=== PATIENT | female | born 1965 | race Caucasian/White ===

== ENCOUNTER → 2017-03-29 14:50 | Outpatient (CLI) | payer MEDICARE, OTHER, SELFPAY ==
--- NOTE | 2017-03-29 15:06 | XR_ITS ---
XR foot RT min 3V HISTORY: ITS.REASON: LT PERNOEAL TENDONITIS, FOOT PAIN, HX FX ORDERING PHYSICIAN: Denise Huertas DPM PATIENT AGE: 52 years COMPARISON: 04/03/2014 FINDINGS: Weightbearing views are performed. There is normal alignment No fracture or dislocation. No lytic or blastic change. There is normal mineralization.. The joint spaces are well-preserved. No significant degenerative/arthritic changes. No erosive changes evident. Mild hypertrophic changes are present dorsally at the navicular cuneiform joint. Mildly prominent calcaneal spur 9 mm. Previously noted fracture at the base of the proximal phalanx of the fifth toe is no longer apparent. IMPRESSION: 1. Calcaneal spur without obvious erosion. Mild bony hypertrophy at the navicular cuneiform junction dorsally 2. Otherwise negative
--- NOTE | 2017-03-29 15:06 | XR_ITS ---
XR foot LT min 3V HISTORY: Left foot pain ORDERING PHYSICIAN: Denise Huertas DPM PATIENT AGE: 52 years COMPARISON: 07/19/2007 FINDINGS: Weightbearing views are performed. There is normal alignment. Calcaneal spurs present at 9 mm without evidence of erosion at the spur. Enthesophyte is present at the Achilles insertion. There are bony hypertrophic changes at the neck of the talus and at the navicular cuneiform junction. No fracture or dislocation. No significant osteoarthritic change. IMPRESSION: 1. Bony hypertrophic changes including a calcaneal spur. 2. Otherwise negative
== END ==
PROVIDERS: PCP Emergency Medicine; Visit Provider Podiatrist
DX: M76.72 Peroneal tendinitis, left leg (principal)
CPT/HCPCS: 73630

== ENCOUNTER → 2017-04-17 16:43 | Outpatient (CLI) | payer MEDICARE, OTHER, SELFPAY ==
[2017-04-17 19:45] LABS: Amphetamine/Metha Screen,Urine Negative ng/mL (<1000); Barbiturates Screen,Urine Negative ng/mL (<200); Benzodiazepines Screen,Urine Negative ng/mL (200); Cannabinoid Screen,Urine Negative ng/mL (<50); Cocaine Screen,Urine Negative ng/g (<300); Methadone Screen,Urine Negative ng/mL (<300); Opiate Screen,Urine Positive ng/mL (<300); Phencyclidine Screen,Urine Negative ng/mL (<25)
[2017-04-29 23:07] LABS: Oxycodone (GC/MS) 6500 ng/mL (Cutoff=100)
[2017-04-30 02:15] LABS: Opiates Negative (Cutoff=100); Oxymorphone (GC/MS) 392 ng/mL (Cutoff=100)
== END ==
PROVIDERS: PCP Emergency Medicine; Visit Provider Anesthesiology
DX: Z79.899 Other long term (current) drug therapy (principal)
CPT/HCPCS: 80305; 80361; 80365; G0480

== ENCOUNTER → 2017-05-15 14:11 | Outpatient (POV) | payer MEDICARE, OTHER, SELFPAY ==
[2017-05-15 14:28] VITALS: BP 156/83; PULSE 78; RESP 78; TEMP 36.4; BMI 51.3
--- NOTE | 2017-05-15 15:05 | HMH.PAINSOAP ---
[facility] Pain Management SOAP Note Subjective:: This patient is a pleasant 52-year-old white female who presents today for medication refills. We are treating her for chronic pain secondary to degenerative disc disease of the lumbar spine and lumbar radiculopathy. She also has lumbar postlaminectomy syndrome and right-sided trigeminal neuralgia. Patient states that her back pain is doing better. She rates her pain a 6 out of 10 today. She states that movement increases her pain while rest decreases it. However she is having some increase in her facial pain. Patient is unable to take Lyrica due to weight gain. Patient unable to take gabapentin due to side effects. Patient is currently being medically managed with Percocet 5 mg 1 p.o. twice daily. Patient reports that this helps her pain 50-75%. Denies any side of this medicine patient also wants to discuss trigeminal neuralgia treated. Patient has been seen by Dr. Mayo in the past but has not had a recent appointment. Patient's Lissette #[id number] reviewed and appropriate. ROS General: Recent weight, no fever, no sleep disturbances Respiratory: no cough, no shortness of air, no recurring pulmonary infections Cardiovascular/Peripheral Vascular: No chest pain, No palpitations, no edema, no shortness of breath. Gastrointestinal: no incontinence, normal bowel movements reported Genitourinary: no incontinence Musculoskeletal: Back pain, bilateral leg pain Psychiatric: normal mood/ affect Neurological: [denies weakness in extremities], [denies balance issues] Objective:: Physical Exam General: Alert and oriented x3, no acute distress, pleasant and cooperative, [on room air] Lungs: Resps E/U, Symmetrical chest expansion, Eyes: PERRL Musculoskeletal: Flexion and extension of lumbar spine somewhat guarded secondary to pain, deep tendon reflexes normal, strength in upper and lower extremities [5/5], normal gait noted Neurological: speech clear, tool design draftsperson equal, no gross sensory deficits Assessment:: Degenerative disc disease of the lumbar spine, lumbar radiculopathy, lumbar postlaminectomy syndrome, right trigeminal neuralgia Plan:: We will plan on refilling the patient's Percocet 5 mg 1 p.o. twice daily. We will give her 2 prescriptions. I spoke with Dr. briceño regarding this and he has reviewed her chart and agrees. She will return to see us in 3 months. Patient's LISSETTE #[id number] reviewed and appropriate. Patient's UDS was appropriate last time. We will continue to monitor. I will also call her in SPRIX nasal spray one bottle. We will see if this helps her trigeminal neuralgia. I also stated she needed to see Dr. Mayo. Patient has been prescribed a controlled substance after being counseled on the medication, medication safety, and possible side effects. LISSETTE report has been obtained and reviewed prior to prescription and found to be appropriate. Opioid contract was reviewed and signed by the patient, and that they have agreed to all of the terms set forth by our compliance program. This note was dictated using voice recognition software and may contain errors or omissions
--- NOTE | 2017-05-15 15:10 | P.CONS_ITS ---
[facility] Pain Management SOAP Note Subjective:: This patient is a pleasant 52-year-old white female who presents today for medication refills. We are treating her for chronic pain secondary to degenerative disc disease of the lumbar spine and lumbar radiculopathy. She also has lumbar postlaminectomy syndrome and right-sided trigeminal neuralgia. Patient states that her back pain is doing better. She rates her pain a 6 out of 10 today. She states that movement increases her pain while rest decreases it. However she is having some increase in her facial pain. Patient is unable to take Lyrica due to weight gain. Patient unable to take gabapentin due to side effects. Patient is currently being medically managed with Percocet 5 mg 1 p.o. twice daily. Patient reports that this helps her pain 50-75%. Denies any side of this medicine patient also wants to discuss trigeminal neuralgia treated. Patient has been seen by Dr. Mayo in the past but has not had a recent appointment. Patient's Lissette #[id number] reviewed and appropriate. ROS General: Recent weight, no fever, no sleep disturbances Respiratory: no cough, no shortness of air, no recurring pulmonary infections Cardiovascular/Peripheral Vascular: No chest pain, No palpitations, no edema, no shortness of breath. Gastrointestinal: no incontinence, normal bowel movements reported Genitourinary: no incontinence Musculoskeletal: Back pain, bilateral leg pain Psychiatric: normal mood/ affect Neurological: [denies weakness in extremities], [denies balance issues] Objective:: Physical Exam General: Alert and oriented x3, no acute distress, pleasant and cooperative, [ on room air] Lungs: Resps E/U, Symmetrical chest expansion, Eyes: PERRL Musculoskeletal: Flexion and extension of lumbar spine somewhat guarded secondary to pain, deep tendon reflexes normal, strength in upper and lower extremities [5/5], normal gait noted Neurological: speech clear, engrosser equal, no gross sensory deficits Assessment:: Degenerative disc disease of the lumbar spine, lumbar radiculopathy, lumbar postlaminectomy syndrome, right trigeminal neuralgia Plan:: We will plan on refilling the patient's Percocet 5 mg 1 p.o. twice daily. We will give her 2 prescriptions. I spoke with Dr. briceño regarding this and he has reviewed her chart and agrees. She will return to see us in 3 months. Patient's LISSETTE #[id number] reviewed and appropriate. Patient's UDS was appropriate last time. We will continue to monitor. I will also call her in SPRIX nasal spray one bottle. We will see if this helps her trigeminal neuralgia. I also stated she needed to see Dr. Mayo. Patient has been prescribed a controlled substance after being counseled on the medication, medication safety, and possible side effects. LISSETTE report has been obtained and reviewed prior to prescription and found to be appropriate. Opioid contract was reviewed and signed by the patient, and that they have agreed to all of the terms set forth by our compliance program. This note was dictated using voice recognition software and may contain errors or omissions
--- NOTE | 2017-05-16 08:59 | PC.PHONENOTE ---
05/15/17-called in Rx for Spirx 15.75mg. 1 spray in each nare q6hprn migraine. no refills.
--- NOTE | 2017-07-20 14:21 | PC.PHONENOTE ---
07/20/17 @ 1415. Pt contacted our office to notify staff of a medication that was prescribed to her from Dr. Marychuy Meza, [facility] in [place], [place]. Pt was prescribed Percoset 10 with quantity of 18 for as needed pain relief for getting a tooth pulled. Pt verbally understood to stop taking the medication Dr. Purdy has prescribed while taking the new medication.
== END ==
PROVIDERS: Family Provider Emergency Medicine; PCP Emergency Medicine; Visit Provider Clinical Nurse Specialist Family Health
DX: M54.16 Radiculopathy, lumbar region (principal)
CPT/HCPCS: 99212

== ENCOUNTER → 2017-06-05 16:11 | Outpatient (REF) | payer MEDICARE, OTHER, SELFPAY ==
[2017-06-05 18:12] LABS: Basophils % 0.4 % (0.1-2.0); Eosinophils # 0.1 K/mm3 (0.0-0.4); Eosinophils % 1.3 % (0.1-12.0); Hematocrit 41.7 % (37.0-47.0); Hemoglobin 12.8 g/dL (12.2-16.2); Lymphocytes # 2.5 K/mm3 (0.7-4.5); Lymphocytes % 29.3 K/mm3 (10-50); Mean Corpuscular HGB Conc 30.6 g/dL (31.8-35.4); Mean Corpuscular Hemoglobin 26.5 pg (27.0-31.2); Mean Corpuscular Volume 86.5 fl (81-99); Mean Platelet Volume 8.1 fl (7.4-10.4); Monocytes # 0.7 K/mm3 (0.1-1.0); Monocytes % 7.8 % (1.7-9.3); Neutrophils # 5.2 K/mm3 (1.8-7.8); Neutrophils % 61.2 % (37.0-80.0); Platelet Count 323 K/mm3 (142-424); Red Blood Count 4.82 M/mm3 (4.20-5.40); Red Cell Distribution Width 14.6 % (11.5-17.5); White Blood Count 8.6 K/mm3 (4.8-10.8)
[2017-06-05 19:25] LABS: Alanine Aminotransferase 19 U/L (12-78); Albumin Level 3.8 gm/dL (3.4-5.0); Albumin/Globulin Ratio 1.2 (1.1-1.8); Alkaline Phosphatase 121 U/L (46-116); Anion Gap 5.1 mEq/L (5-15); Aspartate Amino Transferase 12 U/L (15-37); Bilirubin,Total 0.2 mg/dL (0.2-1.0); Blood Urea Nitrogen 8 mg/dL (7-18); Carbon Dioxide 28 mmol/L (21.0-32.0); Chloride 105 mmol/L (98-107); Creatinine,Serum 0.67 mg/dL (0.55-1.02); Estimated Glomerular Filt Rate 92 ml/min (>60); Free T4 (Free Thyroxine) 0.86 ng/dl (0.76-1.46); GFR (African American) 111 ML/MIN (>60); Globulin 3.2 gm/dl (1.3-3.2); Glucose 127 mg/dL (74-106); Potassium 4.1 mmoL/L (3.5-5.1); Sodium 134 mmol/L (136-145); Thyroid Stimulating Hormone 2.33 uIU/ml (0.358-3.740)
== END ==
LOC: LAB 16:11
PROVIDERS: Visit Provider Emergency Medicine
DX: R53.83 Other fatigue (principal); R06.02 Shortness of breath
CPT/HCPCS: 80053; 84439; 84443; 85025

== ENCOUNTER 2017-06-07 10:00 | Outpatient (RCR) | payer MEDICARE, OTHER, SELFPAY | END 2017-06-07 12:00 | disposition home or self-care (01) | LOC: PT 10:00 | PROVIDERS: Family Provider Emergency Medicine; PCP Emergency Medicine; Visit Provider Podiatrist | DX: M76.70 Peroneal tendinitis, unspecified leg (principal); M79.673 Pain in unspecified foot | CPT/HCPCS: 97033; 97035; 97110 ==

== ENCOUNTER → 2017-06-20 12:05 | Outpatient (CLI) | payer MEDICARE, OTHER, SELFPAY | PROVIDERS: PCP Emergency Medicine; Visit Provider Emergency Medicine | DX: G47.33 Obstructive sleep apnea (adult) (pediatric) (principal) | CPT/HCPCS: G0399 ==

== ENCOUNTER → 2017-07-24 09:24 | Outpatient (POV) | payer MEDICARE, OTHER, SELFPAY ==
[2017-07-24 09:53] VITALS: BP 186/74; PULSE 69; RESP 18; TEMP 36.9; O2SAT 99; BMI 51.3
--- NOTE | 2017-07-24 10:17 | HMH.PAINSOAP ---
[facility] Pain Management SOAP Note Subjective:: Patient is a pleasant 52-year-old white female who presents today for follow-up. We are treating her for chronic pain secondary to degenerative disc disease of the lumbar spine and lumbar radiculopathy. Patient is currently in a lymphedema clinic. She states that this is going well for her. Patient rates her pain today a 3 out of 10. She states that movement increases her pain while rest decreases it. Patient's been currently medically managed with Percocet 5 mg 1 p.o. twice daily. Patient states she has no side effects to the medication. She states the pain medication helps 60-75%. Patient's LISSETTE #[id number] reviewed and appropriate. ROS General: no recent weight change, no fever, no sleep disturbances Respiratory: no cough, no shortness of air, no recurring pulmonary infections Cardiovascular/Peripheral Vascular: No chest pain, No palpitations, no edema, no shortness of breath. Gastrointestinal: no incontinence, normal bowel movements reported Genitourinary: no incontinence Musculoskeletal: Back pain, bilateral leg Psychiatric: normal mood/ affect, [denies depression], [denies anxiety] Neurological: [denies weakness in extremities], [denies balance issues] Objective:: Physical Exam General: Alert and oriented x3, no acute distress, pleasant and cooperative, [on room air] Lungs: Resps E/U, Symmetrical chest expansion, Eyes: PERRL Musculoskeletal: Flexion and extension of lumbar spine somewhat guarded secondary to pain, deep tendon reflexes normal, strength in upper and lower extremities [5/5], slightly antalgic gait Neurological: speech clear, newscast director equal, no gross sensory deficits Assessment:: Degenerative disc disease of the lumbar spine with lumbar radiculopathy, lumbar postlaminectomy syndrome Plan:: We will refill the patient's Percocet 5 mg's 1 p.o. twice daily we will give her 2 months worth of prescriptions. Patient's Lissette and urine drug screen both reviewed and appropriate. Dr. Purdy has reviewed this chart and agrees with this plan of care. She will return to see us in 3 months. 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 Patient has been prescribed a controlled substance after being counseled on the medication, medication safety, and possible side effects. LISSETTE report has been obtained and reviewed prior to prescription and found to be appropriate. Opioid contract was reviewed and signed by the patient, and that they have agreed to all of the terms set forth by our compliance program. This note was dictated using voice recognition software and may contain errors or omissions
--- NOTE | 2017-07-24 10:26 | P.CONS_ITS ---
[facility] Pain Management SOAP Note Subjective:: Patient is a pleasant 52-year-old white female who presents today for follow- up. We are treating her for chronic pain secondary to degenerative disc disease of the lumbar spine and lumbar radiculopathy. Patient is currently in a lymphedema clinic. She states that this is going well for her. Patient rates her pain today a 3 out of 10. She states that movement increases her pain while rest decreases it. Patient's been currently medically managed with Percocet 5 mg 1 p.o. twice daily. Patient states she has no side effects to the medication. She states the pain medication helps 60-75%. Patient's LISSETTE #[id number] reviewed and appropriate. ROS General: no recent weight change, no fever, no sleep disturbances Respiratory: no cough, no shortness of air, no recurring pulmonary infections Cardiovascular/Peripheral Vascular: No chest pain, No palpitations, no edema, no shortness of breath. Gastrointestinal: no incontinence, normal bowel movements reported Genitourinary: no incontinence Musculoskeletal: Back pain, bilateral leg Psychiatric: normal mood/ affect, [denies depression], [denies anxiety] Neurological: [denies weakness in extremities], [denies balance issues] Objective:: Physical Exam General: Alert and oriented x3, no acute distress, pleasant and cooperative, [ on room air] Lungs: Resps E/U, Symmetrical chest expansion, Eyes: PERRL Musculoskeletal: Flexion and extension of lumbar spine somewhat guarded secondary to pain, deep tendon reflexes normal, strength in upper and lower extremities [5/5], slightly antalgic gait Neurological: speech clear, geographic information scientist equal, no gross sensory deficits Assessment:: Degenerative disc disease of the lumbar spine with lumbar radiculopathy, lumbar postlaminectomy syndrome Plan:: We will refill the patient's Percocet 5 mg's 1 p.o. twice daily we will give her 2 months worth of prescriptions. Patient's Lissette and urine drug screen both reviewed and appropriate. Dr. Purdy has reviewed this chart and agrees with this plan of care. She will return to see us in 3 months. 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 Patient has been prescribed a controlled substance after being counseled on the medication, medication safety, and possible side effects. LISSETTE report has been obtained and reviewed prior to prescription and found to be appropriate. Opioid contract was reviewed and signed by the patient, and that they have agreed to all of the terms set forth by our compliance program. This note was dictated using voice recognition software and may contain errors or omissions
== END ==
PROVIDERS: Family Provider Emergency Medicine; PCP Emergency Medicine; Visit Provider Clinical Nurse Specialist Family Health
DX: M54.16 Radiculopathy, lumbar region (principal)
CPT/HCPCS: 99212

== ENCOUNTER → 2017-08-28 11:31 | Outpatient (CLI) | payer MEDICARE, OTHER, SELFPAY ==
--- NOTE | 2017-08-28 11:37 | XR_ITS ---
XR foot wt bearing LT 3V HISTORY: Pain and swelling and bruising ITS.REASON: pain ORDERING PHYSICIAN: Richard Squires MD PATIENT AGE: 52 years COMPARISON: None FINDINGS: No fracture or dislocation. No lytic or blastic change. There is normal mineralization.. The joint spaces are well-preserved. No significant degenerative/arthritic changes. No erosive changes evident. There is a prominent calcaneal spur at 14 mm along with mild hypertrophic changes along the mid aspect of the talus posteriorly and at the navicular cuneiform junction IMPRESSION: 1. No acute finding. 2. Mild degenerative changes
[2017-08-28 12:26] LABS: Basophils % 0.3 % (0.1-2.0); Eosinophils # 0.1 K/mm3 (0.0-0.4); Eosinophils % 1.7 % (0.1-12.0); Hematocrit 38.8 % (37.0-47.0); Hemoglobin 11.8 g/dL (12.2-16.2); Lymphocytes # 1.8 K/mm3 (0.7-4.5); Lymphocytes % 25.8 K/mm3 (10-50); Mean Corpuscular HGB Conc 30.4 g/dL (31.8-35.4); Mean Corpuscular Hemoglobin 25.8 pg (27.0-31.2); Mean Corpuscular Volume 84.9 fl (81-99); Mean Platelet Volume 7.2 fl (7.4-10.4); Monocytes # 0.5 K/mm3 (0.1-1.0); Monocytes % 7.3 % (1.7-9.3); Neutrophils # 4.6 K/mm3 (1.8-7.8); Platelet Count 275 K/mm3 (142-424); Red Blood Count 4.56 M/mm3 (4.20-5.40); Red Cell Distribution Width 14.9 % (11.5-17.5)
[2017-08-28 15:22] LABS: Anion Gap 13.4 mEq/L (5-15); Blood Urea Nitrogen 7 mg/dL (7-18); Calcium 8.9 mg/dL (8.5-10.1); Carbon Dioxide 29 mmol/L (21.0-32.0); Chloride 106 mmol/L (98-107); Creatinine,Serum 0.66 mg/dL (0.55-1.02); Estimated Glomerular Filt Rate 94 ml/min (>60); GFR (African American) 113 ML/MIN (>60); Glucose 101 mg/dL (74-106); Potassium 4.4 mmoL/L (3.5-5.1); Sodium 144 mmol/L (136-145)
== END ==
PROVIDERS: PCP Emergency Medicine; Referring Provider Surgery; Visit Provider Surgery
DX: Z01.818 Encounter for other preprocedural examination (principal); Z86.010 Personal history of colon polyps; Z80.0 Family history of malignant neoplasm of digestive organs
CPT/HCPCS: 36415; 73630; 80048; 85025

== ENCOUNTER 2017-09-10 11:00 | Outpatient (RCR) | payer MEDICARE, OTHER, SELFPAY ==
--- NOTE | 2017-07-05 10:51 | HMH.PTOPWND ---
Rehab Outpt Wound Evaluation Rehab OP Wound Evaluation Start: 07/05/17 10:45 Freq: Status: Active Protocol: Document 07/05/17 10:46 TRA (Rec: 07/05/17 10:51 PHOTONYA [id number]) Electronically Signed By Rush Zurita, PT 07/05/17 10:46 Subjective/History History History Pt presents with c/o left LE edema x ~ 2 mos, now beginning in thr right LE, with insidious greadual onset of symptoms. She reports pain with increased edema, but no numbness. 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 She reports hx of HTN, Sleep Apnea, Asthma, Trigeminal neuralgia, and gastric bypass. Lymphedema Eval Classification of Lymphedema Secondary Lymphedema Yes Stemmer's sign Stemmer's Sign no Stage of Lymphedema Lymphedema stages Stage I (Pitting edema, reduces w/ elevation, no fibrosis) Skin Changes Dry Skin Yes Pain Scale Pain Scale (0-10) 8 Affected Extremities Areas Affected by Lymphedema/Edema Right Lower Extremity Left Lower Extremity Manual Lymphatic Drainage Treatment Area MLD Treatment Area Right Lower Extremity Left Lower Extremity Wound Problems/Impairments Impairments Problems/Impairmments Palpation Tenderness Impaired Walking Increased Edema Lymphedema Present Subjective C/O Pain Impaired Self Care/Self Management Prognosis Rehab Potential Good Clinical Impression Consistent with Diagnosis Yes Short Term Goals Number of Weeks 4 Decreased Palpation Tenderness Yes: to min Decrease Subjective C/O Pain Yes: 6/10 Patient to Understand Lymphedema Yes Treatment and Exercises Decrease Girth Measurments by (cm) Yes: by 5 cm Senior Living Goals Number of Weeks 8 Decreased Palpation Tenderness Yes: to none Decrease Subjective C/O Pain Yes: 3/10 Patient to be Ind w/ HEP Yes Patient to Adhere Lymphedema Precautions Yes Decrease Girth Measurments by (cm) Yes: by 15 cm Outpatient Therapy Plan of Care Treatment Plan May Include Therapeutic Exercise Including Home Yes Exerci
--- NOTE | 2017-09-20 10:24 | PC.NURSE ---
FLEXERIL 10MG TID CALLED INTO SOPERS WITH 3 REFILLS
== END 2017-09-10 11:01 | disposition home or self-care (01) ==
LOC: PT 11:00
PROVIDERS: Family Provider Emergency Medicine; PCP Emergency Medicine; Visit Provider Podiatrist
DX: R60.0 Localized edema (principal)
CPT/HCPCS: 97110; 97140; 97162; 97760

== ENCOUNTER → 2017-09-28 13:14 | Outpatient (CLI) | payer MEDICARE, OTHER, SELFPAY ==
[2017-09-28 15:51] LABS: Amphetamine/Metha Screen,Urine Negative ng/mL (<1000); Barbiturates Screen,Urine Negative ng/mL (<200); Benzodiazepines Screen,Urine Negative ng/mL (<200); Cannabinoid Screen,Urine Negative ng/mL (<50); Cocaine Screen,Urine Negative ng/mL (<300); Methadone Screen,Urine Negative ng/mL (<300); Opiate Screen,Urine Negative ng/mL (<300); Phencyclidine Screen,Urine Negative ng/mL (<25)
== END ==
PROVIDERS: Visit Provider Anesthesiology
DX: Z79.899 Other long term (current) drug therapy (principal)
CPT/HCPCS: 80305; 80361; 80365; G0480

== ENCOUNTER → 2017-10-03 10:56 | Outpatient (CLI) | payer MEDICARE, OTHER, SELFPAY ==
--- NOTE | 2017-10-03 11:03 | XR_ITS ---
XR chest 2V HISTORY: ITS.REASON: LUNG MASS ORDERING PHYSICIAN: Angel Hancock PATIENT AGE: 52 years COMPARISON: CT scan of chest 05/01/2016 FINDINGS: The cardiomediastinal silhouette and pulmonary vascularity are within normal limits. The lungs are clear without infiltrates, suspicious nodules, or pleural effusions. No acute bony abnormalities. There is a tiny nodular density within the lingula probably representing a nodule seen on the CT scan 05/01/2016 the lung daigle are otherwise clear. There is multilevel degenerative changes of the thoracic spine. 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
== END ==
PROVIDERS: PCP Emergency Medicine; Visit Provider Allergy & Immunology
DX: R09.89 Other specified symptoms and signs involving the circulatory and respiratory systems (principal)
CPT/HCPCS: 71046

== ENCOUNTER → 2017-10-22 09:45 | Outpatient (POV) | payer MEDICARE, OTHER, SELFPAY ==
[2017-10-22 10:24] VITALS: BP 150/65; PULSE 82; RESP 18; O2SAT 98; BMI 51.2
--- NOTE | 2017-10-22 12:34 | HMH.PAINSOAP ---
[facility] Pain Management SOAP Note Subjective:: Patient is a pleasant 52-year-old white female who presents today for follow-up. We are treating her for chronic pain secondary to degenerative disc disease of lumbar spine and lumbar radiculopathy. Patient has finished with her lymphedema clinic as an is doing much better rates her pain a 4 out of 10 today. Mostly in her low back. Patient's currently being medically managed with Percocet 5 mg 1 p.o. twice daily. She denies side effects or medication she states that it helps up to 75%. Patient's LISSETTE #[id number] reviewed and appropriate. Patient's UDS has been appropriate in the past. ROS General: no recent weight change, no fever, no sleep disturbances Respiratory: no cough, no shortness of air, no recurring pulmonary infections Cardiovascular/Peripheral Vascular: No chest pain, No palpitations, no edema, no shortness of breath. Gastrointestinal: no incontinence, normal bowel movements reported Genitourinary: no incontinence Musculoskeletal: Back pain, leg pain Psychiatric: normal mood/ affect Neurological: [denies weakness in extremities], [denies balance issues] Objective:: Physical Exam General: Alert and oriented x3, no acute distress, pleasant and cooperative, on room air Lungs: Resps E/U, Symmetrical chest expansion, Eyes: PERRL Musculoskeletal: Flexion and extension of lumbar spine somewhat guarded secondary to pain, deep tendon reflexes normal, strength in upper and lower extremities [5/5], antalgic gait noted Neurological: speech clear, director special education equal, no gross sensory deficits Assessment:: Degenerative disc disease of lumbar spine with lumbar radiculopathy. Plan:: We will refill the patient's medication Percocet 5 mg 1 p.o. twice daily and give HER-2 months worth of prescriptions. Patient's Lissette and urine drug screen both reviewed and appropriate Dr. Purdy is reviewed this chart and agrees with this plan of care. She will return to see us in 3 months. She can brain picker her third month in the interim. Patient has been prescribed a controlled substance after being counseled on the medication, medication safety, and possible side effects. LISSETTE report has been obtained and reviewed prior to prescription and found to be appropriate. Opioid contract was reviewed and signed by the patient, and that they have agreed to all of the terms set forth by our compliance program. This note was dictated using voice recognition software and may contain errors or omissions
--- NOTE | 2017-10-22 12:38 | P.CONS_ITS ---
[facility] Pain Management SOAP Note Subjective:: Patient is a pleasant 52-year-old white female who presents today for follow- up. We are treating her for chronic pain secondary to degenerative disc disease of lumbar spine and lumbar radiculopathy. Patient has finished with her lymphedema clinic as an is doing much better rates her pain a 4 out of 10 today. Mostly in her low back. Patient's currently being medically managed with Percocet 5 mg 1 p.o. twice daily. She denies side effects or medication she states that it helps up to 75%. Patient's LISSETTE #[id number] reviewed and appropriate. Patient's UDS has been appropriate in the past. ROS General: no recent weight change, no fever, no sleep disturbances Respiratory: no cough, no shortness of air, no recurring pulmonary infections Cardiovascular/Peripheral Vascular: No chest pain, No palpitations, no edema, no shortness of breath. Gastrointestinal: no incontinence, normal bowel movements reported Genitourinary: no incontinence Musculoskeletal: Back pain, leg pain Psychiatric: normal mood/ affect Neurological: [denies weakness in extremities], [denies balance issues] Objective:: Physical Exam General: Alert and oriented x3, no acute distress, pleasant and cooperative, on room air Lungs: Resps E/U, Symmetrical chest expansion, Eyes: PERRL Musculoskeletal: Flexion and extension of lumbar spine somewhat guarded secondary to pain, deep tendon reflexes normal, strength in upper and lower extremities [5/5], antalgic gait noted Neurological: speech clear, contact manager equal, no gross sensory deficits Assessment:: Degenerative disc disease of lumbar spine with lumbar radiculopathy. Plan:: We will refill the patient's medication Percocet 5 mg 1 p.o. twice daily and give HER-2 months worth of prescriptions. Patient's Lissette and urine drug screen both reviewed and appropriate Dr. Purdy is reviewed this chart and agrees with this plan of care. She will return to see us in 3 months. 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 Patient has been prescribed a controlled substance after being counseled on the medication, medication safety, and possible side effects. LISSETTE report has been obtained and reviewed prior to prescription and found to be appropriate. Opioid contract was reviewed and signed by the patient, and that they have agreed to all of the terms set forth by our compliance program. This note was dictated using voice recognition software and may contain errors or omissions
== END ==
PROVIDERS: Family Provider Emergency Medicine; PCP Emergency Medicine; Visit Provider Clinical Nurse Specialist Family Health
DX: M54.16 Radiculopathy, lumbar region (principal)
CPT/HCPCS: 99212

== ENCOUNTER → 2017-12-11 08:04 | Outpatient (CLI) | payer MEDICARE, OTHER, SELFPAY ==
--- NOTE | 2017-12-11 08:07 | XR_ITS ---
XR shoulder RT min 2V HISTORY: ITS.REASON: pain ORDERING PHYSICIAN: Iliana Rod PATIENT AGE: 52 years Comparison: None FINDINGS: There are hypertrophic changes of the acromioclavicular joint with with postsurgical changes at the AC joint with suspected prior acromioclavicular osteotomy. Subacromial stenosis is present at 4 mm which may result in impingement symptomatology. There are mild osteoarthritic changes of the glenohumeral joint. No fracture or dislocation. No lytic or blastic change. IMPRESSION: Osteoarthritis of the glenohumeral joint with subacromial stenosis and hypertrophic change of the AC joint with prior surgery of the AC joint
== END ==
PROVIDERS: PCP Emergency Medicine; Visit Provider Nurse Practitioner Family
DX: M25.511 Pain in right shoulder (principal)
CPT/HCPCS: 73030

== ENCOUNTER → 2018-01-02 14:20 | Outpatient (CLI) | payer MEDICARE, OTHER, SELFPAY ==
--- NOTE | 2018-01-02 14:22 | MR_ITS ---
MR shoulder RT wo con Ordering Physician: Rm Altamirano MD Patient Age: 53 years: Female HISTORY: ITS.REASON: evaluate rotator cuff tear Prior surgery right shoulder 6 years ago for torn rotator cuff. Now again shoulder pain with chest pain. Shoulder blade pain. Pain with raising arm above head TECHNIQUE: Multiplanar multisequence imaging 1.5 the MRI. COMPARISON :Plain films right shoulder 12/11/2017 FINDINGS Postsurgical changes are evident with a screw seen entering just at the superior margin of the greater tuberosity from previous RCT repair. Other than a recurrent tear at the supraspinatus in this region probable generous tendon retraction. There appears to be some superior migration humeral head with narrowing of subacromial space of 4.5 mm there is some and cavity at the inferior acromion suggesting developing developing articulation a pseudarthrosis with humeral head at the inferior acromion. It Full-thickness rotator cuff tear at supraspinatus tendon and with associated tendon retraction..I believe there is also relative atrophy at the supraspinatus muscle suggesting long-standing supraspinatus tear. There is fluid at the subdeltoid subacromial bursa. Reflecting this full-thickness tear The biceps tendon poorly seen as it passes over the humeral head where at I cannot confirm it remains intact. The biceps tendon is seen surrounded by some minimal fluid at the bicipital groove.. With questionable split tear at this level below the bicipital groove infraspinatus tendon tendinopathy and insertional tear Suspect undersurface & likely focal full-thickness tear at infraspinatus tendon insertion, noting increased fluid here at infraspinatus insertion on coronal 4-, 6.... As well as corresponding axial image 12. Infraspinatus insertion erosion & humeral head... Also note abnormal fluid signal tracking along the infraspinatus tendon on studies the sagittal images-sagittal slice 12. Suggestion minor atrophy at the infraspinatus muscle Inferior to the infraspinatus there is prominent muscle. Atrophy at the Teres Minor. Requires correlation. Possibly reflecting old tear here at insertion? No increased signal of the innervation. There is increased bone signal at the teres minor insertion either reflecting which I believe reflect insertional erosions extending inferior from infraspinatus insertion region. AC joint arthropathy. There is some hypertrophy most evident about the superior margin of the distal clavicle. Perhaps slight inferior offset of acromion relative to the distal clavicle, with slight widening at this joint on recent plain film . There is increased Fluid is seen interposed at the AC joint- in part related tracking upward from the subdeltoid subacromial fluid IMPRESSION...... 1. Previous rotator cuff repair 2... Generous recurrent full-thickness Supraspinatus Tendon Tear, with retraction at supraspinatus tendon. Atrophy supraspinatus muscle reflects long-standing tear 3. Narrowing subacromial space.. Superior migration of humeral due to supraspinatus/rotator cuff tear. Change in contour inferior acromion suggests the humeral head is beginning to articulate here.-These features reflect long-standing RCT., As does atrophy of supraspinatus muscle 3.. Smaller full-thickness Infraspinatus Tendon Tear near infraspinatus insertion.. Mild atrophy infraspinatus muscle 4.. Prominent Teres Minor muscle atrophy I believe present-. Curious additional feature . 5. Joint effusion. Increased fluid throughout subdeltoid subacromial bursa-this reflects rotator cuff tear 6. Biceps tendon poorly seen and difficult to follow above humeral head.. Biceps tendon tear or prominent tendinopathy 7. AC joint arthropathy, again noted
== END ==
PROVIDERS: Family Provider Emergency Medicine; PCP Emergency Medicine; Visit Provider Orthopaedic Surgery
DX: M25.511 Pain in right shoulder (principal)
CPT/HCPCS: 73221

== ENCOUNTER → 2018-01-21 09:27 | Outpatient (POV) | payer MEDICARE, OTHER, SELFPAY ==
[2018-01-21 10:15] VITALS: BP 167/69; PULSE 62; RESP 18; O2SAT 97; BMI 49.6
--- NOTE | 2018-01-21 10:25 | P.CONS_ITS ---
[facility] Pain Management SOAP Note Subjective:: Patient is a pleasant 53-year-old white female who presents today for follow-up. We are treating for chronic pain secondary to degenerative disc disease lumbar spine with lumbar radiculopathy. Patient also has a complete tear of her right rotator cuff along with other multiple issues in her right shoulder. Patient is being sent to a shoulder specialist. I am reviewing the imaging. Patient states this is where the majority of her pain is. She rates her pain a 8 out of 10. Patient is on Percocet 5 mg 1 p.o. twice daily however she states it is not helping her at this time. LISSETTE #[id number] reviewed and appropriate. ROS General: no recent weight change, no fever, no sleep disturbances Respiratory: no cough, no shortness of air, no recurring pulmonary infections Cardiovascular/Peripheral Vascular: No chest pain, No palpitations, no edema, no shortness of breath. Gastrointestinal: no incontinence, normal bowel movements reported Genitourinary: no incontinence Musculoskeletal: Right shoulder pain, back pain Psychiatric: normal mood/ affect Neurological: [denies weakness in extremities], [denies balance issues] Objective:: Physical Exam General: Alert and oriented x3, no acute distress, pleasant and cooperative, [on room air] Lungs: Resps E/U, Symmetrical chest expansion Eyes: PERRL Musculoskeletal: Flexion and extension of lumbar spine somewhat guarded secondary to pain, deep tendon reflexes normal, strength in upper and lower extremities [5/5], [abnormal gait noted], limited range of motion right shoulder Neurological: speech clear, sugar cane planting equipment operator equal, no gross sensory deficits Assessment:: Degenerative disc disease lumbar spine with lumbar radiculopathy, right shoulder pain, right rotator cuff tear Plan:: We will increase her Percocet to 10 mg twice daily. We will see her back in a month to see if this is been helpful. Patient will call our office if she has any issues prior to her next appointment. UDS has been appropriate in the past. Patient's LISSETTE reviewed. Dr. Purdy has reviewed this chart and agrees with this plan of care. Patient has been prescribed a controlled substance after being counseled on the medication, medication safety, and possible side effects. LISSETTE report has been obtained and reviewed prior to prescription and found to be appropriate. Opioid contract was reviewed and signed by the patient, and that they have agreed to all of the terms set forth by our compliance program. This note was dictated using voice recognition software and may contain errors or omissions
[2018-01-21 10:32] LABS: Amphetamine/Metha Screen,Urine Negative ng/mL (<1000); Barbiturates Screen,Urine Negative ng/mL (<200); Benzodiazepines Screen,Urine Negative ng/mL (<200); Cannabinoid Screen,Urine Negative ng/mL (<50); Cocaine Screen,Urine Negative ng/mL (<300); Methadone Screen,Urine Negative ng/mL (<300); Opiate Screen,Urine Negative ng/mL (<300); Phencyclidine Screen,Urine Negative ng/mL (<25)
[2018-01-26 12:13] LABS: Opiates Negative (Cutoff=100)
== END ==
PROVIDERS: PCP Emergency Medicine; Visit Provider Clinical Nurse Specialist Family Health
DX: M51.16 Intervertebral disc disorders with radiculopathy, lumbar region (principal); M75.101 Unspecified rotator cuff tear or rupture of right shoulder, not specified as traumatic; Z79.899 Other long term (current) drug therapy
CPT/HCPCS: 80305; 80361; 80365; 99213; G0480

== ENCOUNTER → 2018-02-18 08:52 | Outpatient (POV) | payer MEDICARE, OTHER, SELFPAY ==
[2018-02-18 09:38] VITALS: BP 196/72; PULSE 90; RESP 18; O2SAT 98; BMI 51.2
--- NOTE | 2018-02-18 10:43 | P.CONS_ITS ---
[facility] Pain Management SOAP Note Subjective:: Patient is a pleasant 53-year-old white female who presents today for medication refills. We are treating her for pain secondary to degenerative disc disease lumbar spine with lumbar radiculopathy. Patient has had a total tear in her right rotator cuff and had surgery in the several years ago however she has been having issues with this. She is recently seen her shoulder specialist. Patient may be going back in for surgery. Patient rates her pain today a 7 out of 10 mostly in that shoulder. Patient is currently on Percocet 10 mg 1 p.o. twice daily. She states that this is beneficial. Patient's LISSETTE #[id number] reviewed and appropriate. ROS General: no recent weight change, no fever, no sleep disturbances Respiratory: no cough, no shortness of air, no recurring pulmonary infections Cardiovascular/Peripheral Vascular: No chest pain, No palpitations, no edema, no shortness of breath. Gastrointestinal: no incontinence, normal bowel movements reported Genitourinary: no incontinence Musculoskeletal: Right shoulder pain, back pain Psychiatric: normal mood/ affect, Neurological: [denies weakness in extremities], [denies balance issues] Objective:: Physical Exam General: Alert and oriented x3, no acute distress, pleasant and cooperative, [on room air] Lungs: Resps E/U, Symmetrical chest expansion, Eyes: PERRL Musculoskeletal: Flexion and extension of lumbar spine somewhat guarded secondary to pain, deep tendon reflexes normal, strength in upper and lower extremities [5/5], slightly antalgic gait noted Neurological: speech clear, commercial pest control representative equal, no gross sensory deficits Assessment:: Degenerative disc disease lumbar spine with lumbar radiculopathy, right rotator cuff tear Plan:: We will refill her Percocet 10 mg 1 p.o. twice daily and give her 2 months worth. I will follow-up with the patient in 3 months and reassess her at that time. Patient can continue with her shoulder surgeon. Patient states that she understands that she needs to call us if she is prescribed any controlled substances. Patient has been reviewed and appropriate. Dr. Purdy has reviewed this chart and agrees with this plan of care. Patient has been prescribed a controlled substance after being counseled on the medication, medication safety, and possible side effects. LISSETET report has been obtained and reviewed prior to prescription and found to be appropriate. Opioid contract was reviewed and signed by the patient, and that they have agreed to all of the terms set forth by our compliance program. This note was dictated using voice recognition software and may contain errors or omissions
== END ==
PROVIDERS: PCP Emergency Medicine; Visit Provider Clinical Nurse Specialist Family Health
DX: M51.16 Intervertebral disc disorders with radiculopathy, lumbar region (principal); M75.101 Unspecified rotator cuff tear or rupture of right shoulder, not specified as traumatic
CPT/HCPCS: 99213

== ENCOUNTER → 2018-03-14 14:19 | Outpatient (CLI) | payer MEDICARE, OTHER, SELFPAY ==
[2018-03-14 14:53] LABS: Amphetamine/Metha Screen,Urine Negative ng/mL (<1000); Barbiturates Screen,Urine Negative ng/mL (<200); Benzodiazepines Screen,Urine Negative ng/mL (<200); Cannabinoid Screen,Urine Negative ng/mL (<50); Cocaine Screen,Urine Negative ng/mL (<300); Methadone Screen,Urine Negative ng/mL (<300); Opiate Screen,Urine Negative ng/mL (<300); Phencyclidine Screen,Urine Negative ng/mL (<25)
[2018-03-20 13:13] LABS: Oxycodone (GC/MS) 475 ng/mL (Cutoff=100)
[2018-03-20 16:19] LABS: Opiates Negative (Cutoff=100); Oxymorphone (GC/MS) 231 ng/mL (Cutoff=100)
== END ==
PROVIDERS: Visit Provider Anesthesiology
DX: Z79.899 Other long term (current) drug therapy (principal)
CPT/HCPCS: 80305; 80361; 80365; G0480

== ENCOUNTER → 2018-04-22 09:53 | Outpatient (POV) | payer MEDICARE, OTHER, SELFPAY ==
[2018-04-22 10:32] VITALS: BP 176/84; PULSE 90; RESP 18; O2SAT 99; BMI 51.2
--- NOTE | 2018-04-22 12:21 | HMH.PAINSOAP ---
[facility] Pain Management SOAP Note Subjective:: Patient is a pleasant 53-year-old white female who presents today for medication refills. We are treating her for pain secondary to degenerative disc disease lumbar spine with lumbar radiculopathy. She has had a total tear in her right rotator cuff and she is having surgery on the of this month. Patient's SI joints are bothering her at this time however she would like to complete her surgery prior to assessing this. Patient is currently on Percocet 10 mg 1 p.o. twice daily. She rates her pain a 7 out of 10 mostly in her shoulder. Patient denies side effects or medication LISSETTE reviewed and appropriate. Patient understands that if she gets medication post surgery that she needs to call in and let the office know. ROS General: no recent weight change, no fever, no sleep disturbances Respiratory: no cough, no shortness of air, no recurring pulmonary infections Cardiovascular/Peripheral Vascular: No chest pain, No palpitations, no edema, no shortness of breath. Gastrointestinal: no incontinence, normal bowel movements reported Genitourinary: no incontinence Musculoskeletal: Back pain, shoulder pain Psychiatric: normal mood/ affect Neurological: [denies weakness in extremities], [denies balance issues] Objective:: Physical Exam General: Alert and oriented x3, no acute distress, pleasant and cooperative, [on room air] Lungs: Resps E/U, Symmetrical chest expansion, Eyes: PERRL Musculoskeletal: Flexion and extension of lumbar spine somewhat guarded secondary to pain, deep tendon reflexes normal, strength in upper and lower extremities [5/5], [abnormal gait noted] Neurological: speech clear, tunnel kiln operator equal, no gross sensory deficits Assessment:: Degenerative disc disease lumbar spine with lumbar radiculopathy Plan:: We will refill the patient's Percocet 10 mg 1 p.o. twice daily and give her 1 month worth. We will see her back in 1 month and assess her SI joint at that time. Patient has been instructed to call the office if she has any issues prior to her next appointment. Patient has been prescribed a controlled substance after being counseled on the medication, medication safety, and possible side effects. LISSETTE report has been obtained and reviewed prior to prescription and found to be appropriate. Opioid contract was reviewed and signed by the patient, and that they have agreed to all of the terms set forth by our compliance program. Dr. Purdy has reviewed this note and agrees with this plan of care. This note was dictated using voice recognition software and may contain errors or omissions
== END ==
PROVIDERS: PCP Emergency Medicine; Visit Provider Clinical Nurse Specialist Family Health
DX: M51.16 Intervertebral disc disorders with radiculopathy, lumbar region (principal)
CPT/HCPCS: 99213

== ENCOUNTER → 2018-04-26 08:00 | Outpatient (CLI) | payer MEDICARE, OTHER, SELFPAY ==
[2018-04-26 14:01] LABS: Alanine Aminotransferase 19 U/L (12-78); Albumin Level 3.7 gm/dL (3.4-5.0); Albumin/Globulin Ratio 1.2 (1.1-1.8); Alkaline Phosphatase 141 U/L (46-116); Aspartate Amino Transferase 10 U/L (15-37); Bilirubin,Total 0.3 mg/dL (0.2-1.0); Blood Urea Nitrogen 10 mg/dL (7-18); Carbamazepine (Tegretol) 3.7 ug/ml (4.0-12.0); Carbon Dioxide 30 mmol/L (21.0-32.0); Chloride 103 mmol/L (98-107); Creatinine,Serum 0.67 mg/dL (0.55-1.02); Estimated Glomerular Filt Rate 92 ml/min (>60); GFR (African American) 111 ML/MIN (>60); Globulin 3.1 gm/dl (1.3-3.2); Glucose 107 mg/dL (74-106); Sodium 142 mmol/L (136-145); Total Protein,Serum 6.8 gm/dL (6.4-8.2)
[2018-04-26 14:27] LABS: Basophils % 0.3 % (0.1-2.0); Eosinophils # 0.1 K/mm3 (0.0-0.4); Eosinophils % 1.8 % (0.1-12.0); Hematocrit 39.1 % (37.0-47.0); Hemoglobin 12.2 g/dL (12.2-16.2); Lymphocytes # 1.8 K/mm3 (0.7-4.5); Lymphocytes % 29.9 % (10-50); Mean Corpuscular HGB Conc 31.3 g/dL (31.8-35.4); Mean Corpuscular Hemoglobin 26.6 pg (27.0-31.2); Mean Corpuscular Volume 84.9 fl (81-99); Mean Platelet Volume 7.5 fl (7.4-10.4); Monocytes # 0.5 K/mm3 (0.1-1.0); Monocytes % 7.9 % (1.7-9.3); Neutrophils # 3.5 K/mm3 (1.8-7.8); Neutrophils % 60.1 % (37.0-80.0); Platelet Count 286 K/mm3 (142-424); Red Cell Distribution Width 14.6 % (11.5-17.5); White Blood Count 5.9 K/mm3 (4.8-10.8)
== END ==
PROVIDERS: PCP Emergency Medicine; Visit Provider Specialist
DX: G50.0 Trigeminal neuralgia (principal)
CPT/HCPCS: 36415; 80053; 80156; 85025

== ENCOUNTER → 2018-05-20 11:17 | Outpatient (POV) | payer MEDICARE, OTHER, SELFPAY ==
--- NOTE | 2018-05-20 11:39 | HMH.PAINSOAP ---
[facility] Pain Management SOAP Note Subjective:: Patient is a pleasant 53-year-old white female who presents today for follow-up. Patient is currently recovering from her right shoulder surgery. She is doing quite well and is already started physical therapy. She rates her pain today a 6 out of 10. Patient is currently on Percocet 10 mg 1 p.o. twice daily. She is being treated for pain secondary to degenerative disc disease lumbar spine with lumbar radiculopathy. She denies side effects to the medication. Patient's LISSETTE reviewed and appropriate. ROS General: no recent weight change, no fever, no sleep disturbances Respiratory: no cough, no shortness of air, no recurring pulmonary infections Cardiovascular/Peripheral Vascular: No chest pain, No palpitations, no edema, no shortness of breath. Gastrointestinal: no incontinence, normal bowel movements reported Genitourinary: no incontinence Musculoskeletal: Back pain, shoulder pain Psychiatric: normal mood/ affect Neurological: [denies weakness in extremities], [denies balance issues] Objective:: Physical Exam General: Alert and oriented x3, no acute distress, pleasant and cooperative, [on room air] Lungs: Resps E/U, Symmetrical chest expansion, Eyes: PERRL Musculoskeletal: Flexion and extension of lumbar spine somewhat guarded secondary to pain, deep tendon reflexes normal, strength in upper and lower extremities [5/5], slightly antalgic gait noted Neurological: speech clear, carpenter assembler equal, no gross sensory deficits Assessment:: Degenerative disc disease lumbar spine with lumbar radiculopathy and right shoulder pain Plan:: We will refill the patient's Percocet 10 mg 1 p.o. twice daily and give her 2 months worth. We will see her back in 3 months reassess her symptoms at that time. Patient can fill her third month in the interim. Patient's been instructed to call the office if she has any issues prior to her next appointment. Dr. Purdy has reviewed this note and agrees with this plan of care. This note was dictated using voice recognition software and may contain errors or omissions
--- NOTE | 2018-05-20 11:42 | P.CONS_ITS ---
[facility] Pain Management SOAP Note Subjective:: Patient is a pleasant 53-year-old white female who presents today for follow-up. Patient is currently recovering from her right shoulder surgery. She is doing quite well and is already started physical therapy. She rates her pain today a 6 out of 10. Patient is currently on Percocet 10 mg 1 p.o. twice daily. She is being treated for pain secondary to degenerative disc disease lumbar spine with lumbar radiculopathy. She denies side effects to the medication. Patient's LISSETTE reviewed and appropriate. ROS General: no recent weight change, no fever, no sleep disturbances Respiratory: no cough, no shortness of air, no recurring pulmonary infections Cardiovascular/Peripheral Vascular: No chest pain, No palpitations, no edema, no shortness of breath. Gastrointestinal: no incontinence, normal bowel movements reported Genitourinary: no incontinence Musculoskeletal: Back pain, shoulder pain Psychiatric: normal mood/ affect Neurological: [denies weakness in extremities], [denies balance issues] Objective:: Physical Exam General: Alert and oriented x3, no acute distress, pleasant and cooperative, [on room air] Lungs: Resps E/U, Symmetrical chest expansion, Eyes: PERRL Musculoskeletal: Flexion and extension of lumbar spine somewhat guarded sec ondary to pain, deep tendon reflexes normal, strength in upper and lower extremities [5/5], slightly antalgic gait noted Neurological: speech clear, chemical packager equal, no gross sensory deficits Assessment:: Degenerative disc disease lumbar spine with lumbar radiculopathy and right shoulder pain Plan:: We will refill the patient's Percocet 10 mg 1 p.o. twice daily and give her 2 months worth. We will see her back in 3 months reassess her symptoms at that time. Patient can fill her third month in the interim. Patient's been instructed to call the office if she has any issues prior to her next appointment. Dr. Purdy has reviewed this note and agrees with this plan of care. This note was dictated using voice recognition software and may contain errors or omissions
[2018-05-20 11:57] VITALS: BP 152/87; PULSE 89; RESP 18; O2SAT 99; BMI 51.0
== END ==
PROVIDERS: PCP Emergency Medicine; Visit Provider Clinical Nurse Specialist Family Health
DX: M51.16 Intervertebral disc disorders with radiculopathy, lumbar region (principal); M25.511 Pain in right shoulder
CPT/HCPCS: 99213

== ENCOUNTER → 2018-05-27 14:16 | Outpatient (POV) | payer MEDICARE, OTHER, SELFPAY | PROVIDERS: Visit Provider Nurse Practitioner Acute Care | DX: Z00.00 Encounter for general adult medical examination without abnormal findings (principal) ==

== ENCOUNTER 2018-06-25 08:30 | Outpatient (RCR) | payer MEDICARE, OTHER, SELFPAY | END 2018-07-24 16:31 | disposition home or self-care (01) | LOC: PT 08:30 | PROVIDERS: Visit Provider Orthopaedic Surgery | DX: M75.01 Adhesive capsulitis of right shoulder (principal) | CPT/HCPCS: 97014; 97110; 97140; 97163; 97164; G0283 ==

== ENCOUNTER → 2018-08-13 09:49 | Outpatient (POV) | payer MEDICARE, OTHER, SELFPAY ==
--- NOTE | 2018-08-13 10:06 | HMH.PAINSOAP ---
[facility] Pain Management SOAP Note Subjective:: Patient is a pleasant 53-year-old female who presents today for follow. She reports that she has pretty much recovered from her right shoulder surgery. She did have physical therapy after the procedure. She rates her pain a 5 out of 10 today. Patient is being treated for pain secondary to degenerative disc disease lumbar spine with lumbar radiculopathy. She denies any effects to medications. Patient's LISSETTE reviewed and appropriate. ROS General: no recent weight change, no fever, no sleep disturbances Respiratory: no cough, no shortness of air, no recurring pulmonary infections Cardiovascular/Peripheral Vascular: No chest pain, No palpitations, no edema, no shortness of breath. Gastrointestinal: no incontinence, normal bowel movements reported Genitourinary: no incontinence Musculoskeletal: Back pain, shoulder pain Psychiatric: normal mood/ affect, [denies depression], [denies anxiety] Neurological: [denies weakness in extremities], [denies balance issues] Objective:: Physical Exam General: Alert and oriented x3, no acute distress, pleasant and cooperative, [on room air] Lungs: Resps E/U, Symmetrical chest expansion, Eyes: PERRL Musculoskeletal: Flexion and extension of lumbar spine somewhat guarded secondary to pain, deep tendon reflexes normal, strength in upper and lower extremities [5/5], slightly antalgic gait noted Neurological: speech clear, traffic technician equal, no gross sensory deficits Assessment:: Degenerative disc disease lumbar spine with lumbar radiculopathy right shoulder pain Plan:: We will refill the patient's Percocet 10 mg 1 p.o. twice daily and give her 2 months worth. See her back in 3 months and reassess her symptoms at that time. She can cigar packer and picker her third month in the interim. We will also refill her Flexeril 10 mg 1 p.o. 3 times a day. She is been instructed to call the office if she has any issues prior to the next visit. Patient has been prescribed a controlled substance after being counseled on the medication, medication safety, and possible side effects. LISSETTE report has been obtained and reviewed prior to prescription and found to be appropriate. Opioid contract was reviewed and signed by the patient, and that they have agreed to all of the terms set forth by our compliance program. Dr. Purdy has reviewed this note and agrees with this plan of care. This note was dictated using voice recognition software and may contain errors or omissions
[2018-08-13 10:07] VITALS: BP 158/71; PULSE 84; RESP 18; O2SAT 98; BMI 51.5
--- NOTE | 2018-08-13 10:09 | P.CONS_ITS ---
[facility] Pain Management SOAP Note Subjective:: Patient is a pleasant 53-year-old female who presents today for follow. She reports that she has pretty much recovered from her right shoulder surgery. She did have physical therapy after the procedure. She rates her pain a 5 out of 10 today. Patient is being treated for pain secondary to degenerative disc disease lumbar spine with lumbar radiculopathy. She denies any effects to medications. Patient's LISSETTE reviewed and appropriate. ROS General: no recent weight change, no fever, no sleep disturbances Respiratory: no cough, no shortness of air, no recurring pulmonary infections Cardiovascular/Peripheral Vascular: No chest pain, No palpitations, no edema, no shortness of breath. Gastrointestinal: no incontinence, normal bowel movements reported Genitourinary: no incontinence Musculoskeletal: Back pain, shoulder pain Psychiatric: normal mood/ affect, [denies depression], [denies anxiety] Neurological: [denies weakness in extremities], [denies balance issues] Objective:: Physical Exam General: Alert and oriented x3, no acute distress, pleasant and cooperative, [on room air] Lungs: Resps E/U, Symmetrical chest expansion, Eyes: PERRL Musculoskeletal: Flexion and extension of lumbar spine somewhat guarded secondary to pain, deep tendon reflexes normal, strength in upper and lower extremities [5/5], slightly antalgic gait noted Neurological: speech clear, electric cell tender equal, no gross sensory deficits Assessment:: Degenerative disc disease lumbar spine with lumbar radiculopathy right shoulder pain Plan:: We will refill the patient's Percocet 10 mg 1 p.o. twice daily and give her 2 mo nths worth. See her back in 3 months and reassess her symptoms at that time. She can leaf size picker her third month in the interim. We will also refill her Flexeril 10 mg 1 p.o. 3 times a day. She is been instructed to call the office if she has any issues prior to the next visit. Patient has been prescribed a controlled substance after being counseled on the medication, medication safety, and possible side effects. LISSETTE report has been obtained and reviewed prior to prescription and found to be appropriate. Opioid contract was reviewed and signed by the patient, and that they have agreed to all of the terms set forth by our compliance program. Dr. Purdy has reviewed this note and agrees with this plan of care. This note was dictated using voice recognition software and may contain errors or omissions
[2018-08-13 10:51] LABS: Amphetamine/Metha Screen,Urine Negative ng/mL (<1000); Barbiturates Screen,Urine Negative ng/mL (<200); Benzodiazepines Screen,Urine Negative ng/mL (<200); Cannabinoid Screen,Urine Negative ng/mL (<50); Cocaine Screen,Urine Negative ng/mL (<300); Methadone Screen,Urine Negative ng/mL (<300); Opiate Screen,Urine Negative ng/mL (<300); Phencyclidine Screen,Urine Negative ng/mL (<25)
[2018-08-18 17:08] LABS: Opiates Negative (Cutoff=100)
== END ==
PROVIDERS: PCP Emergency Medicine; Visit Provider Clinical Nurse Specialist Family Health
DX: M51.16 Intervertebral disc disorders with radiculopathy, lumbar region (principal); M25.511 Pain in right shoulder; Z79.899 Other long term (current) drug therapy
CPT/HCPCS: 80305; 80361; 80365; 99212; G0480

== ENCOUNTER → 2018-09-17 10:06 | Outpatient (CLI) | payer MEDICARE, OTHER, SELFPAY ==
--- NOTE | 2018-09-17 10:07 | MM_ITS ---
MM Dig screening mamm BI w/CAD CAD Screening COMPARISON: Digital mammograms with CAD 01/12/2015 INDICATION: There is no personal or family history of breast cancer TECHNIQUE: Standard CC and MLO images were obtained. R2 CAD reviewed. FINDINGS: The breasts are composed primarily of fat with scattered fibro glandular densities throughout each breast. There is no new or suspicious lesion in either breast and there are no suspicious microcalcifications. IMPRESSION: Fibrofatty parenchyma no suspicious lesion seen BI-RADS Category: 1 Negative RECOMMENDED FOLLOW-UP: 1YR - 1 YEAR FOLLOW-UP (A letter has been sent to the patient regarding results of the study.)
== END ==
PROVIDERS: PCP Emergency Medicine; Visit Provider Emergency Medicine
DX: Z12.31 Encounter for screening mammogram for malignant neoplasm of breast (principal)
CPT/HCPCS: 77067

== ENCOUNTER → 2018-10-14 14:52 | Outpatient (CLI) | payer MEDICARE, OTHER, SELFPAY ==
[2018-10-14 16:50] LABS: Amphetamine/Metha Screen,Urine Negative ng/mL (<1000); Barbiturates Screen,Urine Negative ng/mL (<200); Benzodiazepines Screen,Urine Negative ng/mL (<200); Cannabinoid Screen,Urine Negative ng/mL (<50); Cocaine Screen,Urine Negative ng/mL (<300); Methadone Screen,Urine Negative ng/mL (<300); Opiate Screen,Urine Negative ng/mL (<300); Phencyclidine Screen,Urine Negative ng/mL (<25)
[2018-10-19 18:44] LABS: Opiates Negative (Cutoff=100)
== END ==
PROVIDERS: Visit Provider Clinical Nurse Specialist Family Health
DX: Z79.899 Other long term (current) drug therapy (principal)
CPT/HCPCS: 80305; 80361; 80365; G0480

== ENCOUNTER → 2018-11-11 09:20 | Outpatient (POV) | payer MEDICARE, OTHER, SELFPAY ==
[2018-11-11 09:35] VITALS: BP 157/74; PULSE 96; RESP 18; O2SAT 98; BMI 49.6
--- NOTE | 2018-11-11 09:39 | HMH.PAINSOAP ---
[facility] Pain Management SOAP Note Subjective:: She is a pleasant 53-year-old white female who presents today for follow-up. Patient is currently rating her pain a 7 out of 10 however it is mostly abdominal pain which began after scope. I encouraged her to find out from her vice president financial the possibility of treatment for this. She is being treated for pain secondary to degenerative disc disease lumbar spine with lumbar radiculopathy. Patient is currently on Percocet 10 mg 1 p.o. twice daily. She denies side effects from her medication. Lissette #[id number] reviewed and appropriate. ROS General: no recent weight change, no fever, no sleep disturbances Respiratory: no cough, no shortness of air, no recurring pulmonary infections Cardiovascular/Peripheral Vascular: No chest pain, No palpitations, no edema, no shortness of breath. Gastrointestinal: no incontinence, normal bowel movements reported Genitourinary: no incontinence Musculoskeletal: Back pain, leg pain Psychiatric: normal mood/ affect Neurological: [denies weakness in extremities], [denies balance issues] Objective:: Physical Exam General: Alert and oriented x3, no acute distress, pleasant and cooperative, [on room air] Lungs: Resps E/U, Symmetrical chest expansion, Eyes: PERRL Musculoskeletal: Flexion and extension of lumbar spine somewhat guarded secondary to pain, deep tendon reflexes normal, strength in upper and lower extremities [5/5], [abnormal gait noted] Neurological: speech clear, sustainable agriculture faculty equal, no gross sensory deficits Assessment:: Degenerative disc disease lumbar spine with lumbar radiculopathy and abdominal pain Plan:: We will refill the patient's Percocet 10 mg 1 p.o. twice daily and give her 2 months worth of medication. We will see her back in 3 months reassess her symptoms at that time she can machine operator hop picker her third month in the interim. She is instructed to call the office if she has any issues prior to her next appointment. Patient has been prescribed a controlled substance after being counseled on the medication, medication safety, and possible side effects. LISSETTE report has been obtained and reviewed prior to prescription and found to be appropriate. Opioid contract was reviewed and signed by the patient, and that they have agreed to all of the terms set forth by our compliance program. Dr. Purdy has reviewed this note and agrees with this plan of care. This note was dictated using voice recognition software and may contain errors or omissions Pain Management [facility]x [employer]onents *Have you ever received a pneumonia vaccine?: No *Have you received a flu vaccine this season?: Yes - *Social History *Occupational Status:: disabled *Travel in the last 8 weeks: None
--- NOTE | 2018-11-11 09:42 | P.CONS_ITS ---
[facility] Pain Management SOAP Note Subjective:: She is a pleasant 53-year-old white female who presents today for follow-up. Patient is currently rating her pain a 7 out of 10 however it is mostly abdominal pain which began after scope. I encouraged her to find out from her equipment records supervisor the possibility of treatment for this. She is being treated for pain secondary to degenerative disc disease lumbar spine with lumbar radiculopathy. Patient is currently on Percocet 10 mg 1 p.o. twice daily. She denies side effects from her medication. Lissette #[id number] reviewed and appropriate. ROS General: no recent weight change, no fever, no sleep disturbances Respiratory: no cough, no shortness of air, no recurring pulmonary infections Cardiovascular/Peripheral Vascular: No chest pain, No palpitations, no edema, no shortness of breath. Gastrointestinal: no incontinence, normal bowel movements reported Genitourinary: no incontinence Musculoskeletal: Back pain, leg pain Psychiatric: normal mood/ affect Neurological: [denies weakness in extremities], [denies balance issues] Objective:: Physical Exam General: Alert and oriented x3, no acute distress, pleasant and cooperative, [on room air] Lungs: Resps E/U, Symmetrical chest expansion, Eyes: PERRL Musculoskeletal: Flexion and extension of lumbar spine somewhat guarded secondary to pain, deep tendon reflexes normal, strength in upper and lower extremities [5/5], [abnormal gait noted] Neurological: speech clear, cap coverer equal, no gross sensory deficits Assessment:: Degenerative disc disease lumbar spine with lumbar radiculopathy and abdominal pain Plan:: We will refill the patient's Percocet 10 mg 1 p.o. twice daily and give her 2 months worth of medication. We will see her back in 3 months reassess her symptoms at that time she can picking machine operator her third month in the interim. She is instructed to call the office if she has any issues prior to her next appointment. Patient has been prescribed a controlled substance after being counseled on the medication, medication safety, and possible side effects. LISSETTE report has been obtained and reviewed prior to prescription and found to be appropriate. Opioid contract was reviewed and signed by the patient, and that they have agreed to all of the terms set forth by our compliance program. Dr. Purdy has reviewed this note and agrees with this plan of care. This note was dictated using voice recognition software and may contain errors or omissions Pain Management Hx Components *Have you ever received a pneumonia vaccine?: No *Have you received a flu vaccine this season?: Yes - *Social History *Occupational Status:: disabled *Travel in the last 8 weeks: None
== END ==
PROVIDERS: PCP Emergency Medicine; Visit Provider Clinical Nurse Specialist Family Health
DX: M51.16 Intervertebral disc disorders with radiculopathy, lumbar region (principal); R10.9 Unspecified abdominal pain
CPT/HCPCS: 99212

== ENCOUNTER → 2019-01-14 09:42 | Outpatient (CLI) | payer MEDICARE, OTHER, SELFPAY | PROVIDERS: Visit Provider Nurse Practitioner Family | DX: G47.33 Obstructive sleep apnea (adult) (pediatric) (principal); G50.0 Trigeminal neuralgia; R53.83 Other fatigue | CPT/HCPCS: 94762 ==

== ENCOUNTER → 2019-01-15 08:07 | Outpatient (CLI) | payer MEDICARE, OTHER, SELFPAY ==
[2019-01-15 10:14] LABS: Carbamazepine (Tegretol) 2.7 ug/ml (4.0-12.0)
== END ==
PROVIDERS: Visit Provider Nurse Practitioner Family
DX: G50.0 Trigeminal neuralgia (principal)
CPT/HCPCS: 36415; 80156

== ENCOUNTER → 2019-02-03 09:04 | Outpatient (POV) | payer MEDICARE, OTHER, SELFPAY ==
[2019-02-03 09:25] VITALS: BP 117/49; PULSE 70; RESP 18; O2SAT 99; BMI 49.6
--- NOTE | 2019-02-03 10:06 | HMH.PAINSOAP ---
[facility] Pain Management SOAP Note Subjective:: Patient is a pleasant 54-year-old white female who presents today for follow-up. Patient is currently rating her pain a 6 out of 10. Overall doing well. Patient is currently on Percocet 10 mg 1 p.o. twice daily. She states it helps up to 80%. Lissette #[id number] reviewed and appropriate. Urine drug screens have been appropriate. She is being treated for degenerative disc disease lumbar spine with lumbar radiculopathy ROS General: no recent weight change, no fever, no sleep disturbances Respiratory: no cough, no shortness of air, no recurring pulmonary infections Cardiovascular/Peripheral Vascular: No chest pain, No palpitations, no edema, no shortness of breath. Gastrointestinal: no new onset incontinence, normal bowel movements reported Genitourinary: no new onset incontinence Musculoskeletal: Back pain, leg pain Psychiatric: normal mood/ affect Neurological: [denies new onset weakness in extremities], [denies new onset balance issues] Objective:: Physical Exam General: Alert and oriented x3, no acute distress, pleasant and cooperative, [on room air] Lungs: Resps E/U, Symmetrical chest expansion, Eyes: PERRL Musculoskeletal: Flexion and extension of lumbar spine somewhat guarded secondary to pain, deep tendon reflexes normal, strength in upper and lower extremities [5/5], [abnormal gait noted] Neurological: speech clear, wind energy mechanic equal, no gross sensory deficits Assessment:: Degenerative disc disease lumbar spine with lumbar radiculopathy Plan:: We will refill the patient's Percocet 10mg 1 tab p.o. twice daily. We will give her 2 months with medication follow-up with her in 3 months reassess her symptoms at that time she is been instructed to call the office if she has any issues prior to her next appointment she can pick pack worker one prescription in the interim. Patient has been prescribed a controlled substance after being counseled on the medication, medication safety, and possible side effects. LISSETTE report has been obtained and reviewed prior to prescription and found to be appropriate. Opioid contract was reviewed and signed by the patient, and that they have agreed to all of the terms set forth by our compliance program. Dr. Purdy has reviewed this note and agrees with this plan of care. This note was dictated using voice recognition software and may contain errors or omissions [facility] History I have reviewed the patient's past medical history: Yes Medical History: Reports:: Asthma, Gastroesophageal Reflux Disease(GERD), Hyperlipidemia, Hypertension, Lung Disease Denies:: Cancer, Diabetes Mellitus Type 1, Diabetes Mellitus Type 2, Internal Pacemaker, MRSA, Seizures *Have you ever received a pneumonia vaccine?: Yes *Have you received a flu vaccine this season?: Yes Other Medical History: Reports: Arthritis, Other Laterality Cases: Other Surgeries: Yes: Bariatric Surgery, Cholecystectomy, Colonoscopy, , EGD, Hysterectomy-Total, Other. No: Pacemaker Amputation: No Fractures: No - *Social History Smoking Status: Never smoker Tobacco Type: cigarettes # Packs/Day (cigarettes): 0 #Yrs smoked (if former smoker): 6 Alcohol Intake: never Alcohol Intake Frequency:: other Substance Use Type: denies use *Occupational Status:: other Housing: house Household Members: family *Travel in the last 8 weeks: None Family Hx:: Hypertension, Hyperlipidemia, Diabetes, Cancer, Heart Attack
--- NOTE | 2019-02-03 10:09 | P.CONS_ITS ---
[facility] Pain Management SOAP Note Subjective:: Patient is a pleasant 54-year-old white female who presents today for follow-up. Patient is currently rating her pain a 6 out of 10. Overall doing well. Patient is currently on Percocet 10 mg 1 p.o. twice daily. She states it helps up to 80%. Lissette #[id number] reviewed and appropriate. Urine drug screens have been appropriate. She is being treated for degenerative disc disease lumbar spine with lumbar radiculopathy ROS General: no recent weight change, no fever, no sleep disturbances Respiratory: no cough, no shortness of air, no recurring pulmonary infections Cardiovascular/Peripheral Vascular: No chest pain, No palpitations, no edema, no shortness of breath. Gastrointestinal: no new onset incontinence, normal bowel movements reported Genitourinary: no new onset incontinence Musculoskeletal: Back pain, leg pain Psychiatric: normal mood/ affect Neurological: [denies new onset weakness in extremities], [denies new onset balance issues] Objective:: Physical Exam General: Alert and oriented x3, no acute distress, pleasant and cooperative, [on room air] Lungs: Resps E/U, Symmetrical chest expansion, Eyes: PERRL Musculoskeletal: Flexion and extension of lumbar spine somewhat guarded secondary to pain, deep tendon reflexes normal, strength in upper and lower extremities [5/5], [abnormal gait noted] Neurological: speech clear, cake puller equal, no gross sensory deficits Assessment:: Degenerative disc disease lumbar spine with lumbar radiculopathy Plan:: We will refill the patient's Percocet 10mg 1 tab p.o. twice daily. We will give her 2 months with medication follow-up with her in 3 months reassess her symptoms at that time she is been instructed to call the office if she has any issues prior to her next appointment she can picking belt operator one prescription in the interim. Patient has been prescribed a controlled substance after being counseled on the medication, medication safety, and possible side effects. LISSETTE report has been obtained and reviewed prior to prescription and found to be appropriate. Opioid contract was reviewed and signed by the patient, and that they have agreed to all of the terms set forth by our compliance program. Dr. Purdy has reviewed this note and agrees with this plan of care. This note was dictated using voice recognition software and may contain errors or omissions [facility] History I have reviewed the patient's past medical history: Yes Medical History: Reports:: Asthma, Gastroesophageal Reflux Disease(GERD), Hyperlipidemia, Hypertension, Lung Disease Denies:: Cancer, Diabetes Mellitus Type 1, Diabetes Mellitus Type 2, Internal Pacemaker, MRSA, Seizures *Have you ever received a pneumonia vaccine?: Yes *Have you received a flu vaccine this season?: Yes Other Medical History: Reports: Arthritis, Other Laterality Cases: Other Surgeries: Yes: Bariatric Surgery, Cholecystectomy, Colonoscopy, C- section, EGD, Hysterectomy-Total, Other. No: Pacemaker Amputation: No Fractures: No - *Social History Smoking Status: Never smoker Tobacco Type: cigarettes # Packs/Day (cigarettes): 0 #Yrs smoked (if former smoker): 6 Alcohol Intake: never Alcohol Intake Frequency:: other Substance Use Type: denies use *Occupational Status:: other Housing: house Household Members: family *Travel in the last 8 weeks: None Family Hx:: Hypertension, Hyperlipidemia, Diabetes, Cancer, Heart Attack
[2019-02-03 10:30] LABS: Amphetamine/Metha Screen,Urine Negative ng/mL (<1000); Barbiturates Screen,Urine Negative ng/mL (<200); Benzodiazepines Screen,Urine Negative ng/mL (<200); Cannabinoid Screen,Urine Negative ng/mL (<50); Cocaine Screen,Urine Negative ng/mL (<300); Methadone Screen,Urine Negative ng/mL (<300); Opiate Screen,Urine Negative ng/mL (<300); Phencyclidine Screen,Urine Negative ng/mL (<25)
[2019-02-07 09:16] LABS: Opiates Negative (Cutoff=100)
== END ==
PROVIDERS: PCP Emergency Medicine; Visit Provider Clinical Nurse Specialist Family Health
DX: M51.16 Intervertebral disc disorders with radiculopathy, lumbar region (principal); Z79.899 Other long term (current) drug therapy
CPT/HCPCS: 80305; 80361; 80365; 99212; G0480

== ENCOUNTER → 2019-03-10 10:08 | Outpatient (POV) | payer MEDICARE, OTHER, SELFPAY | PROVIDERS: Visit Provider Nurse Practitioner Family | DX: Z00.00 Encounter for general adult medical examination without abnormal findings (principal) ==

== ENCOUNTER → 2019-03-25 11:03 | Outpatient (CLI) | payer MEDICARE, MEDICAID, SELFPAY ==
[2019-03-25 11:20] LABS: Basophils % 0.3 % (0.1-2.0); Eosinophils # 0.1 K/mm3 (0.0-0.4); Hemoglobin 11.2 g/dL (12.2-16.2); Lymphocytes # 2.2 K/mm3 (0.7-4.5); Lymphocytes % 31.3 % (10-50); Mean Corpuscular HGB Conc 31.2 g/dL (31.8-35.4); Mean Corpuscular Hemoglobin 24.9 pg (27.0-31.2); Mean Platelet Volume 7.5 fl (7.4-10.4); Monocytes # 0.5 K/mm3 (0.1-1.0); Monocytes % 6.4 % (1.7-9.3); Neutrophils # 4.3 K/mm3 (1.8-7.8); Platelet Count 282 K/mm3 (142-424); Red Cell Distribution Width 14.9 % (11.5-17.5); White Blood Count 7.1 K/mm3 (4.8-10.8)
[2019-03-25 11:49] LABS: Alanine Aminotransferase 15 U/L (12-78); Albumin Level 3.5 gm/dL (3.4-5.0); Albumin/Globulin Ratio 1.3 (1.1-1.8); Alkaline Phosphatase 122 U/L (46-116); Amylase 40 U/L (25-115); Aspartate Amino Transferase 8 U/L (15-37); Bilirubin,Total 0.2 mg/dL (0.2-1.0); Blood Urea Nitrogen 7 mg/dL (7-18); Calcium 8.5 mg/dL (8.5-10.1); Carbon Dioxide 27 mmol/L (21.0-32.0); Chloride 106 mmol/L (98-107); Creatinine,Serum 0.52 mg/dL (0.55-1.02); Estimated Glomerular Filt Rate 122 ml/min (>60); GFR (African American) 148 ML/MIN (>60); Globulin 2.7 gm/dl (1.3-3.2); Glucose 98 mg/dL (74-106); Lipase 62 u/L (73-393); Sodium 142 mmol/L (136-145); Total Protein,Serum 6.2 gm/dL (6.4-8.2)
== END ==
PROVIDERS: Visit Provider Nurse Practitioner Family
DX: R10.11 Right upper quadrant pain (principal); R14.0 Abdominal distension (gaseous); K30 Functional dyspepsia; K59.00 Constipation, unspecified
CPT/HCPCS: 36415; 80053; 82150; 83690; 85025

== ENCOUNTER → 2019-04-08 15:38 | Outpatient (CLI) | payer MEDICARE, MEDICAID, SELFPAY ==
[2019-04-08 18:43] LABS: Amphetamine/Metha Screen,Urine Negative ng/mL (<1000); Barbiturates Screen,Urine Negative ng/mL (<200); Benzodiazepines Screen,Urine Negative ng/mL (<200); Cannabinoid Screen,Urine Negative ng/mL (<50); Cocaine Screen,Urine Negative ng/mL (<300); Methadone Screen,Urine Negative ng/mL (<300); Opiate Screen,Urine Negative ng/mL (<300); Phencyclidine Screen,Urine Negative ng/mL (<25)
[2019-04-13 17:08] LABS: Opiates Negative (Cutoff=100)
== END ==
PROVIDERS: Visit Provider Clinical Nurse Specialist Family Health
DX: Z79.899 Other long term (current) drug therapy (principal)
CPT/HCPCS: 80305; 80361; 80365; G0480

== ENCOUNTER → 2019-05-05 09:00 | Outpatient (POV) | payer MEDICARE, MEDICAID, SELFPAY ==
[2019-05-05 09:23] VITALS: BP 158/59; PULSE 84; RESP 18; O2SAT 99; BMI 49.4
--- NOTE | 2019-05-05 09:39 | HMH.PAINSOAP ---
[facility] Pain Management SOAP Note Subjective:: Patient is a pleasant 54-year-old white female who presents today for follow-up and medication refills. She is being treated for pain secondary to degenerative disc disease lumbar spine and lumbar radiculopathy. Currently rates her pain a 6 out of 10 today. Patient says she is having some increased pain in her low back. She says she has been spending a lot of time caring for a in her home. She says it is from grand daughter. Patient says that she thinks this is contributed to a great deal of her low back pain. She says that she gets about 75 to 80% relief with her medication regimen. The patient's Azar #[id number] has been reviewed and is appropriate. Her urine drug screens are appropriate. Her morphine equivalent is 30. Review of Systems General: No recent weight changes, no fever, no sleep disturbances Respiratory: No cough, no shortness of air, no recurring pulmonary infections Cardiovascular/peripheral vascular: No chest pain, no palpitations, no edema, no shortness of breath Gastrointestinal: No new onset incontinence, normal bowel movements reported Genitourinary: No new onset incontinence Musculoskeletal: Low back pain Psychiatric: Normal mood/affect Neurological: [Denies weakness in extremities], [denies balance issues] Objective:: Physical exam General: Alert and oriented x3, no acute distress, pleasant and cooperative, [on room air] Lungs: Respirations even and unlabored, symmetrical chest expansion Eyes: PERRL Musculoskeletal: Flexion and extension of lumbar spine somewhat guarded secondary to pain, deep tendon reflexes normal, strength in upper and lower extremities [5/5], [abnormal gait noted] Neurological: Speech clear, banquet chef equal, no gross sensory deficit Assessment:: Degenerative disc disease lumbar spine with lumbar radiculopathy symptoms Plan:: We will refill the patient's Percocet 10 mg 1 tablet p.o. twice daily. We will give HER-2 months worth of medication and she can lemon picker her third month in the interim. We will see her back in clinic in 3 months to reassess her symptoms. The patient has been instructed to contact clinic if she has any concerns before her next appointment. Dr. Purdy has reviewed this note and agrees with this plan of care. This note was dictated using voice recognition software and make contain errors or omissions. [facility] History Medical History: Reports:: Asthma, Gastroesophageal Reflux Disease(GERD), Hyperlipidemia, Hypertension, Lung Disease Denies:: Cancer, Diabetes Mellitus Type 1, Diabetes Mellitus Type 2, Internal Pacemaker, MRSA, Seizures *Have you ever received a pneumonia vaccine?: Yes *Have you received a flu vaccine this season?: Yes Other Medical History: Reports: Arthritis, Other Laterality Cases: Right: Arthroscopy Shoulder, Bilateral: Tonsillectomy Other Surgeries: Yes: Bariatric Surgery, Cholecystectomy, Colonoscopy, , EGD, Hysterectomy-Total, Other. No: Pacemaker Amputation: No Fractures: No - *Social History Smoking Status: Never smoker Tobacco Type: cigarettes # Packs/Day (cigarettes): 0 #Yrs smoked (if former smoker): 6 Alcohol Intake: never Alcohol Intake Frequency:: other Substance Use Type: denies use *Occupational Status:: other Housing: house Household Members: family *Travel in the last 8 weeks: None Family Hx:: Hypertension, Hyperlipidemia, Diabetes, Cancer, Heart Attack
[2019-05-05 13:59] LABS: Amphetamine/Metha Screen,Urine Negative ng/mL (<1000); Barbiturates Screen,Urine Negative ng/mL (<200); Benzodiazepines Screen,Urine Negative ng/mL (<200); Cannabinoid Screen,Urine Negative ng/mL (<50); Cocaine Screen,Urine Negative ng/mL (<300); Methadone Screen,Urine Negative ng/mL (<300); Opiate Screen,Urine Negative ng/mL (<300); Phencyclidine Screen,Urine Negative ng/mL (<25)
[2019-05-11 09:11] LABS: Opiates Negative (Cutoff=100)
== END ==
PROVIDERS: Clinical Nurse Specialist Family Health; PCP Emergency Medicine; Visit Provider Clinical Nurse Specialist Family Health
DX: M51.16 Intervertebral disc disorders with radiculopathy, lumbar region (principal); Z79.899 Other long term (current) drug therapy
CPT/HCPCS: 80305; 80361; 80365; 99212; G0480

== ENCOUNTER → 2019-07-18 09:57 | Outpatient (CLI) | payer MEDICARE, MEDICAID, SELFPAY ==
[2019-07-18 10:20] LABS: Basophils % 0.5 % (0.1-2.0); Eosinophils # 0.1 K/mm3 (0.0-0.4); Eosinophils % 1.5 % (0.1-12.0); Hematocrit 36.9 % (37.0-47.0); Hemoglobin 11.1 g/dL (12.2-16.2); Lymphocytes # 2.1 K/mm3 (0.7-4.5); Lymphocytes % 26.1 % (10-50); Mean Corpuscular Hemoglobin 23.9 pg (27.0-31.2); Mean Corpuscular Volume 79.8 fl (81-99); Mean Platelet Volume 8.3 fl (7.4-10.4); Monocytes # 0.5 K/mm3 (0.1-1.0); Monocytes % 6.6 % (1.7-9.3); Neutrophils # 5.2 K/mm3 (1.8-7.8); Neutrophils % 65.2 % (37.0-80.0); Platelet Count 310 K/mm3 (142-424); Red Blood Count 4.63 M/mm3 (4.20-5.40); Red Cell Distribution Width 15.4 % (11.5-17.5)
[2019-07-18 11:56] LABS: Alanine Aminotransferase 13 U/L (12-78); Albumin Level 4.1 g/dl (3.5-5.0); Albumin/Globulin Ratio 1.6 (1.1-1.8); Alkaline Phosphatase 121 U/L (38-126); Anion Gap 10.3 mEq/L (5-15); Aspartate Amino Transferase 19 U/L (14-36); Bilirubin,Total 0.3 mg/dl (0.2-1.3); Blood Urea Nitrogen 9 mg/dl (7-17); Calcium 9.4 mg/dl (8.4-10.2); Carbamazepine (Tegretol) 3.2 ug/ml (4.0-12.0); Carbon Dioxide 29 mmol/L (22.0-30.0); Chloride 102 mmol/L (98-107); Estimated Glomerular Filt Rate 128 ml/min (>60); GFR (African American) 155 ML/MIN (>60); Globulin 2.6 g/dL (1.3-3.2); Glucose 116 mg/dl (74-100); Potassium 4.3 mmoL/L (3.5-5.1); Sodium 137 mmol/L (136-145); Total Protein,Serum 6.7 g/dl (6.3-8.2)
[2019-07-18 12:24] LABS: Thyroid Stimulating Hormone 1.03 uIU/mL (0.465-4.68)
[2019-07-18 12:28] LABS: Ferritin 5.28 ng/ml (11.1-264)
[2019-07-19 08:28] LABS: Iron 49 ug/dL (27-159); UIBC 337 ug/dL (131-425)
[2019-07-19 19:27] LABS: Iron Saturation 13 % (15-55); Vitamin B12 291 pg/mL (232-1245)
== END ==
PROVIDERS: Visit Provider Specialist
DX: D53.9 Nutritional anemia, unspecified (principal); E66.01 Morbid (severe) obesity due to excess calories; E83.10 Disorder of iron metabolism, unspecified; G47.33 Obstructive sleep apnea (adult) (pediatric); G50.0 Trigeminal neuralgia; I10 Essential (primary) hypertension
CPT/HCPCS: 36415; 80053; 80156; 82607; 82728; 83540; 83550; 84443; 85025

== ENCOUNTER → 2019-07-28 10:12 | Outpatient (POV) | payer MEDICARE, OTHER, SELFPAY ==
--- NOTE | 2019-07-28 10:29 | HMH.VVPMSO ---
[facility] PM Virtual Visit SOAP Consent for virtual visit:: With the recent concerns about the COVID-19, we are trying to minimize exposure to you by shifting to telehealth appointments whenever possible. It restricts me from seeing you in person, but the trade off is protecting you during this pandemic. Can you see and hear me okay, and do you consent to this option? If not, I would be happy to see if we can reschedule your appointment in the future, when feasible. Has patient consented to this virtual visit?: Yes Subjective:: Patient is a pleasant 54-year-old white female who presents today for a telehealth medication refill appointment. She is being treated for pain secondary to degenerative disc disease lumbar spine with lumbar radiculopathy she currently rates her pain a 6 out of 10 which is her baseline. She states the medication helps her up to 80%. She is at this time taking care of her grandchildren. Her current morphine equivalent is 30 she does not denies any side effects or medication. ROS General: no recent weight change, no fever, no sleep disturbances Respiratory: no cough, no shortness of air, no recurring pulmonary infections Cardiovascular/Peripheral Vascular: No chest pain, No palpitations, no edema, no shortness of breath. Gastrointestinal: no new onset incontinence, normal bowel movements reported Genitourinary: no new onset incontinence Musculoskeletal: Back pain Psychiatric: normal mood/ affect Neurological: [denies new onset weakness in extremities], [denies new onset balance issues] Objective:: Physical exam: Constitutional: Healthy appearing, well-developed, alert, in no acute distress Psychiatric: Judgment and insight intact, Alert and oriented x4 Mood and affect: Mood normal, affect appropriate Head and face: Inspection: Normocephalic atraumatic, extraocular movement intact Respiratory: Breathing nonlabored, nondyspneic Cardiovascular: No cyanosis, clubbing, or edema observed Skin: Head and neck: Skin with no lesions or rash observed Gait: Able to walk without assistive device: Able to heel and toe walk Neurologic: Sensation grossly intact per patient Musculoskeletal: Decreased range of motion lumbar spine Assessment:: Degenerative disc disease lumbar spine with lumbar radiculopathy Plan:: Refill the patient's Percocet 10 mg 1 p.o. twice daily and give her 2 months worth of medication. We will follow-up with her in 3 months reassess her symptoms at that time she has been instructed to call the office if she has any issues prior to her next appointment she can citrus picker one prescription in the interim. Patient's Azar #[id number] reviewed and appropriate. Urine drug screens have been appropriate. This encounter was performed as a telemedicine visit via secure 2 way video and audio to minimize risk and transmission of Covid-19. The patient and we understand the limitations of a telemedicine visit including inability to check reflexes, possibly missing subtle findings on physical exam. Alternative options were presented to the patient and the patient elected to proceed with the visit. We specifically discussed risk factors for Covid-19 including age, heart or lung disease, diabetes, immunosuppression and travel. We also discussed that NSAIDs may worsen Covid-19 infection symptoms and that they should not be used to treat Covid-19 symptoms. Patient was also informed that corticosteroids in any form oral or injectable will decrease immune response and may increase risk of Covid-[address] Purdy has reviewed this patient's chart and this note and agrees with plan of care. Patient has been instructed to call the office if they have any issues prior to the next appointment. Time In:: 10:10 Time Out:: 10:20 [facility] History I have reviewed the patient's past medical history: Yes Medical History: Reports:: Asthma, Gastroesophageal Reflux Disease(GERD), Hyperlipidemia, Hypertension, Lung Disease
== END ==
PROVIDERS: Visit Provider Clinical Nurse Specialist Family Health
DX: M51.16 Intervertebral disc disorders with radiculopathy, lumbar region (principal)
CPT/HCPCS: 99212

== ENCOUNTER → 2019-08-06 13:29 | Outpatient (CLI) | payer MEDICARE, MEDICAID, SELFPAY ==
[2019-08-07 11:39] LABS: Vitamin D 25 Hydroxy 11.4 ng/mL (30.0-100.0)
== END ==
PROVIDERS: Visit Provider Physician Assistant
DX: R53.83 Other fatigue (principal); E55.9 Vitamin D deficiency, unspecified
CPT/HCPCS: 82652

== ENCOUNTER → 2019-10-27 10:11 | Outpatient (POV) | payer MEDICARE, MEDICAID, SELFPAY ==
[2019-10-27 10:39] VITALS: BP 171/78; PULSE 78; RESP 18; O2SAT 98; BMI 49.6
--- NOTE | 2019-10-27 10:47 | HMH.PAINSOAP ---
[facility] Pain Management SOAP Note Subjective:: Patient is a pleasant 54-year-old white female who presents today for medication refills. Patient is being treated for pain secondary to degenerative disc disease lumbar spine lumbar radiculopathy. She currently rates her pain a 6 out of 10. She believes that her pain is increased due to her mattress. Patient's Lissette #[id number] reviewed and appropriate. Urine drug screens are appropriate. Patient and I discussed adding gabapentin at nighttime to help with sleeping. She would like to proceed with this. Her morphine equivalent is 30. She is currently on Percocet 10 mg 1 p.o. twice daily. ROS General: no recent weight change, no fever, no sleep disturbances Respiratory: no cough, no shortness of air, no recurring pulmonary infections Cardiovascular/Peripheral Vascular: No chest pain, No palpitations, no edema, no shortness of breath. Gastrointestinal: no new onset incontinence, normal bowel movements reported Genitourinary: no new onset incontinence Musculoskeletal: Back pain, leg pain Psychiatric: normal mood/ affect Neurological: [denies new onset weakness in extremities], [denies new onset balance issues] Objective:: Physical Exam General: Alert and oriented x3, no acute distress, pleasant and cooperative, [on room air] Lungs: Resps E/U, Symmetrical chest expansion, Eyes: PERRL Musculoskeletal: Flexion and extension of lumbar spine somewhat guarded secondary to pain, deep tendon reflexes normal, strength in upper and lower extremities [5/5], [abnormal gait noted] Neurological: speech clear, fire prevention engineer equal, no gross sensory deficits Assessment:: Degenerative disc disease lumbar spine lumbar radiculopathy Plan:: Refill her Percocet 10 mg 1 tab p.o. twice daily and give her 2 months worth of medication we will follow-up with her in 3 months reassess her symptoms at that time. We will start gabapentin 100 mg at bedtime. If this is beneficial she is can let us know and we will call this in for her. Patient's been instructed to call the office if she has any issues prior to her next appointment. Patient has been prescribed a controlled substance after being counseled on the medication, medication safety, and possible side effects. LISSETTE report has been obtained and reviewed prior to prescription and found to be appropriate. Opioid contract was reviewed and signed by the patient, and that they have agreed to all of the terms set forth by our compliance program. Dr. Purdy has reviewed this note and agrees with this plan of care. This note was dictated using voice recognition software and may contain errors or omissions [facility] History I have reviewed the patient's past medical history: Yes Medical History: Reports:: Asthma, Gastroesophageal Reflux Disease(GERD), Hyperlipidemia, Hypertension, Lung Disease Denies:: Cancer, Diabetes Mellitus Type 1, Diabetes Mellitus Type 2, Internal Pacemaker, MRSA, Seizures *Have you ever received a pneumonia vaccine?: Yes *Have you received a flu vaccine this season?: Yes Other Medical History: Reports: Arthritis, Sickle Cell Disease, Other Laterality Cases: Right: Arthroscopy Shoulder, Bilateral: Tonsillectomy Other Surgeries: Yes: Bariatric Surgery, Cholecystectomy, Colonoscopy, , EGD, Hysterectomy-Total, Other. No: Pacemaker Amputation: No Fractures: No - *Social History Smoking Status: Never smoker Tobacco Type: cigarettes # Packs/Day (cigarettes): 0 #Yrs smoked (if former smoker): 6 Alcohol Intake: never Alcohol Intake Frequency:: other Substance Use Type: denies use *Occupational Status:: other Housing: house Household Members: family *Travel in the last 8 weeks: None Family Hx:: Hypertension, Hyperlipidemia, Diabetes, Cancer, Heart Attack
== END ==
PROVIDERS: PCP Emergency Medicine; Visit Provider Clinical Nurse Specialist Family Health
DX: M51.16 Intervertebral disc disorders with radiculopathy, lumbar region (principal)
CPT/HCPCS: 99212

== ENCOUNTER → 2019-11-26 11:24 | Outpatient (CLI) | payer MEDICARE, MEDICAID, SELFPAY | PROVIDERS: PCP Emergency Medicine; Visit Provider Specialist | DX: G47.33 Obstructive sleep apnea (adult) (pediatric) (principal); Z99.89 Dependence on other enabling machines and devices | CPT/HCPCS: G0399 ==

== ENCOUNTER → 2020-01-26 09:13 | Outpatient (POV) | payer MEDICARE, MEDICAID, SELFPAY ==
[2020-01-26 10:06] VITALS: BP 165/76; PULSE 72; RESP 18; TEMP 36.4; O2SAT 96; BMI 49.9
--- NOTE | 2020-01-26 10:23 | XR_ITS ---
PROCEDURE: XR HIP RT 2-3V W/PELVIS CLINICAL INDICATION: BERTRAND HIP PAIN COMPARISON: CR HIPCMLT XR hip LT 2-3V w/pelvis from 10/07/2017 CR XR HIP LT 2-3V W/PELVIS from 01/26/2020 FINDINGS: Postsurgical changes with posterior fusion at L5-S1. There are mild osteoarthritic changes of both hips. No acute fracture or dislocation. No lytic or blastic change. Surgical clips are present in the lower pelvic region IMPRESSION: Mild osteoarthritis of both hips Dictated by: Rd San MD 01/26/2020 11:40 Rd San MD in [place] 01/26/2020 11:40
--- NOTE | 2020-01-26 12:46 | HMH.PAINSOAP ---
[facility] Pain Management SOAP Note Subjective:: She is a pleasant 55-year-old white female who presents today for medication refills. Patient is being treated for pain secondary to degenerative disc disease lumbar spine lumbar radiculopathy. She currently rates her pain today a 4 out of 10 overall doing well patient's Azar #[id number] reviewed and appropriate. Urine drug screens have been appropriate. Patient was unable to tolerate the gabapentin we will discontinue this. Her morphine equivalent is 30 she is on Percocet 10 mg 1 p.o. twice daily. ROS General: no recent weight change, no fever, no sleep disturbances Respiratory: no cough, no shortness of air, no recurring pulmonary infections Cardiovascular/Peripheral Vascular: No chest pain, No palpitations, no edema, no shortness of breath. Gastrointestinal: no new onset incontinence, normal bowel movements reported Genitourinary: no new onset incontinence Musculoskeletal: Back pain, leg pain, joint pain Psychiatric: normal mood/ affect Neurological: [denies new onset weakness in extremities], [denies new onset balance issues] Objective:: Physical Exam General: Alert and oriented x3, no acute distress, pleasant and cooperative, [on room air] Lungs: Resps E/U, Symmetrical chest expansion, Eyes: PERRL Musculoskeletal: Flexion and extension of lumbar spine somewhat guarded secondary to pain, deep tendon reflexes normal, strength in upper and lower extremities [5/5], [abnormal gait noted] Neurological: speech clear, uke operator equal, no gross sensory deficits Assessment:: Degenerative disc disease lumbar spine lumbar radiculopathy bilateral hip pain Plan:: We will continue her Percocet 10 mg 1 tab p.o. twice daily. We will discontinue her gabapentin. We will send her for bilateral hip x-rays and for physical therapy due to her new and worsening pain in her bilateral hips. Dr. Purdy has reviewed this note and agrees with this plan of care. This note was dictated using voice recognition software and may contain errors or omissions Patient has been prescribed a controlled substance after being counseled on the medication, medication safety, and possible side effects. [facility] report has been obtained and reviewed prior to prescription and found to be appropriate. Opioid contract was reviewed and signed by the patient, and that they have agreed to all of the terms set forth by our compliance program. [facility] History I have reviewed the patient's past medical history: Yes Medical History: Reports:: Asthma, Depression, Gastroesophageal Reflux Disease(GERD), Hyperlipidemia, Hypertension, Lung Disease Denies:: Cancer, Diabetes Mellitus Type 1, Diabetes Mellitus Type 2, Internal Pacemaker, MRSA, Seizures *Have you ever received a pneumonia vaccine?: No *Have you received a flu vaccine this season?: No Other Medical History: Reports: Arthritis, Sickle Cell Disease, Other Laterality Cases: Right: Arthroscopy Shoulder, Bilateral: Tonsillectomy Other Surgeries: Yes: Bariatric Surgery, Cholecystectomy, Colonoscopy, , EGD, Hysterectomy-Total, Other (back surgery,rt shoulder surgery). No: Pacemaker Amputation: No Fractures: No - *Social History Smoking Status: Never smoker Tobacco Type: cigarettes # Packs/Day (cigarettes): 0 #Yrs smoked (if former smoker): 6 Alcohol Intake: never Alcohol Intake Frequency:: other Substance Use Type: denies use *Occupational Status:: unemployed Housing: house Household Members: spouse *Travel in the last 8 weeks: None - Psychiatric History Pschychiatric History:: Reports:: Depression Family Hx:: Hypertension, Hyperlipidemia, Diabetes, Cancer, Heart Attack
== END ==
PROVIDERS: PCP Emergency Medicine; Visit Provider Clinical Nurse Specialist Family Health
DX: M51.16 Intervertebral disc disorders with radiculopathy, lumbar region (principal); M25.552 Pain in left hip; M25.551 Pain in right hip
CPT/HCPCS: 73502; 99212

== ENCOUNTER 2020-02-07 10:57 | Emergency (ER) | payer MEDICARE, MEDICAID, SELFPAY ==
--- NOTE | 2020-02-07 11:29 | XR_ITS ---
PROCEDURE: XR WRIST RT MIN 3V CLINICAL INDICATION: fall COMPARISON: No exams were available for comparison FINDINGS: The distal radius and ulna appear intact. The carpal bones appear normal. The soft tissues are normal well-defined pronator quadratus fat pad which is a normal finding tending to exclude fluid within the wrist joint. IMPRESSION: No acute findings. Dictated by: Dr. Steven Everett MD 02/07/2020 14:28 Dr. Steven Everett MD in [place] 02/07/2020 14:28
--- NOTE | 2020-02-07 11:29 | XR_ITS ---
PROCEDURE: XR SHOULDER LT MIN 2V CLINICAL INDICATION: fall COMPARISON: No exams were available for comparison FINDINGS: The clavicle is intact. There is prominent spurring of the AC joint both superiorly and inferiorly. The acromion process of the scapula is horizontal however the inferior spurring of the AC joint could predispose the some degree of impingement syndrome. The humeral head and glenoid appear intact. No soft tissue calcifications. IMPRESSION: Prominent degenerate change of the AC joint with spurring inferiorly which could cause some degree of impingement syndrome, no acute fracture seen Dictated by: Dr. Steven Everett MD 02/07/2020 14:27 Dr. Steven Everett MD in [place] 02/07/2020 14:27
[2020-02-07 11:30] VITALS: BP 167/98; PULSE 74; RESP 18; TEMP 36.8; O2SAT 99; BMI 51.2
--- NOTE | 2020-02-07 11:59 | HMH.EDUTC ---
[facility] [place] Disposition Clinical Impression: Shoulder pain, left Qualifiers: Chronicity: acute Qualified Code(s): M25.512 - Pain in left shoulder Right wrist sprain Qualifiers: Encounter type: initial encounter Qualified Code(s): S63.501A - Unspecified sprain of right wrist, initial encounter Disposition: Home, Self-Care Condition on Discharge: Good Instructions: DI for Chronic Pain -- Adult, DI for Wrist Strain, DI for Shoulder Pain Additional Instructions: follow up with ortho if symptoms worsen return elevate ice aleja wrap to wrist tylenol or motrin for pain Referrals: Jose Ray MD [Primary Care Provider] - Time of Disposition: 12:06 Medical Decision Making - Azar Inquiry Pt receiving controlled substance: No Vital Signs: 02/07/20 11:30 Temperature 98.2 F Temperature Source Oral Pulse Rate [Right Brachial] 74 Respiratory Rate 18 Blood Pressure [Right Arm] 167/98 H Blood Pressure Mean [Right Arm] 121 Blood Pressure Source [Right Arm] Automatic Cuff Blood Pressure Position [Right Arm] Sitting 02 Sat by Pulse Oximetry 99 Oxygen Delivery Method Room Air Orders (Tests/Meds): ORDERS Category Date Time Status XR shoulder LT min 2V Stat Exams 02/07/20 11:29 Ordered XR wrist RT min 3V Stat Exams 02/07/20 11:29 Ordered - Radiology Data #1 Image(s): Shoulder Image Reviewed: Yes I reviewed the patient's radiology image w/the ED provider Preliminary Findings: Normal/NAD #2 Image(s): Wrist Image Reviewed: Yes I reviewed the patient's radiology image w/the ED provider Preliminary Findings: Normal/NAD [facility] [place] HPI - General Chief complaint: Urgent Treatment Center Stated complaint: AO 02/07/20 fall, rt arm pain Time Seen by Provider: 02/07/20 11:59 Mode of Arrival: Ambulatory Source of Information: Patient Limitations: No Limitations Description of Symptoms (Recalled from Triage Doc. by RN): PATIENT STATES SHE FELL INTO HER SON'S TRUCK APPROX 1 HOUR [employer] AND INJURED HER LEFT SHOULDER AND RIGHT WRIST HEENT Symptoms (Recalled from RN notes): No Resp Symptoms (Recalled from RN notes): No Skin Symptoms (Recalled from RN notes): No MS Symptoms (Recalled from RN notes): Yes Functional Status (Recalled from RN notes): WNL - History of Present Illness Provider Complaint: 55 yr old female presents for left shoulder and rt wrist pain. Pt states she was falling and hit shoulder on sons truck and caught self with wrist as she was falling. - Related Data Home Medications Medication Instructions Recorded Confirmed azelastine 0.15 % (205.5 mcg) 2 spray INTRANASAL BID 90 Days #90 03/29/17 10/29/19 nasal spray levocetirizine 5 mg tablet 5 mg PO DAILY 30 Days #30 06/26/17 10/29/19 Cyclobenzaprine HCl 10 mg PO TID 10/07/17 10/29/19 [Cyclobenzaprine 10mg Tab] Loratadine [Claritin 10mg 10 mg PO DAILY 10/07/17 10/29/19 Tablet] Montelukast Sodium [Montelukast 10 mg PO HS 10/07/17 10/29/19 10mg Tab] albuterol sulfate 1 neb CONTINUOUS NEBULIZATION 10/11/17 10/29/19 DAILY 15 Days #150 vitamin B complex 1 tab PO DAILY 10/29/19 10/29/19 Previous Rx's Medication Instructions Recorded ondansetron HCl 4 mg tablet 4 mg PO BID PRN #60 tab 03/07/19 buspirone 5 mg tablet See Rx Instructions .ROUTE 06/03/19 .COMPLEX #180 tab amlodipine 10 mg tablet See Rx Instructions .ROUTE 07/18/19 .COMPLEX #90 tab ferrous sulfate 142 mg (45 mg 142 mg PO DAILY #90 tab 08/06/19 iron) tablet,extended release cholecalciferol (vitamin D3) 25 1,000 unit PO DAILY #90 cap 08/08/19 mcg (1,000 unit) capsule ergocalciferol (vitamin D2) 1,250 50,000 unit PO QWEEK 90 Days #12 08/08/19 mcg (50,000 unit) capsule cap bupropion HCl 150 mg tablet,12 hr See Rx Instructions .ROUTE 09/18/19 sustained-release .COMPLEX #180 tab carbamazepine 100 mg chewable 100 mg PO BID #90 tab 09/22/19 tablet Gabapentin [Neurontin 100mg 100 mg PO HS #30 cap 10/27/19 cap] Oxycodone HCl/Acetaminophen 1 ta
[2020-02-07 12:08] VITALS: BP 167/98; PULSE 74; RESP 18; TEMP 36.8; O2SAT 99
== END 2020-02-07 12:11 | disposition home or self-care (01) ==
PROVIDERS: Emergency Provider Nurse Practitioner Family; PCP Emergency Medicine
DX: S63.501A Unspecified sprain of right wrist, initial encounter (principal); W18.00XA Striking against unspecified object with subsequent fall, initial encounter; Y92.9 Unspecified place or not applicable; I10 Essential (primary) hypertension; E78.5 Hyperlipidemia, unspecified; F33.1 Major depressive disorder, recurrent, moderate; J45.909 Unspecified asthma, uncomplicated; K21.9 Gastro-esophageal reflux disease without esophagitis; Z79.899 Other long term (current) drug therapy; Z90.49 Acquired absence of other specified parts of digestive tract; Z90.710 Acquired absence of both cervix and uterus; G50.0 Trigeminal neuralgia
CPT/HCPCS: G0463; 73030; 73110; 99201

== ENCOUNTER → 2020-03-23 13:45 | Outpatient (CLI) | payer MEDICARE, MEDICAID, SELFPAY ==
--- NOTE | 2020-03-23 13:46 | CA_ITS ---
APPROVED REPORT Bible Teacher: JEN Laterality: Bilateral Study Quality: Technically Difficult Indications: Bruit Risk Factors Hypertension: Doppler Spectral Velocity Analysis ECA (R) 109.20/21.70 cm/s ECA (L) 70.30/0.00 cm/s dICA (R) 69.40/25.70 cm/s dICA (L) 62.60/24.60 cm/s Walker (R) 53.90/19.30 cm/s Walker (L) 63.30/22.20 cm/s pICA (R) 61.30/41.20 cm/s pICA (L) 60.70/24.80 cm/s dCCA (R) 47.00/12.80 cm/s dCCA (L) 62.90/14.20 cm/s mCCA (R) 56.90/10.30 cm/s mCCA (L) 73.30/15.70 cm/s Vert (R) 31.70/5.10 cm/s Vert (L) 53.90/18.00 cm/s ICA/CCA 1.48 ICA/CCA 1.00 Findings The right carotid arterial system appeared to be normal without stenosis of the bulb or internal carotid artery. The left carotid arterial system appeared to be normal without stenosis of the bulb or internal carotid artery. Duplex evaluation demonstrates antegrade flow of the bilateral Vertebral Arteries. Conclusion The right carotid arterial system appeared to be normal without stenosis of the bulb or internal carotid artery. The left carotid arterial system appeared to be normal without stenosis of the bulb or internal carotid artery. Duplex evaluation demonstrates antegrade flow of the bilateral Vertebral Arteries. Electronically signed by : Rd San MD 03/23/2020 18:46:05
== END ==
PROVIDERS: PCP Emergency Medicine; Visit Provider Emergency Medicine
DX: R09.89 Other specified symptoms and signs involving the circulatory and respiratory systems (principal)
CPT/HCPCS: 93880

== ENCOUNTER → 2020-04-01 06:17 | Outpatient (CLI) | payer MEDICARE, MEDICAID, SELFPAY ==
--- NOTE | 2020-04-01 06:18 | NM_ITS ---
APPROVED REPORT Exam: Nuclear Stress Test Indication: chest pain..short of breath..fatigue Patient Location: Outpatient Stress Tech: Pushpa Diaz CO Tech:NOHEMI Soto RT(R)(N) Ht: 5 ft 3 in Wt: 283 lbs Bra Size: 52b HR: 63 bpm BP: 125/68 mmHg BSA: 2.24 m2 BMI: 50.1 History: chest pain..short of breath..fatigue Procedure: Patient received a 0.4 mg of intravenous Lexiscan, resting heart rate 63 bpm, resting blood pressure 125/68 mmHg, with Lexiscan maximum heart rate achived was 92 bpm which is Less than 85 % of the maximum predicted heart rate and blood pressure was 135/63 mmHg. Electrocardiogram Resting electrocardiogram showed sinus rhythm, with Lexiscan there is less than 1.[address] segment depression noted from the baseline EKG. The EKG portion of the Lexiscan is nondiagnostic. Cardiac Stress and Resting SPECT Images: Cardiac Stress and Resting SPECT images were obtained using technetium 99m Myoview 32.2 mCi stress and 10.98 mCi at rest. Gated SPECT for analysis of segmental wall motion and calculation of ejection fraction also done. Prone images were also obtained. Cardiac stress and resting SPECT images show uniform myocardial activity without segmental perfusion abnormality, computer derived ejection fraction is 59% with no regional wall motion abnormality, right ventricle is normal size and contractility. Conclusion: 1. The EKG portion of the Lexiscan is nondiagnostic. 2. No scintigraphic evidence of reversible ischemia seen, computer derived ejection fraction is 59% with no regional wall motion abnormality, right ventricle is normal size and contractility. 3. Normal Lexiscan Myoview study. Electronically signed by : Tae Rodriguez, 04/01/2020 15:10:47
--- NOTE | 2020-04-01 06:18 | CA_ITS ---
APPROVED REPORT EXAM: Comprehensive 2D, Doppler, and color-flow Echocardiogram Pastry Cook Helper: Silvia RCS, RVS Ht: 5 ft 3 in Wt: 282lbs BSA: 2.24 BP: 166/82 mmHg Indications: CP, HTN, HLD, Dizziness, Asthma, GERD 2D Dimensions LVDs 4.24 cm LVOT 2.02 cm (M/F) 1.5-2.5 Ascending Aorta 3.18 cm M-Mode Dimensions LA Diam 3.90 cm (1.9-4.0) Ao Diam 3.33 cm (2.0-3.7) EPSs 0.24 cm LV Diastology E Decel Time 207.00 (160-240 msec) E/A Ratio 1.13 MED E' 5.70 (< 7 cm/sec) MED A' 10.00 cm/s E'/MED E' Ratio 14.51 (>14) LAT E' 7.40 (<10 cm/sec) LAT A' 9.70 cm/s E/LAT E' Ratio 11.18 (>14) Pulm Vein s 32.00 cm/sec Ar-A Duration 110.00 msec Aortic Valve AO Peak GR. 9.80 mmHg Mitral Valve MV A Velocity 73.00 (40-130 cm/s) E/A Ratio 1.13 MV Decel. Time 207.00 (160-240 ms) Tricuspid Valve TR P. Velocity 256.00 cm/s RAP Estimate 10.00 mmHg RVSP 36.30 mmHg Left Ventricle Left atrium is mildly enlarged, left ventricle is normal size, mild concentric left ventricular hypertrophy, visually estimated ejection fraction 55% with no regional wall motion abnormality, grade 1 diastolic dysfunction seen with tissue Doppler evidence of raise left atrial pressure. Right Ventricle Right atrium and right ventricle are mildly enlarged with normal contractility. Aortic Valve Aortic valve is minimally thickened and fibrosed, there is no aortic stenosis or aortic insufficiency. Mitral Valve Mitral valve is grossly normal, there is trace mitral regurgitation. Tricuspid Valve Tricuspid valve is grossly normal, there is mild tricuspid regurgitation, tricuspid regurgitation jet velocity is inadequate for calculation of the right ventricular systolic pressure. Pulmonic Valve Pulmonic valve is poorly visualized. Great Vessels Aortic root is normal size. Pericardium No significant pericardial effusion noted. Conclusion 1. Mild biatrial enlargement, normal left ventricular size, mild concentric left ventricular hypertrophy, visually estimated ejection fraction 55% with no regional wall motion abnormality, grade 1 diastolic dysfunction seen with tissue Doppler evidence of raise left atrial pressure. 2. Mildly enlarged right ventricle with normal contractility. 3. Trace mitral and mild tricuspid regurgitation. 4. No significant pericardial effusion noted. Electronically signed by : Tae Rodriguez, 04/01/2020 15:57:20
--- NOTE | 2020-04-01 06:18 | CA_ITS ---
APPROVED REPORT Exam: Pharmacologic Technologist: Pushpa Diaz, Ht: 5 ft 3 in Wt: 283 lbs BSA: 2.24 m2 HR: 63 bpm BP: 125/68 mmHg Rhythm: NSR Indications: Chest Pain, Shortness of Breath Stress Test Details Test: LEXISCAN HR Resting HR: 69 bpm Max Heart Rate (APMHR): 164 bpm Max HR Achieved: 94 bpm Target HR (85% APMHR): 139 bpm % of APMHR: 57 Recovery HR: 81 bpm BP Resting BP: 125/68 mmHg Max BP: 143/66 mmHg Recovery BP: 134.0/59.0 mmHg ECG Clinical Reason for Termination: Completed protocol Stress Symptoms: Headache, General Fatigue Exercise duration: 05:09 min Highest Stage Achieved: Exercise capacity: 1.0 METs Stress ECG Conclusion Mild chest pressure; MAYER; and malaise. No arrhythmias. No changes with ST-T changes. Unremarkable Lexiscan stress. Myoview images reported separately. Electronically signed by : Tae Rodriguez, 04/01/2020 14:59:08
== END ==
PROVIDERS: PCP Emergency Medicine; Visit Provider Urology
DX: I10 Essential (primary) hypertension (principal); R07.9 Chest pain, unspecified; R09.89 Other specified symptoms and signs involving the circulatory and respiratory systems; R42 Dizziness and giddiness
CPT/HCPCS: 78452; 93017; 93306; A9502; J2785

== ENCOUNTER 2020-04-06 09:48 | Outpatient (RCR) | payer MEDICARE, MEDICAID, SELFPAY | END 2020-04-06 10:47 | disposition home or self-care (01) | LOC: OT 09:48 | PROVIDERS: Visit Provider Orthopaedic Surgery | DX: G56.03 Carpal tunnel syndrome, bilateral upper limbs (principal) | CPT/HCPCS: 97763 ==

== ENCOUNTER → 2020-04-14 08:17 | Outpatient (CLI) | payer MEDICARE, MEDICAID, SELFPAY ==
--- NOTE | 2020-04-14 08:17 | MR_ITS ---
PROCEDURE: MR SHOULDER RT WO CON Referring Doctor: Rm Altamirano Patient Age:55Y CLINICAL INDICATION: right shoulder pain/ evaluate for rotator cuff tea COMPARISON: MR SHOULDRTWO MR shoulder RT wo con from 01/02/2018 CR XR CHEST PORTABLE from 11/14/2018 TECHNIQUE: Right shoulder plain with limited range of motion. Two pre R ear surgeries. New symptoms past 4 months. FINDINGS: Postsurgical changes at the shoulder again noted from previous rotator cuff repair. Residual of screw defects are seen superior aspect of the greater trochanter greater trochanter prominent joint effusion has progressed since prior study 2018 fluid bulges from and distends the joint inferiorly. Fluid tracks along the biceps tendon is well passes through the large rotator cuff defect and filling the subacromial space. Fluid tracks along the abnormal tendons Large rotator cuff tear: Supraspinatus tendon: Large complete prominent full-thickness tear with marked tendon retraction at supraspinatus tendon. Prominent increased joint fluid now fills this gap here passing through the large defect R CT beneath subacromial space. In previous study there was some Infraspinatus tendon-tear and tendinopathy. Prominent fluid is seen tracking along the infraspinatus. Fluid tracks into the proximal tendon on sagittal image 18.. Atrophy of infraspinatus muscle with likely at least significant partial tear most pronounced along along its superior aspect infraspinatus tendon. Inferior to this the teres minor muscle and tendon remains intact . Subscapularis tendon: Increased signal reflecting tendinopathy and likely longstanding partial tear given the diffuse atrophy of the subscapularis muscle-which seems to have progressed even since 2018.. Fluid surrounds this subscapularis tendon and continues along its course medially Biceps tendon but fluid tracks along the biceps tendon inferiorly. Previously the biceps tendon head a well defined appearance on 2018 exam. Now has a rather heterogeneous signal appearance of as it is viewed on sagittal image 7, and coronal image 13 where it passes the anterior proximal humeral shaft and surgical neck humerus. Correlation required appearance suggest tendinopathy and possible split tear of biceps tendon. Although the biceps tendon is more well-defined at the bicipital groove I I have difficulty following minute towards the biceps anchor. There is limited external rotation which crowds structures anteriorly in this regard. The. Glenohumeral relationships appear fairly satisfactory with only like slight if superior migration of humeral head and slight narrowing the subacromial space but AC joint hypertrophy arthropathy again noted. Again note fluid at this generous AC joint space a similar to previous study. The glenoid labrum appears similar to previous studies no prominent labral tear. There may be some slight degenerative changes anterior and posterior glenoid labrum but these are minor compared other features IMPRESSION: 1... Large joint effusion-bulging of joint with extension of joint fluid through the large rotator cuff defect, and tracking along abnormal tendons 2.. Large full thickness rotator cuff tear-RCT findings are more pronounced than 2018 . Complete supraspinatus tear with tendon retraction un roofs the humeral head . Infraspinatus tendinopathy and partial tear and atrophy. Generous fluid surrounding the tendon and extending medially at infraspinatus tendon . Supraspinatus tendinopathy, partial tear and atrophy 3.. Abnormal signal at biceps tendon most evident inferior to bicipital groove. Of reflecting tendinopathy and question possible split split tear. Generous fluid along biceps te
== END ==
PROVIDERS: PCP Emergency Medicine; Visit Provider Orthopaedic Surgery
DX: G89.29 Other chronic pain (principal); M25.511 Pain in right shoulder
CPT/HCPCS: 73221

== ENCOUNTER → 2020-04-26 10:11 | Outpatient (POV) | payer MEDICARE, MEDICAID, SELFPAY ==
[2020-04-26 10:24] VITALS: BP 142/74; PULSE 74; RESP 18; TEMP 36.8; O2SAT 99; BMI 46.5
--- NOTE | 2020-04-26 10:48 | HMH.PAINSOAP ---
[facility] Pain Management SOAP Note Subjective:: Patient is a pleasant 55-year-old white female presents today for medication refills she is being treated for pain secondary to degenerative disc disease lumbar spine lumbar radiculopathy. Patient is currently on Percocet 10 mg 1 p.o. twice daily. Lissette #[id number] reviewed and appropriate. Drug screens have been appropriate. Patient has recently torn her rotator cuff. Patient has an appointment with orthopedic surgeon. She rates her pain a 10 out of 10 today mostly because of this. We discussed adding methocarbamol to her regimen. She is interested in pursuing this. Her current morphine equivalent is 30. ROS General: no recent weight change, no fever, no sleep disturbances Respiratory: no cough, no shortness of air, no recurring pulmonary infections Cardiovascular/Peripheral Vascular: No chest pain, No palpitations, no edema, no shortness of breath. Gastrointestinal: no new onset incontinence, normal bowel movements reported Genitourinary: no new onset incontinence Musculoskeletal: Back pain, leg pain, joint pain, shoulder pain Psychiatric: normal mood/ affect Neurological: [denies new onset weakness in extremities], [denies new onset balance issues] Objective:: Physical Exam General: Alert and oriented x3, no acute distress, pleasant and cooperative, [on room air] Lungs: Resps E/U, Symmetrical chest expansion, Eyes: PERRL Musculoskeletal: Flexion and extension of cervical and lumbar spine somewhat guarded secondary to pain, deep tendon reflexes normal, strength in upper and lower extremities [5/5], [abnormal gait noted] Neurological: speech clear, child care team lead equal, no gross sensory deficits Assessment:: Degenerative disc disease lumbar spine lumbar radiculopathy, shoulder pain Plan:: We will continue her Percocet 10 mg 1 p.o. twice daily and start her on methocarbamol 500 mg 1 p.o. 4 times daily as needed. I will see the patient back in 1 month reassess her symptoms at that time she has been instructed to call the office if she has any issues prior to her next appointment. Dr. Purdy has reviewed this note and agrees with this plan of care. This note was dictated using voice recognition software and may contain errors or omissions Patient has been prescribed a controlled substance after being counseled on the medication, medication safety, and possible side effects. [facility] report has been obtained and reviewed prior to prescription and found to be appropriate. Opioid contract was reviewed and signed by the patient, and that they have agreed to all of the terms set forth by our compliance program. [facility] History I have reviewed the patient's past medical history: Yes Medical History: Reports:: Asthma, Depression, Gastroesophageal Reflux Disease(GERD), Hyperlipidemia, Hypertension, Lung Disease Denies:: Cancer, Diabetes Mellitus Type 1, Diabetes Mellitus Type 2, Internal Pacemaker, MRSA, Seizures *Have you ever received a pneumonia vaccine?: Yes *Have you received a flu vaccine this season?: Yes Other Medical History: Reports: Arthritis, Sickle Cell Disease, Other Laterality Cases: Right: Arthroscopy Shoulder, Bilateral: Tonsillectomy Other Surgeries: Yes: Bariatric Surgery, Cholecystectomy, Colonoscopy, , EGD, Hysterectomy-Total, Other (back surgery,rt shoulder surgery). No: Pacemaker Amputation: No Fractures: No - *Social History Smoking Status: Never smoker Tobacco Type: cigarettes # Packs/Day (cigarettes): 0 #Yrs smoked (if former smoker): 6 Alcohol Intake: never Alcohol Intake Frequency:: other Substance Use Type: denies use *Occupational Status:: employed, disabled Housing: house Household Members: spouse *Travel in the last 8 weeks: None - Psychiatric History Pschychiatric History:: Reports:: Depression Family Hx:: Hypertension, Hyperlipidemia, Diabetes, Cancer, Heart Attack
== END ==
PROVIDERS: PCP Emergency Medicine; Visit Provider Clinical Nurse Specialist Family Health
DX: M51.16 Intervertebral disc disorders with radiculopathy, lumbar region (principal); M25.519 Pain in unspecified shoulder
CPT/HCPCS: 99212; G0463

== ENCOUNTER → 2020-05-12 10:38 | Outpatient (CLI) | payer MEDICARE, MEDICAID, SELFPAY ==
[2020-05-12 12:25] LABS: Chloride 101 mmol/L (98-107); Sodium 138 mmol/L (136-145)
[2020-05-12 12:26] LABS: Potassium 4.7 mmoL/L (3.5-5.1)
[2020-05-12 12:29] LABS: Anion Gap 10.7 mEq/L (5-15); Blood Urea Nitrogen 12 mg/dl (7-17); Carbon Dioxide 31 mmol/L (22.0-30.0); Estimated Glomerular Filt Rate 103 ml/min (>60); GFR (African American) 125 ML/MIN (>60); Glucose 104 mg/dl (74-100)
== END ==
PROVIDERS: Visit Provider Physician Assistant
DX: I10 Essential (primary) hypertension (principal); I51.89 Other ill-defined heart diseases; K21.9 Gastro-esophageal reflux disease without esophagitis; R42 Dizziness and giddiness
CPT/HCPCS: 36415; 80048; 83735

== ENCOUNTER → 2020-05-17 09:52 | Outpatient (POV) | payer MEDICARE, MEDICAID, SELFPAY ==
[2020-05-17 10:36] VITALS: BP 140/74; PULSE 74; RESP 18; O2SAT 98; BMI 47.8
--- NOTE | 2020-05-17 10:39 | HMH.PAINSOAP ---
[facility] Pain Management SOAP Note Subjective:: Patient is a pleasant 85-year-old white female who presents today for medication refills. She is being treated for pain secondary to degenerative disc disease lumbar spine lumbar radiculopathy. Patient is currently on Percocet 10 mg 1 p.o. twice daily. Lissette reviewed and appropriate. And has recently had a torn rotator cuff she is being seen by her orthopedic surgeon tomorrow. She rates her pain a 6 out of 10. She did utilize her methocarbamol however it was not very helpful. Her current morphine equivalent is 30. ROS General: no recent weight change, no fever, no sleep disturbances Respiratory: no cough, no shortness of air, no recurring pulmonary infections Cardiovascular/Peripheral Vascular: No chest pain, No palpitations, no edema, no shortness of breath. Gastrointestinal: no new onset incontinence, normal bowel movements reported Genitourinary: no new onset incontinence Musculoskeletal: Back pain, right arm pain Psychiatric: normal mood/ affect Neurological: [denies new onset weakness in extremities], [denies new onset balance issues] Objective:: Physical Exam General: Alert and oriented x3, no acute distress, pleasant and cooperative, [on room air] Lungs: Resps E/U, Symmetrical chest expansion, Eyes: PERRL Musculoskeletal: Flexion and extension of lumbar spine somewhat guarded secondary to pain, deep tendon reflexes normal, strength in upper and lower extremities [5/5], [abnormal gait noted] Neurological: speech clear, sharepoint specialist equal, no gross sensory deficits Assessment:: Degenerative disc disease lumbar spine lumbar radiculopathy, right shoulder pain, back pain Plan:: I discussed with the patient weight loss. She has been losing weight and had recently been down 13 pounds. We will continue her on her Percocet 10 mg 1 p.o. twice daily. I did discuss with her if she has surgery she needs to contact our office. Patient is understanding. We will review Lissette and drug screen through the CX system. Instructed to call the office if she has any issues prior to next appointment. Dr. Purdy has reviewed this note and agrees with this plan of care. This note was dictated using voice recognition software and may contain errors or omissions Patient has been prescribed a controlled substance after being counseled on the medication, medication safety, and possible side effects. LISSETTE report has been obtained and reviewed prior to prescription and found to be appropriate. Opioid contract was reviewed and signed by the patient, and that they have agreed to all of the terms set forth by our compliance program. [facility] History I have reviewed the patient's past medical history: Yes Medical History: Reports:: Asthma, Depression, Gastroesophageal Reflux Disease(GERD), Hyperlipidemia, Hypertension, Lung Disease Denies:: Cancer, Diabetes Mellitus Type 1, Diabetes Mellitus Type 2, Internal Pacemaker, MRSA, Seizures *Have you ever received a pneumonia vaccine?: No *Have you received a flu vaccine this season?: Yes Other Medical History: Reports: Arthritis, Sickle Cell Disease, Other Laterality Cases: Right: Arthroscopy Shoulder, Bilateral: Tonsillectomy Other Surgeries: Yes: Bariatric Surgery, Cholecystectomy, Colonoscopy, , EGD, Hysterectomy-Total, Other (back surgery,rt shoulder surgery). No: Pacemaker Amputation: No Fractures: No - *Social History Smoking Status: Never smoker Tobacco Type: cigarettes # Packs/Day (cigarettes): 0 #Yrs smoked (if former smoker): 6 Alcohol Intake: never Alcohol Intake Frequency:: other Substance Use Type: denies use *Occupational Status:: employed, disabled Housing: house Household Members: spouse *Travel in the last 8 weeks: None - Psychiatric History Pschychiatric History:: Reports:: Depression Family Hx:: Hypertension, Hyperlipidemia, Diabetes, Cancer, Heart Attack
== END ==
PROVIDERS: PCP Emergency Medicine; Visit Provider Clinical Nurse Specialist Family Health
DX: M51.16 Intervertebral disc disorders with radiculopathy, lumbar region (principal); M25.511 Pain in right shoulder
CPT/HCPCS: 99212; G0463

== ENCOUNTER → 2020-06-10 07:36 | Outpatient (CLI) | payer MEDICARE, MEDICAID, SELFPAY ==
--- NOTE | 2020-06-10 07:37 | MM_ITS ---
PROCEDURE: MM DIG SCREENING MAMM BI W/CAD Digital Breast Tomosynthesis Included CLINICAL INDICATION: screening There is no personal or family history of breast cancer. COMPARISON: MG [facility]B DIG MAMM-SCREEN BERTRAND from 01/12/2015 MG DIG MAMM-SCREEN BERTRAND from 09/17/2018 TECHNIQUE: Standard CC and MLO images and 3D Tomosynthesis was obtained. R2 CAD reviewed. FINDINGS: Mild a few scattered fibroglandular densities are seen throughout both breast on a background of primarily fatty breast parenchyma. There are no CAD markings. There is faint arterial calcification in each breast. There is no suspicious lesion in either breast and no suspicious microcalcifications. IMPRESSION: Fibrofatty parenchyma with no suspicious lesions seen BI-RAD Category: 1 Negative FOLLOW-UP: 1YR 1 Year Follow-up (A letter has been sent to the patient regarding results of the study.) Dictated by: Dr. Steven Everett MD 06/11/2020 13:28 Dr. Steven Everett MD in [place] 06/11/2020 13:28
== END ==
PROVIDERS: PCP Emergency Medicine; Visit Provider Emergency Medicine
DX: Z12.31 Encounter for screening mammogram for malignant neoplasm of breast (principal)
CPT/HCPCS: 77063; 77067

== ENCOUNTER 2020-08-18 11:18 | Outpatient (RCR) | payer MEDICARE, MEDICAID, SELFPAY | END 2020-08-18 12:10 | disposition home or self-care (01) | LOC: OT 11:18 | PROVIDERS: Visit Provider Orthopaedic Surgery | DX: M65.4 Radial styloid tenosynovitis [de Quervain] (principal) | CPT/HCPCS: 97763 ==

== ENCOUNTER → 2020-08-19 10:33 | Outpatient (POV) | payer MEDICARE, MEDICAID, SELFPAY ==
[2020-08-19 10:39] VITALS: BP 170/83; PULSE 72; RESP 18; O2SAT 98; BMI 47.5
--- NOTE | 2020-08-19 11:08 | HMH.PAINSOAP ---
[facility] Pain Management SOAP Note Subjective:: Patient is an 55-year-old white female who presents today for follow-up and medication refills. She has been treated for degenerative disc disease lumbar spine with lumbar radicular symptoms as well as right shoulder pain and right wrist pain. She is seeing Dr. Altamirano for right shoulder pain and tendinitis in her right wrist. She did recently undergo an injection to her right wrist for chronic pain to the area. She is scheduled to undergo surgical intervention to her right shoulder, however, has requested treatment to her right wrist before the surgery due to intense physical therapy following surgery. She did not want to proceed with surgery until she is able to perform physical therapy postoperative. She has managed in our clinic for chronic back pain with Percocet 10 mg 1 tablet p.o. twice daily. She denies any side effects to the medication. Her Lissette #[id number] has been reviewed and is appropriate. Drug screen is appropriate. The patient is also managed with gabapentin 100 mg 1 tablet p.o. daily. She does rate her pain a 7 out of 10 today. Review of Systems General: No recent weight changes, no fever, no sleep disturbances Respiratory: No cough, no shortness of air, no recurring pulmonary infections Cardiovascular/peripheral vascular: No chest pain, no palpitations, no edema, no shortness of breath Gastrointestinal: No new onset incontinence, normal bowel movements reported Genitourinary: No new onset incontinence Musculoskeletal: Low back pain, right shoulder pain, right wrist pain Psychiatric: Normal mood/affect Neurological: [Denies weakness in extremities], [denies balance issues] Objective:: Physical exam General: Alert and oriented x3, no acute distress, pleasant and cooperative, [on room air] Lungs: Respirations even and unlabored, symmetrical chest expansion Eyes: PERRL Musculoskeletal: Flexion and extension of lumbar spine somewhat guarded secondary to pain, deep tendon reflexes normal, strength in upper and lower extremities [5/5], [abnormal gait noted] Neurological: Speech clear, protein specialist equal, no gross sensory deficit Assessment:: Degenerative disc disease lumbar spine with lumbar radicular symptoms, right wrist pain, right shoulder pain Plan:: We will refill the patient's Percocet 10 mg 1 tablet p.o. twice daily. 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 Patient has been prescribed a controlled substance after being counseled on the medication, medication safety, and possible side effects. LISSETTE report has been obtained and reviewed prior to prescription and found to be appropriate. Opioid contract was reviewed and signed by the patient, and that they have agreed to all of the terms set forth by our compliance program. Patient has been instructed to contact the clinic with any concerns before the next appointment. Dr. Purdy has reviewed this note and agrees with this plan of care. This note was dictated using voice recognition software and make contain errors or omissions. [facility] History I have reviewed the patient's past medical history: Yes Medical History: Reports:: Asthma, Depression, Gastroesophageal Reflux Disease(GERD), Hyperlipidemia, Hypertension, Lung Disease Denies:: Cancer, Diabetes Mellitus Type 1, Diabetes Mellitus Type 2, Internal Pacemaker, MRSA, Seizures *Have you ever received a pneumonia vaccine?: No *Have you received a flu vaccine this season?: No Other Medical History: Reports: Arthritis, Sickle Cell Disease, Other Laterality Cases: Right: Arthroscopy Shoulder, Bilateral: Tonsillectomy Other Surgeries: Yes: Bariatric Surgery, Cholecystectomy, Colonoscopy, , EGD, Hysterectomy-Total, Other (back surgery,rt shoulder surgery). No: Pacemaker Amputation: No Fractures: No - *Social History Smoking Status: Never smoker Tobacco Type: cigarettes # Packs/Day (cigarettes): 0 #Yrs smoked (if f
== END ==
PROVIDERS: PCP Emergency Medicine; Visit Provider Clinical Nurse Specialist Family Health
DX: M51.16 Intervertebral disc disorders with radiculopathy, lumbar region (principal); M25.531 Pain in right wrist; M25.511 Pain in right shoulder
CPT/HCPCS: 99212; G0463

== ENCOUNTER → 2020-09-30 11:21 | Outpatient (POV) | payer MEDICARE, MEDICAID, SELFPAY ==
[2020-09-30 11:29] VITALS: BP 173/70; PULSE 68; RESP 18; O2SAT 96; BMI 47.6
--- NOTE | 2020-09-30 12:11 | HMH.PAINSOAP ---
[facility] Pain Management SOAP Note Subjective:: Patient is a 55-year-old white female who presents today for degenerative disc disease lumbar spine with lumbar radiculopathy symptoms and right shoulder and right wrist pain. She recently had injective therapy to her right wrist. She is getting relief to that area. She is now deciding if she wants to undergo right shoulder surgery. She says that Dr. Altamirano has advised her she will need a shoulder repair. She is unsure if she wants to proceed with this. She is managed in the clinic with Percocet 10 mg 1 tablet p.o. twice daily. She was previously on gabapentin, however, was advised by her neurologist to stop taking the medication as it could cause an interaction with her Tegretol. She has tried amitriptyline in the past with no relief. She is currently on BuSpar and Wellbutrin. We discussed Cymbalta but due to the medication she is currently on and concern for serotonin syndrome, we will not start her on Cymbalta at this time. She does say she would like an increase in her medication, however, I have advised the patient would not be able to increase this dose. She is currently undergoing physical therapy. We did discuss the compounding cream she would like to try this. Review of Systems General: No recent weight changes, no fever, no sleep disturbances Respiratory: No cough, no shortness of air, no recurring pulmonary infections Cardiovascular/peripheral vascular: No chest pain, no palpitations, no edema, no shortness of breath Gastrointestinal: No new onset incontinence, normal bowel movements reported Genitourinary: No new onset incontinence Musculoskeletal: [] Low back pain and right shoulder pain Psychiatric: Normal mood/affect Neurological: [Denies weakness in extremities], [denies balance issues] Objective:: Physical exam General: Alert and oriented x3, no acute distress, pleasant and cooperative, [on room air] Lungs: Respirations even and unlabored, symmetrical chest expansion Eyes: PERRL Musculoskeletal: Flexion and extension of [] lumbar spine somewhat guarded secondary to pain, limited range of motion to right upper extremity due to pain, deep tendon reflexes normal, strength in upper and lower extremities [4/5], normal gait noted Neurological: Speech clear, chief security and safety officer equal, no gross sensory deficit Assessment:: Degenerative disc disease lumbar spine with lumbar radiculopathy symptoms, right shoulder pain Plan:: Patient I discussed we will not be able to increase her Percocet. We will continue her at this time on Percocet 10 mg 1 tablet p.o. twice daily. She has been advised that she may need to wean on the medication in the future. Her Lissette #[id number] has been reviewed and is appropriate. Morphine equivalent is 30. Drug screen is appropriate. We will see the patient back in 1 month for reevaluation of symptoms. Patient has been prescribed a controlled substance after being counseled on the medication, medication safety, and possible side effects. LISSETTE report has been obtained and reviewed prior to prescription and found to be appropriate. Opioid contract was reviewed and signed by the patient, and that they have agreed to all of the terms set forth by our compliance program. Patient has been instructed to contact the clinic with any concerns before the next appointment. Dr. Prudy has reviewed this note and agrees with this plan of care. This note was dictated using voice recognition software and make contain errors or omissions. [facility] History I have reviewed the patient's past medical history: Yes Medical History: Reports:: Asthma, Depression, Gastroesophageal Reflux Disease(GERD), Hyperlipidemia, Hypertension, Lung Disease Denies:: Cancer, Diabetes Mellitus Type 1, Diabetes Mellitus Type 2, Internal Pacemaker, MRSA, Seizures *Have you ever received a pneumonia vaccine?: Yes *Have you received a flu vaccine this season?: Yes Other Medical History: Reports: Arth
== END ==
PROVIDERS: Visit Provider Clinical Nurse Specialist Family Health
DX: M51.16 Intervertebral disc disorders with radiculopathy, lumbar region (principal); M25.511 Pain in right shoulder
CPT/HCPCS: 99212; G0463

== ENCOUNTER 2020-10-13 10:00 | Outpatient (RCR) | payer MEDICARE, MEDICAID, SELFPAY ==
--- NOTE | 2020-09-15 10:51 | HMH.PTOPEV ---
PT Outpatient Evaluation Rehab PT Outpatient Evaluation Start: 09/15/20 09:51 Freq: Status: Active Protocol: Document 09/15/20 09:51 CELESTINO (Rec: 09/15/20 10:51 PDESERSOLEX [id number]) Electronically Signed By Skip Jones, QASIM 09/15/20 09:51 Outpatient Therapy Subjective History Subjective History Pt. is a 55 year old female who presents to outpatient PT clinic w/ c/o chronic and constant R-sided chest/thoracic P! of insidious onset 6 months ago. Pt. reports symptoms worsen w/ sleeping and lifting objects. Pt. reports having symptom relief w/ resting and prescribed medication. Pt. reports her heart was ruled out after testing came back negative. Pt. denies having any recent diagnostic imaging nor injections for current pathology. Pt. reports she was scheduled to have a reverse total shoulder replacement on the R, but had to cancel the appointment d/t family matters . Pt. RTMD ~10/05/20. Pt. denies pacemaker, latex allergy, nor history of cancer (self). Pt. reports medication allergy to Lisinopril. Current medications include Wellbutrin, Tylenol, Percocet, Cozaar, Buspar, and Norvasc. PMH includes Hypertension, Carpal Tunnel Syndrome B, Cholecystectomy, Neuropathy, Gastric Bypass, Tonsillectomy, and RUE shldr. sx. x 3. Chief Complaint Pain,Stiff Symptom Type Ache,Dull Symptoms Relieved By Rest/Positioning,Prescription Meds Symptoms Aggravated By Sitting,Bending/Stooping, Physical Activity,Twisting, Lifting Prior Functional Limitations None Current Functional Limitations Reaching,Lifting,Housework, Dressing,Sleeping,Bending/ Stooping Symptom Description Intermittent,Activity Depe
== END 2020-11-15 13:26 | disposition home or self-care (01) ==
LOC: PT.CARL 10:00
PROVIDERS: PCP Emergency Medicine; Visit Provider Emergency Medicine
DX: M54.9 Dorsalgia, unspecified (principal)
CPT/HCPCS: 97110; 97163

== ENCOUNTER → 2020-10-28 13:28 | Outpatient (POV) | payer MEDICARE, MEDICAID, SELFPAY ==
[2020-10-28 13:35] VITALS: BP 172/82; PULSE 75; RESP 18; TEMP 36.4; O2SAT 96; BMI 47.6
--- NOTE | 2020-10-28 14:00 | HMH.PAINSOAP ---
[facility] Pain Management SOAP Note Subjective:: Patient is a 55-year-old white female who presents today for follow-up and for medication refills. She is being treated for degenerative disc disease lumbar spine with lumbar radiculopathy symptoms as well as right shoulder and wrist pain. She has been undergoing injective therapy to her right wrist and will be undergoing surgery to her shoulder. She is currently taking Percocet 10 mg 1 tablet p.o. twice daily by our clinic. She was previously on gabapentin, however, it did stop taking gabapentin due to the recommendation of her neurologist. She takes Tegretol which is drug drug interaction. She is currently on BuSpar and Wellbutrin. She has asked for an increase in her medication in the past however she has been advised we cannot increase this medicine. She is currently undergoing physical therapy. We did order her compounding cream which she has been using NSAIDs is beneficial for her pain. Her pain is a 6 out of 10 today. [facility] #[id number] has been reviewed and is appropriate. She is due for refill 11/11/2020. She denies any side effects to the medication. Review of Systems General: No recent weight changes, no fever, no sleep disturbances Respiratory: No cough, no shortness of air, no recurring pulmonary infections Cardiovascular/peripheral vascular: No chest pain, no palpitations, no edema, no shortness of breath Gastrointestinal: No new onset incontinence, normal bowel movements reported Genitourinary: No new onset incontinence Musculoskeletal: Low back pain with radiation into lower extremities, right shoulder pain, right wrist pain Psychiatric: [Normal mood/affect] Neurological: [Denies weakness in extremities], [denies balance issues] Objective:: Physical exam General: Alert and oriented x3, no acute distress, pleasant and cooperative, [on room air] Lungs: Respirations even and unlabored, symmetrical chest expansion Eyes: PERRL Musculoskeletal: Flexion and extension of [] lumbar [spine] somewhat guarded secondary to pain, strength in upper and lower extremities [5/5], [antalgic gait noted] Neurological: Speech clear, [speck dyer equal], no gross sensory deficit Assessment:: Degenerative disc disease lumbar spine with lumbar radiculopathy symptoms, right wrist pain, right shoulder pain Plan:: We will refill the patient's Percocet 10 mg 1 tablet p.o. twice daily. We will see her back in clinic in 1 month for reevaluation of symptoms. Patient has been prescribed a controlled substance after being counseled on the medication, medication safety, and possible side effects. LISSETTE report has been obtained and reviewed prior to prescription and found to be appropriate. Opioid contract was reviewed and signed by the patient, and that they have agreed to all of the terms set forth by our compliance program. Risks and benefits of the medication have been explained in detail to the patient. The patient has been advised to consult with his/her primary care provider and pharmacist regarding drug-drug interaction of medications currently prescribed. Patient has been instructed to contact the clinic with any concerns before the next appointment. Dr. Purdy has reviewed this note and agrees with this plan of care. This note was dictated using voice recognition software and make contain errors or omissions. [facility] History I have reviewed the patient's past medical history: Yes Medical History: Reports:: Asthma, Depression, Gastroesophageal Reflux Disease(GERD), Hyperlipidemia, Hypertension, Lung Disease Denies:: Cancer, Diabetes Mellitus Type 1, Diabetes Mellitus Type 2, Internal Pacemaker, MRSA, Seizures *Have you ever received a pneumonia vaccine?: No *Have you received a flu vaccine this season?: No Other Medical History: Reports: Arthritis, Sickle Cell Disease, Other Laterality Cases: Right: Arthroscopy Shoulder, Bilateral: Tonsillectomy Other Surgeries: Yes: Bariatric Surgery, Cholecyst
== END ==
PROVIDERS: Visit Provider Clinical Nurse Specialist Family Health
DX: M51.16 Intervertebral disc disorders with radiculopathy, lumbar region (principal); M25.531 Pain in right wrist; M25.511 Pain in right shoulder
CPT/HCPCS: 99212; G0463

== ENCOUNTER → 2020-12-02 11:02 | Outpatient (POV) | payer MEDICARE, MEDICAID, SELFPAY ==
[2020-12-02 11:25] VITALS: BP 171/65; PULSE 67; RESP 18; O2SAT 98; BMI 46.5
--- NOTE | 2020-12-02 12:08 | HMH.PAINSOAP ---
[facility] Pain Management SOAP Note Subjective:: Patient is a 55-year-old white female who presents today for medication refills. She has been treated for degenerative disc disease lumbar spine with lumbar radiculopathy symptoms and right shoulder and wrist pain. Patient is undergoing injective therapy to her right wrist and will be undergoing surgery to her right shoulder. She does plan to contact orthopedics regarding her shoulder. She is not currently scheduled for the procedure. She is having severe pain to her coccygeal area today. She is using compounding cream and also takes Percocet 10 mg 1 tablet p.o. twice daily. Patient was previously on gabapentin, but did stop the medication per her neurologist due to patient taking Tegretol. She does rate her pain a 6 out of 10. She is having difficulty sitting due to the pain in her coccyx. Patient's Lissette #[id number] has been reviewed and is appropriate. Drug screens are appropriate. Morphine equivalent is 30. Review of Systems General: No recent weight changes, no fever, no sleep disturbances Respiratory: No cough, no shortness of air, no recurring pulmonary infections Cardiovascular/peripheral vascular: No chest pain, no palpitations, no edema, no shortness of breath Gastrointestinal: No new onset incontinence, normal bowel movements reported Genitourinary: No new onset incontinence Musculoskeletal: Coccygeal pain and low back pain Psychiatric: [Normal mood/affect] Neurological: [Denies weakness in extremities], [denies balance issues] Objective:: Physical exam General: Alert and oriented x3, no acute distress, pleasant and cooperative, [on room air] Lungs: Respirations even and unlabored, symmetrical chest expansion Eyes: PERRL Musculoskeletal: Flexion and extension of [] lumbar [spine] somewhat guarded secondary to pain, strength in upper and lower extremities [5/5], [antalgic gait noted] Neurological: Speech clear, [cook pressure equal], no gross sensory deficit Assessment:: Degenerative disc disease lumbar spine with lumbar radiculopathy symptoms, coccygeal pain Plan:: We will continue the patient's Percocet 10 mg 1 tablet p.o. twice daily. We will give her a 5-day dose of prednisone 20 mg 1 tablet p.o. twice daily. We will see if this helps with her coccygeal pain. She has deferred on injective therapy at this time. We will follow up with her at her next visit to reassess her symptoms. She will get a month of medication. Risks and benefits of the medication have been explained in detail to the patient. The patient has been advised to consult with his/her primary care provider and pharmacist regarding drug-drug interaction of medications currently prescribed. Patient has been prescribed a controlled substance after being counseled on the medication, medication safety, and possible side effects. LISSETTE report has been obtained and reviewed prior to prescription and found to be appropriate. Opioid contract was reviewed and signed by the patient, and that they have agreed to all of the terms set forth by our compliance program. Patient has been instructed to contact the clinic with any concerns before the next appointment. Dr. Purdy has reviewed this note and agrees with this plan of care. This note was dictated using voice recognition software and make contain errors or omissions. [facility] History I have reviewed the patient's past medical history: Yes Medical History: Reports:: Asthma, Depression, Gastroesophageal Reflux Disease(GERD), Hyperlipidemia, Hypertension, Lung Disease Denies:: Cancer, Diabetes Mellitus Type 1, Diabetes Mellitus Type 2, Internal Pacemaker, MRSA, Seizures *Have you ever received a pneumonia vaccine?: No *Have you received a flu vaccine this season?: No Other Medical History: Reports: Arthritis, Sickle Cell Disease, Other Laterality Cases: Right: Arthroscopy Shoulder, Bilateral: Tonsillectomy Other Surgeries: Yes: Bariatric Surgery, Cholecystectomy, Colon
[2020-12-02 12:57] LABS: Barbiturates Screen,Urine Negative ng/ml (<200)
[2020-12-02 12:58] LABS: Benzodiazepines Screen,Urine Negative ng/ml (<200)
[2020-12-02 12:59] LABS: Amphetamine/Metha Screen,Urine Negative ng/ml (<1000); Cannabinoid Screen,Urine Negative ng/ml (<50)
[2020-12-02 13:00] LABS: Cocaine Screen,Urine Negative ng/ml (<300); Methadone Screen,Urine Negative ng/ml (<300)
[2020-12-02 13:01] LABS: Opiate Screen,Urine Positive ng/ml (<300)
[2020-12-02 13:02] LABS: Phencyclidine Screen,Urine Negative ng/ml (<25)
== END ==
PROVIDERS: Visit Provider Clinical Nurse Specialist Family Health
DX: M51.16 Intervertebral disc disorders with radiculopathy, lumbar region (principal); M53.3 Sacrococcygeal disorders, not elsewhere classified; Z79.899 Other long term (current) drug therapy
CPT/HCPCS: 80305; 99212; G0463

== ENCOUNTER → 2020-12-08 10:56 | Outpatient (CLI) | payer MEDICARE, MEDICAID, SELFPAY ==
--- NOTE | 2020-12-08 11:00 | XR_ITS ---
PROCEDURE: XR CHEST 2V CLINICAL HISTORY: cp/dyspnea Chest pain and dyspnea COMPARISON: CR CXR CHEST(2 VIEWS-NOT PORTABLE) from 10/23/[address] [facility] [address] CHEST W/O CONTRAST from 05/01/2016 CR CXR2V XR chest 2V from 10/03/2017 CR XR CHEST PORTABLE from 11/14/2018 FINDINGS: The cardiomediastinal silhouette and pulmonary vascularity are within normal limits. The lungs are clear without infiltrates, suspicious nodules, or pleural effusions. Degenerative changes of the acromioclavicular joints with mild thoracic curvature convex right. DISH of the thoracic spine IMPRESSION: No acute findings. Dictated by: Rd San MD 12/08/2020 11:42 Rd San MD in [place] 12/08/2020 11:42
== END ==
PROVIDERS: PCP Emergency Medicine; Visit Provider Internal Medicine
DX: I10 Essential (primary) hypertension (principal); K21.9 Gastro-esophageal reflux disease without esophagitis; R06.00 Dyspnea, unspecified; R07.9 Chest pain, unspecified; R42 Dizziness and giddiness
CPT/HCPCS: 71046

== ENCOUNTER → 2020-12-23 08:40 | Outpatient (POV) | payer MEDICARE, MEDICAID, SELFPAY ==
[2020-12-23 09:30] VITALS: BP 133/61; PULSE 76; RESP 18; O2SAT 96; BMI 46.0
--- NOTE | 2020-12-23 09:31 | HMH.PAINSOAP ---
[facility] Pain Management SOAP Note Subjective:: Patient is a 55-year-old white female who presents today for medication refills. The patient does have low back pain with radiation into bilateral lower extremities and shoulder and wrist pain. She does state orthopedics?Dr. Altamirano for injective therapy to her right wrist and shoulder. She is doing well overall with her medications and with injective therapy within the orthopedic clinic. She does rate her pain a 5 out of 10 which is baseline for her. She is managed with Percocet 10 mg 1 tablet p.o. twice daily. Patient has been on this medication for some time. She was previously taking gabapentin, however, due to starting Tegretol, she was advised by her neurologist to stop gabapentin. Patient's Lissette #[id number] has been reviewed and is appropriate. The patient's morphine equivalent is 30. Drug screens have been appropriate. Review of Systems General: No recent weight changes, no fever, no sleep disturbances Respiratory: No cough, no shortness of air, no recurring pulmonary infections Cardiovascular/peripheral vascular: No chest pain, no palpitations, no edema, no shortness of breath Gastrointestinal: No new onset incontinence, normal bowel movements reported Genitourinary: No new onset incontinence Musculoskeletal: Low back pain, right shoulder pain, bilateral lower extremity pain Psychiatric: [Normal mood/affect] Neurological: [Denies weakness in extremities], [denies balance issues] Objective:: Physical exam General: Alert and oriented x3, no acute distress, pleasant and cooperative, [on room air] Lungs: Respirations even and unlabored, symmetrical chest expansion Eyes: PERRL Musculoskeletal: Flexion and extension of [lumbar] [spine] somewhat guarded secondary to pain, strength in upper and lower extremities [5/5], [antalgic gait noted] Neurological: Speech clear, [universal banker equal], no gross sensory deficit Assessment:: Degenerative disc disease lumbar spine with lumbar radiculopathy symptoms, right shoulder pain Plan:: We will refill the patient's Percocet 10 mg 1 tablet p.o. twice daily. She will get a month medication will be seen back in the clinic in 1 month for reevaluation symptoms. Risks and benefits of the medication have been explained in detail to the patient. If side effects do present with the medication, she has been advised to stop the medication immediately and call the clinic. The patient has been advised to consult with his/her primary care provider and pharmacist regarding drug-drug interaction of medications currently prescribed. Patient has been instructed to contact the clinic with any concerns before the next appointment. Dr. Purdy has reviewed this note and agrees with this plan of care. This note was dictated using voice recognition software and make contain errors or omissions. Patient has been prescribed a controlled substance after being counseled on the medication, medication safety, and possible side effects. LISSETTE report has been obtained and reviewed prior to prescription and found to be appropriate. Opioid contract was reviewed and signed by the patient, and that they have agreed to all of the terms set forth by our compliance program. [facility] History I have reviewed the patient's past medical history: Yes Medical History: Reports:: Asthma, Depression, Gastroesophageal Reflux Disease(GERD), Hyperlipidemia, Hypertension, Lung Disease Denies:: Cancer, Diabetes Mellitus Type 1, Diabetes Mellitus Type 2, Internal Pacemaker, MRSA, Seizures *Have you ever received a pneumonia vaccine?: No *Have you received a flu vaccine this season?: No Other Medical History: Reports: Arthritis, Sickle Cell Disease, Other Laterality Cases: Right: Arthroscopy Shoulder, Bilateral: Tonsillectomy Other Surgeries: Yes: Bariatric Surgery, Cholecystectomy, Colonoscopy, , EGD, Hysterectomy-Total, Other (back surgery,rt shoulder surgery). No: Pacemaker Amputation: No
== END ==
PROVIDERS: Visit Provider Clinical Nurse Specialist Family Health
DX: M51.16 Intervertebral disc disorders with radiculopathy, lumbar region (principal); M25.511 Pain in right shoulder; E11.9 Type 2 diabetes mellitus without complications; R07.9 Chest pain, unspecified; E55.9 Vitamin D deficiency, unspecified; Z00.00 Encounter for general adult medical examination without abnormal findings
CPT/HCPCS: 36415; 80053; 80061; 82306; 83036; 84443; 85025; 99212; G0463

== ENCOUNTER → 2020-12-23 08:53 | Outpatient (CLI) | payer MEDICARE, MEDICAID, SELFPAY ==
[2020-12-23 09:39] LABS: Basophils # 0.1 K/mm3 (0-0.2); Basophils % 0.8 % (0.1-2.0); Eosinophils # 0.1 K/mm3 (0.0-0.4); Eosinophils % 1.1 % (0.1-12.0); Hematocrit 44.1 % (37.0-47.0); Hemoglobin 14.6 g/dL (12.2-16.2); Lymphocytes # 3.3 K/mm3 (0.7-4.5); Lymphocytes % 38.3 % (10-50); Mean Corpuscular Hemoglobin 31.3 pg (27.0-31.2); Mean Platelet Volume 9.1 fl (7.4-10.4); Monocytes # 0.5 K/mm3 (0.1-1.0); Neutrophils # 4.6 K/mm3 (1.8-7.8); Neutrophils % 53.8 % (37.0-80.0); Platelet Count 293 K/mm3 (142-424); Red Blood Count 4.64 M/mm3 (4.20-5.40); Red Cell Distribution Width 15.3 % (11.5-17.5); White Blood Count 8.6 K/mm3 (4.8-10.8)
[2020-12-23 10:02] LABS: Hemoglobin A1C 5.9 % (4.0-6.0)
[2020-12-23 11:00] LABS: Chloride 102 mmol/L (98-107); Potassium 4.1 mmoL/L (3.5-5.1); Sodium 138 mmol/L (136-145)
[2020-12-23 11:03] LABS: Alanine Aminotransferase 27 U/L (12-78); Albumin Level 4.3 g/dl (3.5-5.0); Albumin/Globulin Ratio 1.8 (1.1-1.8); Alkaline Phosphatase 91 U/L (38-126); Anion Gap 13.1 mEq/L (5-15); Aspartate Amino Transferase 26 U/L (14-36); Bilirubin,Total 0.2 mg/dl (0.2-1.3); Blood Urea Nitrogen 10 mg/dl (7-17); Calcium 9.5 mg/dl (8.4-10.2); Carbon Dioxide 27 mmol/L (22.0-30.0); Cholesterol 238 mg/dl (140-200); Estimated Glomerular Filt Rate 103 ml/min (>60); GFR (African American) 125 ML/MIN (>60); Globulin 2.4 g/dL (1.3-3.2); Glucose 119 mg/dl (74-100); Total Protein,Serum 6.7 g/dl (6.3-8.2); Triglycerides 248 mg/dl (30-150); VLDL Cholesterol 50 mg/dL (0-40)
[2020-12-23 11:04] LABS: HDL Cholesterol 80 mg/dl (40-60)
[2020-12-23 11:08] LABS: 25-OH Vitamin D, Total 36.7 ng/mL (30-100)
[2020-12-23 11:14] LABS: Direct LDL Cholesterol 117.65 mg/dL (100-129)
[2020-12-23 11:34] LABS: Thyroid Stimulating Hormone 0.22 uIU/mL (0.465-4.68)
== END ==
PROVIDERS: Visit Provider Emergency Medicine
DX: R07.9 Chest pain, unspecified (principal); E11.9 Type 2 diabetes mellitus without complications; Z00.00 Encounter for general adult medical examination without abnormal findings; E55.9 Vitamin D deficiency, unspecified; G47.33 Obstructive sleep apnea (adult) (pediatric)
CPT/HCPCS: 36415; 80053; 80061; 82306; 83036; 84443; 85025

== ENCOUNTER → 2021-01-11 09:03 | Outpatient (CLI) | payer MEDICARE, MEDICAID, SELFPAY ==
[2021-01-11 10:15] LABS: Chol/HDL Ratio 3.1 (1-3.5); Cholesterol 249 mg/dl (140-200); HDL Cholesterol 81 mg/dl (40-60); Triglycerides 230 mg/dl (30-150); VLDL Cholesterol 46 mg/dL (0-40)
[2021-01-11 10:26] LABS: Direct LDL Cholesterol 129.33 mg/dL (100-129)
[2021-01-11 10:36] LABS: T4 (Thyroxine) 6.4 ug/dl (5.53-11.0)
== END ==
PROVIDERS: Visit Provider Emergency Medicine
DX: G56.03 Carpal tunnel syndrome, bilateral upper limbs (principal); R07.9 Chest pain, unspecified
CPT/HCPCS: 36415; 80061; 84436; 84443

== ENCOUNTER → 2021-01-19 10:47 | Outpatient (CLI) | payer MEDICARE, MEDICAID, SELFPAY ==
[2021-01-19 13:55] LABS: Thyroid Stimulating Hormone 0.26 uIU/mL (0.465-4.68)
[2021-01-20 08:22] LABS: Triiodothyronine (T3) Free 2.9 pg/mL (2.0-4.4)
== END ==
PROVIDERS: PCP Emergency Medicine; Visit Provider Nurse Practitioner Family
DX: R79.89 Other specified abnormal findings of blood chemistry; E03.8 Other specified hypothyroidism; R06.00 Dyspnea, unspecified; R94.31 Abnormal electrocardiogram [ECG] [EKG]
CPT/HCPCS: 36415; 84439; 84443; 84481; 93306

== ENCOUNTER → 2021-01-20 08:36 | Outpatient (POV) | payer MEDICARE, MEDICAID, SELFPAY ==
[2021-01-20 08:48] VITALS: BMI 49.6
--- NOTE | 2021-01-20 09:06 | HMH.PAINSOAP ---
[facility] Pain Management SOAP Note Subjective:: Patient is a 6-year-old white female who presents today for medication refills. The patient is having continued low back pain with radiation into her left leg. She says that the pain is in the middle aspect of her back and does go into her legs. The pain is worse when she stands and walks. She has tried conservative therapies of oral medications, physical therapy, and anti-inflammatories. The patient only seems to get relief with oral medications. She has also tried injective therapy in the past. She does see Dr. Altamirano for injective therapy in her right wrist and shoulder. She rates her pain a 5 out of 10 today. We manage the patient with Percocet 10 mg 1 tablet p.o. twice daily. Patient I have discussed Narcan in the past and she does understand the medication will be ordered for her. [facility] #[id number] has been reviewed and is perfect. Morphine equivalent is 30. Drug screens have been appropriate. Review of Systems General: No recent weight changes, no fever, no sleep disturbances Respiratory: No cough, no shortness of air, no recurring pulmonary infections Cardiovascular/peripheral vascular: No chest pain, no palpitations, no edema, no shortness of breath Gastrointestinal: No new onset incontinence, normal bowel movements reported Genitourinary: No new onset incontinence Musculoskeletal: Low back pain with radiation into bilateral lower extremities. Psychiatric: [Normal mood/affect] Neurological: [Denies weakness in extremities], [denies balance issues] Objective:: Physical exam General: Alert and oriented x3, no acute distress, pleasant and cooperative Lungs: Respirations even and unlabored, symmetrical chest expansion Eyes: PERRL Musculoskeletal: Flexion and extension of lumbar [spine] somewhat guarded secondary to pain, [antalgic gait noted] Neurological: Speech clear, no gross sensory deficit Assessment:: Degenerative disc disease lumbar spine with lumbar radiculopathy symptoms Plan:: We will refill the patient's Percocet 10 mg 1 tablet p.o. twice daily. The patient will get a month medication and will be seen back in the clinic in 1 month. Risks and benefits of the medication have been explained in detail to the patient. The patient does understand the risk of dependence on the medication when given over a prolonged period. Patient has been advised of risks of oversedation with the prescribed medication. Narcan has been offered to the paitent in the event of oversedation. Patient has been advised that a family member should also be educated regarding administration of Narcan. The patient has been advised to consult with his/her primary care provider and pharmacist regarding drug-drug interaction of medications currently prescribed. Patient has been prescribed a controlled substance after being counseled on the medication, medication safety, and possible side effects. LISSETTE report has been obtained and reviewed prior to prescription and found to be appropriate. Opioid contract was reviewed and signed by the patient, and that they have agreed to all of the terms set forth by our compliance program. Patient has been instructed to contact the clinic with any concerns before the next appointment. Dr. Purdy has reviewed this note and agrees with this plan of care. This note was dictated using voice recognition software and make contain errors or omissions. [facility] History I have reviewed the patient's past medical history: Yes Medical History: Reports:: Asthma, Depression, Gastroesophageal Reflux Disease(GERD), Hyperlipidemia, Hypertension, Lung Disease Denies:: Cancer, Diabetes Mellitus Type 1, Diabetes Mellitus Type 2, Internal Pacemaker, MRSA, Seizures *Have you ever received a pneumonia vaccine?: No *Have you received a flu vaccine this season?: Yes Other Medical History: Reports: Arthritis, Sickle Cell Disease, Other Laterality Cases: Right: Arthro
== END ==
PROVIDERS: Visit Provider Clinical Nurse Specialist Family Health
DX: M51.16 Intervertebral disc disorders with radiculopathy, lumbar region (principal)
CPT/HCPCS: 99212; G0463

== ENCOUNTER → 2021-01-20 14:24 | Outpatient (CLI) | payer MEDICARE, MEDICAID, SELFPAY ==
--- NOTE | 2021-01-20 14:25 | CA_ITS ---
APPROVED REPORT Left Lower Extremity Venous Study for DVT. Research Dietitian: JEN Indications Lower Extremity Pain: History of Smoking r/o dvt, Left popliteal fossa pain, SOA Vein Imaging CFV (L): compressive, spontaneous, phasic, augmentation SFJ (L): compressive, spontaneous, phasic, augmentation FEM (L): compressive, spontaneous, phasic, augmentation POP (L): compressive, spontaneous, phasic, augmentation DFV (L): compressive, spontaneous, phasic, augmentation PTV (L): compressive, spontaneous, phasic, augmentation GSV (L): compressive, spontaneous, phasic, augmentation SSV (L): compressive, spontaneous, phasic, augmentation Peroneals (L):compressive, spontaneous, phasic, augmentation GAS (L): compressive, spontaneous, phasic, augmentation Findings Non-vascularized cystic structure visualized in the left popliteal fossa measuring approximately 2.8 cm. Color flow duplex demonstrates no evidence of DVT of the following left lower extremity Veins:Common Femoral Vein, Femoral Vein, Popliteal Vein, Posterior Tibial Veins, Peroneal Veins. Negative for DVT. Conclusion Negative for DVT. Small Parada's cyst Critical Notification Critical Value: No Physician Notified Date: 01/20/2021 Time: 14:53 Physician Name: Cory Response Time: 2min Electronically signed by : Rd San MD 01/20/2021 16:53:13
--- NOTE | 2021-01-20 14:47 | XR_ITS ---
PROCEDURE: XR CHEST 2V CLINICAL HISTORY: PE Shortness of breath COMPARISON: CT [facility] CT CHEST W/O CONTRAST from 05/01/2016 CR CXR2V XR chest 2V from 10/03/2017 CR XR CHEST PORTABLE from 11/14/2018 CR XR CHEST 2V from 12/08/2020 FINDINGS: The cardiomediastinal silhouette and pulmonary vascularity are within normal limits. The lungs are clear without infiltrates, suspicious nodules, or pleural effusions. Degenerative changes thoracic spine IMPRESSION: No acute findings. Dictated by: Rd San MD 01/20/2021 15:22 Rd San MD in [place] 01/20/2021 15:22
[2021-01-20 15:50] LABS: Basophils # 0.2 K/mm3 (0-0.2); Basophils % 1.4 % (0.1-2.0); Eosinophils # 0.1 K/mm3 (0.0-0.4); Hematocrit 42.9 % (37.0-47.0); Hemoglobin 13.9 g/dL (12.2-16.2); Lymphocytes # 4.2 K/mm3 (0.7-4.5); Lymphocytes % 36.2 % (10-50); Mean Corpuscular HGB Conc 32.5 g/dL (31.8-35.4); Mean Corpuscular Volume 95.5 fl (81-99); Monocytes # 0.7 K/mm3 (0.1-1.0); Monocytes % 5.6 % (1.7-9.3); Neutrophils # 6.5 K/mm3 (1.8-7.8); Neutrophils % 55.8 % (37.0-80.0); Platelet Count 305 K/mm3 (142-424); Red Blood Count 4.49 M/mm3 (4.20-5.40); Red Cell Distribution Width 14.4 % (11.5-17.5); White Blood Count 11.6 K/mm3 (4.8-10.8)
[2021-01-20 17:40] LABS: Chloride 100 mmol/L (98-107); Potassium 4.2 mmoL/L (3.5-5.1); Sodium 140 mmol/L (136-145)
[2021-01-20 17:42] LABS: Blood Urea Nitrogen 11 mg/dl (7-17); Estimated Glomerular Filt Rate 86 ml/min (>60); GFR (African American) 104 ML/MIN (>60)
[2021-01-20 17:43] LABS: Alanine Aminotransferase 20 U/L (12-78); Albumin Level 4.5 g/dl (3.5-5.0); Albumin/Globulin Ratio 1.9 (1.1-1.8); Alkaline Phosphatase 97 U/L (38-126); Anion Gap 12.2 mEq/L (5-15); Aspartate Amino Transferase 25 U/L (14-36); Bilirubin,Total 0.2 mg/dl (0.2-1.3); Calcium 9.6 mg/dl (8.4-10.2); Carbon Dioxide 32 mmol/L (22.0-30.0); Globulin 2.4 g/dL (1.3-3.2); Glucose 101 mg/dl (74-100); Total Protein,Serum 6.9 g/dl (6.3-8.2)
== END ==
PROVIDERS: PCP Emergency Medicine; Visit Provider Nurse Practitioner Family
DX: M79.606 Pain in leg, unspecified (principal); R07.9 Chest pain, unspecified; R60.0 Localized edema; I26.99 Other pulmonary embolism without acute cor pulmonale; R06.02 Shortness of breath
CPT/HCPCS: 36415; 71046; 80053; 85025; 93971; 99212; G0463

== ENCOUNTER → 2021-02-17 08:20 | Outpatient (POV) | payer MEDICARE, MEDICAID, SELFPAY ==
--- NOTE | 2021-02-17 08:25 | HMH.VVPMSO ---
[facility] PM Virtual Visit SOAP Consent for virtual visit:: With the recent concerns about the COVID-19, we are trying to minimize exposure to you by shifting to telehealth appointments whenever possible. It restricts me from seeing you in person, but the trade off is protecting you during this pandemic. Can you see and hear me okay, and do you consent to this option? If not, I would be happy to see if we can reschedule your appointment in the future, when feasible. Has patient consented to this virtual visit?: Yes Subjective:: Patient is a pleasant 56-year-old white female who is following up via telehealth medicine. She was recently diagnosed with Covid and has been advised to quarantine until cleared. She is treated for chronic low back pain with lumbar radicular symptoms. She does take Percocet 10 mg 1 tablet p.o. twice daily and does say the medication works well for her. It does give her up to 60 to 70% relief. She does have injective therapy to her right wrist and shoulder per Dr. Altamirano. Medications are working well for her. She rates her pain a 4 out of 10. [facility] #[id number] has been reviewed and is appropriate. Drug screen is appropriate. Patient does have Narcan available in the event of oversedation which has been ordered to her in the past. Morphine equivalent is 30. Review of Systems General: No recent weight changes, no fever, no sleep disturbances Respiratory: No cough, no shortness of air, no recurring pulmonary infections Cardiovascular/peripheral vascular: No chest pain, no palpitations, no edema, no shortness of breath Gastrointestinal: No new onset incontinence, normal bowel movements reported Genitourinary: No new onset incontinence Musculoskeletal: Low back pain Psychiatric: [Normal mood/affect] Neurological: [Denies weakness in extremities], [denies balance issues] Objective:: Physical exam General: Alert and oriented x3, no acute distress, pleasant and cooperative Assessment:: Degenerative disc disease lumbar spine with lumbar radiculopathy symptoms Plan:: We will continue the patient's Percocet 10 mg 1 tablet p.o. twice daily. She will get a month medication and will be seen back in the clinic in 1 month. We will also continue the patient's gabapentin 400 mg 1 tablet p.o. daily. Risks and benefits of the medication have been explained in detail to the patient. The patient does understand the risk of dependence on the medication when given over a prolonged period. Patient has been advised of risks of oversedation with the prescribed medication. Narcan has been offered to the paitent in the event of oversedation. Patient has been advised that a family member should also be educated regarding administration of Narcan. The patient has been advised to consult with his/her primary care provider and pharmacist regarding drug-drug interaction of medications currently prescribed. Patient has been prescribed a controlled substance after being counseled on the medication, medication safety, and possible side effects. LISSETTE report has been obtained and reviewed prior to prescription and found to be appropriate. Opioid contract was reviewed and signed by the patient, and that they have agreed to all of the terms set forth by our compliance program. Patient has been instructed to contact the clinic with any concerns before the next appointment. Dr. Purdy has reviewed this note and agrees with this plan of care. This note was dictated using voice recognition software and make contain errors or omissions. Time In:: 08:15 Time Out:: 08:30 [facility] History I have reviewed the patient's past medical history: Yes Medical History: Reports:: Asthma, Depression, Gastroesophageal Reflux Disease(GERD), Hyperlipidemia, Hypertension, Lung Disease Denies:: Cancer, Diabetes Mellitus Type 1, Diabetes Mellitus Type 2, Internal Pacemaker, MRSA, Seizures *Have you ever received a pneumonia vaccine?: Yes *Have you
== END ==
PROVIDERS: Visit Provider Clinical Nurse Specialist Family Health
DX: M51.16 Intervertebral disc disorders with radiculopathy, lumbar region (principal)
CPT/HCPCS: 99212; G0463

== ENCOUNTER → 2021-03-02 08:59 | Outpatient (CLI) | payer MEDICARE, MEDICAID, SELFPAY ==
--- NOTE | 2021-03-02 08:59 | XR_ITS ---
PROCEDURE: XR DEXA AXIAL SKELETON CLINICAL HISTORY: osteoporosis screening COMPARISON: No exams were available for comparison FINDINGS: The right hip BMD is 0.703 with a T-score of -1.3. The left hip BMD is 0.732 with a T-score of -1.2. The lumbar spine BMD is 1.073 with a T-score of -0.1. Radius 33 percent is 0.515 with a T-score -3.0 IMPRESSION: This patient is considered osteoporotic according to the World Health Organization criteria. Fracture risk is high. Treatment is advised. Based on these results a follow-up exam is recommended in 1 year. Dictated by: Rd San MD 03/02/2021 13:28 Rd San MD in [place] 03/02/2021 13:28
--- NOTE | 2021-03-02 08:59 | US_ITS ---
PROCEDURE: US THYROID CLINICAL INDICATION: abnormal thyroid labs COMPARISON: No exams were available for comparison FINDINGS: Right lobe: 4.1 x 1.5 x 1.9 cm. There is heterogeneous echogenicity. No discrete nodule. Left lobe: 3.8 x 1.4 x 1.9 cm. Heterogeneous echogenicity. No discrete nodule. Isthmus: Unremarkable Additional findings: IMPRESSION: Heterogeneous thyroid echogenicity. No discrete nodule or enlargement Dictated by: Rd San MD 03/02/2021 16:17 Rd San MD in [place] 03/02/2021 16:17
== END ==
PROVIDERS: PCP Emergency Medicine; Visit Provider Physician Assistant
DX: N95.9 Unspecified menopausal and perimenopausal disorder (principal); Z13.820 Encounter for screening for osteoporosis; E07.89 Other specified disorders of thyroid
CPT/HCPCS: 76536; 77080

== ENCOUNTER → 2021-03-02 10:08 | Outpatient (CLI) | payer MEDICARE, MEDICAID, SELFPAY ==
[2021-03-03 11:12] LABS: Thyroid Peroxidase Antibodies 11 IU/mL (0-34)
[2021-03-04 09:23] LABS: Thyroid Stimulating Immunoglob <0.10 IU/L (0.00-0.55)
== END ==
PROVIDERS: Visit Provider Otolaryngology
DX: E07.89 Other specified disorders of thyroid (principal); Z78.0 Asymptomatic menopausal state
CPT/HCPCS: 36415; 76536; 77080; 84445; 86376

== ENCOUNTER → 2021-03-21 09:25 | Outpatient (POV) | payer MEDICARE, MEDICAID, SELFPAY ==
[2021-03-21 09:54] VITALS: BP 156/77; PULSE 75; RESP 18; O2SAT 96; BMI 50.6
--- NOTE | 2021-03-21 09:57 | HMH.PAINSOAP ---
[facility] Pain Management SOAP Note Subjective:: Patient is a 56-year-old white female who presents today for follow-up. She was last followed up via telehealth due to Covid. She does report to be continuing to have symptoms with a cough and inability to go up and down stairs due to shortness of breath. She says that her daughter as well as her grandchildren all were diagnosed with Covid at the same time. She does say her medication is working well for her. Patient does report to be using a hemp lotion and did want to notify the clinic. She did bring the lotion with her today. She says that she has been using this for her knees and it has given her significant relief of bilateral knee pain. She has managed with Percocet 10 mg 1 tablet p.o. twice daily and gabapentin 400 mg 1 tablet p.o. daily. She rates her pain today a 5 out of 10 which is baseline for her. She has tried physical therapy in the past and continues with home stretching to the best of her ability. The medication gives her up to 60 to 70% relief of her pain. Review of Systems General: No recent weight changes, no fever, no sleep disturbances Respiratory: Recent diagnosis of Covid?cough, shortness of breath Cardiovascular/peripheral vascular: No chest pain, no palpitations, no edema, Gastrointestinal: No new onset incontinence, normal bowel movements reported Genitourinary: No new onset incontinence Musculoskeletal: Low back pain with radiation into bilateral lower extremities Psychiatric: [Normal mood/affect] Neurological: [Denies weakness in extremities], [denies balance issues] Objective:: Physical exam General: Alert and oriented x3, no acute distress, pleasant and cooperative Lungs: Respirations even and unlabored, symmetrical chest expansion Eyes: PERRL Musculoskeletal: Flexion and extension of lumbar [spine] somewhat guarded secondary to pain, [antalgic gait noted] Neurological: Speech clear, no gross sensory deficit Assessment:: Degenerative disc disease lumbar spine with lumbar radiculopathy symptoms Plan:: Patient will continue with Percocet 10 mg 1 tablet p.o. twice daily and gabapentin 400 mg 1 tablet p.o. daily. She is using hemp lotion to bilateral knees. She did notify the clinic in the event of a positive drug screen. We will review her drug screen at next visit to determine if she does have positive drug screen for THC. If she does we will discuss discontinuation of the lotion. We will give the patient a month medication and plan to follow-up with her in 1 month. Patient's pharmacy is [facility]. ORT is low risk. Patient did sign a pain management agreement today. Risks and benefits of the medication have been explained in detail to the patient. The patient does understand the risk of dependence on the medication when given over a prolonged period. Patient has been advised of risks of oversedation with the prescribed medication. Narcan has been offered to the paitent in the event of oversedation. Patient has been advised that a family member should also be educated regarding administration of Narcan. The patient has been advised to consult with his/her primary care provider and pharmacist regarding drug-drug interaction of medications currently prescribed. Patient has been prescribed a controlled substance after being counseled on the medication, medication safety, and possible side effects. LISSETTE report has been obtained and reviewed prior to prescription and found to be appropriate. Opioid contract was reviewed and signed by the patient, and that they have agreed to all of the terms set forth by our compliance program. Patient has been instructed to contact the clinic with any concerns before the next appointment. Dr. Purdy has reviewed this note and agrees with this plan of care. This note was dictated using voice recognition software and make contain errors or omissions. [facility] History I have reviewed the patient's past m
[2021-03-21 11:56] LABS: Amphetamine/Metha Screen,Urine Negative ng/ml (<1000)
[2021-03-21 11:57] LABS: Barbiturates Screen,Urine Negative ng/ml (<200); Benzodiazepines Screen,Urine Negative ng/ml (<200)
[2021-03-21 11:58] LABS: Cocaine Screen,Urine Negative ng/ml (<300); Methadone Screen,Urine Negative ng/ml (<300)
[2021-03-21 11:59] LABS: Cannabinoid Screen,Urine Negative ng/ml (<50)
[2021-03-21 12:00] LABS: Opiate Screen,Urine Negative ng/ml (<300); Phencyclidine Screen,Urine Negative ng/ml (<25)
[2021-04-10 15:08] LABS: Opiates Negative (Cutoff=100); Oxymorphone (GC/MS) 326 ng/mL (Cutoff=100)
== END ==
PROVIDERS: Visit Provider Clinical Nurse Specialist Family Health
DX: M51.16 Intervertebral disc disorders with radiculopathy, lumbar region (principal); Z79.891 Long term (current) use of opiate analgesic
CPT/HCPCS: 80305; 80361; 80365; 99212; G0463; G0480

== ENCOUNTER 2021-04-05 15:22 | Emergency (ER) | payer MEDICARE, MEDICAID, SELFPAY ==
[2021-04-05 16:10] VITALS: BP 186/86; PULSE 93; RESP 20; TEMP 37.4; O2SAT 97; BMI 50.1
[2021-04-05 16:25] LABS: UTC Influenza A Antigen Negative (Negative); UTC Influenza B Antigen Negative (Negative)
[2021-04-05 16:27] LABS: UTC Strep Screen (Rapid) Negative (Negative)
--- NOTE | 2021-04-05 16:58 | HMH.EDUTC ---
[facility] Disposition Clinical Impression: Bronchitis Sinusitis Qualifiers: Sinusitis location: unspecified location Chronicity: unspecified Qualified Code(s): J32.9 - Chronic sinusitis, unspecified Disposition: Home, Self-Care Condition on Discharge: Good Instructions: Sinusitis, Acute Bronchitis, DI for Sinusitis, DI for Acute Bronchitis, Prednisone, Amoxicillin and Clavulanic Acid Additional Instructions: ? Start antibiotic today. Be sure to complete entire prescription even if feeling better ? Monitor temp. Tylenol every 4 hours as needed and / or ibuprofen every 6 hours as needed ( As long as your primary care physician has told you that it ok to take both. For fever/aches/pains ER if no less than 101 despite Tylenol or Motrin ? Humidifier/vaporizer or hot steamy shower ? Inhaler every 4-6 hours as needed like we discussed. If unsure how to use it, ask pharmacist to demonstrate how. Should help open airways and improve cough, wheezing, and shortness of breath ? Mucinex during the day for your cough and cough suppressant only at night. Be sure to drink lots of water. Insurance may not cover a prescriptions for mucinex. Might be cheaper to get 400mg tablets and take 2 tablet in the morning, mid-day and evening with lots of water. *Promethazine DM cough syrup will cause drowsiness. Use only at night. No driving, operating machinery or caring for small children after taking it *Tessalon Perles will not cause drowsiness but use at bedtime to help stop cough so that you may get some rest. *Start steroid today. Helps with inflammation therefore, cough and wheezing. Follow directions on the package. Reviewed side effects. Patient reports taking them before. Follow up IMMEDIATELY for new or worsening of symptoms OR no noticeable improvement over the next 48-72 hours. 911 immediately for any life threatening symptoms such as chest pain or difficulty breathing Prescriptions: Albuterol Sulfate [Proventil-HFA 90mcg/puff Inh] 1 - 2 puffs IH Q6HP PRN #1 each PRN Reason: Shortness Of Breath Transmission Status: Received by [facility] Benzonatate [Benzonatate 100mg cap] 100 mg PO Q8HP PRN #15 cap PRN Reason: Cough Transmission Status: Received by [facility] Amoxicillin/Potassium Clav [Augmentin 875-125 Tablet] 1 tab PO Q12H 10 Days #20 tab Transmission Status: Received by [facility] predniSONE [Deltasone 20mg tablet] 20 mg PO BID 5 Days #10 tab Transmission Status: Received by [facility] Referrals: Jose Ray MD [Primary Care Provider] - As needed Forms: Work/School Release Time of Disposition: 17:27 Medical Decision Making - Azar Inquiry Pt receiving controlled substance: No Azar was queried for this patient: No Vital Signs: 04/05/21 16:10 04/05/21 17:55 Temperature 99.3 F 99.3 F Temperature Source Oral Pulse Rate 93 H Pulse Rate [Right Brachial] 93 H Respiratory Rate 20 20 Blood Pressure 186/86 H Blood Pressure [Right Arm] 186/86 H Blood Pressure Mean [Right Arm] 119 Blood Pressure Source [Right Arm] Automatic Cuff Blood Pressure Position [Right Arm] Sitting 02 Sat by Pulse Oximetry 97 Oxygen Delivery Method Room Air - Lab Data Lab Results 04/05/21 16:16: Strep Scn Rapid Clinic Negative 04/05/21 16:16: Influenza Type A Ag Negative, Influenza Type B Ag Negative Orders (Tests/Meds): ORDERS Category Date Time Status Covid-19 Nasal PCR ([facility]) Routine Lab 04/05/21 16:16 Received Strep Screen Confirmation Routine Micro 04/05/21 16:16 Received Medical Decision Narrative: Patient requesting inhaler states that she did have one and it is [facility] HPI - General Stated complaint: sore throat,cough,MAYER congestion Time Seen by Provider: 04/05/21 16:58 Mode of Arrival: Ambulatory Source of Information: Patient Limitations: No Limitations Description of Symptoms (Recalled from Triage Doc. by RN): PATIENT C/O COUGH, SOA, WHEEZING, NA
[2021-04-05 17:55] VITALS: BP 186/86; PULSE 93; RESP 20; TEMP 37.4; O2SAT 97
== END 2021-04-05 18:00 | disposition home or self-care (01) ==
PROVIDERS: Emergency Provider Nurse Practitioner; PCP Emergency Medicine
DX: J20.9 Acute bronchitis, unspecified (principal); J32.9 Chronic sinusitis, unspecified; K21.9 Gastro-esophageal reflux disease without esophagitis; E78.5 Hyperlipidemia, unspecified; I10 Essential (primary) hypertension; F33.1 Major depressive disorder, recurrent, moderate
CPT/HCPCS: G0463; 87804; 87880; 99203; C9803; U0003; U0005

== ENCOUNTER → 2021-04-21 07:49 | Outpatient (POV) | payer MEDICARE, MEDICAID, SELFPAY ==
--- NOTE | 2021-04-21 08:57 | HMH.VVPMSO ---
[facility] PM Virtual Visit SOAP Consent for virtual visit:: With the recent concerns about the COVID-19, we are trying to minimize exposure to you by shifting to telehealth appointments whenever possible. It restricts me from seeing you in person, but the trade off is protecting you during this pandemic. Can you see and hear me okay, and do you consent to this option? If not, I would be happy to see if we can reschedule your appointment in the future, when feasible. Has patient consented to this virtual visit?: Yes Subjective:: Patient is a 56-year-old white female who is following up today via telehealth medicine phone call. We are managing the patient with oral medications. She has tried injective therapy along with physical therapy with minimal relief. We will treat her for chronic low back pain with lumbar radicular symptoms. She is on Percocet 10 mg 1 tablet p.o. twice daily and gabapentin 400 mg 1 tablet p.o. twice daily. She denies any side effects. Lissette and drug screens have been appropriate. Review of Systems General: No recent weight changes, no fever, no sleep disturbances Respiratory: No cough, no shortness of air, no recurring pulmonary infections Cardiovascular/peripheral vascular: No chest pain, no palpitations, no edema, no shortness of breath Gastrointestinal: No new onset incontinence, normal bowel movements reported Genitourinary: No new onset incontinence Musculoskeletal: Chronic low back pain Psychiatric: [Normal mood/affect] Neurological: [Denies weakness in extremities], [denies balance issues] Objective:: Physical exam General: Alert and oriented x3, no acute distress, pleasant and cooperative Assessment:: Degenerative disc disease lumbar spine with lumbar radiculopathy symptoms Plan:: We will continue the patient's Percocet 10 mg 1 tablet p.o. twice daily and gabapentin 400 mg 1 tablet p.o. twice daily. She will get a month medication will be seen in the clinic in 1 month. Risks and benefits of the medication have been explained in detail to the patient. The patient does understand the risk of dependence on the medication when given over a prolonged period. Patient has been advised of risks of oversedation with the prescribed medication. Narcan has been offered to the paitent in the event of oversedation. Patient has been advised that a family member should also be educated regarding administration of Narcan. The patient has been advised to consult with his/her primary care provider and pharmacist regarding drug-drug interaction of medications currently prescribed. Patient has been prescribed a controlled substance after being counseled on the medication, medication safety, and possible side effects. LISSETTE report has been obtained and reviewed prior to prescription and found to be appropriate. Opioid contract was reviewed and signed by the patient, and that they have agreed to all of the terms set forth by our compliance program. Patient has been instructed to contact the clinic with any concerns before the next appointment. Dr. Purdy has reviewed this note and agrees with this plan of care. This note was dictated using voice recognition software and make contain errors or omissions. Time In:: 08:50 Time Out:: 08:59 [facility] History I have reviewed the patient's past medical history: Yes Medical History: Reports:: Asthma, Depression, Gastroesophageal Reflux Disease(GERD), Heart Murmur, Hyperlipidemia, Hypertension, Lung Disease, Osteoporosis Denies:: Cancer, Diabetes Mellitus Type 1, Diabetes Mellitus Type 2, Internal Pacemaker, MRSA, Seizures *Have you ever received a pneumonia vaccine?: No *Have you received a flu vaccine this season?: Yes Other Medical History: Reports: Anemia, Arthritis, Osteoporosis, Sickle Cell Disease, Sinus Problems, Other Laterality Cases: Right: Arthroscopy Shoulder, Bilateral: Tonsillectomy Other Surgeries: Yes: Bariatric Surgery, Cholecystectomy, Colonoscopy, C-sec
== END ==
PROVIDERS: Visit Provider Clinical Nurse Specialist Family Health
DX: M51.16 Intervertebral disc disorders with radiculopathy, lumbar region (principal)
CPT/HCPCS: 99212; G0463

== ENCOUNTER → 2021-05-11 10:08 | Outpatient (CLI) | payer MEDICARE, MEDICAID, SELFPAY ==
--- NOTE | 2021-05-11 10:22 | XR_ITS ---
FINAL REPORT CLINICAL HISTORY: R Hand pain FINDINGS: 3 views of the right hand were obtained. There is no acute fracture or dislocation. The joint spaces are intact. There is no soft tissue abnormality. IMPRESSION: No acute process. Reviewed, Interpreted and Dictated by Nelson Kimble MD Transcribed by Yves Wood Authenticated by Nelson Kimble MD on 05/11/2021 11:15:05 AM [facility]
== END ==
PROVIDERS: PCP Emergency Medicine; Visit Provider Nurse Practitioner Family
DX: M79.641 Pain in right hand (principal)
CPT/HCPCS: 73130

== ENCOUNTER → 2021-05-26 09:16 | Outpatient (POV) | payer MEDICARE, MEDICAID, SELFPAY ==
[2021-05-26 09:21] VITALS: BP 163/73; PULSE 76; RESP 20; TEMP 36.3; O2SAT 94; BMI 49.6
--- NOTE | 2021-05-26 11:59 | HMH.PAINSOAP ---
[facility] Pain Management SOAP Note Subjective:: Patient is a pleasant 56-year-old female who is here for medication refill and follow-up. Patient is currently being treated for degenerative disc disease of the lumbar spine with lumbar radiculopathy symptoms. Patient is being managed with Percocet 10 mg twice a day and gabapentin 400 mg twice a day. Patient denies any side effects from the medications. Patient denies any changes to the location and type of pain. Patient states that this is adequately helping manage his pain. Rates pain as 6 out of 10. [facility] number [phone] with an active morphine equivalent 30. Drug screens have been reviewed and appropriate. General: No recent weight changes, no fever, no sleep disturbances Respiratory: No cough, no shortness of air, no recurring pulmonary infections Cardiovascular/peripheral vascular: No chest pain, no palpitations, no edema, no shortness of breath Gastrointestinal: No new onset incontinence, normal bowel movements reported Genitourinary: No new onset incontinence Musculoskeletal: Low back pain Psychiatric: [Normal mood/affect] Neurological: [Denies weakness in extremities], [denies balance issues] Objective:: General: Alert and oriented x3, no acute distress, pleasant and cooperative, [on room air] Lungs: Respirations even and unlabored, symmetrical chest expansion Eyes: PERRL Musculoskeletal: Flexion and extension of lumbar [spine] somewhat guarded secondary to pain, [antalgic gait noted] Neurological: Speech clear, no gross sensory deficit Assessment:: Degenerative disc disease of the lumbar spine with lumbar radiculopathy symptoms Plan:: We will continue the patient's Percocet 10 mg twice a day and gabapentin 400 mg twice a day. We will provide the patient with 1 month of refills. We would like to see the patient back in 1 month for follow-up and reevaluation of chronic pain syndrome. Patient has been advised of risks of oversedation with the prescribed medication. Narcan has been offered to the paitent in the event of oversedation. Patient has been advised that a family member should also be educated regarding administration of Narcan. Patient has been instructed to contact the clinic with any concerns before the next appointment. Dr. Purdy has reviewed this note and agrees with this plan of care. This note was dictated using voice recognition software and make contain errors or omissions. [facility] History Medical History: Reports:: Asthma, Depression, Gastroesophageal Reflux Disease(GERD), Heart Murmur, Hyperlipidemia, Hypertension, Lung Disease, Osteoporosis Denies:: Cancer, Diabetes Mellitus Type 1, Diabetes Mellitus Type 2, Internal Pacemaker, MRSA, Seizures *Have you ever received a pneumonia vaccine?: Yes *Have you received a flu vaccine this season?: Yes Other Medical History: Reports: Anemia, Arthritis, Osteoporosis, Sickle Cell Disease, Sinus Problems, Other Laterality Cases: Right: Arthroscopy Shoulder, Bilateral: Tonsillectomy Other Surgeries: Yes: Bariatric Surgery, Cholecystectomy, Colonoscopy, , EGD, Hysterectomy-Total, Other (back surgery,rt shoulder surgery). No: Pacemaker Amputation: No Fractures: No - *Social History Smoking Status: Former smoker Tobacco Type: cigarettes # Packs/Day (cigarettes): 0 #Yrs smoked (if former smoker): 6 Alcohol Intake: never Alcohol Intake Frequency:: other Substance Use Type: denies use *Occupational Status:: unemployed Housing: house Household Members: spouse *Travel in the last 8 weeks: None - Psychiatric History Pschychiatric History:: Reports:: Depression Family Hx:: Hypertension, Hyperlipidemia, Diabetes, Cancer, Heart Attack
== END ==
PROVIDERS: Visit Provider Student in an Organized Health Care Education/Training Program
DX: M51.16 Intervertebral disc disorders with radiculopathy, lumbar region (principal)
CPT/HCPCS: 99212; G0463

== ENCOUNTER → 2021-06-23 08:35 | Outpatient (POV) | payer MEDICARE, MEDICAID, SELFPAY ==
[2021-06-23 08:41] VITALS: BP 175/83; PULSE 73; RESP 20; O2SAT 97; BMI 49.6
--- NOTE | 2021-06-23 08:54 | HMH.PAINSOAP ---
[facility] Pain Management SOAP Note Subjective:: Patient is a pleasant 56-year-old female who is here for medication refill and follow-up. Patient is currently being treated for degenerative disc disease of lumbar spine with lumbar radiculopathy symptoms. Patient is being managed with Percocet 10 mg twice a day and gabapentin 400 mg twice a day. Patient denies any side effects from the medications. Patient denies any changes to the location and type of pain. Patient states that this is adequately helping manage their pain. Rates pain as 5 out of 10. [facility] number [phone] with an active morphine equivalent 30. Drug screens have been reviewed and appropriate. Review of Systems: General: No recent weight changes, no fever, no sleep disturbances Respiratory: No cough, no shortness of air, no recurring pulmonary infections Cardiovascular/peripheral vascular: No chest pain, no palpitations, no edema, no shortness of breath Gastrointestinal: No new onset incontinence, normal bowel movements reported Genitourinary: No new onset incontinence Musculoskeletal: Low back pain Psychiatric: [Normal mood/affect] Neurological: [Denies weakness in extremities], [denies balance issues] Objective:: Physical Exam: General: Alert and oriented x3, no acute distress, pleasant and cooperative, [on room air] Lungs: Respirations even and unlabored, symmetrical chest expansion Eyes: PERRL Musculoskeletal: Flexion and extension of lumbar [spine] somewhat guarded secondary to pain, [antalgic gait noted] Neurological: Speech clear, no gross sensory deficit Assessment:: Degenerative disc disease of lumbar spine with lumbar radiculopathy symptoms Plan:: We will continue the patient's gabapentin 400 mg twice a day and Percocet 10 mg twice a day. We will provide the patient with 1 month of refills. We would like to see the patient back in 1 month for follow-up and reevaluation of chronic pain syndrome. Patient has been advised of risks of oversedation with the prescribed medication. Narcan has been offered to the patient in the event of oversedation. Patient has been advised that a family member should also be educated regarding administration of Narcan. Patient has been instructed to contact the clinic with any concerns before the next appointment. Dr. Purdy has reviewed this note and agrees with this plan of care. This note was dictated using voice recognition software and make contain errors or omissions. [facility] History Medical History: Reports:: Asthma, Depression, Gastroesophageal Reflux Disease(GERD), Heart Murmur, Hyperlipidemia, Hypertension, Lung Disease, Osteoporosis Denies:: Cancer, Diabetes Mellitus Type 1, Diabetes Mellitus Type 2, Internal Pacemaker, MRSA, Seizures *Have you ever received a pneumonia vaccine?: No *Have you received a flu vaccine this season?: Yes Other Medical History: Reports: Anemia, Arthritis, Osteoporosis, Sickle Cell Disease, Sinus Problems, Other Laterality Cases: Right: Arthroscopy Shoulder, Bilateral: Tonsillectomy Other Surgeries: Yes: Bariatric Surgery, Cholecystectomy, Colonoscopy, , EGD, Hysterectomy-Total, Other (back surgery,rt shoulder surgery). No: Pacemaker Amputation: No Fractures: No - *Social History Smoking Status: Never smoker Tobacco Type: cigarettes # Packs/Day (cigarettes): 0 #Yrs smoked (if former smoker): 6 Alcohol Intake: never Alcohol Intake Frequency:: other Substance Use Type: denies use *Occupational Status:: unemployed Housing: house Household Members: spouse *Travel in the last 8 weeks: None - Psychiatric History Pschychiatric History:: Reports:: Depression Family Hx:: Hypertension, Hyperlipidemia, Diabetes, Cancer, Heart Attack
== END ==
PROVIDERS: Visit Provider Student in an Organized Health Care Education/Training Program
DX: M51.16 Intervertebral disc disorders with radiculopathy, lumbar region (principal)
CPT/HCPCS: 99212; G0463

== ENCOUNTER → 2021-07-21 10:52 | Outpatient (POV) | payer MEDICARE, MEDICAID, SELFPAY ==
--- NOTE | 2021-07-21 12:12 | HMH.PAINSOAP ---
[facility] Pain Management SOAP Note Subjective:: Patient is a pleasant 56-year-old female who is here for medication refill and follow-up. Patient is currently being treated for degenerative disc disease of lumbar spine with lumbar radiculopathy symptoms. Patient is being managed with Percocet 10 mg twice a day and gabapentin 400 mg twice a day. Patient denies any side effects from the medications. Patient denies any changes to the location and type of pain. Patient states that this is adequately helping manage their pain. Rates pain as 6 out of 10. [facility] number [phone] with an active morphine equivalent 30. Drug screens have been reviewed and appropriate. Review of Systems: General: No recent weight changes, no fever, no sleep disturbances Respiratory: No cough, no shortness of air, no recurring pulmonary infections Cardiovascular/peripheral vascular: No chest pain, no palpitations, no edema, no shortness of breath Gastrointestinal: No new onset incontinence, normal bowel movements reported Genitourinary: No new onset incontinence Musculoskeletal: Low back pain Psychiatric: [Normal mood/affect] Neurological: [Denies weakness in extremities], [denies balance issues] Objective:: Physical Exam: General: Alert and oriented x3, no acute distress, pleasant and cooperative Lungs: Respirations even and unlabored, symmetrical chest expansion Eyes: PERRL Musculoskeletal: Flexion and extension of lumbar [spine] somewhat guarded secondary to pain, [antalgic gait noted] Neurological: Speech clear, no gross sensory deficit Assessment:: Degenerative disc disease of lumbar spine with lumbar radiculopathy symptoms Plan:: We will continue the patient's gabapentin 400 mg twice a day and Percocet 10 mg twice a day. We will provide the patient with 1 month of refills. We would like to see the patient back in 1 month for follow-up and reevaluation of chronic pain syndrome. Patient has been advised of risks of oversedation with the prescribed medication. Narcan has been offered to the patient in the event of oversedation. Patient has been advised that a family member should also be educated regarding administration of Narcan. Patient has been instructed to contact the clinic with any concerns before the next appointment. Dr. Purdy has reviewed this note and agrees with this plan of care. This note was dictated using voice recognition software and make contain errors or omissions. [facility] History Medical History: Reports:: Asthma, Depression, Gastroesophageal Reflux Disease(GERD), Heart Murmur, Hyperlipidemia, Hypertension, Lung Disease, Osteoporosis Denies:: Cancer, Diabetes Mellitus Type 1, Diabetes Mellitus Type 2, Internal Pacemaker, MRSA, Seizures *Have you ever received a pneumonia vaccine?: No *Have you received a flu vaccine this season?: Yes Other Medical History: Reports: Anemia, Arthritis, Osteoporosis, Sickle Cell Disease, Sinus Problems, Other Laterality Cases: Right: Arthroscopy Shoulder, Bilateral: Tonsillectomy Other Surgeries: Yes: Bariatric Surgery, Cholecystectomy, Colonoscopy, , EGD, Hysterectomy-Total, Other (back surgery,rt shoulder surgery). No: Pacemaker Amputation: No Fractures: No - *Social History Smoking Status: Never smoker Tobacco Type: cigarettes # Packs/Day (cigarettes): 0 #Yrs smoked (if former smoker): 6 Alcohol Intake: never Alcohol Intake Frequency:: other Substance Use Type: denies use *Occupational Status:: unemployed Housing: house Household Members: spouse *Travel in the last 8 weeks: Inside the [place] - Psychiatric History Pschychiatric History:: Reports:: Depression Family Hx:: Hypertension, Hyperlipidemia, Diabetes, Cancer, Heart Attack
== END ==
PROVIDERS: Visit Provider Student in an Organized Health Care Education/Training Program
DX: M51.16 Intervertebral disc disorders with radiculopathy, lumbar region (principal)
CPT/HCPCS: 99212; G0463

== ENCOUNTER → 2021-07-21 11:32 | Outpatient (CLI) | payer MEDICARE, MEDICAID, SELFPAY ==
[2021-07-21 12:35] LABS: Amphetamine/Metha Screen,Urine Negative ng/ml (<1000); Barbiturates Screen,Urine Negative ng/ml (<200)
[2021-07-21 12:36] LABS: Benzodiazepines Screen,Urine Negative ng/ml (<200)
[2021-07-21 12:37] LABS: Cannabinoid Screen,Urine Negative ng/ml (<50); Cocaine Screen,Urine Negative ng/ml (<300)
[2021-07-21 12:38] LABS: Methadone Screen,Urine Negative ng/ml (<300)
[2021-07-21 12:39] LABS: Opiate Screen,Urine Negative ng/ml (<300); Phencyclidine Screen,Urine Negative ng/ml (<25)
[2021-08-03 20:11] LABS: Opiates Negative (Cutoff=100)
== END ==
PROVIDERS: PCP Emergency Medicine; Visit Provider Student in an Organized Health Care Education/Training Program
DX: Z79.891 Long term (current) use of opiate analgesic (principal)
CPT/HCPCS: 80305; 80361; 80365; G0480

== ENCOUNTER 2021-08-03 12:47 | Emergency (ER) | payer MEDICARE, MEDICAID, SELFPAY ==
[2021-08-03 13:30] VITALS: BP 150/82; PULSE 71; RESP 18; TEMP 36.6; O2SAT 98; BMI 51.2
--- NOTE | 2021-08-03 14:26 | HMH.EDUTC ---
[facility] [place] Clinical Impression: Otitis media Qualifiers: Otitis media type: unspecified Laterality: right Qualified Code(s): H66.91 - Otitis media, unspecified, right ear Disposition: Home, Self-Care Condition on Discharge: Good Instructions: Middle Ear Infection, Amoxicillin Additional Instructions: Take medication as prescribed Follow up with ENT as scheduled Return if needed Straight to ER if any life threatening symptoms Prescriptions: Amoxicillin [Amoxicillin 500mg Cap] 500 mg PO TID #21 cap Transmission Status: [facility] to [facility] Fluticasone Propionate [Flonase 50mcg nasal spray 16gm] 1 spr NS DAILY #1 each Transmission Status: Pending to [facility] Referrals: Jose Ray MD [Primary Care Provider] - As needed Time of Disposition: 14:33 Medical Decision Making - Azar Inquiry Pt receiving controlled substance: No Azar was queried for this patient: No Vital Signs: 08/03/21 13:30 Temperature 97.8 F Temperature Source Oral Pulse Rate [Right Brachial] 71 Respiratory Rate 18 Blood Pressure [Right Arm] 150/82 H Blood Pressure Mean [Right Arm] 104 Blood Pressure Source [Right Arm] Automatic Cuff Blood Pressure Position [Right Arm] Sitting 02 Sat by Pulse Oximetry 98 Oxygen Delivery Method Room Air [facility] [place] HPI - General Stated complaint: rt ear pain Time Seen by Provider: 08/03/21 14:15 Mode of Arrival: Ambulatory Source of Information: Patient Limitations: No Limitations Description of Symptoms (Recalled from Triage Doc. by RN): PATIENT STATES SHE THINKS SHE HAS A BUG IN HER RIGHT EAR HEENT Symptoms (Recalled from RN notes): Yes Resp Symptoms (Recalled from RN notes): No Skin Symptoms (Recalled from RN notes): No MS Symptoms (Recalled from RN notes): No Functional Status (Recalled from RN notes): WNL - History of Present Illness Provider Complaint: Patient states that she has been having pain in her right ear and feels like it is full States that she thinks she may have a bug in there making it feel stopped up States that her flushed her ear but didnt help much - Related Data Home Medications Medication Instructions Recorded Confirmed azelastine 205.5 mcg (0.15 %) 2 spray INTRANASAL BID 90 Days #90 03/29/17 07/08/21 nasal spray Loratadine [Claritin 10mg 10 mg PO DAILY 10/07/17 07/08/21 Tablet] Montelukast Sodium [Montelukast 10 mg PO HS 10/07/17 07/08/21 10mg Tab] vitamin B complex 1 tab PO DAILY 10/29/19 07/08/21 polyethylene glycol 3350 17 17 g PO DAILY g 09/16/20 07/08/21 gram/dose oral powder levocetirizine 5 mg tablet 5 mg PO DAILY 30 Days #30 12/08/20 07/08/21 methocarbamol 500 mg tablet 500 mg PO QID PRN tab 12/08/20 07/08/21 albuterol sulfate 1.25 mg CONTINUOUS NEBULIZATION 12/27/20 07/08/21 DAILY PRN 15 Days #22.5 ml Cholecalciferol (Vitamin D3) 1,000 unit PO DAILY 01/20/21 07/08/21 [Vitamin D3 1,000 Unit Cap] Ferrous Sulfate [Slow Fe] 142 mg PO DAILY 01/20/21 07/08/21 Metformin HCl [Glucophage] 500 mg PO DAILY 01/20/21 07/08/21 Amlodipine Besylate [Amlodipine See Rx Instructions .ROUTE .COMPLEX 05/26/21 07/08/21 10mg Tab] Losartan/Hydrochlorothiazide See Rx Instructions .ROUTE .COMPLEX 05/26/21 07/08/21 [Losartan-Hctz 100-12.5 mg Tab] Naproxen 500 mg PO BID 05/26/21 07/08/21 Previous Rx's Medication Instructions Recorded Albuterol Sulfate [Proventil-HFA 1 - 2 puffs IH Q6HP PRN #1 each 04/05/21 90mcg/puff Inh] carbamazepine 100 mg chewable 300 mg PO DAILY 30 Days #90 tab 04/18/21 tablet Gabapentin [Neurontin 400mg 400 mg PO BID #60 cap 06/23/21 cap] Oxycodone HCl/Acetaminophen 1 tab PO BID #60 tab 06/23/21 [Percocet 10-325 mg Tablet] alendronate 70 mg tablet See Rx Instructions .ROUTE 06/24/21 .COMPLEX #4 tablet bupropion HCl 150 mg tablet,12 hr See Rx Instructions .ROUTE 07/01/21 sustained-release .COMPLEX #180 tablet atorvastatin 10 mg tablet See Rx Instructions .ROUTE
[2021-08-03 14:35] VITALS: BP 150/82; PULSE 71; RESP 18; TEMP 36.6; O2SAT 98
== END 2021-08-03 14:39 | disposition home or self-care (01) ==
PROVIDERS: Emergency Provider Nurse Practitioner; PCP Emergency Medicine
DX: H66.91 Otitis media, unspecified, right ear (principal)
CPT/HCPCS: 99212; G0463

== ENCOUNTER → 2021-08-18 08:07 | Outpatient (POV) | payer MEDICARE, MEDICAID, SELFPAY ==
[2021-08-18 08:18] VITALS: BP 144/75; PULSE 94; RESP 18; TEMP 36; O2SAT 96; BMI 51.2
--- NOTE | 2021-08-18 08:45 | HMH.PAINSOAP ---
[facility] Pain Management SOAP Note Subjective:: Patient is a pleasant 56-year-old female who is here for medication refill and follow-up. Patient is currently being treated for degenerative disc disease of the lumbar spine with lumbar radiculopathy symptoms. Patient is being managed with Percocet 10 mg twice a day and gabapentin 400 mg twice a day. Patient denies any side effects from the medications. Patient denies any changes to the location and type of pain. Patient states that this is adequately helping manage their pain. Rates pain as 5 out of 10. [facility] number [id number] with an active morphine equivalent 30. Drug screens on 07/21/2021 has been reviewed and inappropriate. Patient is being prescribed Percocet and gabapentin. Both of these medications are not showing in her drug screen. Review of Systems: General: No recent weight changes, no fever, no sleep disturbances Respiratory: No cough, no shortness of air, no recurring pulmonary infections Cardiovascular/peripheral vascular: No chest pain, no palpitations, no edema, no shortness of breath Gastrointestinal: No new onset incontinence, normal bowel movements reported Genitourinary: No new onset incontinence Musculoskeletal: Low back pain Psychiatric: [Normal mood/affect] Neurological: [Denies weakness in extremities], [denies balance issues] Objective:: Physical Exam: General: Alert and oriented x3, no acute distress, pleasant and cooperative Lungs: Respirations even and unlabored, symmetrical chest expansion Eyes: PERRL Musculoskeletal: Flexion and extension of lumbar [spine] somewhat guarded secondary to pain, [antalgic gait noted] Neurological: Speech clear, no gross sensory deficit Assessment:: Degenerative disc disease of the lumbar spine with lumbar radiculopathy symptoms Plan:: We will continue the patient's Percocet 10 mg twice a day and gabapentin 400 mg twice a day. We will provide the patient with 1 month of refills. We would like to see the patient back in 1 month for follow-up and reevaluation of chronic pain syndrome. The patient's UDS on 07/21/2021 was inappropriate. We will order a repeat drug screen today. If the patient has an inappropriate drug screen again, we will not be able to continue the patient's oral medications in our clinic. Patient has been advised of risks of oversedation with the prescribed medication. Narcan has been offered to the patient in the event of oversedation. Patient has been advised that a family member should also be educated regarding administration of Narcan. Patient has been instructed to contact the clinic with any concerns before the next appointment. Dr. Purdy has reviewed this note and agrees with this plan of care. This note was dictated using voice recognition software and make contain errors or omissions. [facility] History Medical History: Reports:: Asthma, Depression, Gastroesophageal Reflux Disease(GERD), Heart Murmur, Hyperlipidemia, Hypertension, Lung Disease, Osteoporosis Denies:: Cancer, Diabetes Mellitus Type 1, Diabetes Mellitus Type 2, Internal Pacemaker, MRSA, Seizures *Have you ever received a pneumonia vaccine?: No *Have you received a flu vaccine this season?: Yes Other Medical History: Reports: Anemia, Arthritis, Osteoporosis, Sickle Cell Disease, Sinus Problems, Other Laterality Cases: Right: Arthroscopy Shoulder, Bilateral: Tonsillectomy Other Surgeries: Yes: Bariatric Surgery, Cholecystectomy, Colonoscopy, , EGD, Hysterectomy-Total, Other (back surgery,rt shoulder surgery). No: Pacemaker Amputation: No Fractures: No - *Social History Smoking Status: Never smoker Tobacco Type: cigarettes # Packs/Day (cigarettes): 0 #Yrs smoked (if former smoker): 6 Alcohol Intake: never Alcohol Intake Frequency:: other Substance Use Type: denies use *Occupational Status:: unemployed Housing: house Household Members: spouse *Travel in the last 8 weeks: None - Psychiatric History Pschychiatric History:: Reports:: D
== END ==
PROVIDERS: Visit Provider Student in an Organized Health Care Education/Training Program
DX: M51.16 Intervertebral disc disorders with radiculopathy, lumbar region (principal)
CPT/HCPCS: 80305; 80361; 80365; 99212; G0463; G0480

== ENCOUNTER → 2021-08-18 08:48 | Outpatient (CLI) | payer MEDICARE, MEDICAID, SELFPAY ==
[2021-08-18 09:57] LABS: Amphetamine/Metha Screen,Urine Negative ng/ml (<1000); Benzodiazepines Screen,Urine Negative ng/ml (<200)
[2021-08-18 09:58] LABS: Barbiturates Screen,Urine Negative ng/ml (<200)
[2021-08-18 09:59] LABS: Cannabinoid Screen,Urine Negative ng/ml (<50)
[2021-08-18 10:00] LABS: Cocaine Screen,Urine Negative ng/ml (<300); Methadone Screen,Urine Negative ng/ml (<300)
[2021-08-18 10:01] LABS: Opiate Screen,Urine Negative ng/ml (<300); Phencyclidine Screen,Urine Negative ng/ml (<25)
[2021-09-05 16:30] LABS: Opiates Negative (Cutoff=100)
== END ==
PROVIDERS: Student in an Organized Health Care Education/Training Program; PCP Emergency Medicine; Visit Provider Anesthesiology
DX: Z79.891 Long term (current) use of opiate analgesic (principal)
CPT/HCPCS: 80305; 80361; 80365; G0480

== ENCOUNTER → 2021-09-20 08:09 | Outpatient (POV) | payer MEDICARE, MEDICAID, SELFPAY ==
--- NOTE | 2021-09-20 08:43 | P.CONS_ITS ---
[facility] Pain Management SOAP Note Subjective:: Patient is a pleasant 56-year-old female who is here for medication refill and follow-up. She is currently being treated for degenerative disc disease of lumbar spine with lumbar radiculopathy symptoms. She is being managed with Percocet 10 mg twice a day. She denies any side effects from this medications. She denies any changes to the location and type of pain. She states her low back pain is managed well with these meds. Today she rates her pain a 6 out of 10. She states most of her pain today is in her left foot from stepping on a toy of her grandkids yesterday. Her Azar is [id number]. It has been reviewed and is appropriate. Review of Systems: General: No recent weight changes, no fever, no sleep disturbances Respiratory: No cough, no shortness of air, no recurring pulmonary infections Cardiovascular/peripheral vascular: No chest pain, no palpitations, no edema, no shortness of breath Gastrointestinal: No new onset incontinence, normal bowel movements reported Genitourinary: No new onset incontinence Musculoskeletal: Low back pain, left foot pain Psychiatric: [Normal mood/affect] Neurological: [Denies weakness in extremities], [denies balance issues] Objective:: Physical Exam: General: Alert and oriented x3, no acute distress, pleasant and cooperative Lungs: Respirations even and unlabored, symmetrical chest expansion Eyes: PERRL Musculoskeletal: Flexion and extension of lumbar [spine] somewhat guarded secondary to pain, [antalgic gait noted] Neurological: Speech clear, no gross sensory deficit Assessment:: Degenerative disc disease of lumbar spine with lumbar radiculopathy symptoms Plan:: We will continue the patient's Percocet 10 mg twice a day. We will give 1 month of refills. Patient has had 2 negative drug screens with negative confirmations. Patient will be put on a pill counts. Will return to clinic in 1 month for medication refill and follow-up. Patient has been instructed to contact the clinic with any concerns before the next appointment. Dr. Purdy has reviewed this note and agrees with this plan of care. This note was dictated using voice recognition software and make contain errors or omissions. [facility] History I have reviewed the patient's past medical history: Yes Medical History: Reports:: Asthma, Depression, Gastroesophageal Reflux Disease(GERD), Heart Murmur, Hyperlipidemia, Hypertension, Lung Disease, Osteoporosis Denies:: Cancer, Diabetes Mellitus Type 1, Diabetes Mellitus Type 2, Internal Pacemaker, MRSA, Seizures *Have you ever received a pneumonia vaccine?: No *Have you received a flu vaccine this season?: Yes Other Medical History: Reports: Anemia, Arthritis, Osteoporosis, Sickle Cell Disease, Sinus Problems, Other Laterality Cases: Right: Arthroscopy Shoulder, Bilateral: Tonsillectomy Other Surgeries: Yes: Bariatric Surgery, Cholecystectomy, Colonoscopy, C- section, EGD, Hysterectomy-Total, Other (back surgery,rt shoulder surgery). No: Pacemaker Amputation: No Fractures: No - *Social History Smoking Status: Never smoker Tobacco Type: cigarettes # Packs/Day (cigarettes): 0 #Yrs smoked (if former smoker): 6 Alcohol Intake: never Alcohol Intake Frequency:: other Substance Use Type: denies use *Occupational Status:: unemployed Housing: house Household Members: spouse *Travel in the last 8 weeks: Inside the [place] - Psychiatric History Pschychiatric History:: Reports:: Depression Family Hx:: Hypertension, Hyperlipidemia, Diabetes, Cancer, Heart Attack
[2021-09-20 08:58] VITALS: BP 156/69; PULSE 73; RESP 20; TEMP 36.3; O2SAT 97; BMI 51.2
== END ==
PROVIDERS: Visit Provider Student in an Organized Health Care Education/Training Program
DX: M51.16 Intervertebral disc disorders with radiculopathy, lumbar region (principal)
CPT/HCPCS: 99212; G0463

== ENCOUNTER → 2021-10-20 09:24 | Outpatient (POV) | payer MEDICARE, MEDICAID, SELFPAY ==
[2021-10-20 09:30] VITALS: BP 158/78; PULSE 82; RESP 20; O2SAT 95; BMI 50.1
--- NOTE | 2021-10-20 09:54 | HMH.PAINSOAP ---
[facility] Pain Management SOAP Note Subjective:: Patient is a pleasant 56-year-old female who is here for medication refill and follow-up. She is currently being treated for degenerative disc disease of lumbar spine with lumbar radiculopathy symptoms. Patient rates her pain a 6 out of 10 today. She states her pain is located in her low back. She describes it as a achy sensation and is worse with increased activity. She states she cant sleep on her right side due to the pain. She denies any new injury or trauma to the site. She is being managed with Percocet 10 mg twice a day. She denies any side effects from this medications. She denies any changes to the location and type of pain. She states her low back pain is managed well with these meds. Her Azar is [id number]. It has been reviewed and is appropriate. Review of Systems: General: No recent weight changes, no fever, no sleep disturbances Respiratory: No cough, no shortness of air, no recurring pulmonary infections Cardiovascular/peripheral vascular: No chest pain, no palpitations, no edema, no shortness of breath Gastrointestinal: No new onset incontinence, normal bowel movements reported Genitourinary: No new onset incontinence Musculoskeletal: Low back pain Psychiatric: [Normal mood/affect] Neurological: [Denies weakness in extremities], [denies balance issues] Objective:: Physical Exam: General: Alert and oriented x3, no acute distress, pleasant and cooperative Lungs: Respirations even and unlabored, symmetrical chest expansion Eyes: PERRL Musculoskeletal: Flexion and extension of lumbar [spine] somewhat guarded secondary to pain, [antalgic gait noted] Positive point tenderness at lumbar spine. Positive right fabers, fortins, compression, distraction exam. Neurological: Speech clear, no gross sensory deficit Assessment:: Degenerative disc disease of lumbar spine with lumbar radiculopathy symptoms, right sacroiliitis Plan:: We will continue the patient's Percocet 10 mg twice a day. We will give 1 month of refills. Patient will be going to lab for UDS following office visit. In the past patient has had 2 negative drug screens with negative confirmations. Patient will be put on a pill counts if her drug screen is inappropriate. Patient had positive point tenderness at her lumbar spine and positive fabers, fortins, compression and distraction exam on her right side. I have discussed with the patient about a right SI injection. Risks and benefits were discussed with patient. She would like to proceed forward with this injection. Will schedule the patient for a Right SI injection at todays visit. Patient has been instructed to contact the clinic with any concerns before the next appointment. Dr. Purdy has reviewed this note and agrees with this plan of care. This note was dictated using voice recognition software and make contain errors or omissions. [facility] History I have reviewed the patient's past medical history: Yes Medical History: Reports:: Asthma, Depression, Gastroesophageal Reflux Disease(GERD), Heart Murmur, Hyperlipidemia, Hypertension, Lung Disease, Osteoporosis Denies:: Cancer, Diabetes Mellitus Type 1, Diabetes Mellitus Type 2, Internal Pacemaker, MRSA, Seizures *Have you ever received a pneumonia vaccine?: No *Have you received a flu vaccine this season?: Yes Other Medical History: Reports: Anemia, Arthritis, Osteoporosis, Sickle Cell Disease, Sinus Problems, Other Laterality Cases: Right: Arthroscopy Shoulder, Bilateral: Tonsillectomy Other Surgeries: Yes: Bariatric Surgery, Cholecystectomy, Colonoscopy, , EGD, Hysterectomy-Total, Other (back surgery,rt shoulder surgery). No: Pacemaker Amputation: No Fractures: No - *Social History Smoking Status: Former smoker Tobacco Type: cigarettes # Packs/Day (cigarettes): 0 #Yrs smoked (if former smoker): 6 Alcohol Intake: never Alcohol Intake Frequency:: other Substance Use Type: denies use *Occupational Status:: o
[2021-10-20 10:23] LABS: Basophils # 0.1 K/mm3 (0-0.2); Basophils % 1.2 % (0.1-2.0); Eosinophils # 0.2 K/mm3 (0.0-0.4); Eosinophils % 3.1 % (0.1-12.0); Hematocrit 42.1 % (37.0-47.0); Hemoglobin 13.7 g/dL (12.2-16.2); Lymphocytes # 2.2 K/mm3 (0.7-4.5); Lymphocytes % 30.9 % (10-50); Mean Corpuscular HGB Conc 32.5 g/dL (31.8-35.4); Mean Corpuscular Hemoglobin 30.3 pg (27.0-31.2); Mean Corpuscular Volume 93.3 fl (81-99); Monocytes # 0.6 K/mm3 (0.1-1.0); Monocytes % 8.2 % (1.7-9.3); Neutrophils # 4.1 K/mm3 (1.8-7.8); Neutrophils % 56.5 % (37.0-80.0); Platelet Count 274 K/mm3 (142-424); Red Blood Count 4.51 M/mm3 (4.20-5.40); Red Cell Distribution Width 14.5 % (11.5-17.5); White Blood Count 7.2 K/mm3 (4.8-10.8)
[2021-10-20 10:38] LABS: Benzodiazepines Screen,Urine Negative ng/ml (<200)
[2021-10-20 10:39] LABS: Amphetamine/Metha Screen,Urine Negative ng/ml (<1000)
[2021-10-20 10:40] LABS: Barbiturates Screen,Urine Negative ng/ml (<200); Cannabinoid Screen,Urine Negative ng/ml (<50)
[2021-10-20 10:41] LABS: Cocaine Screen,Urine Negative ng/ml (<300); Methadone Screen,Urine Negative ng/ml (<300)
[2021-10-20 10:42] LABS: Phencyclidine Screen,Urine Negative ng/ml (<25)
[2021-10-20 10:43] LABS: Opiate Screen,Urine Negative ng/ml (<300)
[2021-10-20 10:53] LABS: Alanine Aminotransferase 26 U/L (12-78); Albumin Level 4.2 g/dl (3.5-5.0); Albumin/Globulin Ratio 1.9 (1.1-1.8); Alkaline Phosphatase 90 U/L (38-126); Anion Gap 9.8 mEq/L (5-15); Aspartate Amino Transferase 27 U/L (14-36); Blood Urea Nitrogen 10 mg/dl (7-17); Calcium 9.4 mg/dl (8.4-10.2); Carbon Dioxide 32 mmol/L (22.0-30.0); Chloride 100 mmol/L (98-107); Creatinine Clearance Estimated 73 mL/min (50-200); Estimated Glomerular Filt Rate 86 ml/min (>60); GFR (African American) 104 ML/MIN (>60); Globulin 2.2 g/dL (1.3-3.2); Glucose 178 mg/dl (74-100); Potassium 3.8 mmoL/L (3.5-5.1); Sodium 138 mmol/L (136-145); Total Protein,Serum 6.4 g/dl (6.3-8.2)
[2021-10-20 10:54] LABS: Bilirubin,Total < 0.1 mg/dl (0.2-1.3)
[2021-10-26 23:11] LABS: Opiates Negative (Cutoff=100)
== END ==
PROVIDERS: Specialist; Student in an Organized Health Care Education/Training Program; PCP Emergency Medicine; Visit Provider Nurse Practitioner Family
DX: G50.0 Trigeminal neuralgia; M51.16 Intervertebral disc disorders with radiculopathy, lumbar region; Z79.891 Long term (current) use of opiate analgesic; M46.1 Sacroiliitis, not elsewhere classified
CPT/HCPCS: 36415; 80053; 80305; 80361; 80365; 85025; 99212; G0463; G0480

== ENCOUNTER 2021-11-04 09:35 | Day surgery (SDC) | payer MEDICARE, MEDICAID, SELFPAY ==
[2021-11-04 09:48] VITALS: BP 142/61; PULSE 66; RESP 20; TEMP 36.3; O2SAT 99; BMI 51.2
[2021-11-04 10:04] VITALS: BP 136/57; PULSE 63; RESP 20; O2SAT 98
--- NOTE | 2021-11-04 10:25 | P.PCN_ITS ---
- Procedure Date: 11/04/21 Time: 10:00 Anesthesiologist:: Skip Lazo CRNA Complications:: None Pre-procedure Diagnosis:: Right sacroiliitis Post-procedure Diagnosis:: Same Indications for Procedure:: This patient is a very pleasant 56-year-old female that comes our clinic today for right SI joint injection. She has extreme point tenderness over the right SI joint. She rates the pain 7/10. Procedure Details:: Procedure: Right sacroliliac joint injection under fluoroscopy Informed consent was obtained and the risk and benefits of the procedure were e xplained to the patient.~ The patient was taken to the procedure room and noninvasive monitors were placed including noninvasive blood pressure cuff and pulse oximeter.~ The patient was placed prone on the procedure table.~ The~ right hip was cleansed using Betadine as a cleansing solution.~ C-arm fluorosocpy was used to view the right SI joint.~ The skin and subcutaneous tissues were anesthetized using Lidocaine 1.5% and a 25-gauge needle.~ After this, a 22-gauge spinal needle was inserted under fluoroscopic guidance into the inferior aspect of the right SI joint.~ Omnipaque dye was injected and a good spread was seen throughout the joint.~ After this, approximately 5 mL of bupivacaine 0.25% and Depo-Medrol 40 mg was incrementally injected into the sacroiliac joint.~ The patient tolerated the procedure well with no complications.~ The patient was observed in the Pain Clinic, then discharged home neurologically intact.~ Plan and Disposition:: Patient was discharged without incident.
== END 2021-11-04 10:05 | disposition home or self-care (01) ==
LOC: SC.PAINP 09:36
PROVIDERS: PCP Emergency Medicine; Visit Provider Nurse Anesthetist, Certified Registered
DX: M46.1 Sacroiliitis, not elsewhere classified (principal)
CPT/HCPCS: 27096; G0260; J1040

== ENCOUNTER → 2021-11-16 08:55 | Outpatient (POV) | payer MEDICARE, MEDICAID, SELFPAY ==
[2021-11-16 09:05] VITALS: BP 178/96; PULSE 88; RESP 18; TEMP 36.4; O2SAT 98; BMI 51.2
--- NOTE | 2021-11-16 16:12 | A.OFFVIS_ITS ---
[facility] Pain Management SOAP Note Subjective:: Patient is a pleasant 56-year-old female who presents today for follow-up of right SI injection on 11/04/2021. We are currently treating the patient for degenerative disc disease of lumbar spine with lumbar radiculopathy symptoms, sacroiliitis. Patient states she has had worsening pain following this injection. Today she rates her pain a 10 out of 10 and states it is primarily along her low back on the right side radiating into her leg. Patient states this is an aching, throbbing sensation that is worse with increased activity. She states in her legs she has more numbness. She still is having trouble sleeping due to the pain. Patient denies any new trauma. Patient states she is unable to tolerate any NSAIDs due to a history of gastric bypass. She is currently managed with Percocet 10 mg twice a day. Patient denies any side effects from this medication. She states this medication does help manage her pain. She is requesting a refill at today's visit. Her Azar is [id number]. Review of Systems: General: No recent weight changes, no fever, no sleep disturbances Respiratory: No cough, no shortness of air, no recurring pulmonary infections Cardiovascular/peripheral vascular: No chest pain, no palpitations, no edema, no shortness of breath Gastrointestinal: No new onset incontinence, normal bowel movements reported Genitourinary: No new onset incontinence Musculoskeletal: Low back pain, right leg pain Psychiatric: [Normal mood/affect] Neurological: [Denies weakness in extremities], [denies balance issues] Objective:: Physical Exam: General: Alert and oriented x3, no acute distress, pleasant and cooperative Lungs: Respirations even and unlabored, symmetrical chest expansion Eyes: PERRL Musculoskeletal: Flexion and extension of lumbar [spine] somewhat guarded secondary to pain, [antalgic gait noted] Neurological: Speech clear, no gross sensory deficit Assessment:: Degenerative disc disease of lumbar spine with lumbar radiculopathy symptoms, sacroiliitis Plan:: Patient has significant pain in her low back that radiates into her extremities. I have discussed with the patient regarding a epidural injection. Risk and benefits were discussed with the patient. She would like to proceed forward with this injection. She is not currently on any blood thinners. I will also reorder the patient's Percocet 10 mg twice a day and provide a 1 month supply of this medication. We will schedule the patient for a lumbar epidural steroid injection at L5-S1 at today's visit. Patient has been instructed to contact the clinic with any concerns before the next appointment. Dr. Purdy has reviewed this note and agrees with this plan of care. This note was dictated using voice recognition software and make contain errors or omissions. [facility] Medical History (Updated 10/12/21 @ 10:35 by Linda Vega RN) Abnormal EKG B12 deficiency Dyspnea Edema of left lower extremity Iron deficiency anemia Social History Smoking Status: Former smoker pack-years: 6 alcohol intake: never counseling provided: none substance use type: denies use current occupational status: other household members: spouse housing: house caffeine: No
== END | disposition home or self-care (01) ==
PROVIDERS: PCP Emergency Medicine; Visit Provider Nurse Practitioner Family
DX: M51.16 Intervertebral disc disorders with radiculopathy, lumbar region (principal); M46.1 Sacroiliitis, not elsewhere classified
CPT/HCPCS: 99212; G0463

== ENCOUNTER 2021-11-29 13:54 | Day surgery (SDC) | payer MEDICARE, MEDICAID, SELFPAY ==
[2021-11-29 14:07] VITALS: BP 192/71; PULSE 88; RESP 18; TEMP 36.3; O2SAT 97; BMI 51.2
[2021-11-29 14:27] VITALS: BP 166/92; PULSE 87; RESP 18; O2SAT 94
[2021-11-29 14:29] VITALS: BP 166/92; PULSE 82; RESP 18; O2SAT 95
--- NOTE | 2021-11-29 14:34 | EXP.PAIN.PRO ---
Procedure Date: 11/29/21 Time: 14:34 Anesthesiologist:: Skip Lazo CRNA Complications:: None Pre-procedure Diagnosis:: Degenerative disc disease lumbar spine multilevels. Lumbar radiculopathy. Lumbar postlaminectomy syndrome Post-procedure Diagnosis:: Same. Indications for Procedure:: This patient is a pleasant 56-year-old female that comes our clinic today for lumbar epidural steroid injection at the L5-S1 level. However, due to lumbar fusion, discectomy and decompression I will give the injection at the L3-4 level. Patient describes her low back pain as constant, dull, aching. Patient also complaining of bilateral hip and leg radicular symptoms. She rates her pain today 7/10. Procedure Details:: Procedure: Lumbar epidural steroid injection under fluoroscopy Informed consent was obtained and the risks and benefits of the procedure were explained to the patient. The patient was taken to the procedure room and noninvasive monitors placed, including noninvasive blood pressure cuff and pulse oximeter. The back was viewed using C-arm Fluoroscopy and prepped using Betadine as a cleansing solution and the L4-L5 interspace was palpated. Skin and subcutaneous tissues were anesthetized using lidocaine 1.5% and a 25-gauge needle. After this, an 18-gauge Touhy epidural needle was placed into the L4-L5 interspace and advanced using fluoroscopic guidance and loss of resistance to air until the epidural space was encountered. After confirmation of needle placement in the epidural space, with dye, a solution containing lidocaine 1.5%, 4 mL and Depo-Medrol 80 mg were incrementally injected into the lumbar epidural space. The patient tolerated the procedure well with no complications. The patient was observed in the Pain Clinic and then discharged home neurologically intact. Plan and Disposition:: Patient was discharged from the clinic without incident.
[2021-11-29 14:40] VITALS: BP 157/91; PULSE 79; RESP 20; O2SAT 96
== END 2021-11-29 14:42 | disposition home or self-care (01) ==
PROVIDERS: PCP Emergency Medicine; Visit Provider Nurse Anesthetist, Certified Registered
DX: M51.16 Intervertebral disc disorders with radiculopathy, lumbar region (principal); M96.1 Postlaminectomy syndrome, not elsewhere classified
CPT/HCPCS: 62323; J1040

== ENCOUNTER → 2021-12-12 10:33 | Outpatient (POV) | payer MEDICARE, MEDICAID, SELFPAY ==
[2021-12-12 10:39] VITALS: BP 167/85; PULSE 67; RESP 18; TEMP 35.9; O2SAT 97; BMI 51.2
--- NOTE | 2021-12-12 10:46 | EXP.PAIN.SOA ---
[facility] Pain Management SOAP Note Subjective:: Patient is a pleasant 56-year-old female who presents today for follow-up of lumbar epidural steroid injection at L 3?L4 on 11/29/2021. We are currently treating the patient for degenerative disc disease of lumbar spine multilevels with lumbar radiculopathy symptoms, postlaminectomy syndrome, sacroiliitis. Patient states that she has had significant improvement of her symptoms following this injection. She rates 70% relief and feels like she is still getting improvement from this injection. Today the patient rates her pain a 6 out of 10. She states the pain is primarily in her low back that radiates into her right side and right leg. Patient denies any new trauma or injury to the site. She states that following this injection she has been able to increase her activity however she does still continue to have some aching, throbbing sensations. Patient does state that her pain is worse with a lot of activity. Patient is unable to tolerate NSAIDs due to a history of gastric bypass. She is currently managed with Percocet 10 mg twice a day. She denies any side effects from this medication. She states this medication does help manage her pain. She is requesting a refill at today's visit. Her Azar is [id number]. It has been reviewed and appropriate. Review of Systems: General: No recent weight changes, no fever, no sleep disturbances Respiratory: No cough, no shortness of air, no recurring pulmonary infections Cardiovascular/peripheral vascular: No chest pain, no palpitations, no edema, no shortness of breath Gastrointestinal: No new onset incontinence, normal bowel movements reported Genitourinary: No new onset incontinence Musculoskeletal: Low back pain, right leg pain Psychiatric: [Normal mood/affect] Neurological: [Denies weakness in extremities], [denies balance issues] Objective:: Physical Exam: General: Alert and oriented x3, no acute distress, pleasant and cooperative Lungs: Respirations even and unlabored, symmetrical chest expansion Eyes: PERRL Musculoskeletal: Flexion and extension of lumbar [spine] somewhat guarded secondary to pain, [antalgic gait noted] Neurological: Speech clear, no gross sensory deficit Assessment:: Degenerative disc disease of lumbar spine multilevels with lumbar radiculopathy symptoms, postlaminectomy syndrome, sacroiliitis Plan:: Patient has had significant improvement of her symptoms following her lumbar epidural steroid injection at L3-L4. At this time the patient does not need additional injective therapy. I will refill the patient's Percocet 10 mg twice a day and provide a 1 month supply of this medication. Patient will follow-up in 1 month. Patient will return to clinic in 1 month for reevaluation of symptoms, medication refill and follow-up. Patient has been advised of risks of oversedation with the prescribed medication. Narcan has been offered to the patient in the event of oversedation. Patient has been advised that a family member should also be educated regarding administration of Narcan. Patient has been instructed to contact the clinic with any concerns before the next appointment. Dr. Purdy has reviewed this note and agrees with this plan of care. This note was dictated using voice recognition software and make contain errors or omissions. [facility] Medical History Abnormal EKG B12 deficiency Dyspnea Edema of left lower extremity Iron deficiency anemia Family History (Updated 11/29/21 @ 14:10 by Gavin Carl RN) Other No significant family history Social History (Updated 11/29/21 @ 14:11 by Gavin Carl RN) Smoking Status: Former smoker pack-years: 6 alcohol intake: never counseling provided: none substance use type: denies use current occupational status: other Travel in the last 8 weeks: None household members: spouse housing: house caffeine: No fire exting
== END | disposition home or self-care (01) ==
PROVIDERS: PCP Emergency Medicine; Visit Provider Nurse Practitioner Family
DX: M51.16 Intervertebral disc disorders with radiculopathy, lumbar region (principal); M46.1 Sacroiliitis, not elsewhere classified; M96.1 Postlaminectomy syndrome, not elsewhere classified
CPT/HCPCS: 99212; G0463

== ENCOUNTER → 2022-01-09 09:48 | Outpatient (POV) | payer MEDICARE, MEDICAID, SELFPAY ==
[2022-01-09 10:03] VITALS: BP 155/79; PULSE 87; RESP 18; TEMP 36.7; O2SAT 98; BMI 51.3
--- NOTE | 2022-01-09 10:05 | EXP.PAIN.SOA ---
[facility] Pain Management SOAP Note Subjective:: Patient is a pleasant 57-year-old female who presents today for medication refill and follow-up. We are currently treating the patient for degenerative disc disease of lumbar spine multilevels with lumbar radiculopathy symptoms, postlaminectomy syndrome, sacroiliitis. Today the patient rates her pain a 7 out of 10. Patient denies any new trauma or injury. Patient denies any change to the location or type of pain she experiences. Patient states she does still feel like she is continue to get some relief following her last lumbar epidural steroid injection at L3-L4 on 11/29/2021. Patient is currently managed with Percocet 10 mg twice a day. Patient denies any side effects from this medication. She states these medications do adequately help manage her pain symptoms. She is requesting refill at today's visit. Patient has previously tried gabapentin however stopped this medication due to the groggy/hung over feeling it gave her. Patient cannot tolerate NSAIDs due to a history of gastric bypass. Her Azar is [id number] with a morphine equivalent of 30. It has been reviewed and appropriate. Review of Systems: General: No recent weight changes, no fever, no sleep disturbances Respiratory: No cough, no shortness of air, no recurring pulmonary infections Cardiovascular/peripheral vascular: No chest pain, no palpitations, no edema, no shortness of breath Gastrointestinal: No new onset incontinence, normal bowel movements reported Genitourinary: No new onset incontinence Musculoskeletal: Low back pain, right leg pain Psychiatric: [Normal mood/affect] Neurological: [Denies weakness in extremities], [denies balance issues] Objective:: Physical Exam: General: Alert and oriented x3, no acute distress, pleasant and cooperative Lungs: Respirations even and unlabored, symmetrical chest expansion Eyes: PERRL Musculoskeletal: Flexion and extension of lumbar [spine] somewhat guarded secondary to pain, [antalgic gait noted] Neurological: Speech clear, no gross sensory deficit Assessment:: Degenerative disc disease of lumbar spine multilevels with lumbar radiculopathy symptoms Plan:: Patient continues to have pain in her low back that radiates into her right leg. Patient did have limited range of motion of her lumbar spine during today's visit however she is doing well with her current medication regimen. I will refill the patient's Percocet 10 mg twice a day and provide a 1 month supply of this medication. Patient will return to clinic in 1 month for reevaluation of symptoms, medication refill and follow-up. Patient has been advised of risks of oversedation with the prescribed medication. Narcan has been offered to the patient in the event of oversedation. Patient has been advised that a family member should also be educated regarding administration of Narcan. Patient has been instructed to contact the clinic with any concerns before the next appointment. Dr. Purdy has reviewed this note and agrees with this plan of care. This note was dictated using voice recognition software and make contain errors or omissions. [facility] Medical History Abnormal EKG B12 deficiency Dyspnea Edema of left lower extremity Iron deficiency anemia Family History (Updated 11/29/21 @ 14:10 by Gavin Carl RN) Other No significant family history Social History (Updated 11/29/21 @ 14:11 by Gavin Carl RN) Smoking Status: Former smoker pack-years: 6 alcohol intake: never counseling provided: none substance use type: denies use current occupational status: other Travel in the last 8 weeks: None household members: spouse housing: house caffeine: No fire extinguisher in home: Yes carbon monox detector in home: Yes firearms in home: No do you feel safe at home: Yes victim of physical abuse: No victim of emotional abuse: No victim of sexua
== END | disposition home or self-care (01) ==
PROVIDERS: PCP Emergency Medicine; Visit Provider Nurse Practitioner Family
DX: M51.16 Intervertebral disc disorders with radiculopathy, lumbar region (principal)
CPT/HCPCS: 99212; G0463

== ENCOUNTER → 2022-01-23 10:45 | Outpatient (CLI) | payer MEDICARE, MEDICAID, SELFPAY | PROVIDERS: PCP Family Medicine; Visit Provider Family Medicine | DX: J02.9 Acute pharyngitis, unspecified (principal) | CPT/HCPCS: 87070 ==

== ENCOUNTER → 2022-02-06 09:15 | Outpatient (POV) | payer MEDICARE, MEDICAID, SELFPAY ==
[2022-02-06 09:57] VITALS: BP 145/82; PULSE 74; RESP 18; O2SAT 98; BMI 51.3
--- NOTE | 2022-02-06 09:57 | EXP.PAIN.SOA ---
[facility] Pain Management SOAP Note Subjective:: Patient is a pleasant 57-year-old female who presents today for follow-up, medication refill. We are currently treating the patient for degenerative disc disease of lumbar spine multilevels with lumbar radiculopathy symptoms, postlaminectomy syndrome, sacroiliitis. Today the patient rates her pain a 7 out of 10. She states the pain is all in her legs and back. Patient states she does feel like her back pain has been worse since her last lumbar epidural injection. Patient describes this as a aching sensation that is worse with increased activity such as walking. Patient was previously prescribed compounding cream however she states that she did not notice significant improvement with this medication. She is currently managed with Percocet 10 mg twice a day. Patient denies any side effects from this medication. She states this medication does help manage her pain symptoms. She is requesting a refill at today's visit. Patient states she is under the weather at today's visit. She states that her granddaughter recently was diagnosed with RSV and actually had to be admitted at [facility] due to her oxygenation. Her Azar is [id number]. It has been reviewed and appropriate. Review of Systems: General: No recent weight changes, no fever, no sleep disturbances Respiratory: No cough, no shortness of air, no recurring pulmonary infections Cardiovascular/peripheral vascular: No chest pain, no palpitations, no edema, no shortness of breath Gastrointestinal: No new onset incontinence, normal bowel movements reported Genitourinary: No new onset incontinence Musculoskeletal: Low back pain, bilateral leg pain Psychiatric: [Normal mood/affect] Neurological: [Denies weakness in extremities], [denies balance issues] Objective:: Physical Exam: General: Alert and oriented x3, no acute distress, pleasant and cooperative Lungs: Respirations even and unlabored, symmetrical chest expansion Eyes: PERRL Musculoskeletal: Flexion and extension of lumbar [spine] somewhat guarded secondary to pain, [antalgic gait noted] Neurological: Speech clear, no gross sensory deficit Assessment:: Degenerative disc disease of lumbar spine multilevels with lumbar radiculopathy symptoms, postlaminectomy syndrome, sacroiliitis Plan:: Patient continues to experience significant pain in her low back and bilateral lower extremities. Patient did have limited range of motion of her lumbar spine during today's visit. I will refill the patient's Percocet 10 mg 2 times a day and provide a 1 month supply of this medication. Patient will return to clinic in 1 month for reevaluation of symptoms, medication refill and follow-up. Patient has been advised of risks of oversedation with the prescribed medication. Narcan has been offered to the patient in the event of oversedation. Patient has been advised that a family member should also be educated regarding administration of Narcan. Patient has been instructed to contact the clinic with any concerns before the next appointment. Dr. Purdy has reviewed this note and agrees with this plan of care. This note was dictated using voice recognition software and make contain errors or omissions. [facility] Medical History Abnormal EKG B12 deficiency Dyspnea Edema of left lower extremity Iron deficiency anemia Family History Other No significant family history Social History Smoking Status: Former smoker pack-years: 6 alcohol intake: never counseling provided: none substance use type: denies use current occupational status: disabled Travel in the last 8 weeks: None household members: spouse housing: house caffeine: No fire extinguisher in home: Yes carbon monox detector in home: Yes firearms in home: No do you feel safe at home: Yes
== END | disposition home or self-care (01) ==
PROVIDERS: PCP Family Medicine; Visit Provider Nurse Practitioner Family
DX: M51.16 Intervertebral disc disorders with radiculopathy, lumbar region (principal); M46.1 Sacroiliitis, not elsewhere classified; M96.1 Postlaminectomy syndrome, not elsewhere classified
CPT/HCPCS: 99212; G0463

== ENCOUNTER → 2022-03-09 09:04 | Outpatient (POV) | payer MEDICARE, MEDICAID, SELFPAY ==
[2022-03-09 09:31] VITALS: BP 187/85; PULSE 87; RESP 18; O2SAT 97; BMI 51.2
--- NOTE | 2022-03-09 09:34 | EXP.PAIN.SOA ---
[facility] Pain Management SOAP Note Subjective:: Patient is a pleasant 57-year-old female who is here for medication refill and follow-up. Patient is currently being treated for degenerative disease of lumbar spine with lumbar radiculopathy symptoms, postlaminectomy syndrome, sacroiliitis. Patient is being managed with Percocet 10 mg twice a day. Patient denies any side effects from the medications. Patient denies any changes to the location and type of pain. Patient states that this is adequately helping manage their pain. Rates pain as 7 out of 10. Azar number [id number] with an active morphine equivalent 30. Drug screens have been reviewed and appropriate. Patient also has a history of gastric bypass so she cannot take any NSAIDs. We have also done injective therapy with the patient every few months. Her last epidural steroid injection was at L3-L4 on 11/29/2021. She is still doing okay with this. Review of Systems: General: No recent weight changes, no fever, no sleep disturbances Respiratory: No cough, no shortness of air, no recurring pulmonary infections Cardiovascular/peripheral vascular: No chest pain, no palpitations, no edema, no shortness of breath Gastrointestinal: No new onset incontinence, normal bowel movements reported Genitourinary: No new onset incontinence Musculoskeletal: Low back pain Psychiatric: [Normal mood/affect] Neurological: [Denies weakness in extremities], [denies balance issues] Objective:: Physical Exam: General: Alert and oriented x3, no acute distress, pleasant and cooperative Lungs: Respirations even and unlabored, symmetrical chest expansion Eyes: PERRL Musculoskeletal: Flexion and extension of lumbar [spine] somewhat guarded secondary to pain, [antalgic gait noted] Neurological: Speech clear, no gross sensory deficit Assessment:: Degenerative disc disease of lumbar spine with lumbar radiculopathy symptoms, postlaminectomy syndrome, sacroiliitis Plan:: We will continue the patient's Percocet 10 mg twice a day. We will provide the patient with 1 month of refills. We would like to see the patient back in 1 month for follow-up and reevaluation of chronic pain syndrome. Patient has been advised of risks of oversedation with the prescribed medication. Narcan has been offered to the patient in the event of oversedation. Patient has been advised that a family member should also be educated regarding administration of Narcan. Patient has been instructed to contact the clinic with any concerns before the next appointment. Dr. Purdy has reviewed this note and agrees with this plan of care. This note was dictated using voice recognition software and make contain errors or omissions. [facility] Disclaimer: The information contained in this section may have been updated after the patient was seen, as this information can be updated by other users. Medical History Abnormal EKG B12 deficiency Dyspnea Edema of left lower extremity Iron deficiency anemia Surgical History H/O gastric bypass H/O shoulder surgery History of History of hysterectomy Previous back surgery Family History Other No significant family history Social History Smoking Status: Former smoker pack-years: 6 alcohol intake: never counseling provided: none substance use type: denies use current occupational status: disabled Travel in the last 8 weeks: None household members: spouse housing: house caffeine: No fire extinguisher in home: Yes carbon monox detector in home: Yes firearms in home: No do you feel safe at home: Yes victim of physical abuse: No victim of emotional abuse: No victim of sexual abuse: No would you like helpful sources: No
== END | disposition home or self-care (01) ==
PROVIDERS: PCP Family Medicine; Visit Provider Student in an Organized Health Care Education/Training Program
DX: M51.16 Intervertebral disc disorders with radiculopathy, lumbar region (principal); M46.1 Sacroiliitis, not elsewhere classified; M96.1 Postlaminectomy syndrome, not elsewhere classified
CPT/HCPCS: 99212; G0463

== ENCOUNTER → 2022-03-21 15:05 | Outpatient (CLI) | payer MEDICARE, MEDICAID, SELFPAY ==
--- NOTE | 2022-03-21 15:12 | XR_ITS ---
FINAL REPORT CLINICAL HISTORY: fall mar 13..back surgery 2010 FINDINGS: Multiple views were obtained. Grade 1-2 spondylolisthesis of L5 on S1 with postoperative change of fusion. There is no acute fracture. Mild degenerative disc change. IMPRESSION: No fracture. Grade 1-2 spondylolisthesis of L5 on S1. Reviewed, Interpreted and Dictated by Bren Andino MD Transcribed by Yves Wood Authenticated and [facility]
--- NOTE | 2022-03-21 15:12 | XR_ITS ---
FINAL REPORT CLINICAL HISTORY: fall mar 13..pain COMPARISON: January 2020 FINDINGS: 2 views of the right hip and an AP pelvis were obtained. There is no acute fracture or dislocation. Mild degenerative change of the right hip. There are no soft tissue abnormalities. IMPRESSION: No acute process. Reviewed, Interpreted and Dictated by Bren Andino MD Transcribed by Yves Wood Authenticated and [facility]
== END ==
PROVIDERS: PCP Family Medicine; Visit Provider Family Medicine
DX: M25.551 Pain in right hip (principal); M54.50 Low back pain, unspecified
CPT/HCPCS: 72110; 73502

== ENCOUNTER → 2022-03-22 12:33 | Outpatient (POV) | payer MEDICARE, MEDICAID, SELFPAY ==
--- NOTE | 2022-03-22 12:40 | EXP.PAIN.SOA ---
[facility] Pain Management SOAP Note Subjective:: Patient is a pleasant 57-year-old female who presents today for a telehealth audio visit. This telehealth visit is occurring at the patient's home and she is consented for this visit. We are currently treating the patient for degenerative disease of lumbar spine with lumbar radiculopathy symptoms, postlaminectomy syndrome, sacroiliitis. Today the patient rates her pain a 7 out of 10. Patient states she recently had a fall around the or 14 March. Patient states she was around the house and tripped over her granddaughters toys and landed on her back. Patient was seen by her primary care doctor who did order x-ray imaging of her lumbar spine. Patient does describe this as a sharp, achy sensation that is worse with increased activity. Patient is being managed with Percocet 10 mg twice a day. Patient denies any side effects from the medications. Patient states that this is adequately helping manage their pain however she states she has not taken it today due to taking her granddaughters school. Patient denies any difficulty with urination or bowels. Her Azar is [id number]. Its been reviewed and appropriate. Review of Systems: General: No recent weight changes, no fever, no sleep disturbances Respiratory: No cough, no shortness of air, no recurring pulmonary infections Cardiovascular/peripheral vascular: No chest pain, no palpitations, no edema, no shortness of breath Gastrointestinal: No new onset incontinence, normal bowel movements reported Genitourinary: No new onset incontinence Musculoskeletal: Low back pain Psychiatric: [Normal mood/affect] Neurological: [Denies weakness in extremities], [denies balance issues] Objective:: General: Alert and oriented x3, pleasant and cooperative Lungs: Patient is able to say complete sentences without dyspnea Neurological: Speech clear Assessment:: Degenerative disc disease of lumbar spine with lumbar radiculopathy symptoms, postlaminectomy syndrome, sacroiliitis Plan:: Patient is experiencing significant pain in her low back related to a recent fall. Patient's x-ray imaging did show no fractures but a grade 1-2 spondylolisthesis of L5 on S1. I have discussed with the patient regarding ordering a CT of her lumbar spine without contrast. Patient agrees with this plan of care. I have also counseled the patient that she may benefit from a lumbar epidural steroid injection at this location. Risk and benefits were discussed with the patient. She is not on any blood thinners. I have also counseled the patient that it may be in her best interest to refer her to neurosurgery for additional evaluation. I will send a neurosurgical referral to . We will schedule the patient for a LESI L5-S1. Patient has been instructed to contact the clinic with any concerns before the next appointment. Dr. Purdy has reviewed this note and agrees with this plan of care. This note was dictated using voice recognition software and make contain errors or omissions. [facility] Disclaimer: The information contained in this section may have been updated after the patient was seen, as this information can be updated by other users. Medical History Abnormal EKG B12 deficiency Dyspnea Edema of left lower extremity Iron deficiency anemia Surgical History H/O gastric bypass H/O shoulder surgery History of History of hysterectomy Previous back surgery Family History Other No significant family history Social History Smoking Status: Former smoker pack-years: 6 alcohol intake: never counseling provided: none substance use type: denies use current occupational status: disabled Travel in the last 8 weeks: None household members: spouse melanie
== END ==
PROVIDERS: Visit Provider Nurse Practitioner Family
DX: M51.16 Intervertebral disc disorders with radiculopathy, lumbar region (principal); M96.1 Postlaminectomy syndrome, not elsewhere classified; M46.1 Sacroiliitis, not elsewhere classified
CPT/HCPCS: 99212; G0463

== ENCOUNTER → 2022-03-29 08:16 | Outpatient (CLI) | payer MEDICARE, MEDICAID, SELFPAY ==
--- NOTE | 2022-03-29 08:16 | CT_ITS ---
FINAL REPORT TECHNIQUE: After the administration of oral and intravenous contrast, axial images were obtained through the abdomen and pelvis by computed tomography. The study was performed with techniques to keep radiation dose as low as reasonably achievable, (ALARA). Individual dose reduction techniques using automated exposure control or adjustment of mA and/or kV according to the patient's size were employed. CLINICAL HISTORY: RLQ pain FINDINGS: Abdomen: The lung bases are clear. There is fatty infiltration of the liver. The patient is status post cholecystectomy and gastric bypass. The spleen is unremarkable. The adrenals are normal. The pancreas is unremarkable. The kidneys enhance appropriately. The aorta is normal in caliber. There is no free fluid or adenopathy. Pelvis: The appendix is unremarkable. Note is made of hysterectomy. The urinary bladder is unremarkable. There is no free fluid or adenopathy. There is fusion at L5-S1. IMPRESSION: No acute intra-abdominal process. Reviewed, Interpreted and Dictated by Jiym Alicea III, MD Transcribed by Sheron Santiago Authenticated and [facility]
[2022-03-29 09:03] LABS: Blood Urea Nitrogen 8 mg/dl (7-17); Estimated Glomerular Filt Rate 103 ml/min (>60); GFR (African American) 124 ML/MIN (>60)
== END ==
PROVIDERS: PCP Family Medicine; Visit Provider Nurse Practitioner Family
DX: R10.31 Right lower quadrant pain (principal)
CPT/HCPCS: 36415; 74177; 82565; 84520; Q9967

== ENCOUNTER 2022-04-04 09:44 | Day surgery (SDC) | payer MEDICARE, MEDICAID, SELFPAY ==
[2022-04-04 10:01] VITALS: BP 159/89; PULSE 72; RESP 18; TEMP 36.8; O2SAT 97; BMI 49.6
[2022-04-04 10:06] VITALS: BP 171/70; PULSE 73; RESP 18; O2SAT 98
[2022-04-04 10:07] VITALS: BP 171/70; PULSE 73; RESP 18; O2SAT 98
[2022-04-04 10:20] VITALS: BP 146/95; PULSE 61; RESP 18; O2SAT 97
--- NOTE | 2022-04-04 11:00 | P.PCN_ITS ---
Procedure Date: 04/04/22 Time: 10:15 Anesthesiologist:: Skip Lazo CRNA Complications:: None Pre-procedure Diagnosis:: Degenerative disc disease lumbar spine multilevels. Lumbar postlaminectomy syndrome. Lumbar radiculopathy. Post-procedure Diagnosis:: Same. Indications for Procedure:: This patient is a pleasant 57-year-old female comes our clinic today for lumbar epidural steroid injection. According to her office note the injection was scheduled at L5-S1. However, due to low lumbar hardware we will give the injection L4-5. Patient describes low back pain as constant, dull, aching. She rates her pain 8/10. Patient also complains of bilateral hip and leg radicular symptoms. Procedure Details:: Procedure: Lumbar epidural steroid injection under fluoroscopy Informed consent was obtained and the risks and benefits of the procedure were explained to the patient. The patient was taken to the procedure room and noninvasive monitors placed, including noninvasive blood pressure cuff and pulse oximeter. The back was viewed using C-arm Fluoroscopy and prepped using Chloraprep as a cleansing solution and the L4-L5 interspace was palpated. Skin and subcutaneous tissues were anesthetized using lidocaine 1.5% and a 25-gauge n eedle. After this, an 18-gauge Touhy epidural needle was placed into the L4-L5 interspace and advanced using fluoroscopic guidance and loss of resistance to air until the epidural space was encountered. After confirmation of needle placement in the epidural space, with dye, a solution containing normal saline, 3 mL and Depo-Medrol 80 mg were incrementally injected into the lumbar epidural space. The patient tolerated the procedure well with no complications. The patient was observed in the Pain Clinic and then discharged home neurologically intact. Plan and Disposition:: Patient was discharged without incident.
== END 2022-04-04 10:20 | disposition home or self-care (01) ==
LOC: SC.PAINP 09:45
PROVIDERS: PCP Family Medicine; Visit Provider Nurse Anesthetist, Certified Registered
DX: M51.16 Intervertebral disc disorders with radiculopathy, lumbar region (principal); M96.1 Postlaminectomy syndrome, not elsewhere classified
CPT/HCPCS: 62323; J1040

== ENCOUNTER → 2022-04-16 12:00 | Outpatient (CLI) | payer MEDICARE, MEDICAID, SELFPAY | PROVIDERS: PCP Family Medicine; Visit Provider Family Medicine | DX: R73.9 Hyperglycemia, unspecified (principal) | CPT/HCPCS: 83036 ==

== ENCOUNTER → 2022-04-19 10:52 | Outpatient (POV) | payer MEDICARE, MEDICAID, SELFPAY ==
--- NOTE | 2022-04-19 11:03 | EXP.PAIN.SOA ---
[facility] Pain Management SOAP Note Subjective:: Patient is a pleasant 57-year-old female who presents today for follow-up of lumbar epidural steroid injection at L4-L5 on 04/04/2022. We are currently treating the patient for degenerative disc disease of lumbar spine with lumbar radiculopathy, post laminectomy syndrome, sacroiliitis. Today she rates her pain a 6 out of 10. Patient states she did get at least 40% improvement following this injection however only lasting a couple of days. Patient denies any new trauma or injury. Patient denies any change location or type of pain she experiences. Patient did recently have a fall back at the end of February. At our last visit she was ordered a CT of her lumbar spine without contrast however this was denied by insurance due to not having recent physical therapy. Patient states she has now gone for a couple of visits however this has aggravated and worsened her symptoms. Patient does state that she recently noticed she has something internally falling down into her vagina. Patient states she has not been seen for this. patient is currently managed with Percocet 10 mg twice daily. Patient denies any side effects from this medication. She states this medication does help manage her pain symptoms. She does not need a refill at this time. Her Azar is [id number]. Its been reviewed and appropriate. Review of Systems: General: No recent weight changes, no fever, no sleep disturbances Respiratory: No cough, no shortness of air, no recurring pulmonary infections Cardiovascular/peripheral vascular: No chest pain, no palpitations, no edema, no shortness of breath Gastrointestinal: No new onset incontinence, normal bowel movements reported Genitourinary: No new onset incontinence Musculoskeletal: Low back pain Psychiatric: [Normal mood/affect] Neurological: [Denies weakness in extremities], [denies balance issues] Objective:: Physical Exam: General: Alert and oriented x3, no acute distress, pleasant and cooperative Lungs: Respirations even and unlabored, symmetrical chest expansion Eyes: PERRL Musculoskeletal: Flexion and extension of lumbar [spine] somewhat guarded secondary to pain, [antalgic gait noted] Neurological: Speech clear, no gross sensory deficit Assessment:: Degenerative disc disease of lumbar spine with lumbar radiculopathy symptoms, postlaminectomy syndrome, sacroiliitis Plan:: Patient continues to experience significant pain in her low back and legs that was worsened by a recent fall at the end of February. Patient did have limited range of motion of her lumbar spine during today's visit. Patient has tried been to physical therapy for multiple visits and had worsening symptoms after. I will resubmit to insurance for a CT without contrast of her lumbar spine. I will also send referrals for Dr. Jane and Dr. Jimy Vasquez in [place] for the possible cystocele. Patient agrees with this plan of care. Patient will return to clinic following her imaging for reevaluation of symptoms, medication refill and follow-up. Patient has been instructed to contact the clinic with any concerns before the next appointment. Dr. Purdy has reviewed this note and agrees with this plan of care. This note was dictated using voice recognition software and make contain errors or omissions. [facility] Disclaimer: The information contained in this section may have been updated after the patient was seen, as this information can be updated by other users. Medical History Abnormal EKG B12 deficiency Dyspnea Edema of left lower extremity Iron deficiency anemia Surgical History H/O gastric bypass H/O shoulder surgery History of History of hysterectomy Previous back surgery Family History Other No significant family history Social History (Reviewed
[2022-04-19 11:20] VITALS: BP 179/76; PULSE 73; RESP 20; BMI 51.9
== END ==
PROVIDERS: PCP Family Medicine; Visit Provider Nurse Practitioner Family
DX: M51.16 Intervertebral disc disorders with radiculopathy, lumbar region (principal); M46.1 Sacroiliitis, not elsewhere classified; M96.1 Postlaminectomy syndrome, not elsewhere classified
CPT/HCPCS: 99212; G0463

== ENCOUNTER → 2022-04-19 11:29 | Outpatient (CLI) | payer MEDICARE, MEDICAID, SELFPAY ==
[2022-04-19 13:24] LABS: Amphetamine/Metha Screen,Urine Negative ng/ml (<1000); Barbiturates Screen,Urine Negative ng/ml (<200)
[2022-04-19 13:25] LABS: Benzodiazepines Screen,Urine Negative ng/ml (<200)
[2022-04-19 13:26] LABS: Cannabinoid Screen,Urine Negative ng/ml (<50); Cocaine Screen,Urine Negative ng/ml (<300)
[2022-04-19 13:27] LABS: Methadone Screen,Urine Negative ng/ml (<300)
[2022-04-19 13:28] LABS: Opiate Screen,Urine Negative ng/ml (<300); Phencyclidine Screen,Urine Negative ng/ml (<25)
[2022-05-01 22:08] LABS: Opiates Negative (Cutoff=100)
== END ==
PROVIDERS: PCP Family Medicine; Visit Provider Nurse Practitioner Family
DX: Z79.891 Long term (current) use of opiate analgesic (principal)
CPT/HCPCS: 80305; 80361; 80365; 99212; G0463; G0480

== ENCOUNTER → 2022-05-02 09:35 | Outpatient (POV) | payer MEDICARE, MEDICAID, SELFPAY ==
[2022-05-02 09:50] VITALS: BP 122/64; PULSE 84; RESP 18; TEMP 36.3; O2SAT 98; BMI 51.3
== END | disposition home or self-care (01) ==
PROVIDERS: PCP Family Medicine; Visit Provider Nurse Anesthetist, Certified Registered
DX: M51.16 Intervertebral disc disorders with radiculopathy, lumbar region (principal)
CPT/HCPCS: 99212; G0463

== ENCOUNTER 2022-05-16 08:00 | Outpatient (RCR) | payer MEDICARE, MEDICAID, SELFPAY ==
--- NOTE | 2022-04-17 15:51 | HMH.PTOPEV ---
PT Outpatient Evaluation Rehab PT Outpatient Evaluation Start: 04/17/22 14:59 Freq: Status: Active Protocol: Document 04/17/22 14:59 PDESEROUX (Rec: 04/17/22 15:50 PDESEROUX [id number]) E-signed By Skip Jones, PT Outpatient Therapy Subjective History Subjective History Pt. is a 57 year old female whom presents to [facility] Outpatient Physical Therapy Services in [place] for the initial evaluation this date( 04/17/22) w/ c/o subacute and constant lumbar/sacral/pubic P !, tingling, and stiffness of traumatic onset after having a fall around [place] 2021. Pt. reports tripping over one of her grandchildren's toys and fell onto her buttock. Diagnostic imaging indicated abnormalaties of the lumbar spine. Pt. states referring Physician wants to assess the lumbar spine w/ a CT scan and referral to an Orthopedic Surgeon. Pt. reports symptoms eased a little after having an epidural injection, but reports symptoms have since worsened again. Pt. reports symptoms are a dull, but sharp and shooting at times, ache lumbosacral junction and into the pubic region. Pt. reports symptoms are worse w/ prolonged sitting, bending over, and washing her flood/ dishes. Pt. reports having some symptom relief w/ laying down. Pt. denies numbness into BLEs nor saddle region, denies having any recent changes to bowel/bladder function. Pt. RTMD 04/19/22. Current medication list includes Lipitor, Percocet, muscle relaxer, Cozaar, Welbutrin, and Norvasc. PMH includes S/P lumbar fusion, Hysterectomy, Cholecystectomy, Tonsillectomy,
== END 2022-05-18 15:00 | disposition home or self-care (01) ==
LOC: PT 08:00
PROVIDERS: PCP Family Medicine; Visit Provider Nurse Practitioner Family
DX: M54.50 Low back pain, unspecified (principal); M79.604 Pain in right leg; M79.605 Pain in left leg
CPT/HCPCS: 97010; 97014; 97110; 97140; 97163; G0283

== ENCOUNTER → 2022-05-29 11:11 | Outpatient (POV) | payer MEDICARE, MEDICAID, SELFPAY ==
--- NOTE | 2022-05-29 12:34 | EXP.PAIN.SOA ---
[facility] Pain Management SOAP Note Subjective:: Patient is a pleasant 57-year-old female who presents today for follow-up.? We are currently treating the patient for degenerative disc disease of lumbar spine with lumbar radiculopathy, post laminectomy syndrome, sacroiliitis.? Today she rates her pain a 7 out of 10.?Patient denies any new trauma or injury.? Patient denies any change location or type of pain she experiences.? At her last visit we did order updated imaging of her lumbar spine however she states that she has not been for this but it is scheduled for June 02. We also sent her for a referral to Dr. Jane related to her feeling like something is falling into her vagina that could possibly be her bladder. She states that she has had a follow-up visit with Dr. Jane and he did state that her bladder was fine however he thought that from her previous fall she could have had significant bruising which was causing the additional pressure sensations. He did prescribe her estrogen cream and she states that she is doing okay with this. Patient has recently been to physical therapy however this aggravated her symptoms and she did discontinue her visits due to this. Patient is currently managed with with Percocet 10 mg twice daily.? Patient denies any side effects from this medication.? Her Azar is [id number]. Its been reviewed and appropriate. Review of Systems: General: No recent weight changes, no fever, no sleep disturbances Respiratory: No cough, no shortness of air, no recurring pulmonary infections Cardiovascular/peripheral vascular: No chest pain, no palpitations,? no edema, no shortness of breath Gastrointestinal: No new onset incontinence, normal bowel movements reported Genitourinary: No new onset incontinence Musculoskeletal: Low back pain Psychiatric: [Normal mood/affect] Neurological: [Denies weakness in extremities], [denies balance issues] Objective:: Physical Exam: General: Alert and oriented x3, no acute distress, pleasant and cooperative Lungs: Respirations even and unlabored, symmetrical chest expansion Eyes: PERRL Musculoskeletal: Flexion and extension of lumbar [spine] somewhat guarded secondary to pain, [antalgic gait noted] Neurological: Speech clear, no gross sensory deficit Assessment:: degenerative disc disease of lumbar spine with lumbar radiculopathy, post laminectomy syndrome, sacroiliitis Plan:: Patient continues to experience significant pain in her low back and she is scheduled for updated imaging later this month. I will refill her Percocet 10 mg twice a day and provide a 1 month supply of this medication. Patient will return to clinic on June [address] imaging for reevaluation of symptoms and plan of care. Patient has been advised of risks of oversedation with the prescribed medication. Narcan has been offered to the patient in the event of oversedation. Patient has been advised that a family member should also be educated regarding administration of Narcan. Patient has been instructed to contact the clinic with any concerns before the next appointment. Dr. Purdy has reviewed this note and agrees with this plan of care. This note was dictated using voice recognition software and make contain errors or omissions. [facility] Disclaimer: The information contained in this section may have been updated after the patient was seen, as this information can be updated by other users. Medical History Abnormal EKG B12 deficiency Dyspnea Edema of left lower extremity Iron deficiency anemia Surgical History H/O gastric bypass H/O shoulder surgery History of History of hysterectomy Previous back surgery Family History Other No significant family history Social History Smoking Status: For
[2022-05-29 12:39] VITALS: BP 148/77; PULSE 69; RESP 18; O2SAT 98; BMI 50.1
== END | disposition home or self-care (01) ==
PROVIDERS: PCP Family Medicine; Visit Provider Nurse Practitioner Family
DX: M51.16 Intervertebral disc disorders with radiculopathy, lumbar region (principal); M96.1 Postlaminectomy syndrome, not elsewhere classified; M46.1 Sacroiliitis, not elsewhere classified
CPT/HCPCS: 99212; G0463

== ENCOUNTER → 2022-06-02 16:19 | Outpatient (CLI) | payer MEDICARE, MEDICAID, SELFPAY ==
--- NOTE | 2022-06-02 16:25 | MR_ITS ---
PROCEDURE INFORMATION: Exam: MR Lumbar Spine Without Contrast Exam date and time: 06/02/2022 4:23 PM Age: 57 years old Clinical indication: Low back pain; Prior surgery; Additional info: Back pain. Pain going down legs. TECHNIQUE: Imaging protocol: Magnetic resonance imaging of the lumbar spine without contrast. COMPARISON: CR XR LUMBAR SPINE MIN 4V 03/21/2022 3:28 PM FINDINGS: Bones/joints: The patient is status post posterior spinal fusion at L5-S1. There is grade 1 anterolisthesis of L5 on S1. Spinal cord: Visualized cord, conus medullaris and cauda equina are unremarkable without compression. L1-L2: No significant disc bulge or herniation. No severe spinal canal stenosis. No significant neural foraminal narrowing. L2-L3: There is no significant spinal canal stenosis. There is mild left neural foraminal stenosis secondary to foraminal disc osteophyte ridging and facet hypertrophy. The right neural foramen appears patent. L3-L4: There is minimal diffuse disc bulging without significant spinal canal stenosis. The neural foramina appear patent. L4-L5: The spinal canal appears patent. There is mild bilateral neural foraminal stenosis secondary to foraminal disc bulging and facet hypertrophy. L5-S1: Laminectomy changes are identified. The spinal canal appears patent. There is [id number] bilateral neural foraminal stenosis secondary to spondylolisthesis, foraminal osteophyte ridging, and facet hypertrophy. Soft tissues: Unremarkable. IMPRESSION: 1. Status post posterior spinal fusion at L5-S1. There is grade 1 anterolisthesis of L5 on S1. 2. Degenerative changes as described. Please see above for specific findings at each level.
== END ==
PROVIDERS: PCP Family Medicine; Visit Provider Nurse Practitioner Family
DX: M54.50 Low back pain, unspecified (principal)
CPT/HCPCS: 72148; 76376

== ENCOUNTER → 2022-06-14 08:53 | Outpatient (POV) | payer MEDICARE, MEDICAID, SELFPAY ==
[2022-06-14 09:19] VITALS: BP 175/69; PULSE 60; RESP 18; O2SAT 98; BMI 50.1
--- NOTE | 2022-06-14 09:23 | EXP.PAIN.SOA ---
[facility] Pain Management SOAP Note Subjective:: Patient is a pleasant 57-year-old female who presents today for MRI results. We are currently treating the patient for degenerative disc disease of lumbar spine with lumbar radiculopathy symptoms postlaminectomy syndrome, sacroiliitis. Today she rates her pain a 7 out of 10. Patient denies any new trauma or injury. Patient denies any change location or type of pain she experiences. Patient states she had a very difficult time with the positioning that was prolonged with the MRI that day. She states that she barely could walk coming out from this appointment. She does states she continues to have significant pain in her low back and legs and describes it as an aching, throbbing sensation that is worse with increased activity. Patient does state it interferes with her ability to perform activities of daily living such as cooking and cleaning. Patient has been to physical therapy in the past however it aggravated her symptoms and she had to discontinue her sessions. Patient is currently managed with Percocet 10 mg twice a day and methocarbamol 500 mg 4 times daily. Patient denies any side effects from these medications. She is requesting a refill during today's visit and would also like an increase of her pain medication if possible. Her Azar is [id number]. Its been reviewed and appropriate. Review of Systems: General: No recent weight changes, no fever, no sleep disturbances Respiratory: No cough, no shortness of air, no recurring pulmonary infections Cardiovascular/peripheral vascular: No chest pain, no palpitations, no edema, no shortness of breath Gastrointestinal: No new onset incontinence, normal bowel movements reported Genitourinary: No new onset incontinence Musculoskeletal: Low back pain Psychiatric: [Normal mood/affect] Neurological: [Denies weakness in extremities], [denies balance issues] Objective:: Physical Exam: General: Alert and oriented x3, no acute distress, pleasant and cooperative Lungs: Respirations even and unlabored, symmetrical chest expansion Eyes: PERRL Musculoskeletal: Flexion and extension of lumbar [spine] somewhat guarded secondary to pain, [antalgic gait noted] Neurological: Speech clear, no gross sensory deficit PROCEDURE INFORMATION: Exam: MR Lumbar Spine Without Contrast Exam date and time: 06/02/2022 4:23 PM Age: 57 years old Clinical indication: Low back pain; Prior surgery; Additional info: Back pain. Pain going down legs. TECHNIQUE: Imaging protocol: Magnetic resonance imaging of the lumbar spine without contrast. COMPARISON: CR XR LUMBAR SPINE MIN 4V 03/21/2022 3:28 PM FINDINGS: Bones/joints: The patient is status post posterior spinal fusion at L5-S1. There is grade 1 anterolisthesis of L5 on S1. Spinal cord: Visualized cord, conus medullaris and cauda equina are unremarkable without compression. L1-L2: No significant disc bulge or herniation. No severe spinal canal stenosis. No significant neural foraminal narrowing. L2-L3: There is no significant spinal canal stenosis. There is mild left neural foraminal stenosis secondary to foraminal disc osteophyte ridging and facet hypertrophy. The right neural foramen appears patent. L3-L4: There is minimal diffuse disc bulging without significant spinal canal stenosis. The neural foramina appear patent. L4-L5: The spinal canal appears patent. There is mild bilateral neural foraminal stenosis secondary to foraminal disc bulging and facet hypertrophy. L5-S1: Laminectomy changes are identified. The spinal canal appears patent. There is [id number] bilateral neural foraminal stenosis secondary to spondylolisthesis, foraminal osteophyte ridging, and facet hypertrophy. Soft tissues: Unremarkable. IMPRESSION: 1.? Status post posterior spinal fusion at L5-S1.? There is grade 1 anterolisthesis of L5 on S1. 2. Degenerative changes as described.? Please see above for specific findings at each level.? E
== END | disposition home or self-care (01) ==
PROVIDERS: PCP Family Medicine; Visit Provider Nurse Practitioner Family
DX: M51.16 Intervertebral disc disorders with radiculopathy, lumbar region (principal); M96.1 Postlaminectomy syndrome, not elsewhere classified; M46.1 Sacroiliitis, not elsewhere classified
CPT/HCPCS: 99212; G0463

== ENCOUNTER → 2022-07-13 09:08 | Outpatient (POV) | payer MEDICARE, MEDICAID, SELFPAY ==
[2022-07-13 09:23] VITALS: BP 94/52; PULSE 57; RESP 17; O2SAT 100; BMI 49.9
--- NOTE | 2022-07-13 09:49 | EXP.PAIN.SOA ---
[facility] Pain Management SOAP Note Subjective:: Patient is a pleasant 57-year-old female who presents today for medication refill and follow-up. We are currently treating the patient for degenerative disc disease of lumbar spine with lumbar radiculopathy symptoms, postlaminectomy syndrome, sacroiliitis. Today she rates her pain a 6 out of 10. She does state that her pain continues to be in her low back and legs however she does state that her left knee does cause significant pain. Patient has had intra-articular injections in the past that did help. Patient does describe this as a aching, throbbing sensation that is worse with prolonged walking or standing. She does state it interferes with her ability to perform activities of daily living such as cooking and cleaning. Patient is currently managed with Percocet 10 mg 3 times a day and methocarbamol 500 mg 4 times a day. Patient denies any side effects from these medications. Her Azar is [id number]. Its been reviewed and appropriate. Review of Systems: General: No recent weight changes, no fever, no sleep disturbances Respiratory: No cough, no shortness of air, no recurring pulmonary infections Cardiovascular/peripheral vascular: No chest pain, no palpitations, no edema, no shortness of breath Gastrointestinal: No new onset incontinence, normal bowel movements reported Genitourinary: No new onset incontinence Musculoskeletal: Left knee pain, low back pain Psychiatric: [Normal mood/affect] Neurological: [Denies weakness in extremities], [denies balance issues] Objective:: Physical Exam: General: Alert and oriented x3, no acute distress, pleasant and cooperative Lungs: Respirations even and unlabored, symmetrical chest expansion Eyes: PERRL Musculoskeletal: Flexion and extension of left knee, lumbar [spine] somewhat guarded secondary to pain, [antalgic gait noted] Neurological: Speech clear, no gross sensory deficit Assessment:: Degenerative disc disease of lumbar spine with lumbar radiculopathy symptoms, postlaminectomy syndrome lumbar spine, sacroiliitis, left knee pain Plan:: Patient is experiencing more pain in her left knee with limited range of motion in combination with her low back pain. I have discussed with the patient that in the future she may benefit from a intra-articular knee injection or genicular nerve block. Risk and benefits of both of these injections were discussed with the patient and at this time she would like to wait. I have counseled the patient that she can call to schedule this injection over the phone at a later date if needed. I will refill the patient's Percocet 10 mg 3 times a day and methocarbamol 500 mg 4 times a day and provide a 1 month supply of this medication. Patient will return to clinic in 1 month for reevaluation of symptoms, medication refill and follow-up. Patient has been advised of risks of oversedation with the prescribed medication. Narcan has been offered to the patient in the event of oversedation. Patient has been advised that a family member should also be educated regarding administration of Narcan. Patient has been instructed to contact the clinic with any concerns before the next appointment. Dr. Purdy has reviewed this note and agrees with this plan of care. This note was dictated using voice recognition software and make contain errors or omissions. [facility] Disclaimer: The information contained in this section may have been updated after the patient was seen, as this information can be updated by other users. Medical History Abnormal EKG B12 deficiency Dyspnea Edema of left lower extremity Iron deficiency anemia Osteoporosis Surgical History H/O gastric bypass H/O shoulder surgery History of History of hysterectomy Previous back surgery Family History Other No si
== END | disposition home or self-care (01) ==
PROVIDERS: PCP Family Medicine; Visit Provider Nurse Practitioner Family
DX: M51.16 Intervertebral disc disorders with radiculopathy, lumbar region (principal); M46.1 Sacroiliitis, not elsewhere classified; M96.1 Postlaminectomy syndrome, not elsewhere classified; M25.562 Pain in left knee
CPT/HCPCS: 99212; G0463

== ENCOUNTER → 2022-07-17 09:03 | Outpatient (CLI) | payer MEDICARE, MEDICAID, SELFPAY ==
--- NOTE | 2022-07-17 09:11 | NM_ITS ---
FINAL REPORT TECHNIQUE: 0.56 mCi of technetium 99m sulfur colloid was ingested with eggs, toast, and water CLINICAL HISTORY: NAUSEA AND CONSTIPATION FINDINGS: GASTRIC EMPTYING SCAN Static images show normal emptying of the stomach into the small bowel. Based on the time activity curve, the estimated half-emptying time is 139 minutes which is abnormally long. IMPRESSION: Abnormally long gastric emptying may be related to gastroparesis versus gastric outlet obstruction.. Reviewed, Interpreted and Dictated by Nelson Kimble MD Transcribed by Naya Carter Authenticated and [facility]
== END ==
PROVIDERS: PCP Family Medicine; Visit Provider Nurse Practitioner Family
DX: K30 Functional dyspepsia (principal); R14.0 Abdominal distension (gaseous); K59.09 Other constipation; R11.0 Nausea
CPT/HCPCS: 78264; A9541

== ENCOUNTER → 2022-07-24 10:23 | Outpatient (CLI) | payer MEDICARE, MEDICAID, SELFPAY ==
[2022-07-24 11:34] LABS: Basophils % 0.5 % (0.1-2.0); Eosinophils # 0.1 K/mm3 (0.0-0.4); Eosinophils % 1.2 % (0.1-12.0); Hematocrit 48.2 % (37.0-47.0); Hemoglobin 15.6 g/dL (12.2-16.2); Lymphocytes % 38.7 % (10-50); Mean Corpuscular HGB Conc 32.3 g/dL (31.8-35.4); Mean Corpuscular Hemoglobin 30.1 pg (27.0-31.2); Mean Platelet Volume 8.2 fl (7.4-10.4); Monocytes # 0.6 K/mm3 (0.1-1.0); Monocytes % 7.6 % (1.7-9.3); Platelet Count 230 K/mm3 (142-424); Red Blood Count 5.18 M/mm3 (4.20-5.40); Red Cell Distribution Width 14.2 % (11.5-17.5); White Blood Count 7.7 K/mm3 (4.8-10.8)
[2022-07-24 11:48] LABS: Alanine Aminotransferase 26 U/L (12-78); Albumin Level 4.5 g/dl (3.5-5.0); Alkaline Phosphatase 105 U/L (38-126); Anion Gap 15.1 mEq/L (5-15); Aspartate Amino Transferase 30 U/L (14-36); Bilirubin,Total 0.5 mg/dl (0.2-1.3); Blood Urea Nitrogen 15 mg/dl (7-17); Calcium 9.6 mg/dl (8.4-10.2); Carbamazepine (Tegretol) 6.1 ug/ml (4.0-12.0); Carbon Dioxide 32 mmol/L (22.0-30.0); Chloride 93 mmol/L (98-107); Estimated Glomerular Filt Rate 86 ml/min (>60); GFR (African American) 104 ML/MIN (>60); Globulin 2.3 g/dL (1.3-3.2); Glucose 126 mg/dl (74-100); Potassium 4.1 mmoL/L (3.5-5.1); Sodium 136 mmol/L (136-145); Total Protein,Serum 6.8 g/dl (6.3-8.2)
[2022-07-25 14:10] LABS: Hemoglobin A1C 6.2 % (4.0-6.0)
== END ==
PROVIDERS: PCP Family Medicine; Visit Provider Specialist
DX: E11.69 Type 2 diabetes mellitus with other specified complication (principal); E66.9 Obesity, unspecified; M25.562 Pain in left knee; G50.0 Trigeminal neuralgia; Z68.43 Body mass index [BMI] 50.0-59.9, adult; Z79.84 Long term (current) use of oral hypoglycemic drugs
CPT/HCPCS: 36415; 80053; 80156; 83036; 85025

== ENCOUNTER → 2022-08-07 10:23 | Outpatient (CLI) | payer MEDICARE, MEDICAID, SELFPAY ==
--- NOTE | 2022-08-07 10:23 | MM_ITS ---
PROCEDURE INFORMATION: Exam: MG Bilateral Screening 3D Mammography Exam date and time: 08/07/2022 10:21 AM Age: 57 years old Clinical indication: Screening examination TECHNIQUE: Imaging protocol: Bilateral Screening tomosynthesis and 2D mammography including computer-aided detection (CAD) when performed. COMPARISON: 1. MG MM DIG SCREENING MAMM BI W/CAD 06/10/2020 8:06 AM 2. MG DIG MAMM-SCREEN [place] 09/17/2018 10:14 AM FINDINGS: MAMMOGRAPHY: Breast composition: The breasts are almost entirely fatty. Mass: None. Architectural distortion: None. Calcifications: No suspicious calcifications. Asymmetric density: None. Skin thickening: None. Axillary adenopathy: None. IMPRESSION: No mammographic evidence of malignancy. Annual screening is recommended unless otherwise clinically indicated. ASSESSMENT: BI-RADS Category 1: Negative
== END ==
PROVIDERS: PCP Family Medicine; Visit Provider Nurse Practitioner Obstetrics & Gynecology
DX: Z12.31 Encounter for screening mammogram for malignant neoplasm of breast (principal)
CPT/HCPCS: 77063; 77067

== ENCOUNTER → 2022-08-10 09:28 | Outpatient (POV) | payer MEDICARE, MEDICAID, SELFPAY ==
[2022-08-10 09:42] VITALS: BP 183/73; PULSE 72; RESP 18; O2SAT 97; BMI 49.7
--- NOTE | 2022-08-10 09:55 | EXP.PAIN.SOA ---
[facility] Pain Management SOAP Note Subjective:: Patient is a pleasant 57-year-old female who presents today for medication refill and follow-up. We are currently treating the patient for degenerative disc disease of the lumbar spine with lumbar radiculopathy symptoms, postlaminectomy syndrome, sacroiliitis. Today she rates her pain a 7 out of 10. Patient denies any new trauma or injury. She continues to state her pain is in her low back as well as her legs and left knee. Patient does describe this as an aching, throbbing sensation that is worse with increased activity or prolonged walking or standing. She states she frequently has to take multiple breaks after only walking a short distance. Patient is currently managed with Percocet 10 mg 3 times a day and methocarbamol 500 mg 4 times a day. Patient denies any side effects from this medication. Her Azar is [id number]. Has been reviewed and appropriate. Review of Systems: General: No recent weight changes, no fever, no sleep disturbances Respiratory: No cough, no shortness of air, no recurring pulmonary infections Cardiovascular/peripheral vascular: No chest pain, no palpitations, no edema, no shortness of breath Gastrointestinal: No new onset incontinence, normal bowel movements reported Genitourinary: No new onset incontinence Musculoskeletal: Low back pain Psychiatric: [Normal mood/affect] Neurological: [Denies weakness in extremities], [denies balance issues] Objective:: Physical Exam: General: Alert and oriented x3, no acute distress, pleasant and cooperative Lungs: Respirations even and unlabored, symmetrical chest expansion Eyes: PERRL Musculoskeletal: Flexion and extension of lumbar [spine] somewhat guarded secondary to pain, [antalgic gait noted] Neurological: Speech clear, no gross sensory deficit Assessment:: Degenerative disc disease of lumbar spine with lumbar radiculopathy symptoms, postlaminectomy syndrome, sacroiliitis, spinal stenosis with neurogenic claudication symptoms Plan:: Patient continues to experience significant pain in her low back with limited range of motion. I have discussed with the patient that in the future she may benefit from a minimally invasive lumbar decompression procedure. Risk and benefits were discussed with the patient. Patient does have symptoms consistent with neurogenic claudication and spinal stenosis. We will discuss this at a future date. I will refill her Percocet 10 mg 3 times a day and methocarbamol 500 mg 4 times a day provided 1 month supply of this medication. Patient will return to clinic in 1 month for reevaluation of symptoms and plan of care. Patient has been advised of risks of oversedation with the prescribed medication. Narcan has been offered to the patient in the event of oversedation. Patient has been advised that a family member should also be educated regarding administration of Narcan. Patient has been instructed to contact the clinic with any concerns before the next appointment. Dr. Purdy has reviewed this note and agrees with this plan of care. This note was dictated using voice recognition software and make contain errors or omissions. [facility] Disclaimer: The information contained in this section may have been updated after the patient was seen, as this information can be updated by other users. Medical History Abnormal EKG B12 deficiency Dyspnea Edema of left lower extremity Iron deficiency anemia Osteoporosis Surgical History H/O gastric bypass H/O shoulder surgery History of History of hysterectomy Previous back surgery Family History Other No significant family history Social History Smoking Status: Former smoker pack-years: 6 alcohol intake: never counseling prov
== END | disposition home or self-care (01) ==
PROVIDERS: PCP Family Medicine; Visit Provider Nurse Practitioner Family
DX: M51.16 Intervertebral disc disorders with radiculopathy, lumbar region (principal); M96.1 Postlaminectomy syndrome, not elsewhere classified; M46.1 Sacroiliitis, not elsewhere classified; M48.062 Spinal stenosis, lumbar region with neurogenic claudication
CPT/HCPCS: 99212; G0463

== ENCOUNTER → 2022-08-10 09:53 | Outpatient (CLI) | payer MEDICARE, MEDICAID, SELFPAY ==
[2022-08-10 10:27] LABS: Barbiturates Screen,Urine Negative ng/ml (<200)
[2022-08-10 10:28] LABS: Amphetamine/Metha Screen,Urine Negative ng/ml (<1000); Benzodiazepines Screen,Urine Negative ng/ml (<200)
[2022-08-10 10:29] LABS: Cocaine Screen,Urine Negative ng/ml (<300)
[2022-08-10 10:30] LABS: Cannabinoid Screen,Urine Negative ng/ml (<50); Methadone Screen,Urine Negative ng/ml (<300)
[2022-08-10 10:31] LABS: Opiate Screen,Urine Negative ng/ml (<300); Phencyclidine Screen,Urine Negative ng/ml (<25)
[2022-08-16 00:10] LABS: Opiates Negative (Cutoff=100)
== END ==
PROVIDERS: PCP Family Medicine; Visit Provider Nurse Practitioner Family
DX: Z79.891 Long term (current) use of opiate analgesic (principal)
CPT/HCPCS: 80305; 80361; 80365; 99212; G0463; G0480

== ENCOUNTER → 2022-09-11 10:22 | Outpatient (POV) | payer MEDICARE, MEDICAID, SELFPAY ==
--- NOTE | 2022-09-11 10:51 | EXP.PAIN.SOA ---
[facility] Pain Management SOAP Note Subjective:: Patient is a pleasant 57-year-old female who presents today for medication refill and follow-up. We are currently treating the patient for degenerative disc disease of lumbar spine with lumbar radiculopathy symptoms, lumbar postlaminectomy syndrome, sacroiliitis. Today she rates her pain a 6 out of 10. Patient denies any new trauma or injury. She denies any change to location or type of pain she experiences. Patient states that she has recently just gotten back from [place] from visiting her mother and sister. Patient does state that her mother has dementia and that her trip was very nice aside from being somewhat stressful. Patient is currently managed with Percocet 10 mg 3 times a day and methocarbamol 500 mg 4 times a day. Patient denies any side effects from these medications. Her Azar is [id number]. Its been reviewed and appropriate. Review of Systems: General: No recent weight changes, no fever, no sleep disturbances Respiratory: No cough, no shortness of air, no recurring pulmonary infections Cardiovascular/peripheral vascular: No chest pain, no palpitations, no edema, no shortness of breath Gastrointestinal: No new onset incontinence, normal bowel movements reported Genitourinary: No new onset incontinence Musculoskeletal: Low back pain Psychiatric: [Normal mood/affect] Neurological: [Denies weakness in extremities], [denies balance issues] Objective:: Physical Exam: General: Alert and oriented x3, no acute distress, pleasant and cooperative Lungs: Respirations even and unlabored, symmetrical chest expansion Eyes: PERRL Musculoskeletal: Flexion and extension of lumbar [spine] somewhat guarded secondary to pain, [antalgic gait noted] Neurological: Speech clear, no gross sensory deficit Assessment:: Degenerative disc disease of lumbar spine with lumbar radiculopathy symptoms, lumbar postlaminectomy syndrome, sacroiliitis Plan:: I will refill the patient's Percocet 10 mg 3 times a day and methocarbamol 500 mg 4 times a day and provide a 1 month supply of this medication. Patient will return to clinic in 1 month for reevaluation of symptoms and medication refill. Patient has been advised of risks of oversedation with the prescribed medication. Narcan has been offered to the patient in the event of oversedation. Patient has been advised that a family member should also be educated regarding administration of Narcan. Patient has been instructed to contact the clinic with any concerns before the next appointment. Dr. Purdy has reviewed this note and agrees with this plan of care. This note was dictated using voice recognition software and make contain errors or omissions. [facility] Disclaimer: The information contained in this section may have been updated after the patient was seen, as this information can be updated by other users. Medical History Abnormal EKG B12 deficiency Dyspnea Edema of left lower extremity Iron deficiency anemia Osteoporosis Surgical History H/O gastric bypass H/O shoulder surgery History of History of hysterectomy Previous back surgery Family History Other No significant family history Social History Smoking Status: Former smoker pack-years: 6 alcohol intake: never counseling provided: none substance use type: denies use current occupational status: other Travel in the last 8 weeks: None household members: spouse housing: house caffeine: No fire extinguisher in home: Yes carbon monox detector in home: Yes firearms in home: No do you feel safe at home: Yes victim of physical abuse: No victim of emotional abuse: No victim of sexual abuse: No would you like helpful sources: No
[2022-09-11 11:50] VITALS: BP 143/65; PULSE 75; RESP 19; O2SAT 95; BMI 48.6
== END | disposition home or self-care (01) ==
PROVIDERS: PCP Family Medicine; Visit Provider Nurse Practitioner Family
DX: M51.16 Intervertebral disc disorders with radiculopathy, lumbar region (principal); M96.1 Postlaminectomy syndrome, not elsewhere classified; M46.1 Sacroiliitis, not elsewhere classified
CPT/HCPCS: 99212; G0463

== ENCOUNTER → 2022-10-09 09:29 | Outpatient (POV) | payer MEDICARE, MEDICAID, SELFPAY ==
[2022-10-09 09:34] VITALS: BP 155/77; PULSE 80; RESP 20; O2SAT 95; BMI 48.6
--- NOTE | 2022-10-09 09:44 | EXP.PAIN.SOA ---
[facility] Pain Management SOAP Note Subjective:: Patient is a pleasant 57-year-old female who presents today for medication refill and follow-up. We are currently treating the patient for degenerative disc disease of lumbar spine with lumbar radiculopathy symptoms, lumbar post laminectomy, sacroiliitis. Today she rates her pain a 7 out of 10. Patient denies any new trauma or injury or any change location or type of pain she experiences. She is currently managed with Percocet 10 mg 3 times a day and methocarbamol 500 mg 4 times a day. She denies any side effects from this medication. She states that she does not need any refills on the muscle relaxer. Her Azar is [id number]. Has been reviewed and appropriate. Review of Systems: General: No recent weight changes, no fever, no sleep disturbances Respiratory: No cough, no shortness of air, no recurring pulmonary infections Cardiovascular/peripheral vascular: No chest pain, no palpitations, no edema, no shortness of breath Gastrointestinal: No new onset incontinence, normal bowel movements reported Genitourinary: No new onset incontinence Musculoskeletal: Low back pain Psychiatric: [Normal mood/affect] Neurological: [Denies weakness in extremities], [denies balance issues] Objective:: Physical Exam: General: Alert and oriented x3, no acute distress, pleasant and cooperative Lungs: Respirations even and unlabored, symmetrical chest expansion Eyes: PERRL Musculoskeletal: Flexion and extension of lumbar [spine] somewhat guarded secondary to pain, [antalgic gait noted] Neurological: Speech clear, no gross sensory deficit Assessment:: Degenerative disc disease of lumbar spine with lumbar radiculopathy symptoms, lumbar postlaminectomy syndrome, sacroiliitis Plan:: I will refill the patient's Percocet 10 mg 3 times a day and provide a 1 month supply of this medication. Patient will return to clinic in 1 month for reevaluation of symptoms and medication refill. Patient has been advised of risks of oversedation with the prescribed medication. Narcan has been offered to the patient in the event of oversedation. Patient has been advised that a family member should also be educated regarding administration of Narcan. Patient has been instructed to contact the clinic with any concerns before the next appointment. Dr. Purdy has reviewed this note and agrees with this plan of care. This note was dictated using voice recognition software and make contain errors or omissions. [facility] Disclaimer: The information contained in this section may have been updated after the patient was seen, as this information can be updated by other users. Medical History Abnormal EKG B12 deficiency Dyspnea Edema of left lower extremity Iron deficiency anemia Osteoporosis Surgical History H/O gastric bypass H/O shoulder surgery History of History of hysterectomy Previous back surgery Family History Other No significant family history Social History Smoking Status: Former smoker pack-years: 6 alcohol intake: never counseling provided: none substance use type: denies use current occupational status: other Travel in the last 8 weeks: None household members: spouse housing: house caffeine: No fire extinguisher in home: Yes carbon monox detector in home: Yes firearms in home: No do you feel safe at home: Yes victim of physical abuse: No victim of emotional abuse: No victim of sexual abuse: No would you like helpful sources: No
== END | disposition home or self-care (01) ==
PROVIDERS: PCP Family Medicine; Visit Provider Nurse Practitioner Family
DX: M51.16 Intervertebral disc disorders with radiculopathy, lumbar region (principal); M96.1 Postlaminectomy syndrome, not elsewhere classified; M46.1 Sacroiliitis, not elsewhere classified
CPT/HCPCS: 99212; G0463

== ENCOUNTER → 2022-10-17 16:52 | Outpatient (CLI) | payer MEDICARE, MEDICAID, SELFPAY ==
[2022-10-17 16:48] LABS: Basophils % 0.4 % (0.1-2.0); Eosinophils # 0.1 K/mm3 (0.0-0.4); Hematocrit 45.8 % (37.0-47.0); Hemoglobin 14.6 g/dL (12.2-16.2); Lymphocytes % 34.3 % (10-50); Mean Corpuscular HGB Conc 31.9 g/dL (31.8-35.4); Mean Corpuscular Hemoglobin 29.7 pg (27.0-31.2); Mean Corpuscular Volume 93.3 fl (81-99); Mean Platelet Volume 8.5 fl (7.4-10.4); Monocytes # 0.6 K/mm3 (0.1-1.0); Monocytes % 6.8 % (1.7-9.3); Neutrophils % 57.5 % (37.0-80.0); Platelet Count 262 K/mm3 (142-424); Red Blood Count 4.91 M/mm3 (4.20-5.40); Red Cell Distribution Width 15.1 % (11.5-17.5); White Blood Count 8.6 K/mm3 (4.8-10.8)
[2022-10-17 16:53] LABS: Alanine Aminotransferase 25 U/L (12-78); Albumin Level 4.4 g/dl (3.5-5.0); Albumin/Globulin Ratio 1.9 (1.1-1.8); Alkaline Phosphatase 115 U/L (38-126); Anion Gap 8.3 mEq/L (5-15); Aspartate Amino Transferase 26 U/L (14-36); Bilirubin,Total 0.3 mg/dl (0.2-1.3); Blood Urea Nitrogen 13 mg/dl (7-17); Calcium 9.5 mg/dl (8.4-10.2); Carbon Dioxide 35 mmol/L (22.0-30.0); Chloride 100 mmol/L (98-107); Chol/HDL Ratio 2.6 (1-3.5); Cholesterol 193 mg/dl (140-200); Estimated Glomerular Filt Rate 86 ml/min (>60); GFR (African American) 104 ML/MIN (>60); Globulin 2.3 g/dL (1.3-3.2); Glucose 104 mg/dl (74-100); HDL Cholesterol 73 mg/dl (40-60); Potassium 4.3 mmoL/L (3.5-5.1); Sodium 139 mmol/L (136-145); Total Protein,Serum 6.7 g/dl (6.3-8.2); Triglycerides 200 mg/dl (30-150); VLDL Cholesterol 40 mg/dL (0-40)
[2022-10-17 17:03] LABS: Direct LDL Cholesterol 94.87 mg/dL (100-129)
[2022-10-17 17:09] LABS: 25-OH Vitamin D, Total 15.7 ng/mL (30-100)
[2022-10-17 17:24] LABS: Thyroid Stimulating Hormone 0.07 uIU/mL (0.465-4.68)
[2022-10-17 17:44] LABS: Vitamin B12 > 1000 pg/mL (239-931)
[2022-10-17 20:13] LABS: Iron 106 ug/dL (37-170)
[2022-10-17 20:22] LABS: Total Iron Binding Capacity 302 ug/dL (265-497)
[2022-10-18 09:59] LABS: T4 (Thyroxine) 7.4 ug/dl (5.53-11.0)
== END ==
PROVIDERS: PCP Family Medicine; Visit Provider Family Medicine
DX: R53.83 Other fatigue; E55.9 Vitamin D deficiency, unspecified; E53.8 Deficiency of other specified B group vitamins; Z00.00 Encounter for general adult medical examination without abnormal findings; E11.9 Type 2 diabetes mellitus without complications; Z79.84 Long term (current) use of oral hypoglycemic drugs
CPT/HCPCS: 80053; 80061; 82306; 82607; 83036; 83540; 83550; 84436; 84439; 84443; 85025

== ENCOUNTER → 2022-10-18 07:05 | Outpatient (CLI) | payer MEDICARE, MEDICAID, SELFPAY | PROVIDERS: PCP Family Medicine; Visit Provider Family Medicine | DX: Z00.00 Encounter for general adult medical examination without abnormal findings (principal); E11.9 Type 2 diabetes mellitus without complications; R53.83 Other fatigue; E55.9 Vitamin D deficiency, unspecified; E53.8 Deficiency of other specified B group vitamins; Z79.84 Long term (current) use of oral hypoglycemic drugs | CPT/HCPCS: 84436; 84439 ==

== ENCOUNTER → 2022-11-13 08:44 | Outpatient (POV) | payer MEDICARE, MEDICAID, SELFPAY ==
[2022-11-13 09:05] VITALS: BP 153/83; PULSE 64; RESP 18; O2SAT 97; BMI 47.8
--- NOTE | 2022-11-13 09:13 | EXP.PAIN.SOA ---
[facility] Pain Management SOAP Note Subjective:: Patient is a pleasant 57-year-old female who presents today for medication refill. We are currently treating the patient for degenerative disc disease of lumbar spine with lumbar radiculopathy symptoms, lumbar postlaminectomy syndrome, sacroiliitis. Today she rates her pain a 7 out of 10. Patient denies any new trauma or injury. She does state that she has been experiencing worsening pain in her right shoulder and describes it as an aching, throbbing sensation that is worse with increased activity. She does state that she has noticed more pain at night and frequently has to alter her positioning or sleep in a recliner due to the pain. She does state that the pain interferes with her ability perform activities of daily living such as cooking and cleaning. She also states that she feels like she has more pain in and around her mid back related to her right shoulder pain. Patient is currently managed with Percocet 10 mg 3 times a day and methocarbamol 500 mg 4 times a day. She denies any side effects from this medication. Her Azar is [id number]. Its been reviewed and appropriate. Review of Systems: General: No recent weight changes, no fever, no sleep disturbances Respiratory: No cough, no shortness of air, no recurring pulmonary infections Cardiovascular/peripheral vascular: No chest pain, no palpitations, no edema, no shortness of breath Gastrointestinal: No new onset incontinence, normal bowel movements reported Genitourinary: No new onset incontinence Musculoskeletal: Right shoulder pain Psychiatric: [Normal mood/affect] Neurological: [Denies weakness in extremities], [denies balance issues] Objective:: Physical Exam: General: Alert and oriented x3, no acute distress, pleasant and cooperative Lungs: Respirations even and unlabored, symmetrical chest expansion Eyes: PERRL Musculoskeletal: Flexion and extension of right shoulder somewhat guarded secondary to pain, [antalgic gait noted] Neurological: Speech clear, no gross sensory deficit Assessment:: Degenerative disc disease of lumbar spine with lumbar radiculopathy symptoms, sacroiliitis, right shoulder pain Plan:: Patient is experiencing worsening pain in her right shoulder with limited range of motion. I have discussed with the patient that she may benefit from a right shoulder intra-articular injection. Risk and benefits were explained to the patient and she would like to wait at this time. Patient does state that she has a fear of needles. I have counseled her that she can call to schedule this injection over the phone if she decides to at a later date. Patient will be refilled on her Percocet 10 mg 3 times a day and methocarbamol 500 mg 4 times a day and provide a 1 month supply of these medications. Patient will return to clinic in 1 month for reevaluation of symptoms, medication refill and follow-up. Patient has been instructed to contact the clinic with any concerns before the next appointment. Dr. Purdy has reviewed this note and agrees with this plan of care. This note was dictated using voice recognition software and make contain errors or omissions. [facility] Disclaimer: The information contained in this section may have been updated after the patient was seen, as this information can be updated by other users. Medical History Abnormal EKG B12 deficiency Dyspnea Edema of left lower extremity Iron deficiency anemia Osteoporosis Surgical History H/O gastric bypass H/O shoulder surgery History of History of hysterectomy Previous back surgery Family History Other No significant family history Social History Smoking Status: Former smoker pack-years: 6 alcohol intake: never counseling provided: none sub
== END | disposition home or self-care (01) ==
PROVIDERS: PCP Family Medicine; Visit Provider Nurse Practitioner Family
DX: M51.16 Intervertebral disc disorders with radiculopathy, lumbar region (principal); M96.1 Postlaminectomy syndrome, not elsewhere classified; M46.1 Sacroiliitis, not elsewhere classified; M25.511 Pain in right shoulder
CPT/HCPCS: 99212; G0463

== ENCOUNTER → 2022-12-11 08:18 | Outpatient (POV) | payer MEDICARE, MEDICAID, SELFPAY ==
--- NOTE | 2022-12-11 08:47 | EXP.PAIN.SOA ---
[facility] Pain Management SOAP Note Subjective:: Patient is a pleasant 57-year-old female who presents today for 1 month follow-up and medication refill. We are currently treating the patient for degenerative disc disease of lumbar spine with lumbar radiculopathy symptoms, lumbar postlaminectomy syndrome, sacroiliitis. Today she rates her pain a 7 out of 10. Patient denies any new trauma or injury. She does state that she continues to have low back and right shoulder pain since our last visit. She does state that her medication does help take the edge off. Patient is currently managed with Percocet 10 mg 3 times a day and methocarbamol 500 mg 4 times a day. She denies any side effects from this medication. At our last visit we did discuss about possibly at doing an injection for her shoulder however she wanted to wait. Patient states she still has a lot going on with a couple of weddings next month as well as her daughters [id number] and she has an upcoming . Patients Azar is [id number]. Its been reviewed and appropriate. Review of Systems: General: No recent weight changes, no fever, no sleep disturbances Respiratory: No cough, no shortness of air, no recurring pulmonary infections Cardiovascular/peripheral vascular: No chest pain, no palpitations, no edema, no shortness of breath Gastrointestinal: No new onset incontinence, normal bowel movements reported Genitourinary: No new onset incontinence Musculoskeletal: Low back pain, right shoulder pain Psychiatric: [Normal mood/affect] Neurological: [Denies weakness in extremities], [denies balance issues] Objective:: Physical Exam: General: Alert and oriented x3, no acute distress, pleasant and cooperative Lungs: Respirations even and unlabored, symmetrical chest expansion Eyes: PERRL Musculoskeletal: Flexion and extension of lumbar [spine] somewhat guarded secondary to pain, [antalgic gait noted] Neurological: Speech clear, no gross sensory deficit Assessment:: Degenerative disc disease of lumbar spine with lumbar radiculopathy symptoms, lumbar postlaminectomy syndrome, sacroiliitis, right shoulder pain Plan:: I will refill the patient's methocarbamol 500 mg 4 times a day and Percocet 10 mg 3 times a day and provide a 1 month supply of these medications. Patient will return to clinic in 1 month for reevaluation of symptoms and plan of care. Patient has been advised of risks of oversedation with the prescribed medication. Narcan has been offered to the patient in the event of oversedation. Patient has been advised that a family member should also be educated regarding administration of Narcan. Patient has been instructed to contact the clinic with any concerns before the next appointment. Dr. Purdy has reviewed this note and agrees with this plan of care. This note was dictated using voice recognition software and make contain errors or omissions. [facility] Disclaimer: The information contained in this section may have been updated after the patient was seen, as this information can be updated by other users. Medical History Abnormal EKG B12 deficiency Dyspnea Edema of left lower extremity Iron deficiency anemia Osteoporosis Surgical History H/O gastric bypass H/O shoulder surgery History of History of hysterectomy Previous back surgery Family History Other No significant family history Social History Smoking Status: Former smoker pack-years: 6 alcohol intake: never counseling provided: none substance use type: denies use current occupational status: other Travel in the last 8 weeks: None household members: spouse housing: house caffeine: No fire extinguisher in home: Yes carbon monox detector in home: Yes fi
[2022-12-11 08:49] VITALS: BP 144/69; PULSE 63; RESP 18; O2SAT 97; BMI 47.8
== END | disposition home or self-care (01) ==
PROVIDERS: Visit Provider Nurse Practitioner Family
DX: M51.16 Intervertebral disc disorders with radiculopathy, lumbar region (principal); M96.1 Postlaminectomy syndrome, not elsewhere classified; M46.1 Sacroiliitis, not elsewhere classified; M25.511 Pain in right shoulder
CPT/HCPCS: 99212; G0463

== ENCOUNTER → 2022-12-20 12:00 | Outpatient (CLI) | payer MEDICARE, MEDICAID, SELFPAY ==
[2022-12-20 17:22] LABS: Blood Urea Nitrogen 10 mg/dl (7-17); Calcium 9.6 mg/dl (8.4-10.2); Carbon Dioxide 33 mmol/L (22.0-30.0); Chloride 98 mmol/L (98-107); Estimated Glomerular Filt Rate 74 ml/min (>60); GFR (African American) 89 ML/MIN (>60); Glucose 99 mg/dl (74-100); Sodium 139 mmol/L (136-145)
[2022-12-20 17:39] LABS: Free T4 (Free Thyroxine) 0.82 ng/dl (0.78-2.19)
[2022-12-20 17:40] LABS: T4 (Thyroxine) 6.6 ug/dl (5.53-11.0); Triiodothryronine (T3) Uptake 31 % (23.5-40.5)
[2022-12-20 17:54] LABS: Thyroid Stimulating Hormone 0.12 uIU/mL (0.465-4.68)
== END ==
LOC: LAB.DROPOF 12-21 01:22
PROVIDERS: PCP Family Medicine; Visit Provider Nurse Practitioner Family
DX: E04.9 Nontoxic goiter, unspecified (principal); R00.2 Palpitations; R63.4 Abnormal weight loss
CPT/HCPCS: 80048; 84436; 84439; 84443; 84479

== ENCOUNTER → 2023-01-08 09:51 | Outpatient (CLI) | payer MEDICARE, MEDICAID, SELFPAY ==
--- NOTE | 2023-01-08 10:01 | US_ITS ---
FINAL REPORT CLINICAL HISTORY: Enlarged thyroid, palpitations COMPARISON: None FINDINGS: THYROID ULTRASOUND: The right lobe of the thyroid measures 3.6 x 1.3 x 1.3 cm in size. There is a hypoechoic nodule in the right lobe of the thyroid that measures 4 x 2 x 2 mm in size, is solid, hypoechoic, and a TI-RADS category 4 nodule that because of size does not require follow-up at this time. The left lobe of the thyroid measures 3.8 x 1.5 x 1.5 cm in size. No masses or nodules are noted in the left lobe of the thyroid gland. The isthmus is normal in appearance and measures 2.7 mm in thickness. IMPRESSION: Small 4 mm nodule in the right lobe of the thyroid gland, a TI-RADS category 4 nodule, that due to size does not require any follow-up at this time. Otherwise unremarkable thyroid ultrasound. Reviewed, Interpreted and Dictated by Jimy Alicea III, MD Transcribed by Leonora Kumar Authenticated and [facility]
--- NOTE | 2023-01-08 12:44 | CA_ITS ---
FINAL REPORT TECHNIQUE: Color Doppler, duplex Doppler and compression sonography of the left lower extremity deep venous systems was performed. CLINICAL HISTORY: posterior left knee pain and edema. Small knot in Left pop fossa. Non-vascularized cystic structure in Left pop fossa dx as small bakers cyst 01/20/21. Same pain and same area as 2020. COMPARISON: None FINDINGS: There is no evidence of deep venous thrombosis from the level of the groin to the calf. The veins are patent and compressible. There is a 1.9 x 1.7 cm mass in the left popliteal fossa. IMPRESSION: No evidence of deep venous thrombosis left lower extremity. 9 x 1.7 cm mass left popliteal fossa may represent complex popliteal cyst or other mass. If indicated, MRI could further evaluate. Reviewed, Interpreted and Dictated by Jimy Alicea III, MD Transcribed by Hafsa Jane Authenticated and [facility]
[2023-01-08 13:49] LABS: Amphetamine/Metha Screen,Urine Negative ng/ml (<1000); Benzodiazepines Screen,Urine Negative ng/ml (<200)
[2023-01-08 13:50] LABS: Barbiturates Screen,Urine Negative ng/ml (<200); Cannabinoid Screen,Urine Negative ng/ml (<50)
[2023-01-08 13:51] LABS: Cocaine Screen,Urine Negative ng/ml (<300)
[2023-01-08 13:52] LABS: Methadone Screen,Urine Negative ng/ml (<300); Opiate Screen,Urine Negative ng/ml (<300)
[2023-01-08 13:53] LABS: Phencyclidine Screen,Urine Negative ng/ml (<25)
[2023-01-17 11:04] LABS: Opiates Negative (Cutoff=100); Oxycodone (GC/MS) 136 ng/mL (Cutoff=100)
== END ==
PROVIDERS: Nurse Practitioner Family; PCP Family Medicine; Visit Provider Nurse Practitioner Family
DX: E04.9 Nontoxic goiter, unspecified (principal); R00.2 Palpitations; R63.4 Abnormal weight loss; Z79.891 Long term (current) use of opiate analgesic; M25.562 Pain in left knee; R60.0 Localized edema
CPT/HCPCS: 76536; 80305; 80361; 80365; 93971; G0480

== ENCOUNTER → 2023-01-08 11:10 | Outpatient (POV) | payer MEDICARE, MEDICAID, SELFPAY ==
--- NOTE | 2023-01-08 12:29 | EXP.PAIN.SOA ---
[facility] Pain Management SOAP Note Subjective:: This patient is a pleasant 58-year-old female that comes our clinic today for 1 month medication refill follow-up visit. We currently manage the patient for degenerative disc disease lumbar spine multilevels. Lumbar radiculopathy. Lumbar postlaminectomy syndrome. Bilateral sacroiliitis. Patient currently taking Percocet 10 mg 1 p.o. 3 times daily. Methocarbamol 500 mg 1 p.o. 4 times daily. Patient reports medication does decrease her overall pain symptoms. Medications help with ADLs. Patient's Azar #[id number] have been reviewed and appropriate. Patient UDS is pending. Patient rates her pain today 10/26. Objective:: Patient is awake alert [place] x3. In no acute distress. Flexion-extension lumbar spine somewhat guarded secondary to pain. Deep tendon reflexes upper and lower extremities normal. Motor strength upper and lower extremities normal. There is no gross sensory deficit. Gait is normal. Assessment:: Degenerative disc lumbar spine multilevels. Lumbar radiculopathy. Lumbar postlaminectomy syndrome. Bilateral sacroiliitis. Plan:: We will refill the patient's pain medication. Percocet 10 mg 1 p.o. 3 times daily. Robaxin 500 mg 1 p.o. 4 times daily. Patient will return to clinic in 1 month. [facility] Disclaimer: The information contained in this section may have been updated after the patient was seen, as this information can be updated by other users. Medical History (Updated 01/03/23 @ 15:55 by Shannan Estrada APRN) Abdominal pain Abnormal EKG Abrasion, left knee, initial encounter B12 deficiency Bronchitis Chest pain Cough Dyspnea Edema of left lower extremity Fall Iron deficiency anemia Left foot pain Left knee pain Osteoporosis Otitis media Pain in left thigh Posterior pain of left hip Right hip pain Right lower quadrant abdominal pain Right wrist sprain Shoulder pain, left Sinusitis Surgical History H/O gastric bypass H/O shoulder surgery History of History of hysterectomy Previous back surgery Family History Other No significant family history Social History Smoking Status: Former smoker tobacco type: cigarettes packs per day: 0 alcohol intake: never counseling provided: none substance use type: denies use current occupational status: other Travel in the last 8 weeks: None household members: spouse housing: house caffeine: No fire extinguisher in home: Yes carbon monox detector in home: Yes firearms in home: No do you feel safe at home: Yes victim of physical abuse: No victim of emotional abuse: No victim of sexual abuse: No would you like helpful sources: No
[2023-01-08 14:22] VITALS: BP 155/78; PULSE 65; RESP 18; O2SAT 95; BMI 46.0
== END | disposition home or self-care (01) ==
PROVIDERS: PCP Family Medicine; Visit Provider Nurse Anesthetist, Certified Registered
DX: M51.16 Intervertebral disc disorders with radiculopathy, lumbar region (principal); M96.1 Postlaminectomy syndrome, not elsewhere classified; M46.1 Sacroiliitis, not elsewhere classified
CPT/HCPCS: 76536; 80305; 80361; 80365; 93971; 99212; G0463; G0480

== ENCOUNTER → 2023-01-17 17:01 | Outpatient (CLI) | payer MEDICARE, MEDICAID, SELFPAY ==
[2023-01-17 16:56] LABS: Basophils % 0.4 % (0.1-2.0); Eosinophils # 0.1 K/mm3 (0.0-0.4); Hematocrit 44.3 % (37.0-47.0); Hemoglobin 15.2 g/dL (12.2-16.2); Lymphocytes # 2.8 K/mm3 (0.7-4.5); Lymphocytes % 32.5 % (10-50); Mean Corpuscular HGB Conc 34.3 g/dL (31.8-35.4); Mean Corpuscular Hemoglobin 32.3 pg (27.0-31.2); Mean Platelet Volume 8.7 fl (7.4-10.4); Monocytes # 0.5 K/mm3 (0.1-1.0); Monocytes % 5.4 % (1.7-9.3); Neutrophils # 5.2 K/mm3 (1.8-7.8); Neutrophils % 60.7 % (37.0-80.0); Platelet Count 248 K/mm3 (142-424); Red Blood Count 4.71 M/mm3 (4.20-5.40); Red Cell Distribution Width 13.4 % (11.5-17.5); White Blood Count 8.6 K/mm3 (4.8-10.8)
[2023-01-17 17:33] LABS: Alanine Aminotransferase 27 U/L (12-78); Albumin Level 4.5 g/dl (3.5-5.0); Albumin/Globulin Ratio 1.9 (1.1-1.8); Alkaline Phosphatase 98 U/L (38-126); Anion Gap 12.7 mEq/L (5-15); Aspartate Amino Transferase 33 U/L (14-36); Bilirubin,Total 0.4 mg/dl (0.2-1.3); Blood Urea Nitrogen 11 mg/dl (7-17); Calcium 9.8 mg/dl (8.4-10.2); Carbon Dioxide 33 mmol/L (22.0-30.0); Chloride 96 mmol/L (98-107); Chol/HDL Ratio 2.8 (1-3.5); Cholesterol 204 mg/dl (140-200); Estimated Glomerular Filt Rate 86 ml/min (>60); GFR (African American) 104 ML/MIN (>60); Globulin 2.4 g/dL (1.3-3.2); Glucose 107 mg/dl (74-100); HDL Cholesterol 73 mg/dl (40-60); Potassium 3.7 mmoL/L (3.5-5.1); Sodium 138 mmol/L (136-145); Total Protein,Serum 6.9 g/dl (6.3-8.2); Triglycerides 157 mg/dl (30-150); VLDL Cholesterol 31 mg/dL (0-40)
[2023-01-17 17:45] LABS: Direct LDL Cholesterol 105.04 mg/dL (100-129)
[2023-01-17 17:50] LABS: Free T4 (Free Thyroxine) 1.02 ng/dl (0.78-2.19)
[2023-01-17 17:51] LABS: 25-OH Vitamin D, Total 38.5 ng/mL (30-100)
[2023-01-17 18:04] LABS: Thyroid Stimulating Hormone 1.48 uIU/mL (0.465-4.68)
[2023-01-17 18:21] LABS: Hemoglobin A1C 5.7 % (4.0-6.0)
[2023-01-17 18:23] LABS: Vitamin B12 977 pg/mL (239-931)
[2023-01-17 18:42] LABS: Creatinine,Urine Random 53 mg/dL (Not Estab.)
[2023-01-17 18:46] LABS: Microalbumin < 6.000 mg/L (0-16.7)
== END ==
PROVIDERS: PCP Nurse Practitioner Family; Visit Provider Nurse Practitioner Family
DX: R79.89 Other specified abnormal findings of blood chemistry; E11.69 Type 2 diabetes mellitus with other specified complication; E66.9 Obesity, unspecified; M81.0 Age-related osteoporosis without current pathological fracture; E55.9 Vitamin D deficiency, unspecified; E04.1 Nontoxic single thyroid nodule; E53.8 Deficiency of other specified B group vitamins; I10 Essential (primary) hypertension; Z68.42 Body mass index [BMI] 45.0-49.9, adult
CPT/HCPCS: 80053; 80061; 82043; 82306; 82570; 82607; 83036; 84439; 84443; 85025

== ENCOUNTER → 2023-01-23 10:21 | Outpatient (CLI) | payer MEDICARE, MEDICAID, SELFPAY ==
--- NOTE | 2023-01-23 10:22 | MR_ITS ---
FINAL REPORT TECHNIQUE: Multiplanar and multisequence imaging the left knee was obtained without contrast. CLINICAL HISTORY: bakers cyst ruptured on back of knee, posterior knee pain FINDINGS: Bones: There is no acute fracture or marrow edema. There is degenerative joint disease. There is 3 compartment chondromalacia. There are no full thickness cartilage defects. Menisci: There is intrameniscal degeneration of the medial and lateral malleoli. No meniscal tear is identified. Ligaments: No cruciate or collateral ligament tear is present. Tendons/Muscles: There is a proximal and distal patellar tendinosis. The quadriceps tendon is intact. The biceps femoris tendon and iliotibial tract are intact. The popliteus tendon is normal. Other: There is a moderate joint effusion. There are several loose bodies along the popliteus muscle posterior to the proximal tibiofibular joint. There is a small popliteal cyst. There is no convincing sign of leakage or rupture.. IMPRESSION: Degenerative joint disease. Intrameniscal degeneration. Moderate joint effusion. Reviewed, Interpreted and Dictated by Evelin Gipson MD Transcribed by Yves Wood Authenticated and [facility]
== END ==
PROVIDERS: PCP Nurse Practitioner Family; Visit Provider Nurse Practitioner Family
DX: M25.562 Pain in left knee (principal); R22.42 Localized swelling, mass and lump, left lower limb
CPT/HCPCS: 73721

== ENCOUNTER → 2023-01-29 09:01 | Outpatient (CLI) | payer MEDICARE, MEDICAID, SELFPAY ==
--- NOTE | 2023-01-29 09:01 | XR_ITS ---
FINAL REPORT CLINICAL HISTORY: Osteoporosis COMPARISON: 03/02/2021 FINDINGS: Using one third, the bone mineral density of the right forearm is 0.513 g/cm2, corresponding to T-score of -3.0, consistent with osteoporosis. Previously 0.515 g/cm? with T score of -3.0. Using the left hip, the bone mineral density of the femoral neck is 0.778 g/cm2, corresponding to a T-score of -0.6, within normal limits. Previously 0.732 g/cm? with T score of -1.1. Using the right hip, the bone mineral density of the femoral neck is 0.738 g/cm2, corresponding to a T-score of -1.0, within normal limits. Previously 0.703 g/cm? with T score of -1.3. FRAX not reported because all T-scores of her hips at or above -1.0. NOTE: T-score: Standard deviation compared with peak bone mass of young adult mean. *Following the recommendations of the International Society of Bone densitometry, classification of hip BMD is based on the lower of two T-scores; total hip or femoral neck. IMPRESSION: Normal bone mineral density of the bilateral hips, with diminished bone mineral density in the right forearm consistent with osteoporosis. Reviewed, Interpreted and Dictated by Nelson Kimble MD Transcribed by Hafsa Jane Authenticated and [facility]
== END ==
PROVIDERS: PCP Nurse Practitioner Family; Visit Provider Nurse Practitioner Family
DX: M81.0 Age-related osteoporosis without current pathological fracture (principal)
CPT/HCPCS: 77080

== ENCOUNTER → 2023-02-02 09:42 | Outpatient (CLI) | payer MEDICARE, MEDICAID, SELFPAY ==
--- NOTE | 2023-02-02 09:47 | XR_ITS ---
FINAL REPORT CLINICAL HISTORY: lt knee pain COMPARISON: None FINDINGS: Three views of the left knee reveal no evidence of fracture or dislocation. The bony alignment is normal. Moderate degenerative change is present. There is no evidence of joint effusion. No localized soft tissue abnormality is seen. IMPRESSION: No acute abnormality identified. Moderate degenerative change is present in the left knee joint. Reviewed, Interpreted and Dictated by Jimy Alicea III, MD Transcribed by Leonora Kumar Authenticated and [facility]
== END ==
LOC: RAD 09:43
PROVIDERS: PCP Family Medicine; Visit Provider Orthopaedic Surgery
DX: M25.562 Pain in left knee (principal)
CPT/HCPCS: 73562

== ENCOUNTER → 2023-02-05 08:47 | Outpatient (POV) | payer MEDICARE, MEDICAID, SELFPAY ==
--- NOTE | 2023-02-05 08:49 | EXP.PAIN.SOA ---
[facility] Pain Management SOAP Note Subjective:: Patient is a pleasant 58-year-old female who presents today for 1 month follow-up and medication refill. We are currently treating the patient for degenerative disc disease of lumbar spine with lumbar radiculopathy symptoms, lumbar postlaminectomy syndrome, sacroiliitis, shoulder pain. Today she rates her pain a out of 10. Patient denies any new trauma or injury. She does state since her last visit she has been to see Dr. Scott for her continued left knee pain. Patient does state that he ended up doing an MRI that showed fluid on the joint as well as a meniscus tear and severe arthritis. Patient states that he did not think that she would benefit from a knee scope and he is recommending a total knee replacement. She states that they did do a intra-articular knee injection and it is working well currently and that he wants to he see how long she gets relief from this injection before deciding on the replacement. She is currently managed with Percocet 10 mg 3 times a day and methocarbamol 500 mg 4 times a day. She denies any side effects from this medication. Patients Azar has been reviewed and appropriate. Review of Systems: General: No recent weight changes, no fever, no sleep disturbances Respiratory: No cough, no shortness of air, no recurring pulmonary infections Cardiovascular/peripheral vascular: No chest pain, no palpitations, no edema, no shortness of breath Gastrointestinal: No new onset incontinence, normal bowel movements reported Genitourinary: No new onset incontinence Musculoskeletal: Low back pain Psychiatric: [Normal mood/affect] Neurological: [Denies weakness in extremities], [denies balance issues] Objective:: Physical Exam: General: Alert and oriented x3, no acute distress, pleasant and cooperative Lungs: Respirations even and unlabored, symmetrical chest expansion Eyes: PERRL Musculoskeletal: Flexion and extension of lumbar [spine] somewhat guarded secondary to pain, [antalgic gait noted] Neurological: Speech clear, no gross sensory deficit Assessment:: Degenerative disc disease of lumbar spine with lumbar radiculopathy symptoms, lumbar postlaminectomy syndrome, sacroiliitis, shoulder pain, left knee pain Plan:: Patient continues to do well with her current medication regimen. I will refill her Percocet 10 mg 3 times a day and methocarbamol 500 mg 4 times a day and provide a 1 month supply of this medication. Patient will return to clinic in 1 month for reevaluation of symptoms, medication refill and follow-up. Patient has been advised of risks of oversedation with the prescribed medication. Narcan has been offered to the patient in the event of oversedation. Patient has been advised that a family member should also be educated regarding administration of Narcan. Patient has been instructed to contact the clinic with any concerns before the next appointment. Dr. Purdy has reviewed this note and agrees with this plan of care. This note was dictated using voice recognition software and make contain errors or omissions. [facility] Disclaimer: The information contained in this section may have been updated after the patient was seen, as this information can be updated by other users. Medical History Abdominal pain Abnormal EKG Abrasion, left knee, initial encounter Atrophic vaginitis B12 deficiency Bronchitis Chest pain Cough Dizziness Dyspnea Dysuria Edema of left lower extremity Fall Iron deficiency anemia Left foot pain Left knee pain Osteoporosis Otitis media Pain in left thigh Pelvic pain Posterior pain of left hip Right hip pain Right lower quadrant abdominal pain Right wrist sprain Shoulder pain, left Sinusitis Surgical History H/O gastric bypass H/O shoulder surgery History of History of hysterectomy Previous back surgery Family
[2023-02-05 08:56] VITALS: BP 156/63; PULSE 71; RESP 18; O2SAT 96; BMI 45.8
== END | disposition home or self-care (01) ==
PROVIDERS: PCP Family Medicine; Visit Provider Nurse Practitioner Family
DX: M51.16 Intervertebral disc disorders with radiculopathy, lumbar region (principal); M96.1 Postlaminectomy syndrome, not elsewhere classified; M46.1 Sacroiliitis, not elsewhere classified; M25.519 Pain in unspecified shoulder; M25.562 Pain in left knee
CPT/HCPCS: 99212; G0463

== ENCOUNTER 2023-02-09 09:56 | Emergency (ER) | payer MEDICARE, MEDICAID, SELFPAY ==
[2023-02-09 10:05] VITALS: BP 142/92; PULSE 55; RESP 20; TEMP 36.8; O2SAT 95; BMI 46.0
--- NOTE | 2023-02-09 10:08 | EXP.UTC ---
Discharge Plan Disposition Patient Disposition: Home, Self-Care Condition: Good Prescriptions Prescriptions: New amoxicillin [amoxicillin] 875 mg tablet 875 mg PO Q12H Qty: 20 0RF benzonatate [benzonatate] 100 mg capsule 100 mg PO TIDP PRN (Reason: Cough) Qty: 30 0RF methylprednisolone 4 mg Tablets,Dose Pack 4 mg PO DIRECTED Qty: 21 0RF No Action azelastine 0.15 % (205.5 mcg) spray,non-aerosol 2 spray NS BID 90 Days Qty: 90 Patient Comments: (DME) blood-glucose meter [Blood Glucose Monitoring] Kit See Rx Instructions .Route Qty: 1 0RF Rx Instructions: Use to check blood sugar once daily (DME) Blood Glucose Test Strip See Rx Instructions .Route Qty: 50 5RF Rx Instructions: Use to check blood sugar once daily (DME) lancets 30 gauge misc See Rx Instructions .Route Qty: 100 5RF Rx Instructions: use to check blood sugar once daily carbamazepine 100 mg tablet,chewable 300 mg PO DAILY 90 Days Qty: 270 3RF Rx Instructions: 1 tablet in the morning and 2 tablet at night albuterol sulfate [Ventolin HFA] 90 mcg/actuation HFA aerosol inhaler 2 puff inhalation Q4-6H PRN (Reason: shortness of breath or wheezing) ipratropium bromide 21 mcg (0.03 %) spray,non-aerosol 2 spray intranasal BID ketotifen fumarate 0.025 % (0.035 %) drops 1 drp Eye-Both BID cholecalciferol (vitamin D3) 1,250 mcg (50,000 unit) capsule 1,250 mcg PO WEEKLY Qty: 8 0RF Ozempic 0.25 mg or 0.5 mg (2 mg/3 mL) pen injector 0.5 mg SQ WEEKLY Qty: 3 4RF Rx Instructions: 0.25 mg weekly for first 2 weeks then 0.5 mg weekly thereafter. levocetirizine 5 mg tablet 5 mg PO DAILY 30 Days Qty: 30 Patient Comments: polyethylene glycol 3350 17 gram/dose powder 17 gm PO DAILY (DME) lancets [OneTouch Delica Plus Lancet] 33 gauge misc See Rx Instructions .ROUTE .MEDSUPPLY Qty: 100 Rx Instructions: As directed Motegrity 2 mg tablet 2 mg PO DAILY dicyclomine 10 mg capsule 10 mg PO BID buspirone 5 mg tablet 10 mg PO DAILY cholecalciferol (vitamin D3) [Vitamin D3] 25 mcg (1,000 unit) capsule 25 mcg PO DAILY Hold Instructions: Home Medication placed on hold at Doctor's office hydrochlorothiazide 25 mg tablet 25 mg PO DAILY Qty: 90 3RF montelukast 10 mg tablet 10 mg PO DAILY 90 Days Qty: 90 0RF atorvastatin 10 mg tablet See Rx Instructions .ROUTE .COMPLEX Qty: 90 0RF Dose Instruction: TAKE 1 TABLET BY MOUTH ONCE DAILY Rx Instructions: TAKE 1 TABLET BY MOUTH ONCE DAILY amlodipine 10 mg tablet See Rx Instructions .ROUTE .COMPLEX Qty: 30 0RF Dose Instruction: TAKE 1 TABLET BY MOUTH ONCE DAILY Rx Instructions: TAKE 1 TABLET BY MOUTH ONCE DAILY loratadine 10 tablet 10 mg PO DAILY ferrous sulfate 142 MG tablet extended release 142 mg PO DAILY fluticasone propionate 120 SPRAY bottle 1 spr NS DAILY Premarin 0.625 mg/gram cream 0.625 mg vaginal DAILY Rx Instructions: off 5 days; repeat cycle losartan 100 mg tablet See Rx Instructions .ROUTE .COMPLEX Rx Instructions: TAKE 1 TABLET BY MOUTH DAILY - TAKE WITH HCTZ 12.5 bupropion HCl 150 mg tablet sustained-release 12 hr See Rx Instructions .ROUTE .COMPLEX Rx Instructions: TAKE 1 TABLET BY MOUTH TWICE A DAY FOR MOOD FOR 30 DAYS omeprazole 40 mg capsule,delayed release(DR/EC) See Rx Instructions .ROUTE .COMPLEX Rx Instructions: TAKE 1 CAPSULE BY MOUTH EVERY DAY methocarbamol 500 mg tablet 500 mg PO QID PRN (Reason: muscle spasms) Qty: 120 0RF oxycodone-acetaminophen [Percocet] 10-325 mg tablet 1 tab PO TID Qty: 90 0RF Referrals Follow up/Referrals: Alan Ortiz MD [Primary Care Provider] - See instructions Activity Restrictions/Add. Instructions Additional Instructions/Restrictions: Drink plenty of fluids.
[2023-02-09 10:41] VITALS: BP 142/92; PULSE 55; RESP 20; TEMP 36.8; O2SAT 95
== END 2023-02-09 10:44 | disposition home or self-care (01) ==
PROVIDERS: Emergency Provider Nurse Practitioner Family; PCP Family Medicine
DX: J20.9 Acute bronchitis, unspecified (principal); J01.90 Acute sinusitis, unspecified; R51.9 Headache, unspecified; R05.9 Cough, unspecified; R09.81 Nasal congestion
CPT/HCPCS: 99212; 99214; G0463

== ENCOUNTER → 2023-03-05 09:09 | Outpatient (POV) | payer MEDICARE, MEDICAID, SELFPAY ==
--- NOTE | 2023-03-05 09:38 | EXP.PAIN.SOA ---
[facility] Pain Management SOAP Note Subjective:: Patient is a pleasant 58-year-old female who presents today for medication refill and follow-up. We are currently treating the patient for degenerative disc disease of lumbar spine with lumbar radiculopathy symptoms, lumbar postlaminectomy syndrome, sacroiliitis, shoulder pain knee pain. Today she rates her pain a 7 out of 10. Patient denies any new trauma or injury. She does state that she is scheduled for her left knee replacement on May 28. Patient states that Dr.Coy. Cardona [facility] will be performing this procedure. Patient states that her current medication does help manage some of her symptoms. She is currently prescribed Percocet 10 mg 3 times a day and methocarbamol 500 mg 4 times a day. She denies any side effects from this medication. She states that she does not need any refills on her muscle relaxer. Patient does state that her nephew was recently diagnosed with leukemia. Her Azar has been reviewed and is appropriate. Review of Systems: General: No recent weight changes, no fever, no sleep disturbances Respiratory: No cough, no shortness of air, no recurring pulmonary infections Cardiovascular/peripheral vascular: No chest pain, no palpitations, no edema, no shortness of breath Gastrointestinal: No new onset incontinence, normal bowel movements reported Genitourinary: No new onset incontinence Musculoskeletal: Low back pain, Psychiatric: [Normal mood/affect] Neurological: [Denies weakness in extremities], [denies balance issues] Objective:: Physical Exam: General: Alert and oriented x3, no acute distress, pleasant and cooperative Lungs: Respirations even and unlabored, symmetrical chest expansion Eyes: PERRL Musculoskeletal: Flexion and extension of lumbar [spine] somewhat guarded secondary to pain, [antalgic gait noted] Neurological: Speech clear, no gross sensory deficit Assessment:: Degenerative disc disease of lumbar spine with lumbar radiculopathy symptoms, sacroiliitis, lumbar postlaminectomy syndrome, shoulder pain, knee pain Plan:: I will refill the patient's Percocet 10 mg 3 times a day and provide a 1 month supply of this medication. Patient will return to clinic in 1 month for reevaluation of symptoms and plan of care. Patient has been advised of risks of oversedation with the prescribed medication. Narcan has been offered to the patient in the event of oversedation. Patient has been advised that a family member should also be educated regarding administration of Narcan. Patient has been instructed to contact the clinic with any concerns before the next appointment. Dr. Purdy has reviewed this note and agrees with this plan of care. This note was dictated using voice recognition software and make contain errors or omissions. [facility] Disclaimer: The information contained in this section may have been updated after the patient was seen, as this information can be updated by other users. Medical History Abdominal pain Abnormal EKG Abrasion, left knee, initial encounter Atrophic vaginitis B12 deficiency Bronchitis Chest pain Cough Dizziness Dyspnea Dysuria Edema of left lower extremity Fall Iron deficiency anemia Left foot pain Left knee pain Osteoporosis Otitis media Pain in left thigh Pelvic pain Posterior pain of left hip Right hip pain Right lower quadrant abdominal pain Right wrist sprain Shoulder pain, left Sinusitis Surgical History H/O gastric bypass H/O shoulder surgery History of History of hysterectomy Previous back surgery Family History Other No significant family history Social History Smoking Status: Former smoker tobacco type: cigarettes packs per day: 0 alcohol intake: never counseling p
[2023-03-05 10:23] VITALS: BP 106/67; PULSE 64; RESP 18; O2SAT 98; BMI 46.0
== END | disposition home or self-care (01) ==
PROVIDERS: PCP Family Medicine; Visit Provider Nurse Practitioner Family
DX: M51.16 Intervertebral disc disorders with radiculopathy, lumbar region (principal); M46.1 Sacroiliitis, not elsewhere classified; M96.1 Postlaminectomy syndrome, not elsewhere classified; M25.562 Pain in left knee; M25.519 Pain in unspecified shoulder
CPT/HCPCS: 99212; G0463

== ENCOUNTER → 2023-04-05 09:48 | Outpatient (POV) | payer MEDICARE, MEDICAID, SELFPAY ==
--- NOTE | 2023-04-05 10:32 | A.OFFVIS_ITS ---
[facility] Pain Management SOAP Note Subjective:: Patient is a pleasant 58-year-old female who presents today for medication refill. We are currently treating the patient for degenerative disc disease of lumbar spine with lumbar radiculopathy symptoms, lumbar postlaminectomy syndrome, sacroiliitis, shoulder pain, knee pain. Today she rates her pain a 6 out of 10. Patient denies any new trauma or injury. She is currently managed with Percocet 10 mg 3 times a day and methocarbamol 500 mg 4 times a day. Patient denies any side effects from this medication. She states she does not need refills on the muscle relaxer. Her Azar has been reviewed and is appropriate. Review of Systems: General: No recent weight changes, no fever, no sleep disturbances Respiratory: No cough, no shortness of air, no recurring pulmonary infections Cardiovascular/peripheral vascular: No chest pain, no palpitations, no edema, no shortness of breath Gastrointestinal: No new onset incontinence, normal bowel movements reported Genitourinary: No new onset incontinence Musculoskeletal: Low back pain Psychiatric: [Normal mood/affect] Neurological: [Denies weakness in extremities], [denies balance issues] Objective:: Physical Exam: General: Alert and oriented x3, no acute distress, pleasant and cooperative Lungs: Respirations even and unlabored, symmetrical chest expansion Eyes: PERRL Musculoskeletal: Flexion and extension of lumbar [spine] somewhat guarded secondary to pain, [antalgic gait noted] Neurological: Speech clear, no gross sensory deficit Assessment:: Degenerative disc disease of lumbar spine with lumbar radiculopathy symptoms, lumbar postlaminectomy syndrome, sacroiliitis, shoulder pain, knee pain Plan:: I will refill the patient's Percocet 10 mg 3 times a day provide 1 month supply of this medication. Patient will return to clinic in 1 month for reevaluation of symptoms and plan of care. Patient has been advised of risks of oversedation with the prescribed medication. Narcan has been offered to the patient in the event of oversedation. Patient has been advised that a family member should also be educated regarding administration of Narcan. Patient has been instructed to contact the clinic with any concerns before the next appointment. Dr. Purdy has reviewed this note and agrees with this plan of care. This note was dictated using voice recognition software and make contain errors or omissions. [facility] Disclaimer: The information contained in this section may have been updated after the patient was seen, as this information can be updated by other users. Medical History Abdominal pain Abnormal EKG Abrasion, left knee, initial encounter Atrophic vaginitis B12 deficiency Bronchitis Chest pain Cough Dizziness Dyspnea Dysuria Edema of left lower extremity Fall Iron deficiency anemia Left foot pain Left knee pain Osteoporosis Otitis media Pain in left thigh Pelvic pain Posterior pain of left hip Right hip pain Right lower quadrant abdominal pain Right wrist sprain Shoulder pain, left Sinusitis Surgical History H/O gastric bypass H/O shoulder surgery History of History of hysterectomy Previous back surgery Family History Other No significant family history Social History Smoking Status: Former smoker tobacco type: cigarettes packs per day: 0 alcohol intake: never counseling provided: none substance use type: denies use current occupational status: other Travel in the last 8 weeks: None household members: spouse housing: house caffeine: No fire extinguisher in home: Yes carbon monox detector in home: Yes firearms in home: No do you feel safe at home: Yes victim of physical abuse: No victim of emotional abuse: No victim of sexual abuse: No would you like helpful sources: No
[2023-04-05 12:49] VITALS: BP 206/75; PULSE 77; RESP 18; O2SAT 97; BMI 45.8
== END | disposition home or self-care (01) ==
PROVIDERS: PCP Family Medicine; Visit Provider Nurse Practitioner Family
DX: M51.16 Intervertebral disc disorders with radiculopathy, lumbar region (principal); M96.1 Postlaminectomy syndrome, not elsewhere classified; M46.1 Sacroiliitis, not elsewhere classified; M25.519 Pain in unspecified shoulder; M25.569 Pain in unspecified knee
CPT/HCPCS: 99212; G0463

== ENCOUNTER → 2023-05-03 09:27 | Outpatient (POV) | payer MEDICARE, MEDICAID, SELFPAY ==
--- NOTE | 2023-05-03 10:03 | EXP.PAIN.SOA ---
[facility] Pain Management SOAP Note Subjective:: Patient is a pleasant 58-year-old female who presents today for medication refill and follow-up. We are currently treating the patient for degenerative disc disease of lumbar spine with lumbar radiculopathy symptoms, lumbar postlaminectomy syndrome, sacroiliitis, shoulder pain, knee pain. Today she rates her pain a 6 out of 10. Patient denies any new trauma or injury. She does state from her last visit she has decided to postpone her total knee replacement. Patient does state that she is going to try an arthritis knee clinic first. Patient states she just has heard too many horror stories about the replacements not providing significant relief or making her symptoms worse. Patient is currently managed with Percocet 10 mg 3 times a day and methocarbamol 500 mg 4 times a day. She denies any side effects from this medication. Her Azar has been reviewed and is appropriate. Review of Systems: General: No recent weight changes, no fever, no sleep disturbances Respiratory: No cough, no shortness of air, no recurring pulmonary infections Cardiovascular/peripheral vascular: No chest pain, no palpitations, no edema, no shortness of breath Gastrointestinal: No new onset incontinence, normal bowel movements reported Genitourinary: No new onset incontinence Musculoskeletal: Low back pain, knee pain Psychiatric: [Normal mood/affect] Neurological: [Denies weakness in extremities], [denies balance issues] Objective:: Physical Exam: General: Alert and oriented x3, no acute distress, pleasant and cooperative Lungs: Respirations even and unlabored, symmetrical chest expansion Eyes: PERRL Musculoskeletal: Flexion and extension of lumbar [spine] somewhat guarded secondary to pain, [antalgic gait noted] Neurological: Speech clear, no gross sensory deficit Assessment:: Degenerative disc disease of lumbar spine with lumbar radiculopathy symptoms, lumbar postlaminectomy syndrome, sacroiliitis, shoulder pain, knee pain Plan:: Patient is doing well with her current medications. I will refill the patient's Percocet 10 mg 3 times a day and methocarbamol 500 mg 4 times a day and provide a 1 month supply of this medication. Patient will return to clinic in 1 month for reevaluation of symptoms and plan of care. Risks and benefits of the medication have been explained in detail to the patient. The patient does understand the risk of dependence on the medication when given over a prolonged period. Patient has been advised of risks of oversedation with the prescribed medication. Narcan has been offered to the paitent in the event of oversedation. Patient has been advised that a family member should also be educated regarding administration of Narcan. The patient has been advised to consult with his/her primary care provider and pharmacist regarding drug-drug interaction of medications currently prescribed. Patient has been prescribed a controlled substance after being counseled on the medication, medication safety, and possible side effects. Opioid contract was reviewed and signed by the patient, and that they have agreed to all of the terms set forth by our compliance program. Patient has been instructed to contact the clinic with any concerns before the next appointment. Dr. Purdy has reviewed this note and agrees with this plan of care. This note was dictated using voice recognition software and make contain errors or omissions. [facility] Disclaimer: The information contained in this section may have been updated after the patient was seen, as this information can be updated by other users. Medical History Abdominal pain Abnormal EKG Abrasion, left knee, initial encounter Atrophic vaginitis B12 deficiency Bronchitis Chest pain Cough Dizziness Dyspnea Dysuria Edema of left lower extremity Fall Iron deficiency anemia Left foot pain Left knee pain Osteoporosis Otitis media Pain in left thigh Pelvic pain Posterior pain of left hip Right hip pain Right lower quadrant abdominal pain Right wrist sprain Shoulder pain, left Sinusitis Surgical History H/O gastric bypass H/O shoulder surgery History of History of hysterectomy Previous back surgery Family History Other No significant family history Social History Smoking Status: Former smoker tobacco type: cigarettes packs per day: 0 alcohol intake: never counseling provided: none substance use type: denies use current occupational status: unemployed Travel in the last 8 weeks: None household members: spouse housing: house caffeine: No fire extinguisher in home: Yes carbon monox detector in home: Yes firearms in home: No do you feel safe at home: Yes victim of physical abuse: No victim of emotional abuse: No victim of sexual abuse: No would you like helpful sources: No
[2023-05-03 10:25] VITALS: BP 133/79; PULSE 96; RESP 18; O2SAT 96; BMI 46.0
[2023-05-03 10:44] LABS: Basophils % 0.3 % (0.1-2.0); Eosinophils # 0.1 K/mm3 (0.0-0.4); Eosinophils % 1.1 % (0.1-12.0); Hematocrit 44.5 % (37.0-47.0); Hemoglobin 14.9 g/dL (12.2-16.2); Lymphocytes # 2.6 K/mm3 (0.7-4.5); Lymphocytes % 27.4 % (10-50); Mean Corpuscular HGB Conc 33.5 g/dL (31.8-35.4); Mean Corpuscular Hemoglobin 31.2 pg (27.0-31.2); Mean Corpuscular Volume 93.2 fl (81-99); Mean Platelet Volume 7.9 fl (7.4-10.4); Monocytes # 0.6 K/mm3 (0.1-1.0); Monocytes % 6.3 % (1.7-9.3); Neutrophils # 6.1 K/mm3 (1.8-7.8); Neutrophils % 64.9 % (37.0-80.0); Platelet Count 246 K/mm3 (142-424); Red Blood Count 4.77 M/mm3 (4.20-5.40); Red Cell Distribution Width 13.8 % (11.5-17.5); White Blood Count 9.4 K/mm3 (4.8-10.8)
[2023-05-03 11:14] LABS: Alanine Aminotransferase 24 U/L (12-78); Albumin Level 4.3 g/dl (3.5-5.0); Alkaline Phosphatase 95 U/L (38-126); Anion Gap 9.7 mEq/L (5-15); Aspartate Amino Transferase 25 U/L (14-36); Bilirubin,Total 0.3 mg/dl (0.2-1.3); Blood Urea Nitrogen 10 mg/dl (7-17); Calcium 9.5 mg/dl (8.4-10.2); Carbon Dioxide 32 mmol/L (22.0-30.0); Chloride 102 mmol/L (98-107); Chol/HDL Ratio 2.7 (1-3.5); Cholesterol 214 mg/dl (140-200); Creatinine Clearance Estimated 72 mL/min (50-200); Estimated Glomerular Filt Rate 86 ml/min (>60); GFR (African American) 104 ML/MIN (>60); Globulin 2.2 g/dL (1.3-3.2); Glucose 79 mg/dl (74-100); HDL Cholesterol 79 mg/dl (40-60); Potassium 3.7 mmoL/L (3.5-5.1); Sodium 140 mmol/L (136-145); Total Protein,Serum 6.5 g/dl (6.3-8.2); Triglycerides 155 mg/dl (30-150); VLDL Cholesterol 31 mg/dL (0-40)
[2023-05-03 11:47] LABS: Thyroid Stimulating Hormone 1.92 uIU/mL (0.465-4.68)
[2023-05-03 18:37] LABS: Hemoglobin A1C 5.6 % (4.0-6.0)
[2023-05-03 18:41] LABS: Amphetamine/Metha Screen,Urine Negative ng/ml (<1000)
[2023-05-03 18:42] LABS: Benzodiazepines Screen,Urine Negative ng/ml (<200)
[2023-05-03 18:43] LABS: Barbiturates Screen,Urine Negative ng/ml (<200); Cannabinoid Screen,Urine Negative ng/ml (<50)
[2023-05-03 18:44] LABS: Cocaine Screen,Urine Negative ng/ml (<300)
[2023-05-03 18:46] LABS: Phencyclidine Screen,Urine Negative ng/ml (<25)
[2023-05-03 18:50] LABS: Methadone Screen,Urine Negative ng/ml (<300)
[2023-05-03 18:57] LABS: Opiate Screen,Urine Negative ng/ml (<300)
[2023-05-10 00:10] LABS: Opiates Negative (Cutoff=100)
== END | disposition home or self-care (01) ==
PROVIDERS: PCP Family Medicine; Visit Provider Nurse Practitioner Family
DX: D50.9 Iron deficiency anemia, unspecified (principal); E11.69 Type 2 diabetes mellitus with other specified complication; E66.9 Obesity, unspecified; E78.5 Hyperlipidemia, unspecified; E04.1 Nontoxic single thyroid nodule; Z79.891 Long term (current) use of opiate analgesic; M51.16 Intervertebral disc disorders with radiculopathy, lumbar region; M96.1 Postlaminectomy syndrome, not elsewhere classified; M46.1 Sacroiliitis, not elsewhere classified; M25.519 Pain in unspecified shoulder; M25.569 Pain in unspecified knee
CPT/HCPCS: 36415; 80053; 80061; 80307; 80361; 80365; 83036; 84443; 85025; 99212; G0463; G0480

== ENCOUNTER 2023-05-31 09:12 | Outpatient (POV) | payer MEDICARE, MEDICAID, SELFPAY ==
--- NOTE | 2023-05-31 10:09 | EXP.PAIN.SOA ---
[facility] Disclaimer: The information contained in this section may have been updated after the patient was seen, as this information can be updated by other users. Medical History Abdominal pain Abnormal EKG Abrasion, left knee, initial encounter Atrophic vaginitis B12 deficiency Bronchitis Chest pain Cough Dizziness Dyspnea Dysuria Edema of left lower extremity Fall Iron deficiency anemia Left foot pain Left knee pain Osteoporosis Otitis media Pain in left thigh Pelvic pain Posterior pain of left hip Right hip pain Right lower quadrant abdominal pain Right wrist sprain Shoulder pain, left Sinusitis Surgical History H/O gastric bypass H/O shoulder surgery History of History of hysterectomy Previous back surgery Family History Other No significant family history Social History Smoking Status: Former smoker tobacco type: cigarettes packs per day: 0 alcohol intake: never counseling provided: none substance use type: denies use current occupational status: unemployed Travel in the last 8 weeks: None household members: spouse housing: house caffeine: No fire extinguisher in home: Yes carbon monox detector in home: Yes firearms in home: No do you feel safe at home: Yes victim of physical abuse: No victim of emotional abuse: No victim of sexual abuse: No would you like helpful sources: No
== END 2023-05-31 23:59 | disposition home or self-care (01) ==
PROVIDERS: Visit Provider Nurse Practitioner Family
DX: M51.16 Intervertebral disc disorders with radiculopathy, lumbar region (principal); M96.1 Postlaminectomy syndrome, not elsewhere classified; M46.1 Sacroiliitis, not elsewhere classified; M25.519 Pain in unspecified shoulder; M25.569 Pain in unspecified knee
CPT/HCPCS: 99441; G2012

== ENCOUNTER 2023-06-27 10:16 | Outpatient (POV) | payer MEDICARE, MEDICAID, SELFPAY ==
[2023-06-27 10:29] VITALS: BP 165/96; PULSE 71; RESP 19; TEMP 36.9; O2SAT 94; BMI 45.5
--- NOTE | 2023-06-27 10:55 | A.OFFVIS_ITS ---
[facility] Pain Management SOAP Note Subjective:: Patient is a pleasant 58-year-old female who presents today for medication refill and follow-up. We are currently treating the patient for degenerative disc disease of lumbar spine with lumbar radiculopathy symptoms, lumbar postlaminectomy syndrome, sacroiliitis, shoulder pain, knee pain. Today she rates her pain a 6 out of 10. Patient denies any new trauma or injury. She does state from her last visit that her nephew did pass away. Patient states that she has been trying to deal with all this with the help of her sister. She is currently managed with Percocet 10 mg 3 times a day and methocarbamol 500 mg 4 times a day. She denies any side effects from this medication. Her Azar is currently unavailable. Review of Systems: General: No recent weight changes, no fever, no sleep disturbances Respiratory: No cough, no shortness of air, no recurring pulmonary infections Cardiovascular/peripheral vascular: No chest pain, no palpitations, no edema, no shortness of breath Gastrointestinal: No new onset incontinence, normal bowel movements reported Genitourinary: No new onset incontinence Musculoskeletal: Low back pain, knee pain Psychiatric: [Normal mood/affect] Neurological: [Denies weakness in extremities], [denies balance issues] Objective:: Physical Exam: General: Alert and oriented x3, no acute distress, pleasant and cooperative Lungs: Respirations even and unlabored, symmetrical chest expansion Eyes: PERRL Musculoskeletal: Flexion and extension of lumbar [spine] somewhat guarded secondary to pain, [antalgic gait noted] Neurological: Speech clear, no gross sensory deficit Assessment:: Degenerative disc disease of lumbar spine with lumbar radiculopathy symptoms, lumbar postlaminectomy syndrome, sacroiliitis, shoulder pain, knee pain Plan:: I will refill the patient's Percocet 10 mg 3 times a day and methocarbamol 500 mg 4 times a day and provide a 1 month supply of this medication. Patient will return to clinic in 1 month for reevaluation of symptoms and plan of care. Risks and benefits of the medication have been explained in detail to the patient. The patient does understand the risk of dependence on the medication when given over a prolonged period. Patient has been advised of risks of oversedation with the prescribed medication. Narcan has been offered to the paitent in the event of over sedation. Patient has been advised that a family member should also be educated regarding administration of Narcan. The patient has been advised to consult with his/her primary care provider and pharmacist regarding drug-drug interaction of medications currently prescribed. Patient has been prescribed a controlled substance after being counseled on the medication, medication safety, and possible side effects. Opioid contract was reviewed and signed by the patient, and that they have agreed to all of the terms set forth by our compliance program. Patient has been instructed to contact the clinic with any concerns before the next appointment. Dr. Purdy has reviewed this note and agrees with this plan of care. This note was dictated using voice recognition software and make contain errors or omissions. [facility] Disclaimer: The information contained in this section may have been updated after the patient was seen, as this information can be updated by other users. Medical History Rhinitis medicamentosa Atrophic vaginitis Pelvic pain Dysuria Right lower quadrant abdominal pain Right hip pain Edema of left lower extremity Otitis media Bronchitis Sinusitis Osteoporosis Dyspnea Abnormal EKG Chest pain Dizziness Right wrist sprain Shoulder pain, left B12 deficiency Iron deficiency anemia Abdominal pain Posterior pain of left hip Pain in left thigh Left knee pain Abrasion, left knee, initial encounter Left foot pain Fall Cough Surgical History History of History of hysterectomy H/O gastric bypass H/O shoulder surgery Previous back surgery Family History Other No significant family history Social History Smoking Status: Former smoker tobacco type: cigarettes packs per day: 0 alcohol intake: never counseling provided: none substance use type: denies use current occupational status: employed Travel in the last 8 weeks: None household members: spouse housing: house caffeine: No fire extinguisher in home: Yes carbon monox detector in home: Yes firearms in home: No do you feel safe at home: Yes victim of physical abuse: No victim of emotional abuse: No victim of sexual abuse: No would you like helpful sources: No
== END 2023-06-27 23:59 | disposition home or self-care (01) ==
PROVIDERS: PCP Family Medicine; Visit Provider Nurse Practitioner Family
DX: M51.16 Intervertebral disc disorders with radiculopathy, lumbar region (principal); M96.1 Postlaminectomy syndrome, not elsewhere classified; M46.1 Sacroiliitis, not elsewhere classified; M25.519 Pain in unspecified shoulder; M25.569 Pain in unspecified knee
CPT/HCPCS: 99212; G0463

== ENCOUNTER 2023-07-13 12:57 | Outpatient (CLI) | payer MEDICARE, MEDICAID, SELFPAY ==
--- NOTE | 2023-07-13 12:57 | CT_ITS ---
FINAL REPORT CLINICAL HISTORY: sinusitis FINDINGS: The paranasal sinuses are well aerated. There is no fracture. There are no air-fluid levels. The ostiomeatal units are patent. There are mild changes from hyperostosis frontalis interna. IMPRESSION: No acute process. Reviewed, Interpreted and Dictated by Nelson Kimble MD Transcribed by Naya Carter Authenticated and [facility]
== END 2023-07-13 23:59 | disposition home or self-care (01) ==
PROVIDERS: PCP Family Medicine; Visit Provider Nurse Practitioner
DX: J32.9 Chronic sinusitis, unspecified (principal); Z87.891 Personal history of nicotine dependence
CPT/HCPCS: 70486

== ENCOUNTER 2023-07-23 14:00 | Outpatient (POV) | payer MEDICARE, MEDICAID, SELFPAY ==
--- NOTE | 2023-07-23 14:41 | EXP.PAIN.SOA ---
[facility] Pain Management SOAP Note Subjective:: Patient is a pleasant 58-year-old female who presents today for medication refill and follow-up. Today she rates her pain a 6 out of 10. Patient denies any new trauma or injury. Patient does state that she is scheduled to make a trip down to see her family in [place] coming up. Patient is currently managed with Percocet 10 mg 3 times a day and methocarbamol 500 mg 4 times a day. She denies any side effects from this medication. She does state that this medication does help manage her pain symptoms better. Her Azar has been reviewed and is appropriate. Review of Systems: General: No recent weight changes, no fever, no sleep disturbances Respiratory: No cough, no shortness of air, no recurring pulmonary infections Cardiovascular/peripheral vascular: No chest pain, no palpitations, no edema, no shortness of breath Gastrointestinal: No new onset incontinence, normal bowel movements reported Genitourinary: No new onset incontinence Musculoskeletal: Low back pain Psychiatric: [Normal mood/affect] Neurological: [Denies weakness in extremities], [denies balance issues] Objective:: Physical Exam: General: Alert and oriented x3, no acute distress, pleasant and cooperative Lungs: Respirations even and unlabored, symmetrical chest expansion Eyes: PERRL Musculoskeletal: Flexion and extension of lumbar [spine] somewhat guarded secondary to pain, [antalgic gait noted] Neurological: Speech clear, no gross sensory deficit Assessment:: Degenerative disc disease of lumbar spine with lumbar radiculopathy symptoms, lumbar postlaminectomy syndrome, sacroiliitis, shoulder pain, knee pain Plan:: I will refill the patient's Percocet 10 mg 3 times a day and methocarbamol 500 mg 4 times a day and provide a 1 month supply of this medication. Patient will return to clinic in 1 month for reevaluation of symptoms and plan of care. Risks and benefits of the medication have been explained in detail to the patient. The patient does understand the risk of dependence on the medication when given over a prolonged period. Patient has been advised of risks of oversedation with the prescribed medication. Narcan has been offered to the paitent in the event of oversedation. Patient has been advised that a family member should also be educated regarding administration of Narcan. The patient has been advised to consult with his/her primary care provider and pharmacist regarding drug-drug interaction of medications currently prescribed. Patient has been prescribed a controlled substance after being counseled on the medication, medication safety, and possible side effects. Opioid contract was reviewed and signed by the patient, and that they have agreed to all of the terms set forth by our compliance program. Patient has been instructed to contact the clinic with any concerns before the next appointment. Dr. Purdy has reviewed this note and agrees with this plan of care. This note was dictated using voice recognition software and make contain errors or omissions. [facility] Disclaimer: The information contained in this section may have been updated after the patient was seen, as this information can be updated by other users. Medical History (Updated 07/23/23 @ 09:59 by Rafia Dahl APRN) Post-nasal drainage Rhinitis medicamentosa Atrophic vaginitis Pelvic pain Dysuria Right lower quadrant abdominal pain Right hip pain Edema of left lower extremity Otitis media Bronchitis Sinusitis Osteoporosis Dyspnea Abnormal EKG Chest pain Dizziness Right wrist sprain Shoulder pain, left B12 deficiency Iron deficiency anemia Abdominal pain Posterior pain of left hip Pain in left thigh Left knee pain Abrasion, left knee, initial encounter Left foot pain Fall Cough Surgical History History of History of hysterectomy H/O gastric bypass H/O shoulder surgery Previous back surgery Family History Other No significant family history Social History Smoking Status: Former smoker tobacco type: cigarettes packs per day: 0 alcohol intake: never counseling provided: none substance use type: denies use current occupational status: employed Travel in the last 8 weeks: None household members: spouse housing: house caffeine: No fire extinguisher in home: Yes carbon monox detector in home: Yes firearms in home: No do you feel safe at home: Yes victim of physical abuse: No victim of emotional abuse: No victim of sexual abuse: No would you like helpful sources: No
[2023-07-23 15:28] VITALS: BP 146/73; PULSE 70; RESP 18; O2SAT 96; BMI 46.0
== END 2023-07-23 23:59 | disposition home or self-care (01) ==
PROVIDERS: PCP Family Medicine; Visit Provider Nurse Practitioner Family
DX: M51.16 Intervertebral disc disorders with radiculopathy, lumbar region (principal); M96.1 Postlaminectomy syndrome, not elsewhere classified; M46.1 Sacroiliitis, not elsewhere classified; M25.519 Pain in unspecified shoulder; M25.569 Pain in unspecified knee
CPT/HCPCS: 99212; G0463

== ENCOUNTER 2023-07-24 10:32 | Outpatient (CLI) | payer MEDICARE, MEDICAID, SELFPAY | END 2023-07-24 23:59 | disposition home or self-care (01) | LOC: LAB.DROPOF 07-25 10:33 | PROVIDERS: PCP Family Medicine; Visit Provider Family Medicine | DX: E11.9 Type 2 diabetes mellitus without complications (principal); E55.9 Vitamin D deficiency, unspecified | CPT/HCPCS: 82306; 83036 ==

== ENCOUNTER 2023-07-25 09:00 | Outpatient (CLI) | payer MEDICARE, MEDICAID, SELFPAY | END 2023-07-25 23:59 | disposition home or self-care (01) | LOC: LAB 09:03 | PROVIDERS: PCP Family Medicine; Visit Provider Internal Medicine Gastroenterology | DX: R14.0 Abdominal distension (gaseous) (principal); K59.00 Constipation, unspecified | CPT/HCPCS: 82656 ==

== ENCOUNTER 2023-08-27 09:44 | Outpatient (POV) | payer MEDICARE, MEDICAID, SELFPAY ==
[2023-08-27 10:23] VITALS: BP 130/78; PULSE 63; RESP 18; O2SAT 98; BMI 46.0
--- NOTE | 2023-08-27 10:43 | EXP.PAIN.SOA ---
[facility] Pain Management SOAP Note Subjective:: Patient is a pleasant 58-year-old female who presents today for medication refill and follow-up. Today she rates her pain a 6 out of 10. She denies any new trauma or injury. She does state that she did go for her vacation to [place] to visit her mother who has Alzheimer's and her sister. She does state that the disease is progressing and that there were times where she did not recognize her. Patient is currently managed with Percocet 10 mg 3 times a day and methocarbamol 500 mg 4 times a day. She denies any side effects from this medication. Her Azar has been reviewed and is appropriate. Review of Systems: General: No recent weight changes, no fever, no sleep disturbances Respiratory: No cough, no shortness of air, no recurring pulmonary infections Cardiovascular/peripheral vascular: No chest pain, no palpitations, no edema, no shortness of breath Gastrointestinal: No new onset incontinence, normal bowel movements reported Genitourinary: No new onset incontinence Musculoskeletal: Low back pain Psychiatric: [Normal mood/affect] Neurological: [Denies weakness in extremities], [denies balance issues] Objective:: Physical Exam: General: Alert and oriented x3, no acute distress, pleasant and cooperative Lungs: Respirations even and unlabored, symmetrical chest expansion Eyes: PERRL Musculoskeletal: Flexion and extension of lumbar [spine] somewhat guarded secondary to pain, [antalgic gait noted] Neurological: Speech clear, no gross sensory deficit Assessment:: Degenerative disc disease of lumbar spine with lumbar radiculopathy symptoms, lumbar postlaminectomy syndrome, sacroiliitis, shoulder pain, knee pain Plan:: Will refill the patient's Percocet and methocarbamol provide a 1 month supply of this medication. Patient will return to clinic in 1 month for reevaluation of symptoms and plan of care. Risks and benefits of the medication have been explained in detail to the patient. The patient does understand the risk of dependence on the medication when given over a prolonged period. Patient has been advised of risks of oversedation with the prescribed medication. Narcan has been offered to the paitent in the event of oversedation. Patient has been advised that a family member should also be educated regarding administration of Narcan. The patient has been advised to consult with his/her primary care provider and pharmacist regarding drug-drug interaction of medications currently prescribed. Patient has been prescribed a controlled substance after being counseled on the medication, medication safety, and possible side effects. Opioid contract was reviewed and signed by the patient, and that they have agreed to all of the terms set forth by our compliance program. Patient has been instructed to contact the clinic with any concerns before the next appointment. Dr. Purdy has reviewed this note and agrees with this plan of care. This note was dictated using voice recognition software and make contain errors or omissions. [facility] Disclaimer: The information contained in this section may have been updated after the patient was seen, as this information can be updated by other users. Medical History Atrophic vaginitis Post-nasal drainage Rhinitis medicamentosa Pelvic pain Dysuria Right lower quadrant abdominal pain Right hip pain Edema of left lower extremity Otitis media Bronchitis Sinusitis Osteoporosis Dyspnea Abnormal EKG Chest pain Dizziness Right wrist sprain Shoulder pain, left B12 deficiency Iron deficiency anemia Abdominal pain Posterior pain of left hip Pain in left thigh Left knee pain Abrasion, left knee, initial encounter Left foot pain Fall Cough Surgical History History of History of hysterectomy H/O gastric bypass H/O shoulder surgery Previous back surgery Family History Other No significant family history Social History Smoking Status: Former smoker tobacco type: cigarettes packs per day: 0 alcohol intake: never counseling provided: none substance use type: denies use current occupational status: employed Travel in the last 8 weeks: None household members: spouse housing: house caffeine: No fire extinguisher in home: Yes carbon monox detector in home: Yes firearms in home: No do you feel safe at home: Yes victim of physical abuse: No victim of emotional abuse: No victim of sexual abuse: No would you like helpful sources: No
[2023-08-27 12:55] LABS: Benzodiazepines Screen,Urine Negative ng/ml (<200)
[2023-08-27 12:56] LABS: Amphetamine/Metha Screen,Urine Negative ng/ml (<1000)
[2023-08-27 12:57] LABS: Barbiturates Screen,Urine Negative ng/ml (<200); Cannabinoid Screen,Urine Negative ng/ml (<50)
[2023-08-27 12:58] LABS: Cocaine Screen,Urine Negative ng/ml (<300)
[2023-08-27 12:59] LABS: Methadone Screen,Urine Negative ng/ml (<300); Opiate Screen,Urine Negative ng/ml (<300)
[2023-08-27 13:00] LABS: Phencyclidine Screen,Urine Negative ng/ml (<25)
[2023-09-03 22:09] LABS: Opiates Negative (Cutoff=100)
== END 2023-08-27 23:59 | disposition home or self-care (01) ==
PROVIDERS: PCP Family Medicine; Visit Provider Nurse Practitioner Family
DX: Z79.891 Long term (current) use of opiate analgesic (principal); M51.16 Intervertebral disc disorders with radiculopathy, lumbar region; M96.1 Postlaminectomy syndrome, not elsewhere classified; M46.1 Sacroiliitis, not elsewhere classified; M25.519 Pain in unspecified shoulder; M25.569 Pain in unspecified knee
CPT/HCPCS: 80307; 80361; 80365; 99212; G0463; G0480

== ENCOUNTER 2023-09-13 08:40 | Outpatient (CLI) | payer MEDICARE, MEDICAID, SELFPAY ==
--- NOTE | 2023-09-13 08:40 | US_ITS ---
FINAL REPORT CLINICAL HISTORY: post void residual COMPARISON: None FINDINGS: BLADDER ULTRASOUND: Ultrasound examination of the bladder reveals a bladder volume of 143 cc. Postvoid the bladder volume measures 2 cc, which is a normal postvoid residual. No evidence of mass or significant bladder wall thickening is identified. IMPRESSION: Normal voiding ultrasound of the bladder. Reviewed, Interpreted and Dictated by Bren Andino MD Transcribed by Leonora Kumar Authenticated and [facility]
--- NOTE | 2023-09-13 08:40 | US_ITS ---
FINAL REPORT TECHNIQUE: Ultrasound images of the kidneys and bladder were obtained. CLINICAL HISTORY: .URINARY URGENCY COMPARISON: None FINDINGS: The right kidney measures 10.9 cm in length. It is normal in echogenicity. There is no hydronephrosis. The left kidney measures 11 cm in length. It is normal in echogenicity. There is no hydronephrosis. IMPRESSION: No hydronephrosis. Reviewed, Interpreted and Dictated by Bren Andino MD Transcribed by Leonora Kumar Authenticated and [facility]
== END 2023-09-13 23:59 | disposition home or self-care (01) ==
LOC: RAD 08:40
PROVIDERS: PCP Family Medicine; Visit Provider Urology
DX: N39.46 Mixed incontinence (principal); R35.0 Frequency of micturition; R35.1 Nocturia
CPT/HCPCS: 76770; 76857

== ENCOUNTER 2023-09-24 09:24 | Outpatient (POV) | payer MEDICARE, MEDICAID, SELFPAY ==
[2023-09-24 09:36] VITALS: BP 144/74; PULSE 61; RESP 18; O2SAT 98; BMI 45.8
--- NOTE | 2023-09-24 09:37 | EXP.PAIN.SOA ---
[facility] Disclaimer: The information contained in this section may have been updated after the patient was seen, as this information can be updated by other users. Medical History Atrophic vaginitis Post-nasal drainage Rhinitis medicamentosa Pelvic pain Dysuria Right lower quadrant abdominal pain Right hip pain Edema of left lower extremity Otitis media Bronchitis Sinusitis Osteoporosis Dyspnea Abnormal EKG Chest pain Dizziness Right wrist sprain Shoulder pain, left B12 deficiency Iron deficiency anemia Abdominal pain Posterior pain of left hip Pain in left thigh Left knee pain Abrasion, left knee, initial encounter Left foot pain Fall Cough Surgical History History of History of hysterectomy H/O gastric bypass H/O shoulder surgery Previous back surgery Family History Other No significant family history Social History Smoking Status: Former smoker tobacco type: cigarettes packs per day: 0 alcohol intake: never counseling provided: none substance use type: denies use current occupational status: employed Travel in the last 8 weeks: None household members: spouse housing: house caffeine: No fire extinguisher in home: Yes carbon monox detector in home: Yes firearms in home: No do you feel safe at home: Yes victim of physical abuse: No victim of emotional abuse: No victim of sexual abuse: No would you like helpful sources: No PM Subjective & Objective Subjective Subjective:: Patient is a pleasant 58-year-old female who presents today for medication refill and follow-up. Today she rates her pain an 8 out of 10. Patient states she has been doing more around her home and that she pulled a muscle in and around her right hip area. Patient states that she did just do this about a day ago and that it is improving however still a little sore in that region. Patient is currently managed with Percocet 10 mg 3 times a day and methocarbamol 500 mg 4 times a day. She denies any side effects from this medication. She states she does not need refills on the muscle relaxers. Her Azar has been reviewed and is appropriate. Review of Systems: General: No recent weight changes, no fever, no sleep disturbances Respiratory: No cough, no shortness of air, no recurring pulmonary infections Cardiovascular/peripheral vascular: No chest pain, no palpitations, no edema, no shortness of breath Gastrointestinal: No new onset incontinence, normal bowel movements reported Genitourinary: No new onset incontinence Musculoskeletal: Low back pain, right hip pain Psychiatric: [Normal mood/affect] Neurological: [Denies weakness in extremities], [denies balance issues] Pain at rest (0-10 scale): 8 Objective Objective:: Physical Exam: General: Alert and oriented x3, no acute distress, pleasant and cooperative Lungs: Respirations even and unlabored, symmetrical chest expansion Eyes: PERRL Musculoskeletal: Flexion and extension of lumbar [spine] somewhat guarded secondary to pain, [antalgic gait noted] Neurological: Speech clear, no gross sensory deficit Has patient had previous pain injection?: No Conservative treatment options previously tried: Home exercise plan Length of treatment: Longer than 6 weeks and Prescription medications Length of treatment: Longer than 6 weeks Meds Home Medications and Allergies Home Medications Medication Instructions Recorded Confirmed Type azelastine 205.5 mcg (0.15 %) 2 spray intranasal BID allergies 03/29/17 09/24/23 History nasal spray 90 days ##90 loratadine 10 mg tablet 10 mg PO DAILY allergies 10/07/17 09/24/23 History polyethylene glycol 3350 17 17 gm PO DAILY constipation 09/16/20 09/24/23 History gram/dose oral powder ferrous sulfate 142 mg (45 mg 142 mg PO DAILY Supplement 01/20/21 09/24/23 History iron) tablet,extended release fluticasone propionate 50 1 spr intranasal DAILY ALLERGIES 08/18/21 09/24/23 History mcg/actuation nasal spray,suspension dicyclomine 10 mg capsule 10 mg PO BID BOWELS 02/06/22 09/24/23 History prucalopride 2 mg tablet 2 mg PO DAILY BOWELS 02/06/22 09/24/23 History (Motegrity) blood sugar diagnostic (Blood #50 ea 05/10/22 09/24/23 Rx Glucose Test strips) blood-glucose meter (Blood Glucose #1 ea 05/10/22 09/24/23 Rx Monitoring kit) lancets 30 gauge #100 ea 05/10/22 09/24/23 Rx lancets 33 gauge (OneTouch Delica #100 ea 05/30/22 09/24/23 History Plus Lancet) albuterol sulfate 90 mcg/actuation 2 puff inhalation Q4-6H PRN 08/25/22 09/24/23 History aerosol inhaler (Ventolin HFA) shortness of breath or wheezing carbamazepine 100 mg chewable 300 mg (3 x 100 mg) PO DAILY . 04/25/23 09/24/23 Rx tablet Trigeminal neuralgia 90 days #270 tabs hydrochlorothiazide 25 mg tablet See Rx Instructions .Route 05/10/23 09/24/23 Rx .COMPLEX #90 tabs montelukast 10 mg tablet 10 mg PO DAILY ALLERGIES 90 days 05/10/23 09/24/23 Rx #90 tabs bupropion HCl 150 mg tablet,12 hr 150 mg PO BID MOOD #60 ea 06/12/23 09/24/23 Rx sustained-release amlodipine 10 mg tablet See Rx Instructions .Route 07/16/23 09/24/23 Rx .COMPLEX #30 tabs semaglutide 0.25 mg or 0.5 mg (2 0.5 mg (0.736 mL) SQ WEEKLY #3 mL 07/17/23 09/24/23 Rx mg/3 mL) subcutaneous pen injector (Ozempic) ondansetron 4 mg disintegrating 4 mg PO Q8H nausea 15 days #20 tabs 07/20/23 09/24/23 Rx tablet doxycycline hyclate 100 mg tablet 100 mg PO BID #20 tabs 07/24/23 09/24/23 Rx conjugated estrogens 0.625 mg/gram 0.625 mg vaginal .twice weekly 07/25/23 09/24/23 Rx vaginal cream (Premarin) SUPPLIMENT #30 grams levocetirizine 5 mg tablet 5 mg PO DAILY 07/25/23 09/24/23 History atorvastatin 20 mg tablet 20 mg PO DAILY 90 days #90 tabs 08/02/23 09/24/23 Rx omeprazole 40 mg capsule,delayed See Rx Instructions .Route 08/17/23 09/24/23 Rx release .COMPLEX #30 caps methocarbamol 500 mg tablet 500 mg PO QID PRN muscle spasms 08/27/23 09/24/23 Rx #120 tabs oxycodone-acetaminophen 10 mg-325 1 tab PO TID #90 tabs 08/27/23 09/24/23 Rx mg tablet (Percocet) lipase 60,000-protease cap PO 09/05/23 09/24/23 History 189,600-amylase 252,600 unit capsule, delay rel (Zenpep) losartan 100 mg tablet 100 mg PO DAILY 09/05/23 09/24/23 History buspirone 5 mg tablet See Rx Instructions .Route 09/17/23 09/24/23 Rx .COMPLEX #60 tabs amoxicillin 875 mg-potassium 1 tab PO BID 10 days #20 tabs 09/18/23 09/24/23 Rx clavulanate 125 mg tablet pseudoephedrine HCl 120 mg 120 mg PO Q12H PRN nasal 09/18/23 09/24/23 Rx tablet,extended release (Sudafed congestion #20 tabs 12 Hour) estradiol 0.01% (0.1 mg/gram) See Rx Instructions vaginal 09/24/23 09/24/23 Rx vaginal cream .COMPLEX #42.5 grams oxybutynin chloride 10 mg 10 mg PO DAILY #90 tabs 09/24/23 09/24/23 Rx tablet,extended release 24 hr New Prescriptions to Start Prescriptions: Allergies Allergy/AdvReac Type Severity Reaction Status Date / Time lisinopril [LISINOPRIL] Allergy Severe S-SWELLS-OR Verified 09/24/23 09:11 AL/THROAT sulfamethoxazole Allergy Mild Rash Verified 09/24/23 09:11 [From Bactrim] trimethoprim [From Bactrim] Allergy Mild Rash Verified 09/24/23 09:11 Assessment and Plan *Assessment and plan (1) Degenerative disc disease, lumbar: Status: Acute Category: Medical Code(s): M51.36 - Other intervertebral disc degeneration, lumbar region (2) Lumbar radiculopathy: Status: Acute Category: Medical Code(s): M54.16 - Radiculopathy, lumbar region (3) Lumbar postlaminectomy syndrome: Status: Acute Category: Medical Code(s): M96.1 - Postlaminectomy syndrome, not elsewhere classified (4) Sacroiliitis: Status: Acute Category: Medical Code(s): M46.1 - Sacroiliitis, not elsewhere classified Plan I will refill the patient's Percocet and provide a 1 month supply of this medication. Patient will return to clinic in 1 month for reevaluation of symptoms and plan of care. Risks and benefits of the medication have been explained in detail to the patient. The patient does understand the risk of dependence on the medication when given over a prolonged period. Patient has been advised of risks of oversedation with the prescribed medication. Narcan has been offered to the paitent in the event of oversedation. Patient has been advised that a family member should also be educated regarding administration of Narcan. The patient has been advised to consult with his/her primary care provider and pharmacist regarding drug-drug interaction of medications currently prescribed. Patient has been prescribed a controlled substance after being counseled on the medication, medication safety, and possible side effects. Opioid contract was reviewed and signed by the patient, and that they have agreed to all of the terms set forth by our compliance program. Patient has been instructed to contact the clinic with any concerns before the next appointment. Dr. Purdy has reviewed this note and agrees with this plan of care. This note was dictated using voice recognition software and make contain errors or omissions.
== END 2023-09-24 23:59 | disposition home or self-care (01) ==
PROVIDERS: PCP Family Medicine; Visit Provider Nurse Practitioner Family
DX: M51.36 Other intervertebral disc degeneration, lumbar region (principal); M54.16 Radiculopathy, lumbar region; M96.1 Postlaminectomy syndrome, not elsewhere classified; M46.1 Sacroiliitis, not elsewhere classified
CPT/HCPCS: 99212; G0463

== ENCOUNTER 2023-10-24 09:28 | Outpatient (POV) | payer MEDICARE, MEDICAID, SELFPAY ==
[2023-10-24 09:38] VITALS: BP 139/67; PULSE 55; RESP 16; O2SAT 98; BMI 97.6
--- NOTE | 2023-10-24 09:48 | A.OFFVIS_ITS ---
[facility] Disclaimer: The information contained in this section may have been updated after the patient was seen, as this information can be updated by other users. Medical History (Updated 10/17/23 @ 13:54 by Rosalina Parada RN) Chest pain Atrophic vaginitis Post-nasal drainage Rhinitis medicamentosa Pelvic pain Dysuria Right lower quadrant abdominal pain Right hip pain Edema of left lower extremity Otitis media Bronchitis Sinusitis Osteoporosis Dyspnea Abnormal EKG Dizziness Right wrist sprain Shoulder pain, left B12 deficiency Iron deficiency anemia Abdominal pain Posterior pain of left hip Pain in left thigh Left knee pain Abrasion, left knee, initial encounter Left foot pain Fall Cough Surgical History History of History of hysterectomy H/O gastric bypass H/O shoulder surgery Previous back surgery Family History Other No significant family history Social History Smoking Status: Former smoker tobacco type: cigarettes packs per day: 0 alcohol intake: never counseling provided: none substance use type: denies use current occupational status: unemployed Travel in the last 8 weeks: None household members: spouse housing: house caffeine: No fire extinguisher in home: Yes carbon monox detector in home: Yes firearms in home: No do you feel safe at home: Yes victim of physical abuse: No victim of emotional abuse: No victim of sexual abuse: No would you like helpful sources: No PM Subjective & Objective Subjective Subjective:: Patient is a pleasant 58-year-old female who presents today for medication refill and follow-up. Today she rates her pain a 5 out of 10. She denies any new trauma or injury. She does state that she is having a nuclear stress test and echo later today. She states that she has been having a little bit of chest pain and since it has been years since she has had any of the cardiac workup that her doctor wanted to go ahead and check everything. Patient is currently managed with Percocet 10 mg 3 times a day and methocarbamol 500 mg 4 times a day. She denies any side effects from this medication. Her Azar has been reviewed and is appropriate. Review of Systems: General: No recent weight changes, no fever, no sleep disturbances Respiratory: No cough, no shortness of air, no recurring pulmonary infections Cardiovascular/peripheral vascular: No chest pain, no palpitations, no edema, no shortness of breath Gastrointestinal: No new onset incontinence, normal bowel movements reported Genitourinary: No new onset incontinence Musculoskeletal: Low back pain Psychiatric: [Normal mood/affect] Neurological: [Denies weakness in extremities], [denies balance issues] Pain at rest (0-10 scale): 5 Objective Objective:: Physical Exam: General: Alert and oriented x3, no acute distress, pleasant and cooperative Lungs: Respirations even and unlabored, symmetrical chest expansion Eyes: PERRL Musculoskeletal: Flexion and extension of lumbar [spine] somewhat guarded secondary to pain, [antalgic gait noted] Neurological: Speech clear, no gross sensory deficit Has patient had previous pain injection?: No Conservative treatment options previously tried: Home exercise plan Length of treatment: Longer than 6 weeks Meds Home Medications and Allergies Home Medications ?Medication ?Instructions ?Recorded ?Confirmed ?Type azelastine 205.5 mcg (0.15 %) 2 spray intranasal BID allergies 03/29/17 10/24/23 History nasal spray 90 days ##90 loratadine 10 mg tablet 10 mg PO DAILY allergies 10/07/17 10/24/23 History polyethylene glycol 3350 17 17 gm PO DAILY constipation 09/16/20 10/24/23 History gram/dose oral powder ferrous sulfate 142 mg (45 mg 142 mg PO DAILY Supplement 01/20/21 10/24/23 History iron) tablet,extended release fluticasone propionate 50 1 spr intranasal DAILY ALLERGIES 08/18/21 10/24/23 History mcg/actuation nasal spray,suspension dicyclomine 10 mg capsule 10 mg PO BID BOWELS 02/06/22 10/24/23 History prucalopride 2 mg tablet 2 mg PO DAILY BOWELS 02/06/22 10/24/23 History (Motegrity) blood sugar diagnostic (Blood #50 ea 05/10/22 10/24/23 Rx Glucose Test strips) blood-glucose meter (Blood Glucose #1 ea 05/10/22 10/24/23 Rx Monitoring kit) lancets 30 gauge #100 ea 05/10/22 10/24/23 Rx lancets 33 gauge (OneTouch Delica #100 ea 05/30/22 10/24/23 History Plus Lancet) albuterol sulfate 90 mcg/actuation 2 puff inhalation Q4-6H PRN 08/25/22 10/24/23 History aerosol inhaler (Ventolin HFA) shortness of breath or wheezing carbamazepine 100 mg chewable 300 mg (3 x 100 mg) PO DAILY . 04/25/23 10/24/23 Rx tablet Trigeminal neuralgia 90 days #270 tabs hydrochlorothiazide 25 mg tablet See Rx Instructions .Route 05/10/23 10/24/23 Rx .COMPLEX #90 tabs montelukast 10 mg tablet 10 mg PO DAILY ALLERGIES 90 days 05/10/23 10/24/23 Rx #90 tabs amlodipine 10 mg tablet See Rx Instructions .Route 07/16/23 10/24/23 Rx .COMPLEX #30 tabs semaglutide 0.25 mg or 0.5 mg (2 0.5 mg (0.736 mL) SQ WEEKLY #3 mL 07/17/23 10/24/23 Rx mg/3 mL) subcutaneous pen injector (Torsion Mobile) conjugated estrogens 0.625 mg/gram 0.625 mg vaginal .twice weekly 07/25/23 10/24/23 Rx vaginal cream (Premarin) SUPPLIMENT #30 grams levocetirizine 5 mg tablet 5 mg PO DAILY 07/25/23 10/24/23 History atorvastatin 20 mg tablet 20 mg PO DAILY 90 days #90 tabs 08/02/23 10/24/23 Rx omeprazole 40 mg capsule,delayed See Rx Instructions .Route 08/17/23 10/24/23 Rx release .COMPLEX #30 caps methocarbamol 500 mg tablet 500 mg PO QID PRN muscle spasms 08/27/23 10/24/23 Rx #120 tabs lipase 60,000-protease 1 cap PO DIRECTED SUPPLIMENT 09/05/23 10/24/23 History 189,600-amylase 252,600 unit capsule, delay rel (Zenpep) losartan 100 mg tablet 100 mg PO DAILY 09/05/23 10/24/23 History buspirone 5 mg tablet See Rx Instructions .Route 09/17/23 10/24/23 Rx .COMPLEX #60 tabs pseudoephedrine HCl 120 mg 120 mg PO Q12H PRN nasal 09/18/23 10/24/23 Rx tablet,extended release (Sudafed congestion #20 tabs 12 Hour) estradiol 0.01% (0.1 mg/gram) See Rx Instructions vaginal 09/24/23 10/24/23 Rx vaginal cream .COMPLEX #42.5 grams ondansetron 4 mg disintegrating 4 mg PO Q8H nausea 15 days #20 tabs 09/24/23 10/24/23 Rx tablet oxybutynin chloride 10 mg 10 mg PO DAILY #90 tabs 09/24/23 10/24/23 Rx tablet,extended release 24 hr oxycodone-acetaminophen 10 mg-325 1 tab PO TID #90 tabs 09/24/23 10/24/23 Rx mg tablet (Percocet) bupropion HCl 150 mg tablet,12 hr 150 mg PO BID MOOD #60 ea 10/22/23 10/24/23 Rx sustained-release New Prescriptions to Start Prescriptions: Allergies Allergy/AdvReac Type Severity Reaction Status Date / Time lisinopril [LISINOPRIL] Allergy Severe S-SWELLS-OR Verified 10/17/23 13:28 AL/THROAT sulfamethoxazole Allergy Mild Rash Verified 10/17/23 13:28 [From Bactrim] trimethoprim [From Bactrim] Allergy Mild Rash Verified 10/17/23 13:28 Assessment and Plan *Assessment and plan (1) Lumbar postlaminectomy syndrome: Status: Acute Category: Medical Code(s): M96.1 - Postlaminectomy syndrome, not elsewhere classified (2) Lumbar radiculopathy: Status: Acute Category: Medical Code(s): M54.16 - Radiculopathy, lumbar region (3) Degenerative disc disease, lumbar: Status: Acute Category: Medical Code(s): M51.36 - Other intervertebral disc degeneration, lumbar region Plan I will refill the patient's Percocet and methocarbamol and provide a 1 month supply of this medication. Patient will return to clinic in 1 month for r eevaluation of symptoms and plan of care. Risks and benefits of the medication have been explained in detail to the patient. The patient does understand the risk of dependence on the medication when given over a prolonged period. Patient has been advised of risks of oversedation with the prescribed medication. Narcan has been offered to the paitent in the event of oversedation. Patient has been advised that a family member should also be educated regarding administration of Narcan. The patient has been advised to consult with his/her primary care provider and pharmacist regarding drug-drug interaction of medications currently prescribed. Patient has been prescribed a controlled substance after being counseled on the medication, medication safety, and possible side effects. Opioid contract was reviewed and signed by the patient, and that they have agreed to all of the terms set forth by our compliance program. Patient has been instructed to contact the clinic with any concerns before the next appointment. Dr. Purdy has reviewed this note and agrees with this plan of care. This note was dictated using voice recognition software and make contain errors or omissions.
== END 2023-10-24 23:59 | disposition home or self-care (01) ==
PROVIDERS: PCP Family Medicine; Visit Provider Nurse Practitioner Family
DX: M96.1 Postlaminectomy syndrome, not elsewhere classified (principal); M54.16 Radiculopathy, lumbar region; M51.36 Other intervertebral disc degeneration, lumbar region
CPT/HCPCS: 99212; G0463

== ENCOUNTER 2023-10-24 10:51 | Outpatient (CLI) | payer MEDICARE, MEDICAID, SELFPAY ==
--- NOTE | 2023-10-24 10:53 | NM_ITS ---
APPROVED REPORT Exam: Nuclear Stress Test Indication: OBESITY, HTN, DM, HYPERLIPIDEMIA, FM HX, C.P., SOB Patient Location: Outpatient Stress Tech: Ale Reyes NM Tech:Rosalina Luz CHELOMoises RT (R)(N)(M) Ht: 5 ft 3 in Wt: 255 lbs Bra Size: DD HR: 53 bpm BP: 148/60 mmHg BSA: 2.14 m2 TID: 1.20 BMI: 45.1 History: HTN, DM, HYPERLIPIDEMIA, FM HX, C.P., SOB Procedure: Patient received 0.4 mg of intravenous Lexiscan, resting heart rate 53 bpm, resting blood pressure 148/60 mmHg, with Lexiscan maximum heart rate achieved was 78 bpm which is % of the maximum predicted heart rate and blood pressure was 152/64 mmHg. With Lexiscan, patient denied any complaint of chest pain. Cardiac Stress and Resting SPECT Images: Cardiac Stress and Resting SPECT images were obtained using technetium 99m Myoview 31.9 mCi stress and 10.94 mCi at rest. Raw images demonstrate significant soft tissue overlap with the cardiac borders. This may affect the diagnostic interpretation of the study findings. Resting and stress imaging in supine positions demonstrate a large-sized, moderate, fixed perfusion defect in the anterior and anterolateral LV shell. This is no longer visualized in prone stress imaging. Findings are suggestive of soft tissue attenuation. There is borderline increase in transient ischemic dilatation ratio (TID 1.20), suggestive of possible multivessel disease or balanced ischemia. Gated imaging demonstrates normal global and regional LV systolic function. LVEF is calculated at 58%. Conclusion: Large-sized, moderate, fixed perfusion defect in the anterior and anterolateral LV shell. This is no longer visualized in prone stress imaging. Findings are suggestive of soft tissue attenuation. There is borderline increase in transient ischemic dilatation ratio (TID 1.20), suggestive of possible multivessel disease or balanced ischemia. Gated imaging demonstrates normal global and regional LV systolic function. LVEF is calculated at 58%. Electronically signed by : Disha Coyle MD 10/25/2023 11:46:27
--- NOTE | 2023-10-24 10:53 | CA_ITS ---
APPROVED REPORT Exam: Pharmacologic Technologist: Ale Reyes, Ht: 5 ft 3 in Wt: 263 lbs BSA: 2.17 m2 HR: 53 bpm BP: 148/60 mmHg Rhythm: Sinus oc, otherwise normal Medical History Medications: Amlodipine,,,,, Omeprazole,,,,, Ferrous sulfate,,,,, Losartan,,,,, Premarin,,,,, Atorvastatin,,,,, HCTZ,,,,, Buspirone,,,,, PERCOCET,,,,, Albuterol,,,,, Montelukast,,,,, LoraTidine,,,,, Cardiac Risk Factors: Smoking Stress Test Details Test: LEXISCAN HR Resting HR: 55 bpm Max Heart Rate (APMHR): 161 bpm Max HR Achieved: 80 bpm Target HR (85% APMHR): 137 bpm % of APMHR: 50 Recovery HR: 64 bpm BP Resting BP: 148.0/60.0 mmHg Max BP: 152.0/64.0 mmHg Recovery BP: 152.0/60.0 mmHg ECG Resting ECG: Sinus bradycardia Clinical Exercise duration: 04:00 min Highest Stage Achieved: Exercise capacity: 1.0 METs Stress ECG Conclusion During lexiscan pt experinced nausea and head discomfort. No CP noted. Ectopy: Rare PVC ST changes: No significant ST changes. Conclusion: Unremarkable lexiscan stress. Myoview images reported separately. Test Summary REST . . . . . . . Sitting REST 03:31 . . 55 . 148/ 60 . . Stage 1 01:00 . . 73 . . . . Stage 2 01:00 . . 74 . . . . Stage 3 01:00 . . 68 . 152/ 64 . . Stage 4 01:00 . . 64 . 152/ 60 . Stop exercise at 04:00 RECOVERY 01:00 . . 60 . . . . RECOVERY 02:00 . . 63 . 148/ 63 . . RECOVERY 03:00 . . 57 . 148/ 63 . . RECOVERY 03:23 . . 62 . 135/ 60 . . Electronically signed by : Disha Coyle MD 10/25/2023 11:40:05
[2023-10-24] MEDS: SODIUM CHLORIDE 0.9% 10ML SYR (RAD ONLY) 10 ML IV ×2 (11:30→13:00)
[2023-10-24] MEDS: REGADENOSON 0.4MG/5ML SYRINGE 0.4 MG IV (13:00)
[2023-10-24] MEDS: ISOTOPE MYOVIEW (PER STUDY) 1 DOSE IV (13:26)
== END 2023-10-24 23:59 | disposition home or self-care (01) ==
LOC: RAD 10:53
PROVIDERS: PCP Family Medicine; Visit Provider Internal Medicine
DX: I10 Essential (primary) hypertension (principal); E66.01 Morbid (severe) obesity due to excess calories; Z68.43 Body mass index [BMI] 50.0-59.9, adult; I34.0 Nonrheumatic mitral (valve) insufficiency; R06.00 Dyspnea, unspecified; R07.9 Chest pain, unspecified; M96.1 Postlaminectomy syndrome, not elsewhere classified; M54.16 Radiculopathy, lumbar region; M51.36 Other intervertebral disc degeneration, lumbar region
CPT/HCPCS: 78452; 93017; 93018; 93306; 99212; A9502; G0463; J2785

== ENCOUNTER 2023-10-31 10:35 | Outpatient (CLI) | payer MEDICARE, MEDICAID, SELFPAY ==
[2023-10-31 16:30] LABS: Basophils # 0.1 K/mm3 (0-0.2); Basophils % 1.1 % (0.1-2.0); Eosinophils # 0.1 K/mm3 (0.0-0.4); Eosinophils % 1.7 % (0.1-12.0); Hematocrit 47.2 % (37.0-47.0); Hemoglobin 14.9 g/dL (12.2-16.2); Lymphocytes # 2.3 K/mm3 (0.7-4.5); Lymphocytes % 30.4 % (10-50); Mean Corpuscular HGB Conc 31.5 g/dL (31.8-35.4); Mean Corpuscular Hemoglobin 30.9 pg (27.0-31.2); Mean Platelet Volume 8.9 fl (7.4-10.4); Monocytes # 0.7 K/mm3 (0.1-1.0); Monocytes % 9.2 % (1.7-9.3); Neutrophils # 4.3 K/mm3 (1.8-7.8); Neutrophils % 57.7 % (37.0-80.0); Platelet Count 266 K/mm3 (142-424); Red Blood Count 4.81 M/mm3 (4.20-5.40); Red Cell Distribution Width 14.2 % (11.5-17.5); White Blood Count 7.4 K/mm3 (4.8-10.8)
[2023-10-31 17:04] LABS: Alanine Aminotransferase 29 U/L (12-78); Albumin Level 3.8 g/dl (3.5-5.0); Albumin/Globulin Ratio 1.5 (1.1-1.8); Alkaline Phosphatase 124 U/L (38-126); Anion Gap 9.3 mEq/L (5-15); Aspartate Amino Transferase 37 U/L (14-36); Bilirubin,Total 0.5 mg/dl (0.2-1.3); Blood Urea Nitrogen 8 mg/dl (7-17); Calcium 9.5 mg/dl (8.4-10.2); Carbon Dioxide 31 mmol/L (22.0-30.0); Chloride 102 mmol/L (98-107); Estimated Glomerular Filt Rate 86 ml/min (>60); GFR (African American) 104 ML/MIN (>60); Globulin 2.5 g/dL (1.3-3.2); Glucose 101 mg/dl (74-100); Potassium 4.3 mmoL/L (3.5-5.1); Sodium 138 mmol/L (136-145); Total Protein,Serum 6.3 g/dl (6.3-8.2)
[2023-10-31 17:06] LABS: Alanine Aminotransferase 29 U/L (12-78); Albumin Level 3.9 g/dl (3.5-5.0); Alkaline Phosphatase 126 U/L (38-126); Anion Gap 10.4 mEq/L (5-15); Aspartate Amino Transferase 38 U/L (14-36); Bilirubin,Indirect 0.5 mg/dL (0.0-0.9); Bilirubin,Total 0.5 mg/dl (0.2-1.3); Bilirubin,Unconjugated 0.5 mg/dL (0.0-1.1); Blood Urea Nitrogen 8 mg/dl (7-17); Calcium 9.7 mg/dl (8.4-10.2); Carbon Dioxide 32 mmol/L (22.0-30.0); Chloride 101 mmol/L (98-107); Chol/HDL Ratio 2.8 (1-3.5); Cholesterol 205 mg/dl (140-200); Estimated Glomerular Filt Rate 86 ml/min (>60); GFR (African American) 104 ML/MIN (>60); Glucose 100 mg/dl (74-100); HDL Cholesterol 72 mg/dl (40-60); Magnesium 1.9 mg/dl (1.6-2.3); Potassium 4.4 mmoL/L (3.5-5.1); Total Protein,Serum 6.5 g/dl (6.3-8.2); Triglycerides 198 mg/dl (30-150); VLDL Cholesterol 40 mg/dL (0-40)
[2023-10-31 17:12] LABS: Sodium 139 mmol/L (136-145)
[2023-10-31 17:18] LABS: Direct LDL Cholesterol 88.88 mg/dL (100-129)
[2023-10-31 17:20] LABS: Free T4 (Free Thyroxine) 0.85 ng/dl (0.78-2.19)
[2023-10-31 17:34] LABS: Thyroid Stimulating Hormone 2.17 uIU/mL (0.465-4.68)
[2023-10-31 19:18] LABS: Hemoglobin A1C 5.6 % (4.0-6.0)
== END 2023-10-31 23:59 | disposition home or self-care (01) ==
LOC: LAB.DROPOF 11-01 09:43
PROVIDERS: Internal Medicine; PCP Family Medicine; Visit Provider Family Medicine
DX: E78.5 Hyperlipidemia, unspecified (principal); R05.9 Cough, unspecified; E11.9 Type 2 diabetes mellitus without complications; I11.9 Hypertensive heart disease without heart failure; E66.01 Morbid (severe) obesity due to excess calories; Z68.42 Body mass index [BMI] 45.0-49.9, adult; I34.0 Nonrheumatic mitral (valve) insufficiency; R06.00 Dyspnea, unspecified; R07.9 Chest pain, unspecified; Z79.85 Long-term (current) use of injectable non-insulin antidiabetic drugs; Z87.891 Personal history of nicotine dependence
CPT/HCPCS: 80048; 80050; 80053; 80061; 80076; 83036; 83735; 84439; 84443; 85025; 87635

== ENCOUNTER 2023-11-29 08:38 | Outpatient (CLI) | payer MEDICARE, MEDICAID, SELFPAY ==
--- NOTE | 2023-11-29 08:46 | CT_ITS ---
APPROVED REPORT Energy Conservation Technician: CLINICAL INDICATION Chest Pain TECHNIQUE Image Acquisition: A 128 slice MDCT scanner ([employer] Gigwella View) was used for data acquisition. A noncontrast coronary calcium scan was performed. A CT attenuation threshold of 130 Hounsfield units (HU) was used for the detection of calcium in contiguous voxels of 1 sq mm in area to be counted as individual lesions. Bolus tracking in the ascending aorta with a threshold of 180 HU was performed. Immediately afterwards, ECG synchronized cardiac CT was then performed from the cardiac base to apex using retrospective gating with ECG tube current modulation. A total of 85 mL of Isovue 370 mg/mL contrast medium was administered at 5 mL/sec followed by a saline flush using a biphasic injection protocol. A tube voltage of 120 KVp was used. The patient received the following medications prior to the cardiac CT. 0.4 mg of sublingual nitroglycerin The average heart rate at the time of acquisition was 63 bpm and regular. Image Reconstruction Transaxial images were reconstructed at 0.67 mm slide thickness. Data was reviewed interactively on an advanced workstation capable of 2 and 3-dimensional displays in all conventional reconstruction formats, including multiplanar reformations, maximum intensity projections, curved multiplanar reformations, and volume rendered reconstructions. When applicable, selected routine images describing the relevant coronary anatomy and pathology were saved and sent to PACS. Complications None Technical Quality Overall image quality was good. Coronary artery opacification was adequate. Total DLP (Dose-Length Product) is 2328.9 mGy-cm. The reported value represents the total of one or more individual components during the CT acquisition of this date and at this time, and as such, the same value may appear in more than one CT report depending on the interpreting/reporting physicians. COMPARISON None FINDINGS CT Coronary Calcium Scoring LMA (Left Main Artery) = 0 LAD (Left Anterior Descending) = 0 LCX (Left Coronary Circumflex) = 0 RCA (Right Coronary Artery) = 0 Total Calcium Score = 0 using the AJ-130 method. The interpretation of the calcium heart score is based on the following continuum*: 0 = no calcified plaque detected (risk of coronary artery disease is very low ??? less than 5%) 1-10 = calcium detected in extremely minimal levels (risk of coronary diseases is still low ??? less than 10%) 11-100 = mild levels of plaque detected with certainty (mild or minimal narrowing of heart arteries is likely) 101-400 = definite,at least moderate levels of plaque detected (relatively high risk of a heart attack within 3-5 years) >401-999 = extensive levels of plaque detected (high risk of heart attack, high levels of vascular disease are present, high likelihood of at least one significant coronary narrowing) *The calcium heart score quantifies the burden of coronary calcification/plaque in the coronary arteries. The calcium heart score is not able to evaluate the presence or burden of non-calcified (i.e. soft) plaque. There is mild calcification noted in the aortic valve. Coronary CT Angiography The coronary arterial system is right dominant. Quantitative Stenosis Grading: Left Main (LM): The left main originates normally from the left sinus of Valsalva. The LM bifurcates into the left anterior descending artery and left circumflex artery. The LM is patent with no evidence of atherosclerosis. Left Anterior Descending (LAD) and Diagonal Branches: The LAD gives off 2 diagonal branch(es). The LAD and its branches are patent with no evidence of atherosclerosis. There is no evidence of LAD-myocardial bridge. Left Circumflex (LCX) and Obtuse Marginals (OM): The LCX gives off __ Obtuse Marginal (OM) branch(es). The LCX and its branches are patent with no evidence of atherosclerosis. Right Coronary Artery (RCA): The RCA originates normally from the right sinus of Valsalva. The RCA gives off a posterior descending artery (PDA) and posterolateral (PL) branches. The RCA and its branches are patent with no evidence of atherosclerosis. Non-Coronary Cardiac Findings: Analysis of the left ventricular (LV) structure and function was performed after 3-D reconstruction of the LV from axial images, with user-corrected automatic contouring for assessment of LV volumes and user-defined reconstruction from oblique planes for measurement of 3-D cardiac structure and function. -The left ventricle systolic function is normal. -There is no left atrial appendage filling defect. Two right pulmonary veins and two left pulmonary veins drain normally into the left atrium. -No pericardial thickening or calcification. -Central and branch pulmonary arteries in the [id number] are unremarkable. -Thoracic aorta within the visualized thoracic aortic-branches in the [id number] is unremarkable. Extracardiac Structures No significant extra-cardiac findings. Note, however, that this study is focused on the cardiac findings. IMPRESSION -Absence of coronary calcification with an Agatston score = 0 using the AJ-130 method. -No evidence of significant flow-limiting atherosclerosis of the coronary arteries. -CAD-RADS 0. Management recommendations per ACC/AHA guidelines*, as clinically appropriate. *Recommendations: CAD RADS 0: Reassurance. Consider non-atherosclerotic causes of chest pain. CAD RADS 1: Consider non-atherosclerotic causes of chest pain. Consider preventive therapy and risk factor modification. CAD RADS 2: Consider non-atherosclerotic causes of chest pain. Consider preventive therapy and risk factor modification, particularly for patients with nonobstructive plaque in multiple segments. CAD RADS 3: Consider further functional testing. Consider symptom-guided anti-ischemic and preventive pharmacotherapy as well as risk factor modification per published guideline statements. CAD RADS 4A: Consider further functional testing or invasive coronary angiography with revascularization per published guideline statements. Consider symptom-guided anti-ischemic and preventive pharmacotherapy as well as risk factor modification per published guideline statements. CAD RADS 4B: Invasive coronary angiography recommended with revascularization per published guideline statements. Consider symptom-guided anti-ischemic and preventive pharmacotherapy as well as risk factor modification per published guideline statements. CAD RADS 5: Consider invasive angiography and/or viability assessment with revascularization per published guideline statements. Consider symptom-guided anti-ischemic and preventive pharmacotherapy as well as risk factor modification per published guideline statements. CRITICAL RESULT None COMMUNICATION Per this written report The coronary and cardiac findings of this CCTA were reviewed, reported, and signed by Heath Coyle MD (Agricultural Labor [employer] Manager) Conclusion Electronically signed by : Disha Coyle MD 11/29/2023 12:36:01
[2023-11-29 09:00] VITALS: BMI 45.1
[2023-11-29 09:19] VITALS: BP 143/50; PULSE 55; RESP 16; TEMP 36.4; O2SAT 99
[2023-11-29 09:44] LABS: POC Glucose,Bedside 103 (70-110)
[2023-11-29 10:12] VITALS: BP 145/74; PULSE 63; RESP 18; O2SAT 98
[2023-11-29] MEDS: NITROGLYCERIN 0.4MG SL TABLET SL (10:12)
[2023-11-29 10:15] VITALS: BP 117/64; PULSE 61; RESP 18; O2SAT 98
[2023-11-29 10:20] VITALS: BP 134/66; PULSE 62; RESP 18; O2SAT 97
[2023-11-29] MEDS: SODIUM CHLORIDE 0.9% 10ML SYR (RAD ONLY) 10 ML IV (10:24)
[2023-11-29] MEDS: IOPAMIDOL-370 (76%);100ML BOTTLE 85 ML IV (10:24)
[2023-11-29] MEDS: 0.9 % SODIUM CHLORIDE 50 ML VIAL IV (10:24)
[2023-11-29 10:25] VITALS: BP 133/66; PULSE 60; RESP 18; O2SAT 97
[2023-11-29 10:30] VITALS: BP 150/80; PULSE 61; RESP 18; O2SAT 98
== END 2023-11-29 10:30 | disposition home or self-care (01) ==
PROVIDERS: PCP Family Medicine; Visit Provider Internal Medicine
DX: R06.00 Dyspnea, unspecified (principal); I51.89 Other ill-defined heart diseases; E66.01 Morbid (severe) obesity due to excess calories; Z68.43 Body mass index [BMI] 50.0-59.9, adult; K21.9 Gastro-esophageal reflux disease without esophagitis; I10 Essential (primary) hypertension; R94.39 Abnormal result of other cardiovascular function study
CPT/HCPCS: 75574; 82962; Q9967

== ENCOUNTER 2023-12-31 11:49 | Outpatient (CLI) | payer MEDICARE, MEDICAID, SELFPAY ==
--- NOTE | 2023-12-31 12:04 | XR_ITS ---
FINAL REPORT CLINICAL HISTORY: Shortness of breath FINDINGS: 2 views of the chest were obtained . The heart is normal in size. The mediastinum is within normal limits. The lungs are clear. There is no pneumothorax. Osseous structures are unremarkable. IMPRESSION: No acute cardiopulmonary process. Reviewed, Interpreted and Dictated by Nelson Kimble MD Transcribed by Coleen Richmond Authenticated and [facility]
[2023-12-31 13:10] VITALS: PULSE 61; PULSE 64
[2023-12-31] MEDS: ALBUTEROL 0.083% 2.5 MG/3 ML NEB IH (13:10)
== END 2023-12-31 23:59 | disposition home or self-care (01) ==
PROVIDERS: PCP Family Medicine; Visit Provider Specialist
DX: J45.20 Mild intermittent asthma, uncomplicated (principal); R06.02 Shortness of breath; I10 Essential (primary) hypertension
CPT/HCPCS: 71046; 94060; 94618; 94640; 94726; 94729; J7613

== ENCOUNTER 2024-01-02 09:40 | Outpatient (POV) | payer MEDICARE, MEDICAID, SELFPAY ==
[2024-01-02 10:09] VITALS: BP 140/57; PULSE 63; RESP 18; O2SAT 95; BMI 46.4
--- NOTE | 2024-01-02 10:37 | EXP.PAIN.SOA ---
[facility] Disclaimer: The information contained in this section may have been updated after the patient was seen, as this information can be updated by other users. Medical History (Updated 12/26/23 @ 09:01 by Mirella Mayo MD) Overactive bladder Sleep apnea History of COVID-19 Asthma Anxiety and depression History of gastroesophageal reflux (GERD) Diabetes Allergies Hyperlipidemia Hypertension Post-nasal drainage Rhinitis medicamentosa Atrophic vaginitis Pelvic pain Dysuria Right lower quadrant abdominal pain Right hip pain Edema of left lower extremity Otitis media Bronchitis Sinusitis Osteoporosis Dyspnea Abnormal EKG Chest pain Dizziness Right wrist sprain Shoulder pain, left B12 deficiency Iron deficiency anemia Abdominal pain Posterior pain of left hip Pain in left thigh Left knee pain Abrasion, left knee, initial encounter Left foot pain Fall Cough Surgical History History of cholecystectomy History of tonsillectomy History of History of hysterectomy H/O gastric bypass H/O shoulder surgery Previous back surgery Family History Other Cancer Colon cancer Social History Smoking Status: Former smoker tobacco type: cigarettes packs per day: 0 alcohol intake: never counseling provided: none substance use type: denies use current occupational status: disabled Travel in the last 8 weeks: None household members: spouse housing: house caffeine: No fire extinguisher in home: Yes carbon monox detector in home: Yes firearms in home: No do you feel safe at home: Yes victim of physical abuse: No victim of emotional abuse: No victim of sexual abuse: No would you like helpful sources: No PM Subjective & Objective Subjective Subjective:: Patient is a pleasant 59-year-old female who presents today for medication refill and follow-up. Today she rates her pain a 7 out of 10. She denies any new changes. Patient is currently managed with Percocet 10 mg 3 times a day and methocarbamol 500 mg 4 times a day. She denies any side effects from this medication. Her Azar has been reviewed and is appropriate. Review of Systems: General: No recent weight changes, no fever, no sleep disturbances Respiratory: No cough, no shortness of air, no recurring pulmonary infections Cardiovascular/peripheral vascular: No chest pain, no palpitations, no edema, no shortness of breath Gastrointestinal: No new onset incontinence, normal bowel movements reported Genitourinary: No new onset incontinence Musculoskeletal: Low back pain Psychiatric: [Normal mood/affect] Neurological: [Denies weakness in extremities], [denies balance issues] Pain at rest (0-10 scale): 7 Objective Objective:: Physical Exam: General: Alert and oriented x3, no acute distress, pleasant and cooperative Lungs: Respirations even and unlabored, symmetrical chest expansion Eyes: PERRL Musculoskeletal: Flexion and extension of lumbar [spine] somewhat guarded secondary to pain, [antalgic gait noted] Neurological: Speech clear, no gross sensory deficit Has patient had previous pain injection?: No Conservative treatment options previously tried: Home exercise plan Length of treatment: Longer than 6 weeks Meds Home Medications and Allergies Home Medications ?Medication ?Instructions ?Recorded ?Confirmed ?Type azelastine 205.5 mcg (0.15 %) 2 spray intranasal BID allergies 03/29/17 01/02/24 History nasal spray 90 days ##90 loratadine 10 mg tablet (Claritin) 10 mg PO DAILY allergies 10/07/17 01/02/24 History ferrous sulfate 142 mg (45 mg 142 mg PO DAILY Supplement 01/20/21 01/02/24 History iron) tablet,extended release fluticasone propionate 50 1 spr intranasal DAILY ALLERGIES 08/18/21 01/02/24 History mcg/actuation nasal spray,suspension blood sugar diagnostic (Blood #50 ea 05/10/22 01/02/24 Rx Glucose Test strips) blood-glucose meter (Blood Glucose #1 ea 05/10/22 01/02/24 Rx Monitoring kit) lancets 33 gauge (OneTouch Delica #100 ea 05/30/22 01/02/24 History Plus Lancet) albuterol sulfate 90 mcg/actuation 2 puff inhalation Q4-6H PRN 08/25/22 01/02/24 History aerosol inhaler (Ventolin HFA) shortness of breath or wheezing montelukast 10 mg tablet 10 mg PO DAILY ALLERGIES 90 days 05/10/23 01/02/24 Rx #90 tabs conjugated estrogens 0.625 mg/gram 0.625 mg vaginal .twice weekly 07/25/23 01/02/24 Rx vaginal cream (Premarin) SUPPLIMENT #30 grams levocetirizine 5 mg tablet 5 mg PO DAILY 07/25/23 01/02/24 History atorvastatin 20 mg tablet 20 mg PO DAILY 90 days #90 tabs 08/02/23 01/02/24 Rx losartan 100 mg tablet 100 mg PO DAILY 09/05/23 01/02/24 History estradiol 0.01% (0.1 mg/gram) See Rx Instructions vaginal 09/24/23 01/02/24 Rx vaginal cream .COMPLEX #42.5 grams oxybutynin chloride 10 mg 10 mg PO DAILY #90 tabs 09/24/23 01/02/24 Rx tablet,extended release 24 hr bupropion HCl 150 mg tablet,12 hr 150 mg PO BID MOOD #60 ea 10/22/23 01/02/24 Rx sustained-release methocarbamol 500 mg tablet 500 mg PO QID PRN muscle spasms 10/24/23 01/02/24 Rx #120 tabs amlodipine 10 mg tablet See Rx Instructions .Route 11/20/23 01/02/24 Rx .COMPLEX #30 tabs buspirone 5 mg tablet See Rx Instructions .Route 12/04/23 01/02/24 Rx .COMPLEX #60 tabs dicyclomine 10 mg capsule 10 mg PO BID BOWELS #60 caps 12/04/23 01/02/24 Rx lipase 60,000-protease 1 cap PO DIRECTED SUPPLIMENT 12/04/23 01/02/24 Rx 189,600-amylase 252,600 unit #30 caps capsule, delay rel (Zenpep) omeprazole 40 mg capsule,delayed 40 mg PO .COMPLEX #90 caps 12/04/23 01/02/24 Rx release ondansetron 4 mg disintegrating 4 mg PO Q8H nausea 15 days #30 tabs 12/04/23 01/02/24 Rx tablet polyethylene glycol 3350 17 17 g PO DAILY constipation #238 12/04/23 01/02/24 Rx gram/dose oral powder grams prucalopride 2 mg tablet 2 mg PO DAILY BOWELS 30 days #90 12/04/23 01/02/24 Rx (Motegrity) tabs hydrochlorothiazide 50 mg tablet 50 mg PO DAILY #90 tabs 12/24/23 01/02/24 Rx semaglutide 0.25 mg or 0.5 mg (2 0.5 mg (0.736 mL) SQ WEEKLY #3 mL 12/24/23 01/02/24 Rx mg/3 mL) subcutaneous pen injector (Ozempic) carbamazepine 100 mg chewable 300 mg (3 x 100 mg) PO DAILY . 12/26/23 01/02/24 Rx tablet Trigeminal neuralgia 90 days #270 tabs oxycodone-acetaminophen 10 mg-325 1 tab PO TID #18 tabs 12/28/23 01/02/24 Rx mg tablet (Percocet) New Prescriptions to Start Prescriptions: Allergies Allergy/AdvReac Type Severity Reaction Status Date / Time lisinopril [LISINOPRIL] Allergy Severe S-SWELLS-OR Verified 12/26/23 08:10 AL/THROAT sulfamethoxazole Allergy Mild Rash Verified 12/26/23 08:10 [From Bactrim] trimethoprim [From Bactrim] Allergy Mild Rash Verified 12/26/23 08:10 Assessment and Plan *Assessment and plan (1) Lumbar postlaminectomy syndrome: Status: Acute Category: Medical Code(s): M96.1 - Postlaminectomy syndrome, not elsewhere classified (2) Lumbar radiculopathy: Status: Acute Category: Medical Code(s): M54.16 - Radiculopathy, lumbar region (3) Degenerative disc disease, lumbar: Status: Acute Category: Medical Code(s): M51.36 - Other intervertebral disc degeneration, lumbar region Plan I will refill the patient's Percocet and methocarbamol and provide a 1 month supply of these medications. Patient will return to clinic in 1 month for reevaluation of symptoms and plan of care. Risks and benefits of the medication have been explained in detail to the patient. The patient does understand the risk of dependence on the medication when given over a prolonged period. Patient has been advised of risks of oversedation with the prescribed medication. Narcan has been offered to the paitent in the event of oversedation. Patient has been advised that a family member should also be educated regarding administration of Narcan. The patient has been advised to consult with his/her primary care provider and pharmacist regarding drug-drug interaction of medications currently prescribed. Patient has been prescribed a controlled substance after being counseled on the medication, medication safety, and possible side effects. Opioid contract was reviewed and signed by the patient, and that they have agreed to all of the terms set forth by our compliance program. Patient has been instructed to contact the clinic with any concerns before the next appointment. Dr. Purdy has reviewed this note and agrees with this plan of care. This note was dictated using voice recognition software and make contain errors or omissions.
== END 2024-01-02 23:59 | disposition home or self-care (01) ==
PROVIDERS: PCP Family Medicine; Visit Provider Nurse Practitioner Family
DX: M96.1 Postlaminectomy syndrome, not elsewhere classified (principal); M51.16 Intervertebral disc disorders with radiculopathy, lumbar region; Z87.891 Personal history of nicotine dependence; Z79.899 Other long term (current) drug therapy
CPT/HCPCS: 99212; G0463

== ENCOUNTER 2024-01-28 08:56 | Outpatient (POV) | payer MEDICARE, MEDICAID, SELFPAY ==
--- NOTE | 2024-01-28 09:07 | EXP.PAIN.SOA ---
[facility] Disclaimer: The information contained in this section may have been updated after the patient was seen, as this information can be updated by other users. Medical History (Updated 12/26/23 @ 09:01 by Mirella Mayo MD) Overactive bladder Sleep apnea History of COVID-19 Asthma Anxiety and depression History of gastroesophageal reflux (GERD) Diabetes Allergies Hyperlipidemia Hypertension Post-nasal drainage Rhinitis medicamentosa Atrophic vaginitis Pelvic pain Dysuria Right lower quadrant abdominal pain Right hip pain Edema of left lower extremity Otitis media Bronchitis Sinusitis Osteoporosis Dyspnea Abnormal EKG Chest pain Dizziness Right wrist sprain Shoulder pain, left B12 deficiency Iron deficiency anemia Abdominal pain Posterior pain of left hip Pain in left thigh Left knee pain Abrasion, left knee, initial encounter Left foot pain Fall Cough Surgical History History of cholecystectomy History of tonsillectomy History of History of hysterectomy H/O gastric bypass H/O shoulder surgery Previous back surgery Family History Other Cancer Colon cancer Social History Smoking Status: Former smoker tobacco type: cigarettes packs per day: 0 alcohol intake: never counseling provided: none substance use type: denies use current occupational status: disabled Travel in the last 8 weeks: None household members: spouse housing: house caffeine: No fire extinguisher in home: Yes carbon monox detector in home: Yes firearms in home: No do you feel safe at home: Yes victim of physical abuse: No victim of emotional abuse: No victim of sexual abuse: No would you like helpful sources: No PM Subjective & Objective Subjective Subjective:: Patient is a pleasant 59-year-old female who presents today for medication refill and 1 month follow-up. Today she rates her pain a 6 out of 10. She denies any new changes. She does state that she has been having more issues with her left knee. Patient has been seeing orthopedics for this for some time. She has had gel injections and states the first round went great for about 6 months. She states that she is due to start this again. She does present today with a brace on that knee. She also states that they were wanting to do surgery however she does not so she is still trying to do conservative treatment. Patient is currently managed with Percocet 10 mg 3 times a day and methocarbamol 500 mg 4 times a day. She denies any side effects from this medication. Her Azar has been reviewed and is appropriate. Review of Systems: General: No recent weight changes, no fever, no sleep disturbances Respiratory: No cough, no shortness of air, no recurring pulmonary infections Cardiovascular/peripheral vascular: No chest pain, no palpitations, no edema, no shortness of breath Gastrointestinal: No new onset incontinence, normal bowel movements reported Genitourinary: No new onset incontinence Musculoskeletal: Low back pain Psychiatric: [Normal mood/affect] Neurological: [Denies weakness in extremities], [denies balance issues] Pain at rest (0-10 scale): 6 Objective Objective:: Physical Exam: General: Alert and oriented x3, no acute distress, pleasant and cooperative Lungs: Respirations even and unlabored, symmetrical chest expansion Eyes: PERRL Musculoskeletal: Flexion and extension of lumbar [spine] somewhat guarded secondary to pain, [antalgic gait noted] Neurological: Speech clear, no gross sensory deficit Has patient had previous pain injection?: No Conservative treatment options previously tried: Home exercise plan Length of treatment: Longer than 12 weeks Meds Home Medications and Allergies Home Medications ?Medication ?Instructions ?Recorded ?Confirmed ?Type azelastine 205.5 mcg (0.15 %) 2 spray intranasal BID allergies 03/29/17 01/02/24 History nasal spray 90 days ##90 loratadine 10 mg tablet (Claritin) 10 mg PO DAILY allergies 10/07/17 01/02/24 History ferrous sulfate 142 mg (45 mg 142 mg PO DAILY Supplement 01/20/21 01/02/24 History iron) tablet,extended release fluticasone propionate 50 1 spr intranasal DAILY ALLERGIES 08/18/21 01/02/24 History mcg/actuation nasal spray,suspension blood sugar diagnostic (Blood #50 ea 05/10/22 01/02/24 Rx Glucose Test strips) blood-glucose meter (Blood Glucose #1 ea 05/10/22 01/02/24 Rx Monitoring kit) lancets 33 gauge (OneTouch Delica #100 ea 05/30/22 01/02/24 History Plus Lancet) albuterol sulfate 90 mcg/actuation 2 puff inhalation Q4-6H PRN 08/25/22 01/02/24 History aerosol inhaler (Ventolin HFA) shortness of breath or wheezing montelukast 10 mg tablet 10 mg PO DAILY ALLERGIES 90 days 05/10/23 01/02/24 Rx #90 tabs conjugated estrogens 0.625 mg/gram 0.625 mg vaginal .twice weekly 07/25/23 01/02/24 Rx vaginal cream (Premarin) SUPPLIMENT #30 grams levocetirizine 5 mg tablet 5 mg PO DAILY 07/25/23 01/02/24 History atorvastatin 20 mg tablet 20 mg PO DAILY 90 days #90 tabs 08/02/23 01/02/24 Rx losartan 100 mg tablet 100 mg PO DAILY 09/05/23 01/02/24 History estradiol 0.01% (0.1 mg/gram) See Rx Instructions vaginal 09/24/23 01/02/24 Rx vaginal cream .COMPLEX #42.5 grams oxybutynin chloride 10 mg 10 mg PO DAILY #90 tabs 09/24/23 01/02/24 Rx tablet,extended release 24 hr bupropion HCl 150 mg tablet,12 hr 150 mg PO BID MOOD #60 ea 10/22/23 01/02/24 Rx sustained-release amlodipine 10 mg tablet See Rx Instructions .Route 11/20/23 01/02/24 Rx .COMPLEX #30 tabs buspirone 5 mg tablet See Rx Instructions .Route 12/04/23 01/02/24 Rx .COMPLEX #60 tabs dicyclomine 10 mg capsule 10 mg PO BID BOWELS #60 caps 12/04/23 01/02/24 Rx lipase 60,000-protease 1 cap PO DIRECTED SUPPLIMENT 12/04/23 01/02/24 Rx 189,600-amylase 252,600 unit #30 caps capsule, delay rel (Zenpep) omeprazole 40 mg capsule,delayed 40 mg PO .COMPLEX #90 caps 12/04/23 01/02/24 Rx release ondansetron 4 mg disintegrating 4 mg PO Q8H nausea 15 days #30 tabs 12/04/23 01/02/24 Rx tablet polyethylene glycol 3350 17 17 g PO DAILY constipation #238 12/04/23 01/02/24 Rx gram/dose oral powder grams prucalopride 2 mg tablet 2 mg PO DAILY BOWELS 30 days #90 12/04/23 01/02/24 Rx (Motegrity) tabs hydrochlorothiazide 50 mg tablet 50 mg PO DAILY #90 tabs 12/24/23 01/02/24 Rx semaglutide 0.25 mg or 0.5 mg (2 0.5 mg (0.736 mL) SQ WEEKLY #3 mL 12/24/23 01/02/24 Rx mg/3 mL) subcutaneous pen injector (Ozempic) carbamazepine 100 mg chewable 300 mg (3 x 100 mg) PO DAILY . 12/26/23 01/02/24 Rx tablet Trigeminal neuralgia 90 days #270 tabs methocarbamol 500 mg tablet 500 mg PO QID PRN muscle spasms 01/02/24 Rx #120 tabs oxycodone-acetaminophen 10 mg-325 1 tab PO TID #90 tabs 01/02/24 Rx mg tablet (Percocet) New Prescriptions to Start Prescriptions: Allergies Allergy/AdvReac Type Severity Reaction Status Date / Time lisinopril [LISINOPRIL] Allergy Severe S-SWELLS-OR Verified 12/26/23 08:10 AL/THROAT sulfamethoxazole Allergy Mild Rash Verified 12/26/23 08:10 [From Bactrim] trimethoprim [From Bactrim] Allergy Mild Rash Verified 12/26/23 08:10 Assessment and Plan *Assessment and plan (1) Lumbar postlaminectomy syndrome: Status: Acute Category: Medical Code(s): M96.1 - Postlaminectomy syndrome, not elsewhere classified (2) Lumbar radiculopathy: Status: Acute Category: Medical Code(s): M54.16 - Radiculopathy, lumbar region (3) Degenerative disc disease, lumbar: Status: Acute Category: Medical Code(s): M51.36 - Other intervertebral disc degeneration, lumbar region Plan We will refill her Percocet and provide a 1 month supply of this medication. Patient will return to clinic in 1 month for reevaluation of symptoms and plan of care. Risks and benefits of the medication have been explained in detail to the patient. The patient does understand the risk of dependence on the medication when given over a prolonged period. Patient has been advised of risks of oversedation with the prescribed medication. Narcan has been offered to the paitent in the event of oversedation. Patient has been advised that a family member should also be educated regarding administration of Narcan. The patient has been advised to consult with his/her primary care provider and pharmacist regarding drug-drug interaction of medications currently prescribed. Patient has been prescribed a controlled substance after being counseled on the medication, medication safety, and possible side effects. Opioid contract was reviewed and signed by the patient, and that they have agreed to all of the terms set forth by our compliance program. Patient has been instructed to contact the clinic with any concerns before the next appointment. Dr. Purdy has reviewed this note and agrees with this plan of care. This note was dictated using voice recognition software and make contain errors or omissions.
[2024-01-28 09:55] VITALS: BP 132/68; PULSE 59; RESP 18; O2SAT 98; BMI 46.0
== END 2024-01-28 23:59 | disposition home or self-care (01) ==
PROVIDERS: PCP Family Medicine; Visit Provider Nurse Practitioner Family
DX: M96.1 Postlaminectomy syndrome, not elsewhere classified (principal); M51.16 Intervertebral disc disorders with radiculopathy, lumbar region; Z79.899 Other long term (current) drug therapy
CPT/HCPCS: 99212; G0463

== ENCOUNTER 2024-02-06 08:52 | Outpatient (CLI) | payer MEDICARE, MEDICAID, SELFPAY ==
[2024-02-06 09:25] LABS: Basophils % 0.5 % (0.1-2.0); Eosinophils # 0.1 K/mm3 (0.0-0.4); Eosinophils % 1.3 % (0.1-12.0); Hematocrit 41.8 % (37.0-47.0); Hemoglobin 14.2 g/dL (12.2-16.2); Lymphocytes # 2.5 K/mm3 (0.7-4.5); Lymphocytes % 30.9 % (10-50); Mean Corpuscular HGB Conc 33.9 g/dL (31.8-35.4); Mean Corpuscular Hemoglobin 31.1 pg (27.0-31.2); Mean Corpuscular Volume 91.8 fl (81-99); Mean Platelet Volume 7.6 fl (7.4-10.4); Monocytes # 0.4 K/mm3 (0.1-1.0); Monocytes % 4.8 % (1.7-9.3); Neutrophils % 62.6 % (37.0-80.0); Platelet Count 218 K/mm3 (142-424); Red Blood Count 4.55 M/mm3 (4.20-5.40); Red Cell Distribution Width 13.7 % (11.5-17.5); White Blood Count 7.9 K/mm3 (4.8-10.8)
[2024-02-06 10:05] LABS: Alanine Aminotransferase 24 U/L (12-78); Albumin Level 4.1 g/dl (3.5-5.0); Alkaline Phosphatase 95 U/L (38-126); Anion Gap 12.1 mEq/L (5-15); Aspartate Amino Transferase 22 U/L (14-36); Bilirubin,Direct 0.4 mg/dl (0.0-0.4); Bilirubin,Indirect 0.1 mg/dL (0.0-0.9); Bilirubin,Total 0.5 mg/dl (0.2-1.3); Bilirubin,Unconjugated 0.1 mg/dL (0.0-1.1); Blood Urea Nitrogen 9 mg/dl (7-17); Calcium 9.2 mg/dl (8.4-10.2); Carbon Dioxide 30 mmol/L (22.0-30.0); Chloride 102 mmol/L (98-107); Chol/HDL Ratio 2.2 (1-3.5); Cholesterol 172 mg/dl (140-200); Estimated Glomerular Filt Rate 102 ml/min (>60); GFR (African American) 123 ML/MIN (>60); Glucose 213 mg/dl (74-100); HDL Cholesterol 78 mg/dl (40-60); Potassium 4.1 mmoL/L (3.5-5.1); Sodium 140 mmol/L (136-145); Triglycerides 150 mg/dl (30-150); VLDL Cholesterol 30 mg/dL (0-40)
[2024-02-06 10:19] LABS: Free T4 (Free Thyroxine) 0.84 ng/dl (0.78-2.19)
[2024-02-06 10:37] LABS: Thyroid Stimulating Hormone 1.63 uIU/mL (0.465-4.68)
== END 2024-02-06 23:59 | disposition home or self-care (01) ==
LOC: LAB 08:53
PROVIDERS: PCP Family Medicine; Visit Provider Internal Medicine
DX: R06.00 Dyspnea, unspecified (principal); G47.33 Obstructive sleep apnea (adult) (pediatric); E78.5 Hyperlipidemia, unspecified; E04.1 Nontoxic single thyroid nodule; R79.89 Other specified abnormal findings of blood chemistry; E11.69 Type 2 diabetes mellitus with other specified complication; E66.9 Obesity, unspecified; I51.89 Other ill-defined heart diseases; E55.9 Vitamin D deficiency, unspecified; R07.89 Other chest pain; I10 Essential (primary) hypertension; R07.9 Chest pain, unspecified; E53.8 Deficiency of other specified B group vitamins; D50.9 Iron deficiency anemia, unspecified
CPT/HCPCS: 36415; 80048; 80061; 80076; 84439; 84443; 85025

== ENCOUNTER 2024-02-25 09:29 | Outpatient (POV) | payer MEDICARE, MEDICAID, SELFPAY ==
--- NOTE | 2024-02-25 09:56 | A.OFFVIS_ITS ---
[facility] Disclaimer: The information contained in this section may have been updated after the patient was seen, as this information can be updated by other users. Medical History (Updated 02/06/24 @ 12:38 by Curt Khan MD) Allergic rhinitis History of asthma Overactive bladder Sleep apnea History of COVID-19 Asthma Anxiety and depression History of gastroesophageal reflux (GERD) Diabetes Allergies Hyperlipidemia Hypertension Post-nasal drainage Rhinitis medicamentosa Atrophic vaginitis Pelvic pain Dysuria Right lower quadrant abdominal pain Right hip pain Edema of left lower extremity Otitis media Bronchitis Sinusitis Osteoporosis Dyspnea Abnormal EKG Chest pain Dizziness Right wrist sprain Shoulder pain, left B12 deficiency Iron deficiency anemia Abdominal pain Posterior pain of left hip Pain in left thigh Left knee pain Abrasion, left knee, initial encounter Left foot pain Fall Cough Surgical History History of cholecystectomy History of tonsillectomy History of History of hysterectomy H/O gastric bypass H/O shoulder surgery Previous back surgery Family History Other Cancer Colon cancer Social History Smoking Status: Former smoker tobacco type: cigarettes packs per day: 0 alcohol intake: never counseling provided: none substance use type: denies use current occupational status: disabled Travel in the last 8 weeks: None household members: spouse housing: house caffeine: No fire extinguisher in home: Yes carbon monox detector in home: Yes firearms in home: No do you feel safe at home: Yes victim of physical abuse: No victim of emotional abuse: No victim of sexual abuse: No would you like helpful sources: No PM Subjective & Objective Subjective Subjective:: Patient is a pleasant 59-year-old female who presents today for medication refill and follow-up. Today she rates her pain a 6 out of 10. Patient does state from her last visit she did have an episode where she was bringing groceries and had her dog get in between her feet causing her to trip and fall. Patient denies any significant injury from this fall. Patient is currently annie ged with Percocet 10 mg 3 times a day and methocarbamol 500 mg 4 times a day. She denies any side effects from this medication. Her Azar has been reviewed and is appropriate. Review of Systems: General: No recent weight changes, no fever, no sleep disturbances Respiratory: No cough, no shortness of air, no recurring pulmonary infections Cardiovascular/peripheral vascular: No chest pain, no palpitations, no edema, no shortness of breath Gastrointestinal: No new onset incontinence, normal bowel movements reported Genitourinary: No new onset incontinence Musculoskeletal: Low back pain Psychiatric: [Normal mood/affect] Neurological: [Denies weakness in extremities], [denies balance issues] Pain at rest (0-10 scale): 6 Objective Objective:: Physical Exam: General: Alert and oriented x3, no acute distress, pleasant and cooperative Lungs: Respirations even and unlabored, symmetrical chest expansion Eyes: PERRL Musculoskeletal: Flexion and extension of lumbar [spine] somewhat guarded secondary to pain, [antalgic gait noted] Neurological: Speech clear, no gross sensory deficit Has patient had previous pain injection?: No Conservative treatment options previously tried: Home exercise plan Length of treatment: Longer than 12 weeks Meds Home Medications and Allergies Home Medications ?Medication ?Instructions ?Recorded ?Confirmed ?Type azelastine 205.5 mcg (0.15 %) 2 spray intranasal BID allergies 03/29/17 02/06/24 History nasal spray 90 days ##90 loratadine 10 mg tablet (Claritin) 10 mg PO DAILY allergies 10/07/17 02/06/24 History ferrous sulfate 142 mg (45 mg 142 mg PO DAILY Supplement 01/20/21 02/06/24 History iron) tablet,extended release fluticasone propionate 50 1 spr intranasal DAILY ALLERGIES 08/18/21 02/06/24 Hi story mcg/actuation nasal spray,suspension blood sugar diagnostic (Blood #50 ea 05/10/22 02/06/24 Rx Glucose Test strips) blood-glucose meter (Blood Glucose #1 ea 05/10/22 02/06/24 Rx Monitoring kit) lancets 33 gauge (OneTouch Delica #100 ea 05/30/22 02/06/24 History Plus Lancet) albuterol sulfate 90 mcg/actuation 2 puff inhalation Q4-6H PRN 08/25/22 02/06/24 History aerosol inhaler (Ventolin HFA) shortness of breath or wheezing conjugated estrogens 0.625 mg/gram 0.625 mg vaginal .twice weekly 07/25/23 02/06/24 Rx vaginal cream (Premarin) SUPPLIMENT #30 grams levocetirizine 5 mg tablet 5 mg PO DAILY 07/25/23 02/06/24 History atorvastatin 20 mg tablet 20 mg PO DAILY 90 days #90 tabs 08/02/23 02/06/24 Rx estradiol 0.01% (0.1 mg/gram) See Rx Instructions vaginal 09/24/23 02/06/24 Rx vaginal cream .COMPLEX #42.5 grams oxybutynin chloride 10 mg 10 mg PO DAILY #90 tabs 09/24/23 02/06/24 Rx tablet,extended release 24 hr amlodipine 10 mg tablet See Rx Instructions .Route 11/20/23 02/06/24 Rx .COMPLEX #30 tabs buspirone 5 mg tablet See Rx Instructions .Route 12/04/23 02/06/24 Rx .COMPLEX #60 tabs dicyclomine 10 mg capsule 10 mg PO BID BOWELS #60 caps 12/04/23 02/06/24 Rx lipase 60,000-protease 1 cap PO DIRECTED SUPPLIMENT 12/04/23 02/06/24 Rx 189,600-amylase 252,600 unit #30 caps capsule, delay rel (Zenpep) omeprazole 40 mg capsule,delayed 40 mg PO .COMPLEX #90 caps 12/04/23 02/06/24 Rx release ondansetron 4 mg disintegrating 4 mg PO Q8H nausea 15 days #30 tabs 12/04/23 02/06/24 Rx tablet polyethylene glycol 3350 17 17 g PO DAILY constipation #238 12/04/23 02/06/24 Rx gram/dose oral powder grams prucalopride 2 mg tablet 2 mg PO DAILY BOWELS 30 days #90 12/04/23 02/06/24 Rx (Motegrity) tabs hydrochlorothiazide 50 mg tablet 50 mg PO DAILY #90 tabs 12/24/23 02/06/24 Rx semaglutide 0.25 mg or 0.5 mg (2 0.5 mg (0.736 mL) SQ WEEKLY #3 mL 12/24/23 02/06/24 Rx mg/3 mL) subcutaneous pen injector (Ozempic) carbamazepine 100 mg chewable 300 mg (3 x 100 mg) PO DAILY . 12/26/23 02/06/24 Rx tablet Trigeminal neuralgia 90 days #270 tabs methocarbamol 500 mg tablet 500 mg PO QID PRN muscle spasms 01/28/24 02/06/24 Rx #120 tabs oxycodone-acetaminophen 10 mg-325 1 tab PO TID #90 tabs 01/28/24 02/06/24 Rx mg tablet (Percocet) losartan 100 mg tablet See Rx Instructions .Route 02/05/24 02/06/24 Rx .COMPLEX #90 tabs montelukast 10 mg tablet See Rx Instructions .Route 02/05/24 02/06/24 Rx .COMPLEX #90 tabs bupropion HCl 150 mg tablet,12 hr 150 mg PO BID MOOD #60 ea 02/20/24 Rx sustained-release ondansetron 4 mg disintegrating 4 - 8 mg (1 - 2 x 4 mg) PO BID PRN 02/21/24 Rx tablet nausea and vomiting #20 tabs New Prescriptions to Start Prescriptions: Allergies Allergy/AdvReac Type Severity Reaction Status Date / Time lisinopril (LISINOPRIL) Allergy Severe S-SWELLS-OR Verified 02/06/24 10:44 AL/THROAT sulfamethoxazole (From Allergy Mild Rash Verified 02/06/24 10:44 Bactrim) trimethoprim (From Bactrim) Allergy Mild Rash Verified 02/06/24 10:44 Assessment and Plan *Assessment and plan (1) Lumbar postlaminectomy syndrome: Status: Acute Category: Medical Code(s): M96.1 - Postlaminectomy syndrome, not elsewhere classified (2) Lumbar radiculopathy: Status: Acute Category: Medical Code(s): M54.16 - Radiculopathy, lumbar region Plan I will refill the patient's Percocet and methocarbamol and provide a 1 month supply of these medications. Patient will return to clinic in 1 month. Risks and benefits of the medication have been explained in detail to the patient. The patient does understand the risk of dependence on the medication when given over a prolonged period. Patient has been advised of risks of oversedation with the prescribed medication. Narcan has been offered to the paitent in the event of oversedation. Patient has been advised that a family member should also be educated regarding administration of Narcan. The patient has been advised to consult with his/her primary care provider and pharmacist regarding drug-drug interaction of medications currently prescribed. Patient has been prescribed a controlled substance after being counseled on the medication, medication safety, and possible side effects. Opioid contract was reviewed and signed by the patient, and that they have agreed to all of the terms set forth by our compliance program. Patient has been instructed to contact the clinic with any concerns before the next appointment. Dr. Purdy has reviewed this note and agrees with this plan of care. This note was dictated using voice recognition software and make contain errors or omissions.
[2024-02-25 10:25] VITALS: BP 150/70; PULSE 74; RESP 14; O2SAT 98; BMI 46.0
== END 2024-02-25 23:59 | disposition home or self-care (01) ==
PROVIDERS: PCP Family Medicine; Visit Provider Nurse Practitioner Family
DX: M96.1 Postlaminectomy syndrome, not elsewhere classified (principal); M54.16 Radiculopathy, lumbar region; Z87.891 Personal history of nicotine dependence; Z79.899 Other long term (current) drug therapy
CPT/HCPCS: 99212; G0463

== ENCOUNTER 2024-03-27 09:20 | Outpatient (POV) | payer MEDICARE, MEDICAID, SELFPAY ==
--- NOTE | 2024-03-27 09:36 | A.OFFVIS_ITS ---
[facility] Disclaimer: The information contained in this section may have been updated after the patient was seen, as this information can be updated by other users. Medical History Allergic rhinitis History of asthma Overactive bladder Sleep apnea History of COVID-19 Asthma Anxiety and depression History of gastroesophageal reflux (GERD) Diabetes Allergies Hyperlipidemia Hypertension Post-nasal drainage Rhinitis medicamentosa Atrophic vaginitis Pelvic pain Dysuria Right lower quadrant abdominal pain Right hip pain Edema of left lower extremity Otitis media Bronchitis Sinusitis Osteoporosis Dyspnea 12/26/2023: Additional workup requested, (overnight oximetry on CPAP, chest x- ray PA and lateral, PFTs with walking test, pulmonology referral) Abnormal EKG Chest pain Dizziness Right wrist sprain Shoulder pain, left B12 deficiency Iron deficiency anemia Abdominal pain Posterior pain of left hip Pain in left thigh Left knee pain Abrasion, left knee, initial encounter Left foot pain Fall Cough Surgical History History of cholecystectomy History of tonsillectomy History of X3 History of hysterectomy H/O gastric bypass H/O shoulder surgery Previous back surgery Family History Other Cancer Colon cancer Social History Smoking Status: Former smoker tobacco type: cigarettes packs per day: 0 alcohol intake: never counseling provided: none substance use type: denies use current occupational status: other Travel in the last 8 weeks: None household members: spouse housing: house caffeine: No fire extinguisher in home: Yes carbon monox detector in home: Yes firearms in home: No do you feel safe at home: Yes victim of physical abuse: No victim of emotional abuse: No victim of sexual abuse: No would you like helpful sources: No Have you lived/traveled outside [place] in past 30 days?: No Contact w/someone who lives/traveled outside [place] past 30 days?: No Exposure to someone with infectious disease in past 14 days?: No Do you have a fever (greater than 100.4 F or 38 C)?: No Have you tested positive for COVID-19: No Exposed to someone with COVID-19 in past 14 days?: No Do you have a sore throat?: No Do you have a cough?: No Do you have any weakness?: No Do you have any diarrhea?: No Are you experiencing any unusual bleeding?: No Do you have any muscle aches/pain?: No Do you have any abdominal pain?: No Are you experiencing loss of taste or smell?: No PM Subjective & Objective Subjective Subjective:: Patient is a pleasant 59-year-old female who presents today for medication refill and follow-up. Today she rates her pain a 6 out of 10. She denies any new trauma or injury. She is currently managed with Percocet 10 mg 3 times a day and methocarbamol 500 mg 4 times a day. She denies any side effects from this medication. Her Azar has been reviewed and is appropriate. Review of Systems: General: No recent weight changes, no fever, no sleep disturbances Respiratory: No cough, no shortness of air, no recurring pulmonary infections Cardiovascular/peripheral vascular: No chest pain, no palpitations, no edema, no shortness of breath Gastrointestinal: No new onset incontinence, normal bowel movements reported Genitourinary: No new onset incontinence Musculoskeletal: Low back pain Psychiatric: [Normal mood/affect] Neurological: [Denies weakness in extremities], [denies balance issues] Pain at rest (0-10 scale): 6 Objective Objective:: Physical Exam: General: Alert and oriented x3, no acute distress, pleasant and cooperative Lungs: Respirations even and unlabored, symmetrical chest expansion Eyes: PERRL Musculoskeletal: Flexion and extension of lumbar [spine] somewhat guarded secondary to pain, [antalgic gait noted] Neurological: Speech clear, no gross sensory deficit Has patient had previous pain injection?: No Conservative treatment options previously tried: Prescription medications Length of treatment: Longer than 12 weeks Meds Home Medications and Allergies Home Medications ?Medication ?Instructions ?Recorded ?Confirmed ?Type azelastine 205.5 mcg (0.15 %) 2 spray intranasal BID allergies 03/29/17 03/27/24 History nasal spray 90 days ##90 loratadine 10 mg tablet (Claritin) 10 mg PO DAILY allergies 10/07/17 03/27/24 History ferrous sulfate 142 mg (45 mg 142 mg PO DAILY Supplement 01/20/21 03/27/24 History iron) tablet,extended release fluticasone propionate 50 1 spr intranasal DAILY ALLERGIES 08/18/21 03/27/24 History mcg/actuation nasal spray,suspension blood sugar diagnostic (Blood #50 ea 05/10/22 03/27/24 Rx Glucose Test strips) blood-glucose meter (Blood Glucose #1 ea 05/10/22 03/27/24 Rx Monitoring kit) lancets 33 gauge (OneTouch Delica #100 ea 05/30/22 03/27/24 History Plus Lancet) albuterol sulfate 90 mcg/actuation 2 puff inhalation Q4-6H PRN 08/25/22 03/27/24 History aerosol inhaler (Ventolin HFA) shortness of breath or wheezing conjugated estrogens 0.625 mg/gram 0.625 mg vaginal .twice weekly 07/25/23 03/27/24 Rx vaginal cream (Premarin) SUPPLIMENT #30 grams levocetirizine 5 mg tablet 5 mg PO DAILY 07/25/23 03/27/24 History atorvastatin 20 mg tablet 20 mg PO DAILY 90 days #90 tabs 08/02/23 03/27/24 Rx estradiol 0.01% (0.1 mg/gram) See Rx Instructions vaginal 09/24/23 03/27/24 Rx vaginal cream .COMPLEX #42.5 grams oxybutynin chloride 10 mg 10 mg PO DAILY #90 tabs 09/24/23 03/27/24 Rx tablet,extended release 24 hr lipase 60,000-protease 1 cap PO DIRECTED SUPPLIMENT 12/04/23 03/27/24 Rx 189,600-amylase 252,600 unit #30 caps capsule, delay rel (Zenpep) omeprazole 40 mg capsule,delayed 40 mg PO .COMPLEX #90 caps 12/04/23 03/27/24 Rx release polyethylene glycol 3350 17 17 g PO DAILY constipation #238 12/04/23 03/27/24 Rx gram/dose oral powder grams prucalopride 2 mg tablet 2 mg PO DAILY BOWELS 30 days #90 12/04/23 03/27/24 Rx (Motegrity) tabs hydrochlorothiazide 50 mg tablet 50 mg PO DAILY #90 tabs 12/24/23 03/27/24 Rx semaglutide 0.25 mg or 0.5 mg (2 0.5 mg (0.736 mL) SQ WEEKLY #3 mL 12/24/23 03/27/24 Rx mg/3 mL) subcutaneous pen injector (Ozempic) carbamazepine 100 mg chewable 300 mg (3 x 100 mg) PO DAILY . 12/26/23 03/27/24 Rx tablet Trigeminal neuralgia 90 days #270 tabs methocarbamol 500 mg tablet 500 mg PO QID PRN muscle spasms 01/28/24 03/27/24 Rx #120 tabs losartan 100 mg tablet See Rx Instructions .Route 02/05/24 03/27/24 Rx .COMPLEX #90 tabs montelukast 10 mg tablet See Rx Instructions .Route 02/05/24 03/27/24 Rx .COMPLEX #90 tabs bupropion HCl 150 mg tablet,12 hr 150 mg PO BID MOOD #60 ea 02/20/24 03/27/24 Rx sustained-release ondansetron 4 mg disintegrating 4 - 8 mg (1 - 2 x 4 mg) PO BID PRN 02/21/24 03/27/24 Rx tablet nausea and vomiting #20 tabs oxycodone-acetaminophen 10 mg-325 1 tab PO TID #90 tabs 02/25/24 03/27/24 Rx mg tablet (Percocet) buspirone 10 mg tablet 10 mg PO BID #180 tabs 03/04/24 03/27/24 Rx ipratropium bromide 21 mcg (0.03 1 spray intranasal DIRECTED 03/04/24 03/27/24 History %) nasal spray Breathing Problems dicyclomine 10 mg capsule 10 mg PO BID BOWELS #60 caps 03/14/24 03/27/24 Rx amlodipine 10 mg tablet See Rx Instructions .Route 03/20/24 03/27/24 Rx .COMPLEX #30 tabs New Prescriptions to Start Prescriptions: Allergies Allergy/AdvReac Type Severity Reaction Status Date / Time lisinopril (LISINOPRIL) Allergy Severe S-SWELLS-OR Verified 03/04/24 10:16 AL/THROAT sulfamethoxazole (From Allergy Mild Rash Verified 03/04/24 10:16 Bactrim) trimethoprim (From Bactrim) Allergy Mild Rash Verified 03/04/24 10:16 Assessment and Plan *Assessment and plan (1) Lumbar postlaminectomy syndrome: Status: Acute Category: Medical Code(s): M96.1 - Postlaminectomy syndrome, not elsewhere classified (2) Degenerative disc disease, lumbar: Status: Acute Category: Medical Code(s): M51.369 - Other intervertebral disc degeneration, lumbar region without mention of lumbar back pain or lower extremity pain (3) Lumbar radiculopathy: Status: Acute Category: Medical Code(s): M54.16 - Radiculopathy, lumbar region Plan I will refill the patient's Percocet and make sure that she does have refills on her muscle relaxer. Patient will return to clinic in 1 month for reevaluation of symptoms and plan of care. Risks and benefits of the medication have been explained in detail to the patient. The patient does understand the risk of dependence on the medication when given over a prolonged period. Patient has been advised of risks of oversedation with the prescribed medication. Narcan has been offered to the paitent in the event of oversedation. Patient has been advised that a family member should also be educated regarding administration of Narcan. The patient has been advised to consult with his/her primary care provider and pharmacist regarding drug-drug interaction of medications currently prescribed. Patient has been prescribed a controlled substance after being counseled on the medication, medication safety, and possible side effects. Opioid contract was reviewed and signed by the patient, and that they have agreed to all of the terms set forth by our compliance program. A UDS is needed to verify patient's compliance with our office pain contract. This is ordered based off specific treatments related to chronic pain with the potential to abuse certain medications. Patient has been instructed to contact the clinic with any concerns before the next appointment. Dr. Purdy has reviewed this note and agrees with this plan of care. This note was dictated using voice recognition software and make contain errors or omissions.
[2024-03-27 09:37] VITALS: BP 155/65; PULSE 67; RESP 18; O2SAT 98; BMI 46.0
== END 2024-03-27 23:59 | disposition home or self-care (01) ==
PROVIDERS: PCP Family Medicine; Visit Provider Nurse Practitioner Family
DX: M96.1 Postlaminectomy syndrome, not elsewhere classified (principal); M51.16 Intervertebral disc disorders with radiculopathy, lumbar region; Z87.891 Personal history of nicotine dependence; Z79.899 Other long term (current) drug therapy
CPT/HCPCS: 99212; G0463

== ENCOUNTER 2024-04-10 12:45 | Outpatient (CLI) | payer MEDICARE, MEDICAID, SELFPAY ==
[2024-04-10] MEDS: METHACHOLINE CHLORIDE 65MG/18ML KIT 64 MG IH (14:47)
[2024-04-10] MEDS: ALBUTEROL 0.083% 2.5 MG/3 ML NEB IH (14:48)
== END 2024-04-10 23:59 | disposition home or self-care (01) ==
LOC: RT 12:46
PROVIDERS: PCP Family Medicine; Visit Provider Internal Medicine Pulmonary Disease
DX: R06.00 Dyspnea, unspecified (principal)
CPT/HCPCS: 94070; 95070; J7613; J7674

== ENCOUNTER 2024-04-24 08:17 | Outpatient (POV) | payer MEDICARE, MEDICAID, SELFPAY ==
[2024-04-24 08:35] VITALS: BP 181/64; PULSE 75; RESP 18; O2SAT 98; BMI 46.0
--- NOTE | 2024-04-24 08:50 | EXP.PAIN.SOA ---
[facility] Disclaimer: The information contained in this section may have been updated after the patient was seen, as this information can be updated by other users. Medical History Allergic rhinitis History of asthma Overactive bladder Sleep apnea History of COVID-19 Asthma Anxiety and depression History of gastroesophageal reflux (GERD) Diabetes Allergies Hyperlipidemia Hypertension Post-nasal drainage Rhinitis medicamentosa Atrophic vaginitis Pelvic pain Dysuria Right lower quadrant abdominal pain Right hip pain Edema of left lower extremity Otitis media Bronchitis Sinusitis Osteoporosis Dyspnea 12/26/2023: Additional workup requested, (overnight oximetry on CPAP, chest x-ray PA and lateral, PFTs with walking test, pulmonology referral) Abnormal EKG Chest pain Dizziness Right wrist sprain Shoulder pain, left B12 deficiency Iron deficiency anemia Abdominal pain Posterior pain of left hip Pain in left thigh Left knee pain Abrasion, left knee, initial encounter Left foot pain Fall Cough Surgical History History of cholecystectomy History of tonsillectomy History of X3 History of hysterectomy H/O gastric bypass H/O shoulder surgery Previous back surgery Family History Other Cancer Colon cancer Social History Smoking Status: Former smoker tobacco type: cigarettes packs per day: 0 alcohol intake: never counseling provided: none substance use type: denies use current occupational status: other Travel in the last 8 weeks: None household members: spouse housing: house caffeine: No fire extinguisher in home: Yes carbon monox detector in home: Yes firearms in home: No do you feel safe at home: Yes victim of physical abuse: No victim of emotional abuse: No victim of sexual abuse: No would you like helpful sources: No Have you lived/traveled outside [place] in past 30 days?: No Contact w/someone who lives/traveled outside US past 30 days?: No Exposure to someone with infectious disease in past 14 days?: No Do you have a fever (greater than 100.4 F or 38 C)?: No Have you tested positive for COVID-19: No Exposed to someone with COVID-19 in past 14 days?: No Do you have a sore throat?: No Do you have a cough?: No Do you have any weakness?: No Do you have any diarrhea?: No Are you experiencing any unusual bleeding?: No Do you have any muscle aches/pain?: No Do you have any abdominal pain?: No Are you experiencing loss of taste or smell?: No PM Subjective & Objective Subjective Subjective:: Patient is a pleasant 59-year-old female who presents today for medication refill. Today she rates her pain as 6 out of 10. She denies any new trauma or injury. She does state overall she has been ambulating fine and maintaining on her current medications. Patient is currently managed with Percocet 10 mg 3 times a day and methocarbamol 500 mg 4 times a day. She denies any side effects. Patient does state that she is planning a trip to [place] here shortly to go help with her mother who has progressed more and has Alzheimer's. Her Azar has been reviewed and is appropriate. Review of Systems: General: No recent weight changes, no fever, no sleep disturbances Respiratory: No cough, no shortness of air, no recurring pulmonary infections Cardiovascular/peripheral vascular: No chest pain, no palpitations, no edema, no shortness of breath Gastrointestinal: No new onset incontinence, normal bowel movements reported Genitourinary: No new onset incontinence Musculoskeletal: Low back pain Psychiatric: [Normal mood/affect] Neurological: [Denies weakness in extremities], [denies balance issues] Pain at rest (0-10 scale): 6 Objective Objective:: Physical Exam: General: Alert and oriented x3, no acute distress, pleasant and cooperative Lungs: Respirations even and unlabored, symmetrical chest expansion Eyes: PERRL Musculoskeletal: Flexion and extension of lumbar [spine] somewhat guarded secondary to pain, [antalgic gait noted] Neurological: Speech clear, no gross sensory deficit Has patient had previous pain injection?: No Conservative treatment options previously tried: Prescription medications Length of treatment: Longer than 12 weeks Meds Home Medications and Allergies Home Medications ?Medication ?Instructions ?Recorded ?Confirmed ?Type azelastine 205.5 mcg (0.15 %) 2 spray intranasal BID allergies 03/29/17 04/17/24 History nasal spray 90 days ##90 loratadine 10 mg tablet (Claritin) 10 mg PO DAILY allergies 10/07/17 04/17/24 History ferrous sulfate 142 mg (45 mg 142 mg PO DAILY Supplement 01/20/21 04/17/24 History iron) tablet,extended release fluticasone propionate 50 1 spr intranasal DAILY ALLERGIES 08/18/21 04/17/24 History mcg/actuation nasal spray,suspension blood sugar diagnostic (Blood #50 ea 05/10/22 04/17/24 Rx Glucose Test strips) blood-glucose meter (Blood Glucose #1 ea 05/10/22 04/17/24 Rx Monitoring kit) lancets 33 gauge (OneTouch Delica #100 ea 05/30/22 04/17/24 History Plus Lancet) albuterol sulfate 90 mcg/actuation 2 puff inhalation Q4-6H PRN 08/25/22 04/17/24 History aerosol inhaler (Ventolin HFA) shortness of breath or wheezing levocetirizine 5 mg tablet 5 mg PO DAILY 07/25/23 04/17/24 History atorvastatin 20 mg tablet 20 mg PO DAILY 90 days #90 tabs 08/02/23 04/17/24 Rx lipase 60,000-protease 1 cap PO DIRECTED SUPPLIMENT 12/04/23 04/17/24 Rx 189,600-amylase 252,600 unit #30 caps capsule, delay rel (Zenpep) omeprazole 40 mg capsule,delayed 40 mg PO .COMPLEX #90 caps 12/04/23 04/17/24 Rx release polyethylene glycol 3350 17 17 g PO DAILY constipation #238 12/04/23 04/17/24 Rx gram/dose oral powder grams prucalopride 2 mg tablet 2 mg PO DAILY BOWELS 30 days #90 12/04/23 04/17/24 Rx (Motegrity) tabs hydrochlorothiazide 50 mg tablet 50 mg PO DAILY #90 tabs 12/24/23 04/17/24 Rx semaglutide 0.25 mg or 0.5 mg (2 0.5 mg (0.736 mL) SQ WEEKLY #3 mL 12/24/23 04/17/24 Rx mg/3 mL) subcutaneous pen injector (Ozempic) carbamazepine 100 mg chewable 300 mg (3 x 100 mg) PO DAILY . 12/26/23 04/17/24 Rx tablet Trigeminal neuralgia 90 days #270 tabs methocarbamol 500 mg tablet 500 mg PO QID PRN muscle spasms 01/28/24 04/17/24 Rx #120 tabs losartan 100 mg tablet See Rx Instructions .Route 02/05/24 04/17/24 Rx .COMPLEX #90 tabs montelukast 10 mg tablet See Rx Instructions .Route 02/05/24 04/17/24 Rx .COMPLEX #90 tabs bupropion HCl 150 mg tablet,12 hr 150 mg PO BID MOOD #60 ea 02/20/24 04/17/24 Rx sustained-release ondansetron 4 mg disintegrating 4 - 8 mg (1 - 2 x 4 mg) PO BID PRN 02/21/24 04/17/24 Rx tablet nausea and vomiting #20 tabs buspirone 10 mg tablet 10 mg PO BID #180 tabs 03/04/24 04/17/24 Rx ipratropium bromide 21 mcg (0.03 1 spray intranasal DIRECTED 03/04/24 04/17/24 History %) nasal spray Breathing Problems dicyclomine 10 mg capsule 10 mg PO BID BOWELS #60 caps 03/14/24 04/17/24 Rx amlodipine 10 mg tablet See Rx Instructions .Route 03/20/24 04/17/24 Rx .COMPLEX #30 tabs oxycodone-acetaminophen 10 mg-325 1 tab PO TID #90 tabs 03/27/24 04/17/24 Rx mg tablet (Percocet) estradiol 0.01% (0.1 mg/gram) See Rx Instructions vaginal 03/31/24 04/17/24 Rx vaginal cream .COMPLEX #42.5 grams oxybutynin chloride 10 mg 10 mg PO DAILY #90 tabs 03/31/24 04/17/24 Rx tablet,extended release 24 hr New Prescriptions to Start Prescriptions: Allergies Allergy/AdvReac Type Severity Reaction Status Date / Time lisinopril (LISINOPRIL) Allergy Severe S-SWELLS-OR Verified 04/17/24 10:40 AL/THROAT sulfamethoxazole (From Allergy Mild Rash Verified 04/17/24 10:40 Bactrim) trimethoprim (From Bactrim) Allergy Mild Rash Verified 04/17/24 10:40 Assessment and Plan *Assessment and plan (1) Lumbar radiculopathy: Status: Acute Category: Medical Code(s): M54.16 - Radiculopathy, lumbar region (2) Degenerative disc disease, lumbar: Status: Acute Category: Medical Code(s): M51.369 - Other intervertebral disc degeneration, lumbar region without mention of lumbar back pain or lower extremity pain (3) Lumbar postlaminectomy syndrome: Status: Acute Category: Medical Code(s): M96.1 - Postlaminectomy syndrome, not elsewhere classified Plan I will refill her Percocet and methocarbamol and provide a 1 month supply of these medications. Patient will return in 1 month for patient of symptoms and plan of care. Risks and benefits of the medication have been explained in detail to the patient. The patient does understand the risk of dependence on the medication when given over a prolonged period. Patient has been advised of risks of oversedation with the prescribed medication. Narcan has been offered to the paitent in the event of oversedation. Patient has been advised that a family member should also be educated regarding administration of Narcan. The patient has been advised to consult with his/her primary care provider and pharmacist regarding drug-drug interaction of medications currently prescribed. Patient has been prescribed a controlled substance after being counseled on the medication, medication safety, and possible side effects. Opioid contract was reviewed and signed by the patient, and that they have agreed to all of the terms set forth by our compliance program. A UDS is needed to verify patient's compliance with our office pain contract. This is ordered based off specific treatments related to chronic pain with the potential to abuse certain medications. Patient has been instructed to contact the clinic with any concerns before the next appointment. Dr. Purdy has reviewed this note and agrees with this plan of care. This note was dictated using voice recognition software and make contain errors or omissions.
== END 2024-04-24 23:59 | disposition home or self-care (01) ==
PROVIDERS: PCP Family Medicine; Visit Provider Nurse Practitioner Family
DX: M96.1 Postlaminectomy syndrome, not elsewhere classified (principal); M51.16 Intervertebral disc disorders with radiculopathy, lumbar region; Z87.891 Personal history of nicotine dependence; Z79.899 Other long term (current) drug therapy
CPT/HCPCS: 99212; G0463

== ENCOUNTER 2024-05-21 08:45 | Outpatient (POV) | payer MEDICAID, OTHER, SELFPAY ==
--- NOTE | 2024-05-21 09:19 | A.OFFVIS_ITS ---
[facility] Disclaimer: The information contained in this section may have been updated after the patient was seen, as this information can be updated by other users. Medical History Allergic rhinitis History of asthma Overactive bladder Sleep apnea History of COVID-19 Asthma Anxiety and depression History of gastroesophageal reflux (GERD) Diabetes Allergies Hyperlipidemia Hypertension Post-nasal drainage Rhinitis medicamentosa Atrophic vaginitis Pelvic pain Dysuria Right lower quadrant abdominal pain Right hip pain Edema of left lower extremity Otitis media Bronchitis Sinusitis Osteoporosis Dyspnea 12/26/2023: Additional workup requested, (overnight oximetry on CPAP, chest x- ray PA and lateral, PFTs with walking test, pulmonology referral) Abnormal EKG Chest pain Dizziness Right wrist sprain Shoulder pain, left B12 deficiency Iron deficiency anemia Abdominal pain Posterior pain of left hip Pain in left thigh Left knee pain Abrasion, left knee, initial encounter Left foot pain Fall Cough Surgical History History of cholecystectomy History of tonsillectomy History of X3 History of hysterectomy H/O gastric bypass H/O shoulder surgery Previous back surgery Family History Other Cancer Colon cancer Social History Smoking Status: Former smoker tobacco type: cigarettes packs per day: 0 alcohol intake: never counseling provided: none substance use type: denies use current occupational status: other Travel in the last 8 weeks: None household members: spouse housing: house caffeine: No fire extinguisher in home: Yes carbon monox detector in home: Yes firearms in home: No do you feel safe at home: Yes victim of physical abuse: No victim of emotional abuse: No victim of sexual abuse: No would you like helpful sources: No PM Subjective & Objective Subjective Subjective:: Patient is a pleasant 59-year-old female who presents today for monthly medication refill. Today she rates her pain a 6 out of 10. She denies any new trauma or injury. Patient does state that from her last visit she was able to go down to [place] and visit her mother who does have Alzheimer's. She states that she has progressively worsened and that she is even having more difficulty walking. Patient does have a lot of concern with her 1 sister caring for her mother on her own. Patient is currently managed from our office with Percocet 10 mg once a day and methocarbamol 500 mg 4 times a day. She denies any side effects. Her Azar has been reviewed and is appropriate. Review of Systems: General: No recent weight changes, no fever, no sleep disturbances Respiratory: No cough, no shortness of air, no recurring pulmonary infections Cardiovascular/peripheral vascular: No chest pain, no palpitations, no edema, no shortness of breath Gastrointestinal: No new onset incontinence, normal bowel movements reported Genitourinary: No new onset incontinence Musculoskeletal: Low back pain Psychiatric: [Normal mood/affect] Neurological: [Denies weakness in extremities], [denies balance issues] Pain at rest (0-10 scale): 6 Objective Objective:: Physical Exam: General: Alert and oriented x3, no acute distress, pleasant and cooperative Lungs: Respirations even and unlabored, symmetrical chest expansion Eyes: PERRL Musculoskeletal: Flexion and extension of lumbar [spine] somewhat guarded secondary to pain, [antalgic gait noted] Neurological: Speech clear, no gross sensory deficit Has patient had previous pain injection?: No Conservative treatment options previously tried: Prescription medications Length of treatment: Longer than 12 weeks Meds Home Medications and Allergies Home Medications ?Medication ?Instructions ?Recorded ?Confirmed ?Type azelastine 205.5 mcg (0.15 %) 2 spray intranasal BID allergies 03/29/17 05/16/24 History nasal spray 90 days ##90 loratadine 10 mg tablet (Claritin) 10 mg PO DAILY allergies 10/07/17 05/16/24 History ferrous sulfate 142 mg (45 mg 142 mg PO DAILY Supplement 01/20/21 05/16/24 History iron) tablet,extended release fluticasone propionate 50 1 spr intranasal DAILY ALLERGIES 08/18/21 05/16/24 History mcg/actuation nasal spray,suspension blood sugar diagnostic (Blood #50 ea 05/10/22 05/16/24 Rx Glucose Test strips) blood-glucose meter (Blood Glucose #1 ea 05/10/22 05/16/24 Rx Monitoring kit) lancets 33 gauge (OneTouch Delica #100 ea 05/30/22 05/16/24 History Plus Lancet) levocetirizine 5 mg tablet 5 mg PO DAILY 07/25/23 05/16/24 History atorvastatin 20 mg tablet 20 mg PO DAILY 90 days #90 tabs 08/02/23 05/16/24 Rx lipase 60,000-protease 1 cap PO DIRECTED SUPPLIMENT 12/04/23 05/16/24 Rx 189,600-amylase 252,600 unit #30 caps capsule, delay rel (Zenpep) omeprazole 40 mg capsule,delayed 40 mg PO .COMPLEX #90 caps 12/04/23 05/16/24 Rx release polyethylene glycol 3350 17 17 g PO DAILY constipation #238 12/04/23 05/16/24 Rx gram/dose oral powder grams prucalopride 2 mg tablet 2 mg PO DAILY BOWELS 30 days #90 12/04/23 05/16/24 Rx (Motegrity) tabs carbamazepine 100 mg chewable 300 mg (3 x 100 mg) PO DAILY . 12/26/23 05/16/24 Rx tablet Trigeminal neuralgia 90 days #270 tabs montelukast 10 mg tablet See Rx Instructions .Route 02/05/24 05/16/24 Rx .COMPLEX #90 tabs bupropion HCl 150 mg tablet,12 hr 150 mg PO BID MOOD #60 ea 02/20/24 05/16/24 Rx sustained-release ondansetron 4 mg disintegrating 4 - 8 mg (1 - 2 x 4 mg) PO BID PRN 02/21/24 05/16/24 Rx tablet nausea and vomiting #20 tabs buspirone 10 mg tablet 10 mg PO BID #180 tabs 03/04/24 05/16/24 Rx ipratropium bromide 21 mcg (0.03 1 spray intranasal DIRECTED 03/04/24 05/16/24 History %) nasal spray Breathing Problems dicyclomine 10 mg capsule 10 mg PO BID BOWELS #60 caps 03/14/24 05/16/24 Rx estradiol 0.01% (0.1 mg/gram) See Rx Instructions vaginal 03/31/24 05/16/24 Rx vaginal cream .COMPLEX #42.5 grams oxybutynin chloride 10 mg 10 mg PO DAILY #90 tabs 03/31/24 05/16/24 Rx tablet,extended release 24 hr methocarbamol 500 mg tablet 500 mg PO QID PRN muscle spasms 04/24/24 05/16/24 Rx #120 tabs oxycodone-acetaminophen 10 mg-325 1 tab PO TID #90 tabs 04/24/24 05/16/24 Rx mg tablet (Percocet) albuterol sulfate 90 mcg/actuation 2 puff inhalation Q4-6H PRN 05/16/24 05/16/24 Rx aerosol inhaler (Ventolin HFA) shortness of breath or wheezing #8.5 grams amlodipine 10 mg tablet 10 mg PO DAILY High blood pressure 05/16/24 05/16/24 Rx #90 tabs hydrochlorothiazide 50 mg tablet 50 mg PO DAILY #90 tabs 05/16/24 05/16/24 Rx losartan 100 mg tablet 100 mg PO DAILY High blood 05/16/24 05/16/24 Rx pressure #90 tabs semaglutide 0.25 mg or 0.5 mg (2 0.5 mg (0.736 mL) SQ WEEKLY #3 mL 05/16/24 05/16/24 Rx mg/3 mL) subcutaneous pen injector (Garden Mate) New Prescriptions to Start Prescriptions: Allergies Allergy/AdvReac Type Severity Reaction Status Date / Time lisinopril (LISINOPRIL) Allergy Severe S-SWELLS-OR Verified 05/16/24 10:11 AL/THROAT sulfamethoxazole (From Allergy Mild Rash Verified 05/16/24 10:11 Bactrim) trimethoprim (From Bactrim) Allergy Mild Rash Verified 05/16/24 10:11 Assessment and Plan *Assessment and plan (1) Lumbar radiculopathy: Status: Acute Category: Medical Code(s): M54.16 - Radiculopathy, lumbar region (2) Degenerative disc disease, lumbar: Status: Acute Category: Medical Code(s): M51.369 - Other intervertebral disc degeneration, lumbar region without mention of lumbar back pain or lower extremity pain (3) Lumbar postlaminectomy syndrome: Status: Acute Category: Medical Code(s): M96.1 - Postlaminectomy syndrome, not elsewhere classified Plan I will refill her Percocet and make sure she has refills on her methocarbamol. Patient will return to clinic in 1 month. Risks and benefits of the medication have been explained in detail to the patient. The patient does understand the risk of dependence on the medication when given over a prolonged period. Patient has been advised of risks of oversedation with the prescribed medication. Narcan has been offered to the paitent in the event of oversedation. Patient has been advised that a family member should also be educated regarding administration of Narcan. The patient has been advised to consult with his/her primary care provider and pharmacist regarding drug-drug interaction of medications currently prescribed. Patient has been prescribed a controlled substance after being counseled on the medication, medication safety, and possible side effects. Opioid contract was reviewed and signed by the patient, and that they have agreed to all of the terms set forth by our compliance program. A UDS is needed to verify patient's compliance with our office pain contract. This is ordered based off specific treatments related to chronic pain with the potential to abuse certain medications. Patient has been instructed to contact the clinic with any concerns before the next appointment. Dr. Purdy has reviewed this note and agrees with this plan of care. This note was dictated using voice recognition software and make contain errors or omissions.
[2024-05-21 09:45] VITALS: BP 146/75; PULSE 66; RESP 16; O2SAT 97; BMI 46.0
== END 2024-05-21 23:59 | disposition home or self-care (01) ==
PROVIDERS: PCP Family Medicine; Visit Provider Nurse Practitioner Family
DX: M51.16 Intervertebral disc disorders with radiculopathy, lumbar region (principal); M96.1 Postlaminectomy syndrome, not elsewhere classified; Z87.891 Personal history of nicotine dependence; Z79.899 Other long term (current) drug therapy
CPT/HCPCS: 99212; G0463

== ENCOUNTER 2024-06-17 13:56 | Outpatient (CLI) | payer OTHER, MEDICAID, SELFPAY ==
[2024-06-17 14:32] LABS: Basophils % 0.3 % (0.1-2.0); Eosinophils # 0.1 K/mm3 (0.0-0.4); Eosinophils % 0.6 % (0.1-12.0); Hematocrit 42.6 % (37.0-47.0); Hemoglobin 14.2 g/dL (12.2-16.2); Lymphocytes # 2.3 K/mm3 (0.7-4.5); Lymphocytes % 23.7 % (10-50); Mean Corpuscular HGB Conc 33.3 g/dL (31.8-35.4); Mean Corpuscular Hemoglobin 30.4 pg (27.0-31.2); Mean Corpuscular Volume 91.2 fl (81-99); Monocytes # 0.8 K/mm3 (0.1-1.0); Monocytes % 8.6 % (1.7-9.3); Neutrophils # 6.4 K/mm3 (1.8-7.8); Neutrophils % 66.4 % (37.0-80.0); Platelet Count 267 K/mm3 (142-424); Red Blood Count 4.67 M/mm3 (4.20-5.40); Red Cell Distribution Width 12.8 % (11.5-17.5); White Blood Count 9.6 K/mm3 (4.8-10.8)
[2024-06-17 15:30] LABS: Alanine Aminotransferase 22 U/L (12-78); Albumin Level 4.2 g/dl (3.5-5.0); Alkaline Phosphatase 88 U/L (38-126); Aspartate Amino Transferase 22 U/L (14-36); Bilirubin,Direct 0.2 mg/dl (0.0-0.4); Bilirubin,Indirect 0.2 mg/dL (0.0-0.9); Bilirubin,Total 0.4 mg/dl (0.2-1.3); Bilirubin,Unconjugated 0.2 mg/dL (0.0-1.1); Blood Urea Nitrogen 13 mg/dl (7-17); Calcium 9.9 mg/dl (8.4-10.2); Carbon Dioxide 30 mmol/L (22.0-30.0); Chloride 96 mmol/L (98-107); Chol/HDL Ratio 2.4 (1-3.5); Cholesterol 160 mg/dl (140-200); Estimated Glomerular Filt Rate 73 ml/min (>60); GFR (African American) 89 ML/MIN (>60); Glucose 127 mg/dl (74-100); HDL Cholesterol 67 mg/dl (40-60); Potassium 4.1 mmoL/L (3.5-5.1); Total Protein,Serum 6.5 g/dl (6.3-8.2); Triglycerides 202 mg/dl (30-150); VLDL Cholesterol 40 mg/dL (0-40)
[2024-06-17 15:31] LABS: Anion Gap 12.1 mEq/L (5-15); Sodium 134 mmol/L (136-145)
[2024-06-17 15:42] LABS: Direct LDL Cholesterol 72.21 mg/dL (100-129)
[2024-06-17 15:49] LABS: Free T4 (Free Thyroxine) 0.85 ng/dl (0.78-2.19)
[2024-06-17 16:03] LABS: Thyroid Stimulating Hormone 1.54 uIU/mL (0.465-4.68)
== END 2024-06-17 23:59 | disposition home or self-care (01) ==
LOC: LAB 13:57
PROVIDERS: PCP Family Medicine; Visit Provider Internal Medicine
DX: D50.9 Iron deficiency anemia, unspecified (principal); I10 Essential (primary) hypertension; E55.9 Vitamin D deficiency, unspecified; E78.5 Hyperlipidemia, unspecified
CPT/HCPCS: 36415; 80048; 80061; 80076; 84439; 84443; 85025

== ENCOUNTER 2024-06-18 08:56 | Outpatient (POV) | payer OTHER, MEDICAID, SELFPAY ==
[2024-06-18 09:05] VITALS: BP 152/79; BP 156/75; PULSE 63; RESP 14; O2SAT 99; BMI 46.5
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
== END 2024-06-18 23:59 | disposition home or self-care (01) ==
PROVIDERS: PCP Family Medicine; Visit Provider Nurse Practitioner Family
DX: M96.1 Postlaminectomy syndrome, not elsewhere classified (principal); M51.16 Intervertebral disc disorders with radiculopathy, lumbar region; Z87.891 Personal history of nicotine dependence; Z79.899 Other long term (current) drug therapy
CPT/HCPCS: 99212; G0463

== ENCOUNTER 2024-07-17 13:04 | Outpatient (POV) | payer OTHER, MEDICAID, SELFPAY ==
--- NOTE | 2024-07-17 13:15 | A.OFFVIS_ITS ---
[facility] Disclaimer: The information contained in this section may have been updated after the patient was seen, as this information can be updated by other users. Medical History AMAURY (obstructive sleep apnea) Asymptomatic treated with an oral appliance Allergic rhinitis History of asthma Overactive bladder Sleep apnea History of COVID-19 Asthma Anxiety and depression History of gastroesophageal reflux (GERD) Diabetes Allergies Hyperlipidemia Hypertension Post-nasal drainage Rhinitis medicamentosa Atrophic vaginitis Pelvic pain Dysuria Right lower quadrant abdominal pain Right hip pain Edema of left lower extremity Otitis media Bronchitis Sinusitis Osteoporosis Dyspnea 12/26/2023: Additional workup requested, (overnight oximetry on CPAP, chest x- ray PA and lateral, PFTs with walking test, pulmonology referral) Abnormal EKG Chest pain Dizziness Right wrist sprain Shoulder pain, left B12 deficiency Iron deficiency anemia Abdominal pain Posterior pain of left hip Pain in left thigh Left knee pain Abrasion, left knee, initial encounter Left foot pain Fall Cough Surgical History History of cholecystectomy History of tonsillectomy History of X3 History of hysterectomy H/O gastric bypass H/O shoulder surgery Previous back surgery Family History Other Cancer Colon cancer Social History Smoking Status: Former smoker tobacco type: cigarettes packs per day: 0 alcohol intake: never counseling provided: none substance use type: denies use current occupational status: other Travel in the last 8 weeks?: None household members: spouse housing: house caffeine: No fire extinguisher in home: Yes carbon monox detector in home: Yes firearms in home: No do you feel safe at home: Yes victim of physical abuse: No victim of emotional abuse: No victim of sexual abuse: No would you like helpful sources: No PM Subjective & Objective Subjective Subjective:: Patient is a pleasant 59-year-old female who presents today for 1 month follow- up and medication refill. Today she rates her pain a 6 out of 10. Patient denies any new changes. She does state that she leaves for [place] today to help with her mother. Patient does states she did recently have a fall and ended up breaking her nose, blocking both her eyes, fracturing her neck and her wrist. Patient states that they did tell her sister that they thought she would need surgery however they were questioning whether or not this will be in her best interest with the dementia. Patient is currently managed with Percocet 10 mg 3 times a day and methocarbamol 500 mg 4 times a day. She denies any side effects. Her Azar has been reviewed and is appropriate. Review of Systems: General: No recent weight changes, no fever, no sleep disturbances Respiratory: No cough, no shortness of air, no recurring pulmonary infections Cardiovascular/peripheral vascular: No chest pain, no palpitations, no edema, no shortness of breath Gastrointestinal: No new onset incontinence, normal bowel movements reported Genitourinary: No new onset incontinence Musculoskeletal: Low back pain Psychiatric: [Normal mood/affect] Neurological: [Denies weakness in extremities], [denies balance issues] Pain at rest (0-10 scale): 6 Objective Objective:: Physical Exam: General: Alert and oriented x3, no acute distress, pleasant and cooperative Lungs: Respirations even and unlabored, symmetrical chest expansion Eyes: PERRL Musculoskeletal: Flexion and extension of lumbar [spine] somewhat guarded secondary to pain, [antalgic gait noted] Neurological: Speech clear, no gross sensory deficit Has patient had previous pain injection?: No Conservative treatment options previously tried: Prescription medications Length of treatment: longer than 12 weeks Meds Home Medications and Allergies Home Medications ?Medication ?Instructions ?Recorded ?Confirmed ?Type azelastine 205.5 mcg (0.15 %) 2 spray intranasal BID allergies 03/29/17 06/18/24 History nasal spray 90 days ##90 loratadine 10 mg tablet (Claritin) 10 mg PO DAILY allergies 10/07/17 06/18/24 History fluticasone propionate 50 1 spr intranasal DAILY ALLERGIES 08/18/21 06/18/24 History mcg/actuation nasal spray,suspension blood sugar diagnostic (Blood #50 ea 05/10/22 06/18/24 Rx Glucose Test strips) blood-glucose meter (Blood Glucose #1 ea 05/10/22 06/18/24 Rx Monitoring kit) lancets 33 gauge (OneTouch DelAlegría #100 ea 05/30/22 06/18/24 History Plus Lancet) levocetirizine 5 mg tablet 5 mg PO DAILY 07/25/23 06/18/24 History atorvastatin 20 mg tablet 20 mg PO DAILY 90 days #90 tabs 08/02/23 06/18/24 Rx lipase 60,000-protease 1 cap PO DIRECTED SUPPLIMENT 12/04/23 06/18/24 Rx 189,600-amylase 252,600 unit #30 caps capsule, delay rel (Zenpep) omeprazole 40 mg capsule,delayed 40 mg PO .COMPLEX #90 caps 12/04/23 06/18/24 Rx release polyethylene glycol 3350 17 17 g PO DAILY constipation #238 12/04/23 06/18/24 Rx gram/dose oral powder grams carbamazepine 100 mg chewable 300 mg (3 x 100 mg) PO DAILY . 12/26/23 06/18/24 Rx tablet Trigeminal neuralgia 90 days #270 tabs montelukast 10 mg tablet See Rx Instructions .Route 02/05/24 06/18/24 Rx .COMPLEX #90 tabs ipratropium bromide 21 mcg (0.03 1 spray intranasal DIRECTED 03/04/24 06/18/24 History %) nasal spray Breathing Problems estradiol 0.01% (0.1 mg/gram) See Rx Instructions vaginal 03/31/24 06/18/24 Rx vaginal cream .COMPLEX #42.5 grams oxybutynin chloride 10 mg 10 mg PO DAILY #90 tabs 03/31/24 06/18/24 Rx tablet,extended release 24 hr methocarbamol 500 mg tablet 500 mg PO QID PRN muscle spasms 04/24/24 06/18/24 Rx #120 tabs albuterol sulfate 90 mcg/actuation 2 puff inhalation Q4-6H PRN 05/16/24 06/18/24 Rx aerosol inhaler (Ventolin HFA) shortness of breath or wheezing #8.5 grams amlodipine 10 mg tablet 10 mg PO DAILY High blood pressure 05/16/24 06/18/24 Rx #90 tabs losartan 100 1 tab PO DAILY #30 tabs 05/21/24 06/18/24 Rx mg-hydrochlorothiazide 25 mg tablet spironolactone 50 mg tablet 50 mg PO DAILY #30 tabs 05/21/24 06/18/24 Rx (Aldactone) dicyclomine 10 mg capsule 10 mg PO BID BOWELS #180 caps 06/11/24 06/18/24 Rx prucalopride 2 mg tablet 2 mg PO DAILY BOWELS 90 days #90 06/11/24 06/18/24 Rx (Motegrity) tabs buspirone 10 mg tablet 10 mg PO ONCE 06/17/24 06/18/24 History semaglutide 2 mg/dose (8 mg/3 mL) 2 mg (0.75 mL) SQ WEEKLY 30 days 06/17/24 06/18/24 Rx subcutaneous pen injector #3.75 mL oxycodone-acetaminophen 10 mg-325 1 tab PO TID #90 tabs 06/18/24 Rx mg tablet (Percocet) bupropion HCl 150 mg tablet,12 hr See Rx Instructions .Route 06/19/24 Rx sustained-release .COMPLEX #60 tabs ondansetron 4 mg disintegrating 4 - 8 mg (1 - 2 x 4 mg) PO BID PRN 06/19/24 Rx tablet nausea and vomiting #20 tabs New Prescriptions to Start Prescriptions: Allergies Allergy/AdvReac Type Severity Reaction Status Date / Time lisinopril (LISINOPRIL) Allergy Severe S-SWELLS-OR Verified 06/17/24 13:33 AL/THROAT sulfamethoxazole (From Allergy Mild Rash Verified 06/17/24 13:33 Bactrim) trimethoprim (From Bactrim) Allergy Mild Rash Verified 06/17/24 13:33 Assessment and Plan *Assessment and plan (1) Lumbar postlaminectomy syndrome: Problem Comment: Active follow-up with pain management on chronic narcotic therapy Status: Chronic Category: Medical Code(s): M96.1 - Postlaminectomy syndrome, not elsewhere classified (2) Degenerative disc disease, lumbar: Status: Acute Category: Medical Code(s): M51.369 - Other intervertebral disc degeneration, lumbar region without mention of lumbar back pain or lower extremity pain Plan I will refill the patient's Percocet and make sure she does have refills on her methocarbamol. Patient will return to clinic in 1 month for reevaluation of symptoms. Risks and benefits of the medication have been explained in detail to the patient. The patient does understand the risk of dependence on the medication when given over a prolonged period. Patient has been advised of risks of oversedation with the prescribed medication. Narcan has been offered to the paitent in the event of oversedation. Patient has been advised that a family member should also be educated regarding administration of Narcan. The patient has been advised to consult with his/her primary care provider and pharmacist regarding drug-drug interaction of medications currently prescribed. Patient has been prescribed a controlled substance after being counseled on the medication, medication safety, and possible side effects. Opioid contract was reviewed and signed by the patient, and that they have agreed to all of the terms set forth by our compliance program. A UDS is needed to verify patient's compliance with our office pain contract. This is ordered based off specific treatments related to chronic pain with the potential to abuse certain medications. Patient has been instructed to contact the clinic with any concerns before the next appointment. Dr. Purdy has reviewed this note and agrees with this plan of care. This note was dictated using voice recognition software and make contain errors or omissions.
[2024-07-17 14:46] VITALS: BP 140/62; PULSE 68; RESP 18; O2SAT 98; BMI 46.5
== END 2024-07-17 23:59 | disposition home or self-care (01) ==
PROVIDERS: PCP Family Medicine; Visit Provider Nurse Practitioner Family
DX: M96.1 Postlaminectomy syndrome, not elsewhere classified (principal); M51.369 Other intervertebral disc degeneration, lumbar region without mention of lumbar back pain or lower extremity pain; Z87.891 Personal history of nicotine dependence; Z79.899 Other long term (current) drug therapy
CPT/HCPCS: 99212; G0463

== ENCOUNTER 2024-08-11 11:11 | Emergency (ER) | payer OTHER, MEDICAID, SELFPAY ==
[2024-08-11 11:17] VITALS: BP 121/58; PULSE 69; O2SAT 100
[2024-08-11 11:19] VITALS: BP 121/58; PULSE 69; RESP 18; TEMP 36.4; O2SAT 100; BMI 46.0
--- OUTSIDE RECORDS SUMMARY | 2024-08-11 11:22 | XMS_ITS ---
Author Organization Unknown Plan of Treatment Description Planned Activity Planned Timing - Telephone encounter - Patient Care team information Name Category Status Period Participants - - Proposed period not known -
--- NOTE | 2024-08-11 11:26 | XR_ITS ---
PROCEDURE INFORMATION: Exam: XR Left Shoulder Exam date and time: 08/11/2024 11:33 AM Age: 59 years old Clinical indication: Pain; Shoulder; Left; Additional info: Anterior shoulder tenderness, pain from falling yesterday TECHNIQUE: Imaging protocol: Radiologic exam of the left shoulder. Views: 2 or more views. Total images: 3 COMPARISON: CR XR SHOULDER LT MIN 2V 02/07/2020 11:33 AM FINDINGS: Bones/joints: Superior subluxation of the humerus noted. No evidence of acute fracture. Degenerative changes of the glenohumeral and acromioclavicular joints. Soft tissues: No soft tissue swelling. IMPRESSION: 1. Superior subluxation of the humerus noted. 2. No evidence of acute fracture.
--- NOTE | 2024-08-11 11:26 | XR_ITS ---
PROCEDURE INFORMATION: Exam: XR Left Elbow Exam date and time: 08/11/2024 11:37 AM Age: 59 years old Clinical indication: Pain; Elbow; Left; Additional info: Tender lateral/ posterior shoulder with abrasion from falling yesterday TECHNIQUE: Imaging protocol: Radiologic exam of the left elbow. Views: 3 or more views. Total images: 3 COMPARISON: No prior studies available for comparison. FINDINGS: Bones/joints: No evidence of acute fracture or dislocation. Soft tissues: Mild soft tissue swelling. IMPRESSION: 1. No evidence of acute fracture or dislocation. 2. Mild soft tissue swelling.
[2024-08-11 11:31] VITALS: BP 121/54; PULSE 67; O2SAT 100
--- NOTE | 2024-08-11 11:31 | ED_ITS ---
Discharge Plan Disposition Patient Disposition: Home, Self-Care Condition: Good Prescriptions Prescriptions: No Action azelastine 0.15 % (205.5 mcg) spray,non-aerosol 2 spray NS BID 90 Days Qty: 90 Patient Comments: (DME) blood-glucose meter [Blood Glucose Monitoring] Kit See Rx Instructions .Route Qty: 1 0RF Rx Instructions: Use to check blood sugar once daily (DME) Blood Glucose Test Strip See Rx Instructions .Route Qty: 50 5RF Rx Instructions: Use to check blood sugar once daily levocetirizine 5 mg tablet 5 mg PO DAILY losartan-hydrochlorothiazide 100-25 mg tablet 1 tab PO DAILY Qty: 30 3RF spironolactone [Aldactone] 50 mg tablet 50 mg PO DAILY Qty: 30 3RF (DME) lancets [OneTouch Delica Plus Lancet] 33 gauge misc See Rx Instructions .ROUTE .MEDSUPPLY Qty: 100 Rx Instructions: As directed carbamazepine 100 mg tablet,chewable 300 mg PO DAILY 90 Days Qty: 270 3RF Rx Instructions: 1 tablet in the morning and 2 tablet at night estradiol 0.01 % (0.1 mg/gram) cream See Rx Instructions vaginal .COMPLEX Qty: 42.5 4RF Rx Instructions: Using finger technique daily for two weeks and then 3 x weekly vaginall oxybutynin chloride 10 mg tablet extended release 24hr 10 mg PO DAILY Qty: 90 3RF ipratropium bromide 21 mcg (0.03 %) spray,non-aerosol 1 spray intranasal DIRECTED buspirone 10 mg tablet 10 mg PO ONCE albuterol sulfate [Ventolin HFA] 90 mcg/actuation HFA aerosol inhaler 2 puff inhalation Q4-6H PRN (Reason: shortness of breath or wheezing) Qty: 8.5 5RF amlodipine 10 mg tablet 10 mg PO DAILY Qty: 90 3RF semaglutide 2 mg/dose (8 mg/3 mL) pen injector 2 mg SQ WEEKLY 30 Days Qty: 3.75 3RF atorvastatin 20 mg tablet 20 mg PO DAILY 90 Days Qty: 90 0RF polyethylene glycol 3350 17 gram/dose powder 17 g PO DAILY Qty: 238 11RF Zenpep 60,000-189,600- 252,600 unit capsule,delayed release(DR/EC) 1 cap PO DIRECTED Qty: 30 2RF omeprazole 40 mg capsule,delayed release(DR/EC) 40 mg PO .COMPLEX Qty: 90 4RF Rx Instructions: 40 mg orally; montelukast 10 mg tablet See Rx Instructions .ROUTE .COMPLEX Qty: 90 1RF Dose Instruction: TAKE 1 TABLET BY MOUTH DAILY FOR ALLERGIES FOR 90 DAYS Rx Instructions: TAKE 1 TABLET BY MOUTH DAILY FOR ALLERGIES FOR 90 DAYS dicyclomine 10 mg capsule 10 mg PO BID Qty: 180 3RF Motegrity 2 mg tablet 2 mg PO DAILY 90 Days Qty: 90 4RF bupropion HCl 150 mg tablet sustained-release 12 hr See Rx Instructions .ROUTE .COMPLEX Qty: 60 2RF Dose Instruction: TAKE 1 TABLET BY MOUTH TWICE A DAY FOR MOOD Rx Instructions: TAKE 1 TABLET BY MOUTH TWICE A DAY FOR MOOD ondansetron 4 mg tablet,disintegrating 4 - 8 mg PO BID PRN (Reason: nausea and vomiting) Qty: 20 2RF loratadine [Claritin] 10 tablet 10 mg PO DAILY fluticasone propionate 120 SPRAY bottle 1 spr NS DAILY methocarbamol 500 mg tablet 500 mg PO QID PRN (Reason: muscle spasms) Qty: 120 2RF oxycodone-acetaminophen [Percocet] 10-325 mg tablet 1 tab PO TID Qty: 90 0RF Referrals Follow up/Referrals: Joshua Rodrigez DO [Staff Physician] - See instructions Alan Ortiz MD [Primary Care Provider] - See instructions Activity Restrictions/Add. Instructions Additional Instructions/Restrictions: You were seen for a left elbow contusion/ abrasion and left shoulder rotator cuff abnormality which is felt to be chronic. Please follow up with the orthopedist for further evaluation. Clinical Impressions Clinical Impression: Contusion of elbow, Rotator cuff disorder Instructions Patient Instructions: DI for Rotator Cuff Injury, DI for Contusion Print Language Print Language: Turkish Discharge ED Provider: Francis Griffin General Adult HPI <ELIZABETH Hector - Last Filed: 08/11/24 14:04> General Chief complaint: Extremity Injury, Upper Stated complaint: AO Fall 08/10 left shoulder/arm pain Time Seen by Provider: 08/11/24 11:17 Mode of Arrival: Ambulatory Source of Information: Patient Description of Symptoms (Recalled from ER Triage Doc. by RN): left shoulder and upper arm pain from a fall yestertdasy. no thinner History of Present Illness HPI narrative: Patient presents complaining of left shoulder and elbow pain. She reports that she was playing pickle ball last night and tripped initially catching herself on her left hand and then falling onto her elbow. She has an abrasion and cont usion to her elbow and pain in her anterior shoulder as well. She has limited range of motion. She denies any head injury. Denies taking any blood thinners. MD complaint: left elbow and shoulder pain Onset (ago): day(s) Location: upper extremity Radiation: non-radiation Severity: moderate Consistency: constant Relieving factors: rest Exacerbating factors: movement Associated symptoms: denies other symptoms Related Data Home Medications ?Medication ?Instructions ?Recorded ?Confirmed azelastine 205.5 mcg (0.15 %) 2 spray intranasal BID allergies 03/29/17 07/17/24 nasal spray 90 days ##90 loratadine 10 mg tablet (Claritin) 10 mg PO DAILY allergies 10/07/17 07/17/24 fluticasone propionate 50 1 spr intranasal DAILY ALLERGIES 08/18/21 07/17/24 mcg/actuation nasal spray,suspension lancets 33 gauge (OneTouch Delica #100 ea 05/30/22 07/17/24 Plus Lancet) levocetirizine 5 mg tablet 5 mg PO DAILY 07/25/23 07/17/24 ipratropium bromide 21 mcg (0.03 1 spray intranasal DIRECTED 03/04/24 07/17/24 %) nasal spray Breathing Problems buspirone 10 mg tablet 10 mg PO ONCE 06/17/24 07/17/24 Previous Rx's ?Medication ?Instructions ?Recorded blood sugar diagnostic (Blood #50 ea 05/10/22 Glucose Test strips) blood-glucose meter (Blood Glucose #1 ea 05/10/22 Monitoring kit) atorvastatin 20 mg tablet 20 mg PO DAILY 90 days #90 tabs 08/02/23 lipase 60,000-protease 1 cap PO DIRECTED SUPPLIMENT 12/04/23 189,600-amylase 252,600 unit #30 caps capsule, delay rel (Zenpep) omeprazole 40 mg capsule,delayed 40 mg PO .COMPLEX #90 caps 12/04/23 release polyethylene glycol 3350 17 17 g PO DAILY constipation #238 12/04/23 gram/dose oral powder grams carbamazepine 100 mg chewable 300 mg (3 x 100 mg) PO DAILY . 12/26/23 tablet Trigeminal neuralgia 90 days #270 tabs montelukast 10 mg tablet See Rx Instructions .Route 02/05/24 .COMPLEX #90 tabs estradiol 0.01% (0.1 mg/gram) See Rx Instructions vaginal 03/31/24 vaginal cream .COMPLEX #42.5 grams oxybutynin chloride 10 mg 10 mg PO DAILY #90 tabs 03/31/24 tablet,extended release 24 hr methocarbamol 500 mg tablet 500 mg PO QID PRN muscle spasms 04/24/24 #120 tabs albuterol sulfate 90 mcg/actuation 2 puff inhalation Q4-6H PRN 05/16/24 aerosol inhaler (Ventolin HFA) shortness of breath or wheezing #8.5 grams amlodipine 10 mg tablet 10 mg PO DAILY High blood pressure 05/16/24 #90 tabs losartan 100 1 tab PO DAILY #30 tabs 05/21/24 mg-hydrochlorothiazide 25 mg tablet spironolactone 50 mg tablet 50 mg PO DAILY #30 tabs 05/21/24 (Aldactone) dicyclomine 10 mg capsule 10 mg PO BID BOWELS #180 caps 06/11/24 prucalopride 2 mg tablet 2 mg PO DAILY BOWELS 90 days #90 06/11/24 (Motegrity) tabs bupropion HCl 150 mg tablet,12 hr See Rx Instructions .Route 06/19/24 sustained-release .COMPLEX #60 tabs ondansetron 4 mg disintegrating 4 - 8 mg (1 - 2 x 4 mg) PO BID PRN 06/19/24 tablet nausea and vomiting #20 tabs oxycodone-acetaminophen 10 mg-325 1 tab PO TID #90 tabs 07/17/24 mg tablet (Percocet) semaglutide 2 mg/dose (8 mg/3 mL) 2 mg (0.75 mL) SQ WEEKLY 30 days 07/17/24 subcutaneous pen injector #3.75 mL Allergies Allergy/AdvReac Type Severity Reaction Status Date / Time lisinopril (LISINOPRIL) Allergy Severe S-SWELLS-OR Verified 07/17/24 14:33 AL/THROAT sulfamethoxazole (From Allergy Mild Rash Verified 07/17/24 14:33 Bactrim) trimethoprim (From Bactrim) Allergy Mild Rash Verified 07/17/24 14:33 PFS <Lucila Wei PA - Last Filed: 08/11/24 14:04> PFS Disclaimer: The information contained in this section may have been updated after the patient was seen, as this information can be updated by other users. Medical History AMAUYR (obstructive sleep apnea) Asymptomatic treated with an oral appliance Allergic rhinitis History of asthma Overactive bladder Sleep apnea History of COVID-19 Asthma Anxiety and depression History of gastroesophageal reflux (GERD) Diabetes Allergies Hyperlipidemia Hypertension Post-nasal drainage Rhinitis medicamentosa Atrophic vaginitis Pelvic pain Dysuria Right lower quadrant abdominal pain Right hip pain Edema of left lower extremity Otitis media Bronchitis Sinusitis Osteoporosis Dyspnea 12/26/2023: Additional workup requested, (overnight oximetry on CPAP, chest x- ray PA and lateral, PFTs with walking test, pulmonology referral) Abnormal EKG Chest pain Dizziness Right wrist sprain Shoulder pain, left B12 deficiency Iron deficiency anemia Abdominal pain Posterior pain of left hip Pain in left thigh Left knee pain Abrasion, left knee, initial encounter Left foot pain Fall Cough Surgical History History of cholecystectomy History of tonsillectomy History of X3 History of hysterectomy H/O gastric bypass H/O shoulder surgery Previous back surgery Family History Other Cancer Colon cancer Social History Smoking Status: Never smoker alcohol intake: never counseling provided: none substance use type: denies use current occupational status: other Travel in the last 8 weeks?: None household members: spouse housing: house caffeine: No fire extinguisher in home: Yes carbon monox detector in home: Yes firearms in home: No do you feel safe at home: Yes victim of physical abuse: No victim of emotional abuse: No victim of sexual abuse: No would you like helpful sources: No Have you lived/traveled outside [place] in past 30 days?: No Contact w/someone who lives/traveled outside US past 30 days?: No Exposure to someone with infectious disease in past 14 days?: No Do you have a fever (greater than 100.4 F or 38 C)?: No Have you tested positive for COVID-19?: No Exposed to someone with COVID-19 in past 14 days?: No Do you have a sore throat?: No Do you have a cough?: No Do you have any weakness?: No Do you have any diarrhea?: No Are you experiencing any unusual bleeding?: No Do you have any muscle aches/pain?: No Do you have any abdominal pain?: No Are you experiencing loss of taste or smell?: No Other Medical History Have you received the Flu Vaccine for this season: No Have you received the Pneumonia Vaccine: No <ELIZABETH Hector - Last Filed: 08/11/24 14:04> ROS Obtained: Yes Systems reviewed as appropriate & no additional complaints except as documented Physical Exam <ELIZABETH Hector - Last Filed: 08/11/24 14:04> General General appearance: alert and in no apparent distress Head Head exam: atraumatic and normocephalic Eye Eye exam: Present normal appearance and EOMI Chest Chest inspection: Present symmetric chest wall rise Respiratory Respiratory exam: Present normal lung sounds bilaterally; Absent wheezes or stridor Cardiovascular Cardiovascular exam: Present regular rate and normal rhythm; Absent systolic murmur Extremities Exam Extremities exam: Present tenderness (anterior left shoulder and upper chest wall, limited active external rotation, able to passively range. lateral elbow contusion and abrasion with TTP, some posterior tenderness as well, limited flexion and pronation. N/V intact. ) Neurological Exam Neurological exam: Present alert and oriented X3 Psychiatric Psychiatric exam: Present normal affect and normal mood Skin Skin exam: Present warm, dry and other (abrasion to lateral left elbow ) Medical Decision Making <ELIZABETH Hector Last Filed: 08/11/24 14:04> Medical Records Screening: Per USPSTF and CDC recommendations, given the prevalence of disease in our region, it is our hospital?s policy to screen for HIV and viral Hepatitis for a ll patients aged 18 and over and those with ongoing risk factors. Azar Inquiry Pt receiving controlled substance: No Vital Signs: 08/11/24 11:17 08/11/24 11:19 08/11/24 11:31 Temperature 97.6 F Temperature Source Oral Pulse Rate 69 67 Pulse Rate [Right] 69 Respiratory Rate 18 Blood Pressure 121/58 L 121/54 L Blood Pressure [Right Arm] 121/58 L Blood Pressure Mean [Right Arm] 79 02 Sat by Pulse Oximetry 100 100 100 Oxygen Delivery Method Room Air Room Air Room Air 08/11/24 11:51 08/11/24 14:00 Temperature Temperature Source Pulse Rate 79 57 L Pulse Rate [Right] Respiratory Rate Blood Pressure 121/54 L 134/68 Blood Pressure [Right Arm] Blood Pressure Mean [Right Arm] 02 Sat by Pulse Oximetry 96 99 Oxygen Delivery Method Orders (Tests/Meds): ED MEDICATIONS Discontinued Medications Generic Name Dose Route Start Last Admin Trade Name Sandy PRN Reason Stop Dose Admin Acetaminophen 500 mg 08/11/24 12:46 08/11/24 12:54 Acetaminophen 500mg Tab PO 08/11/24 12:47 500 mg ONCE ONE Administration Tetanus/Reduced Diphtheria/Acell Pertussis 0.5 ml 08/11/24 11:42 08/11/24 11:51 Tet/Diphth/Pert-Adult 0.5ml Syringe IM 08/11/24 11:43 0.5 ml .ONCE ONE Administration ORDERS Category Date Time Status CT shoulder LT wo con Stat Cat Scan 08/11/24 12:43 Completed Chest XR -- portable [XR chest portable] Stat Exams 08/11/24 11:54 Completed Elbow XR left mininum 3 views [XR elbow LT min 3V] Stat Exams 08/11/24 11:26 Completed Shoulder XR left minimum 2 views [XR shoulder LT min 2V Exams 08/11/24 11:26 Completed ] Stat Medical Decision Narrative: Patient presents with right elbow and shoulder pain after a fall. She has tenderness of the lateral and posterior elbow and anterior shoulder and upper chest wall. Denies any direct trauma to the chest or shoulder. Will obtain x- rays of elbow and shoulder. Tetanus updated. X-ray shows superior subluxation of the humerus. CT was obtained and shows no definite subluxation, she does have a chronic rotator cuff deformity. Patient was placed in a sling and given follow-up with orthopedist. <Francis Griffin MD - Last Filed: 08/11/24 14:16> Vital Signs: 08/11/24 11:17 08/11/24 11:19 08/11/24 11:31 Temperature 97.6 F Temperature Source Oral Pulse Rate 69 67 Pulse Rate [Right] 69 Respiratory Rate 18 Blood Pressure 121/58 L 121/54 L Blood Pressure [Right Arm] 121/58 L Blood Pressure Mean [Right Arm] 79 02 Sat by Pulse Oximetry 100 100 100 Oxygen Delivery Method Room Air Room Air Room Air 08/11/24 11:51 08/11/24 14:00 Temperature Temperature Source Pulse Rate 79 57 L Pulse Rate [Right] Respiratory Rate Blood Pressure 121/54 L 134/68 Blood Pressure [Right Arm] Blood Pressure Mean [Right Arm] 02 Sat by Pulse Oximetry 96 99 Oxygen Delivery Method Orders (Tests/Meds): ED MEDICATIONS Discontinued Medications Generic Name Dose Route Start Last Admin Trade Name Freq PRN Reason Stop Dose Admin Acetaminophen 500 mg 08/11/24 12:46 08/11/24 12:54 Acetaminophen 500mg Tab PO 08/11/24 12:47 500 mg ONCE ONE Administration Tetanus/Reduced Diphtheria/Acell Pertussis 0.5 ml 08/11/24 11:42 08/11/24 11:51 Tet/Diphth/Pert-Adult 0.5ml Syringe IM 08/11/24 11:43 0.5 ml .ONCE ONE Administration ORDERS Category Date Time Status CT shoulder LT wo con Stat Cat Scan 08/11/24 12:43 Completed Chest XR -- portable [XR chest portable] Stat Exams 08/11/24 11:54 Completed Elbow XR left mininum 3 views [XR elbow LT min 3V] Stat Exams 08/11/24 11:26 Completed Shoulder XR left minimum 2 views [XR shoulder LT min 2V Exams 08/11/24 11:26 Completed ] Stat Medical Decision Narrative: Patient presents with right elbow and shoulder pain after a fall. She has tenderness of the lateral and posterior elbow and anterior shoulder and upper chest wall. Denies any direct trauma to the chest or shoulder. Will obtain x- rays of elbow and shoulder. Tetanus updated. X-ray shows superior subluxation of the humerus. CT was obtained and shows no definite subluxation, she does have a chronic rotator cuff deformity. Patient was placed in a sling and given follow-up with orthopedist. I was consulted by the KENNEDY, and we discussed the complexity of the problems being addressed. I approved the treatment and management plan for this patient's care in the emergency department, thus performing a substantive portion of the medical decision making. Initial presentation differential includes fracture, musculoskeletal strain, among others. Ultimately there was concern for partial subluxation for which CT was obtained and does not seem to be the case currently. Given possibility of ligamentous injury will follow-up with orthopedics on outpatient basis. Francis Griffin MD Critical Care <ELIZABETH Hector - Last Filed: 08/11/24 14:04> Critical Care Time Critical Care Time: No
[2024-08-11 11:51] VITALS: BP 121/54; PULSE 79; O2SAT 96
[2024-08-11] MEDS: TET/DIPHTH/PERT-ADULT 0.5ML SYRINGE 0.5 ML IM (11:51)
--- NOTE | 2024-08-11 11:54 | XR_ITS ---
PROCEDURE INFORMATION: Exam: XR Chest Exam date and time: 08/11/2024 12:18 PM Age: 59 years old Clinical indication: Chest wall pain; Additional info: Anterior left shoulder, upper chest wall ttp TECHNIQUE: Imaging protocol: Radiologic exam of the chest. Views: 1 view. Total images: 1 COMPARISON: CR XR CHEST 2V 12/31/2023 12:07 PM FINDINGS: Lungs: Unremarkable. No consolidation. Pleural spaces: Unremarkable. No pleural effusion. No pneumothorax. Heart/Mediastinum: Unremarkable. No cardiomegaly. Bones/joints: Unremarkable. IMPRESSION: No acute findings.
--- NOTE | 2024-08-11 12:43 | CT_ITS ---
PROCEDURE INFORMATION: Exam: CT Left Upper Extremity Without Contrast, Shoulder Exam date and time: 08/11/2024 12:49 PM Age: 59 years old Clinical indication: Pain; Upper arm; Left; Additional info: Subluxation TECHNIQUE: Imaging protocol: Computed tomography of the left upper extremity without contrast. Exam focused on the shoulder. Total images: 719 Radiation optimization: All CT scans at this facility use at least one of these dose optimization techniques: automated exposure control; mA and/or kV adjustment per patient size (includes targeted exams where dose is matched to clinical indication); or iterative reconstruction. COMPARISON: CR XR SHOULDER LT MIN 2V 08/11/2024 11:33 AM FINDINGS: Bones/joints: Narrowing of the acromial humeral distance may be consistent with chronic rotator cuff abnormality. No definite humeral subluxation. No evidence of acute fracture. Degenerative changes of the glenohumeral and acromioclavicular joints. Soft tissues: Normal. IMPRESSION: 1. Narrowing of the acromial humeral distance may be consistent with chronic rotator cuff abnormality. 2. No definite humeral subluxation. 3. No evidence of acute fracture.
[2024-08-11] MEDS: ACETAMINOPHEN 500MG TAB 500 MG PO (12:54)
[2024-08-11 14:00] VITALS: BP 134/68; PULSE 57; O2SAT 99
[2024-08-11 14:20] VITALS: BP 134/68; PULSE 66; RESP 18; TEMP 37; O2SAT 95
== END 2024-08-11 14:24 | disposition home or self-care (01) ==
PROVIDERS: Emergency Provider Emergency Medicine; PCP Family Medicine
DX: M25.512 Pain in left shoulder (principal); S50.02XA Contusion of left elbow, initial encounter; M67.912 Unspecified disorder of synovium and tendon, left shoulder; W19.XXXA Unspecified fall, initial encounter; Z23 Encounter for immunization
CPT/HCPCS: 71045; 73030; 73080; 73200; 90471; 90715; 99284

== ENCOUNTER 2024-08-25 11:05 | Outpatient (POV) | payer OTHER, MEDICAID, SELFPAY ==
--- OUTSIDE RECORDS SUMMARY | 2024-08-25 11:09 | XMS_ITS | Clinical Summary ---
Author Organization [facility] [place] [address] Care Team Providers Care Respooler Name Role Phone Unavailable Primary Care Provider Unavailabl e Social History Tobacco Use Types Packs/Day Years Used Date Smoking Tobacco: Never Assessed Comments Unknown Sex and Gender Information Value Date Recorded Sex Assigned at Not on file Legal Sex Female 2:37 PM EDT Gender Identity Not on file Sexual Orientation Not on file Plan of Treatment Health Maintenance Due Date Last Done Comments Annual Wellness Exam 01/01/1967 Hepatitis C Screening 01/01/1982 DTaP/TDaP/Td (1 - Tdap) 01/01/1983 Cologuard 01/01/2009 Colon Cancer Screening 01/01/2009 Colonoscopy 01/01/2009 FIT 01/01/2009 Sigmoidoscopy 01/01/2009 Virtual Colonography 01/01/2009 Pneumococcal Vaccine 50+ (1 of 1 - PCV) 01/01/2014 Zoster (1 of 2) 01/01/2014 COVID-19 Vaccine (2023-2 5 season) 2023 Influenza Vaccine (Season Ended) 2024 Hepatitis B Vaccine Aged Out No longe r eligible based on patient's age to complete this topic Meningococcal B Vaccine Aged Out No l onger eligible based on patient's age to complete this topic
--- OUTSIDE RECORDS SUMMARY | 2024-08-25 11:09 | XMS_ITS | Clinical Summary ---
Author Organization Healthcare Address [address] [place] [address] Care Team Providers Care Inspector Elevators Name Role Phone Jose Ray MD Primary Care Provider [phone] Family History Medical History Relation Name Comments Diabetes Other 1 Hypertension Other 2 Other cancer Other 3 Relation Name Status Comments Other 1 Other 2 Other 3 Social History Tobacco Use Types Packs/Day Years Used Date Smoking Tobacco: Never Comments Unknown Sex and Gender Information Value Date Recorded Sex Assigned at Not on file Legal Sex Female 8:32 PM EDT Gender Identity Not on file Sexual Orientation Not on file Last Filed Vital Signs Vital Sign Reading Time Taken Comments Blood Pressure 118/80 07/04/2017 8:58 AM EDT Pulse - - Temperature - - Respiratory Rate - - Oxygen Saturation - - Inhaled Oxygen Concentration - - Weight 134 kg (295 lb 6.7 oz) 07/04/2017 8:58 AM EDT Height 160 cm (5' 3 ) 07/04/2017 8:58 AM EDT Body Mass Index 52.33 07/04/2017 8:58 AM EDT Plan of Treatment Not on file Care Teams Inspector Elevators Relationship Specialty Start Date End Date Jose Ray MD [address] [place] [address] PCP - General 07/30/20
[2024-08-25 11:27] VITALS: BP 118/65; PULSE 70; RESP 14; O2SAT 96; BMI 44.1
--- NOTE | 2024-08-25 12:02 | A.OFFVIS_ITS ---
[facility] Disclaimer: The information contained in this section may have been updated after the patient was seen, as this information can be updated by other users. Medical History AMAURY (obstructive sleep apnea) Asymptomatic treated with an oral appliance Allergic rhinitis History of asthma Overactive bladder Sleep apnea History of COVID-19 Asthma Anxiety and depression History of gastroesophageal reflux (GERD) Diabetes Allergies Hyperlipidemia Hypertension Post-nasal drainage Rhinitis medicamentosa Atrophic vaginitis Pelvic pain Dysuria Right lower quadrant abdominal pain Right hip pain Edema of left lower extremity Otitis media Bronchitis Sinusitis Osteoporosis Dyspnea 12/26/2023: Additional workup requested, (overnight oximetry on CPAP, chest x- ray PA and lateral, PFTs with walking test, pulmonology referral) Abnormal EKG Chest pain Dizziness Right wrist sprain Shoulder pain, left B12 deficiency Iron deficiency anemia Abdominal pain Posterior pain of left hip Pain in left thigh Left knee pain Abrasion, left knee, initial encounter Left foot pain Fall Cough Surgical History History of cholecystectomy History of tonsillectomy History of X3 History of hysterectomy H/O gastric bypass H/O shoulder surgery Previous back surgery Family History Other Cancer Colon cancer Social History Smoking Status: Never smoker alcohol intake: never counseling provided: none substance use type: denies use current occupational status: other Travel in the last 8 weeks?: None household members: spouse housing: house caffeine: No fire extinguisher in home: Yes carbon monox detector in home: Yes firearms in home: No do you feel safe at home: Yes victim of physical abuse: No victim of emotional abuse: No victim of sexual abuse: No would you like helpful sources: No PM Subjective & Objective Subjective Subjective:: Patient is a pleasant 59-year-old female who presents today for medication refill and follow-up. Patient has recently had a fall while she was playing pickle ball and ended up landing on her left elbow. Patient states that she did not have a fracture however they are trying to rule out whether it is a strain versus tear. She does present today in a sling. Patient does also have signif icant bruising all across her left elbow. Patient is currently managed with Percocet 10 mg 3 times a day and methocarbamol 500 mg 4 times a day. She denies any side effects and is requesting refills including the muscle relaxer. Her Azar has been reviewed and is appropriate. Review of Systems: General: No recent weight changes, no fever, no sleep disturbances Respiratory: No cough, no shortness of air, no recurring pulmonary infections Cardiovascular/peripheral vascular: No chest pain, no palpitations, no edema, no shortness of breath Gastrointestinal: No new onset incontinence, normal bowel movements reported Genitourinary: No new onset incontinence Musculoskeletal: Low back pain, left elbow pain Psychiatric: [Normal mood/affect] Neurological: [Denies weakness in extremities], [denies balance issues] Pain at rest (0-10 scale): 10 Objective Objective:: Physical Exam: General: Alert and oriented x3, no acute distress, pleasant and cooperative Lungs: Respirations even and unlabored, symmetrical chest expansion Eyes: PERRL Musculoskeletal: Flexion and extension of left elbow somewhat guarded secondary to pain, [antalgic gait noted] Neurological: Speech clear, no gross sensory deficit Has patient had previous pain injection?: No Conservative treatment options previously tried: Prescription medications Length of treatment: Longer than 12 weeks Meds Home Medications and Allergies Home Medications ?Medication ?Instructions ?Recorded ?Confirmed ?Type azelastine 205.5 mcg (0.15 %) 2 spray intranasal BID a llergies 03/29/17 08/25/24 History nasal spray 90 days ##90 loratadine 10 mg tablet (Claritin) 10 mg PO DAILY cedric rgies 10/07/17 08/25/24 History fluticasone propionate 50 1 spr intranasal DAILY ALLER GIES 08/18/21 08/25/24 History mcg/actuation nasal spray,suspension blood sugar diagnostic (Blood #50 ea 05/10/22 08/25/24 Rx Glucose Test strips) blood-glucose meter (Blood Glucose #1 ea 05/10/2212/11 Rx Monitoring kit) lancets 33 gauge (Tellmeuch DelFreePriceAlerts #100 ea 05/30/2212/11 History Plus Lancet) levocetirizine 5 mg tablet 5 mg PO DAILY 07/25/2312/11 History lipase 60,000-protease 1 cap PO DIRECTED SUPPLIM ENT 12/04/23 08/25/24 Rx 189,600-amylase 252,600 unit #30 caps capsule, delay rel (Zenpep) omeprazole 40 mg capsule,delayed 40 mg PO .COMPLEX #90 caps 12/04/23 08/25/24 Rx release polyethylene glycol 3350 17 17 g PO DAILY constipation #238 12/04/23 08/25/24 Rx gram/dose oral powder grams carbamazepine 100 mg chewable 300 mg (3 x 100 mg) PO D AILY . 12/26/23 08/25/24 Rx tablet Trigeminal neuralgia 90 days #270 tabs montelukast 10 mg tablet See Rx Instructions .Route 1 04/06/23 08/25/24 Rx .COMPLEX #90 tabs ipratropium bromide 21 mcg (0.03 1 spray intranasal DIRECTED 03/04/24 08/25/24 History %) nasal spray Breathing Problems estradiol 0.01% (0.1 mg/gram) See Rx Instructions vagi nal 03/31/24 08/25/24 Rx vaginal cream .COMPLEX #42.5 grams oxybutynin chloride 10 mg 10 mg PO DAILY #90 tabs 03/1908/25/24 Rx tablet,extended release 24 hr methocarbamol 500 mg tablet 500 mg PO QID PRN muscle s pasms 04/24/24 08/25/24 Rx #120 tabs albuterol sulfate 90 mcg/actuation 2 puff inhalation Q 4-6H PRN 05/16/24 08/25/24 Rx aerosol inhaler (Ventolin HFA) shortness of breath or wheezing #8.5 grams amlodipine 10 mg tablet 10 mg PO DAILY High blood pr essure 05/16/24 08/25/24 Rx #90 tabs losartan 100 1 tab PO DAILY #30 tabs 03/0 08/1008/25/24 Rx mg-hydrochlorothiazide 25 mg tablet spironolactone 50 mg tablet 50 mg PO DAILY #30 tabs 08/25/24 Rx (Aldactone) dicyclomine 10 mg capsule 10 mg PO BID BOWELS #180 cap s 06/11/24 08/25/24 Rx prucalopride 2 mg tablet 2 mg PO DAILY BOWELS 90 days #90 06/11/24 08/25/24 Rx (Motegrity) tabs buspirone 10 mg tablet 10 mg PO ONCE 06/17/2408/25 History bupropion HCl 150 mg tablet,12 hr See Rx Instructions .Route 06/19/24 08/25/24 Rx sustained-release .COMPLEX #60 tabs ondansetron 4 mg disintegrating 4 - 8 mg (1 - 2 x 4 mg ) PO BID PRN 06/19/24 08/25/24 Rx tablet nausea and vomiting #20 tabs oxycodone-acetaminophen 10 mg-325 1 tab PO TID #90 tab s 07/17/24 08/25/24 Rx mg tablet (Percocet) semaglutide 2 mg/dose (8 mg/3 mL) 2 mg (0.75 mL) SQ WE EKLY 30 days 07/17/24 08/25/24 Rx subcutaneous pen injector #3.75 mL atorvastatin 20 mg tablet See Rx Instructions .Route 0 08/12/24 08/25/24 Rx .COMPLEX #90 tabs New Prescriptions to Start Prescriptions: Allergies Allergy/AdvReac Type Severity Reaction Status Date / Time lisinopril (LISINOPRIL) Allergy Severe S-SWELLS-OR Verified 07/17/24 14:33 AL/THROAT sulfamethoxazole (From Allergy Mild Rash Verified 07/17/24 14:33 Bactrim) trimethoprim (From Bactrim) Allergy Mild Rash Verified 07/17/24 14:33 Assessment and Plan *Assessment and plan (1) Contusion of elbow: Status: Acute Category: Medical Code(s): S50.00XA - Contusion of unspecified elbow, initial encounter (2) Rotator cuff disorder: Status: Acute Category: Medical Code(s): M67.919 - Unspecified disorder of synovium and tendon, unspecified shoulder (3) Lumbar postlaminectomy syndrome: Problem Comment: Active follow-up with pain management on chronic narcotic therapy Status: Chronic Category: Medical Code(s): M96.1 - Postlaminectomy syndrome, not elsewhere classified Plan I will refill the patient's Percocet, methocarbamol and also send in a refill on her compounded cream with an increase concentration. Patient will return to clinic in 1 month for reevaluation of symptoms and plan of care Risks and benefits of the medication have been explained in detail to the patient. The patient does understand the risk of dependence on the medication when given over a prolonged period. Patient has been advised of risks of oversedation with the prescribed m edication. Narcan has been offered to the paitent in the event of oversedation. Patient has been advised that a family member should also be educated regarding administration of Narcan. The patient has been advised to consult with his/her primary care provider and pharmacist regarding drug-drug interaction of medications currently prescribed. Patient has been prescribed a controlled substance after being counseled on the medication, medication safety, and possible side effects. Opioid contract was reviewed and signed by the patient, and that they have agreed to all of the terms set forth by our compliance program. A UDS is needed to verify patient's compliance with our office pain contract. This is ordered based off specific treatments related to chronic pain with the potential to abuse certain medications. Patient has been instructed to contact the clinic with any concerns before the next appointment. Dr. Purdy has reviewed this note and agrees with this plan of care. This note was dictated using voice recognition software and make contain errors or omissions.
== END 2024-08-25 23:59 | disposition home or self-care (01) ==
PROVIDERS: PCP Family Medicine; Visit Provider Nurse Practitioner Family
DX: S50.02XA Contusion of left elbow, initial encounter (principal); M67.912 Unspecified disorder of synovium and tendon, left shoulder; M96.1 Postlaminectomy syndrome, not elsewhere classified; Z79.899 Other long term (current) drug therapy; Z79.891 Long term (current) use of opiate analgesic; W19.XXXA Unspecified fall, initial encounter; Y93.73 Activity, racquet and hand sports
CPT/HCPCS: 99212; G0463

== ENCOUNTER 2024-09-24 09:18 | Outpatient (POV) | payer OTHER, MEDICAID, SELFPAY ==
--- OUTSIDE RECORDS SUMMARY | 2024-09-24 09:22 | XMS_ITS | Clinical Summary ---
Author Organization [facility] [place] [place] [address] Care Team Providers Care Order Packer Or Packager Name Role Phone Unavailable Primary Care Provider [...] Vaccine (2023-2 5 season) 2023 Influenza Vaccine (#1) 2024 Hepatitis B Vaccine Aged Out No longe r eligible based on patient's age to complete this topic Meningococcal B Vaccine Aged Out No l onger eligible based on patient's age to complete this topic
--- OUTSIDE RECORDS SUMMARY | 2024-09-24 09:22 | XMS_ITS | Clinical Summary ---
Author Organization Healthcare Address [address] [place] [address] Care Team Providers Care Health Professor Name Role Phone Jose Ray MD Primary Care Provider [phone] Family History Medical History Relation Name Comments [...] of Treatment Not on file Care Teams Health Professor Relationship Specialty Start Date End Date Jose Ray MD [address] [place] [address] PCP - General 07/30/20
[2024-09-24 09:42] VITALS: BP 140/88; PULSE 87; RESP 12; O2SAT 99; BMI 29.9
--- NOTE | 2024-09-24 11:53 | EXP.PAIN.SOA ---
[facility] Disclaimer: The information contained in this section may have been updated after the patient was seen, as this information can be updated by other users. Medical History AMAURY (obstructive sleep apnea) Asymptomatic treated with an oral appliance Allergic rhinitis History of asthma Overactive bladder Sleep apnea History of COVID-19 Asthma Anxiety and depression History of gastroesophageal reflux (GERD) Diabetes Allergies Hyperlipidemia Hypertension Post-nasal drainage Rhinitis medicamentosa Atrophic vaginitis Pelvic pain Dysuria Right lower quadrant abdominal pain Right hip pain Edema of left lower extremity Otitis media Bronchitis Sinusitis Osteoporosis Dyspnea 12/26/2023: Additional workup requested, (overnight oximetry on CPAP, chest x-ray PA and lateral, PFTs with walking test, pulmonology referral) Abnormal EKG Chest pain Dizziness Right wrist sprain Shoulder pain, left B12 deficiency Iron deficiency anemia Abdominal pain Posterior pain of left hip Pain in left thigh Left knee pain Abrasion, left knee, initial encounter Left foot pain Fall Cough Surgical History History of cholecystectomy History of tonsillectomy History of X3 History of hysterectomy H/O gastric bypass H/O shoulder surgery Previous back surgery Family History Other Cancer Colon cancer Social History Smoking Status: Never smoker alcohol intake: never counseling provided: none substance use type: denies use current occupational status: other Travel in the last 8 weeks?: None household members: spouse housing: house caffeine: No fire extinguisher in home: Yes carbon monox detector in home: Yes firearms in home: No do you feel safe at home: Yes victim of physical abuse: No victim of emotional abuse: No victim of sexual abuse: No would you like helpful sources: No PM Subjective & Objective Subjective Subjective:: Patient is a very pleasant 59-year-old female who presents today for medication refill. Today she rates her pain a 7 out of 10. She denies any new falls or injuries. Patient is still stating its primarily chronic back pain. She denies night from her last appointment she has had one of her brothers as well as a nephew related to a firework accident. Patient did also have another nephew that ended up with a significant burn. Patient states that it has just been rough the last week or so. Patient is currently managed with Percocet 10 mg 3 times a day and methocarbamol 500 mg 4 times a day. She denies any side effects. Patient does state that her insurance is not going to cover the methocarbamol and whether or not we can try a different type medication. Her Azar has been reviewed and is appropriate. She is prescribed compounded cream. Review of Systems: General: No recent weight changes, no fever, no sleep disturbances Respiratory: No cough, no shortness of air, no recurring pulmonary infections Cardiovascular/peripheral vascular: No chest pain, no palpitations, no edema, no shortness of breath Gastrointestinal: No new onset incontinence, normal bowel movements reported Genitourinary: No new onset incontinence Musculoskeletal: Chronic back pain Psychiatric: [Normal mood/affect] Neurological: [Denies weakness in extremities], [denies balance issues] Pain at rest (0-10 scale): 7 Objective Objective:: Physical Exam: General: Alert and oriented x3, no acute distress, pleasant and cooperative Lungs: Respirations even and unlabored, symmetrical chest expansion Eyes: PERRL Musculoskeletal: Flexion and extension of lumbar [spine] somewhat guarded secondary to pain, [antalgic gait noted] Neurological: Speech clear, no gross sensory deficit Has patient had previous pain injection?: No Conservative treatment options previously tried: Prescription medications Length of treatment: Longer than 12 weeks Meds Home Medications and Allergies Home Medications ?Medication ?Instructions ?Recorded ?Confirmed ?Type blood sugar diagnostic (Blood #50 ea 05/10/22 09/24/24 Rx Glucose Test strips) blood-glucose meter (Blood Glucose #1 ea 05/10/22 09/24/24 Rx Monitoring kit) lancets 33 gauge (OneTouch Delica #100 ea 05/30/22 09/24/24 History Plus Lancet) levocetirizine 5 mg tablet 5 mg PO DAILY 07/25/23 09/24/24 History lipase 60,000-protease 1 cap PO DIRECTED SUPPLIMENT 12/04/23 09/24/24 Rx 189,600-amylase 252,600 unit #30 caps capsule, delay rel (Zenpep) omeprazole 40 mg capsule,delayed 40 mg PO .COMPLEX #90 caps 12/04/23 09/24/24 Rx release polyethylene glycol 3350 17 17 g PO DAILY constipation #238 12/04/23 09/24/24 Rx gram/dose oral powder grams carbamazepine 100 mg chewable 300 mg (3 x 100 mg) PO DAILY . 12/26/23 09/24/24 Rx tablet Trigeminal neuralgia 90 days #270 tabs montelukast 10 mg tablet See Rx Instructions .Route 02/05/24 09/24/24 Rx .COMPLEX #90 tabs ipratropium bromide 21 mcg (0.03 1 spray intranasal DIRECTED 03/04/24 09/24/24 History %) nasal spray Breathing Problems estradiol 0.01% (0.1 mg/gram) See Rx Instructions vaginal 03/31/24 09/24/24 Rx vaginal cream .COMPLEX #42.5 grams oxybutynin chloride 10 mg 10 mg PO DAILY #90 tabs 03/31/24 09/24/24 Rx tablet,extended release 24 hr albuterol sulfate 90 mcg/actuation 2 puff inhalation Q4-6H PRN 05/16/24 09/24/24 Rx aerosol inhaler (Ventolin HFA) shortness of breath or wheezing #8.5 grams amlodipine 10 mg tablet 10 mg PO DAILY High blood pressure 05/16/24 09/24/24 Rx #90 tabs spironolactone 50 mg tablet 50 mg PO DAILY #30 tabs 05/21/24 09/24/24 Rx (Aldactone) dicyclomine 10 mg capsule 10 mg PO BID BOWELS #180 caps 06/11/24 09/24/24 Rx prucalopride 2 mg tablet 2 mg PO DAILY BOWELS 90 days #90 06/11/24 09/24/24 Rx (Motegrity) tabs buspirone 10 mg tablet 10 mg PO ONCE 06/17/24 09/24/24 History bupropion HCl 150 mg tablet,12 hr See Rx Instructions .Route 06/19/24 09/24/24 Rx sustained-release .COMPLEX #60 tabs semaglutide 2 mg/dose (8 mg/3 mL) 2 mg (0.75 mL) SQ WEEKLY 30 days 07/17/24 09/24/24 Rx subcutaneous pen injector #3.75 mL atorvastatin 20 mg tablet See Rx Instructions .Route 08/12/24 09/24/24 Rx .COMPLEX #90 tabs methocarbamol 500 mg tablet 500 mg PO QID PRN muscle spasms 08/25/24 09/24/24 Rx #120 tabs oxycodone-acetaminophen 10 mg-325 1 tab PO TID #90 tabs 08/25/24 09/24/24 Rx mg tablet (Percocet) azelastine 137 mcg-fluticasone 50 1 spray intranasal DAILY 09/04/24 09/24/24 History mcg/spray nasal spray loratadine 10 mg tablet See Rx Instructions .Route 09/09/24 09/24/24 Rx .COMPLEX #30 tabs losartan 100 1 tab PO DAILY #30 tabs 09/15/24 09/24/24 Rx mg-hydrochlorothiazide 25 mg tablet ondansetron 4 mg disintegrating 4 - 8 mg (1 - 2 x 4 mg) PO BID PRN 09/16/24 09/24/24 Rx tablet nausea and vomiting #20 tabs New Prescriptions to Start Prescriptions: Allergies Allergy/AdvReac Type Severity Reaction Status Date / Time lisinopril (LISINOPRIL) Allergy Severe S-SWELLS-OR Verified 09/04/24 09:51 AL/THROAT sulfamethoxazole (From Allergy Mild Rash Verified 09/04/24 09:51 Bactrim) trimethoprim (From Bactrim) Allergy Mild Rash Verified 09/04/24 09:51 Assessment and Plan *Assessment and plan (1) Lumbar postlaminectomy syndrome: Problem Comment: Active follow-up with pain management on chronic narcotic therapy Status: Chronic Category: Medical Code(s): M96.1 - Postlaminectomy syndrome, not elsewhere classified (2) Lumbar radiculopathy: Status: Acute Category: Medical Code(s): M54.16 - Radiculopathy, lumbar region (3) Degenerative disc disease, lumbar: Status: Acute Category: Medical Code(s): M51.369 - Other intervertebral disc degeneration, lumbar region without mention of lumbar back pain or lower extremity pain Plan I did offer my sincere condolences for the loss that she has been going through on both her brother and nephew. I did industrial relations counselor her if she needs anything whatsoever to feel free to call us and let us know and we are more than happy to try and help. I will refill her Percocet and change her muscle relaxer. Patient will return to clinic in 1 month for reevaluation of symptoms and plan of care. Risks and benefits of the medication have been explained in detail to the patient. The patient does understand the risk of dependence on the medication when given over a prolonged period. Patient has been advised of risks of oversedation with the prescribed medication. Narcan has been offered to the paitent in the event of oversedation. Patient has been advised that a family member should also be educated regarding administration of Narcan. The patient has been advised to consult with his/her primary care provider and pharmacist regarding drug-drug interaction of medications currently prescribed. Patient has been prescribed a controlled substance after being counseled on the medication, medication safety, and possible side effects. Opioid contract was reviewed and signed by the patient, and that they have agreed to all of the terms set forth by our compliance program. A UDS is needed to verify patient's compliance with our office pain contract. This is ordered based off specific treatments related to chronic pain with the potential to abuse certain medications. Patient has been instructed to contact the clinic with any concerns before the next appointment. Dr. Purdy has reviewed this note and agrees with this plan of care. This note was dictated using voice recognition software and make contain errors or omissions.
== END 2024-09-24 23:59 | disposition home or self-care (01) ==
PROVIDERS: PCP Family Medicine; Visit Provider Nurse Practitioner Family
DX: M96.1 Postlaminectomy syndrome, not elsewhere classified (principal)
CPT/HCPCS: 99212; G0463

== ENCOUNTER 2024-10-22 08:43 | Outpatient (POV) | payer OTHER, MEDICAID, SELFPAY ==
--- OUTSIDE RECORDS SUMMARY | 2024-10-22 08:49 | XMS_ITS | Clinical Summary ---
Author Organization [facility] Address [address] [place] [id number] Care Team Providers Care Director Cardiac Name Role Phone Alan Ortiz MD Primary Care Provider [phone] Allergies Active Allergy Reactions Criticality Noted Date Comments Lisinopril Swelling 04/30/2018 Medications Losartan Potassium (COZAAR PO) Take 100 mg by mouth Daily. Active carBAMazepine XR (TEGretol XR) 200 MG 12 hr tablet Take 200 mg by mouth 2 (Two) Times a Day. Active AmLODIPine Besylate (NORVASC PO) Take 10 mg by mouth Daily. Active Omeprazole (PRILOSEC PO) Take 20 mg by mouth 2 (Two) Times a Day. Active levocetirizine (XYZAL) 5 MG tablet Take 5 mg by mouth Every Evening. Active fluticasone (FLONASE) 50 MCG/ACT nasal spray 2 sprays into the nostril(s) as directed by provider Daily. Active BuPROPion HCl (WELLBUTRIN PO) Take 150 mg by mouth 2 (Two) Times a Day. Active oxyCODONE-aceta minophen (PERCOCET) 10-325 MG per tablet Take 1 tablet by mouth Every 6 (Six) Hours As Needed for Moderate Pain . Active loratadine (CLARITIN) 10 MG tablet Take 10 mg by mouth Daily. Active montelukast (SINGULAIR) 10 MG tablet Take 10 mg by mouth Every Night. Active cyclobenzaprine (FLEXERIL) 10 MG tablet Take 10 mg by mouth 3 (Three) Times a Day As Needed for Muscle Spasms. Active ondansetron (ZOFRAN) 4 MG tablet Take 1 tablet by mouth Every 8 (Eight) Hours As Needed for Nausea or Vomiting. 12 tablet 05/07/2018 3:10 PM EST 05/07/2018 Active docusate sodium (COLACE) 100 MG capsule Take 1 capsule by mouth 2 (Two) Times a Day. 20 capsule 05/07/2018 Active oxyCODONE (ROXICODONE) 5 MG immediate release tablet Take 1 tablet by mouth Every 4 (Four) Hours As Needed for Moderate Pain . 30 tablet 05/07/2018 Active Active Problems No known active problems Social History Tobacco Use Types Packs/Day Years Used Date Smoking Tobacco: Former Cigarettes 1 5 Smokeless Tobacco: Never Comments:30 years ago Alcohol Use Standard Drinks/Week Comments No 0 (1 standard drink = 0.6 oz pur e alcohol) AUDIT-C Answer Date Recorded Frequency of Alcohol Consumption Never 04/30/2018 Average Number of Drinks Not on file Frequency of Binge Drinking Not on file 04/19 Abuse Screen Answer Date Recorded Unsafe at Home or Work/School Not on file Feels Threatened by Someone? Not on file 11/2022 Does Anyone Keep You from Co ntacting Others or Doint Things Outside the Home? Not on file 12/25/2022 Physical Sign of Abuse Present Not on file 1 Housing Stability Answer Date Recorded Current Living Arrangements Not on file 11/2022 Potentially Unsafe Housing Conditions Not on jc e 12/25/2022 Family and Community Support Answer Eladio e Recorded Help with Day-to-Day Activities Not on file 12/25/2022 Lonely or Isolated Not on file 12/25/2022 Employment Answer Date Recorded Do you want help finding or keeping work or a fabian b? Not on file 12/25/2022 Disabilities Answer Date Recorded Concentrating, Remembering, or Making Decisions Difficulty Not on file 12/25/2022 Doing Errands Independently Difficulty Not on fi le 12/25/2022 Education Answer Date Recorded Help with school or training? Not on file Preferred Language Not on file 12/25/2022 Comments No Sex and Gender Information Value Date Recorded Sex Assigned at Not on file Legal Sex Female 1:26 PM EDT Gender Identity Not on file Sexual Orientation Not on file Last Filed Vital Signs Vital Sign Reading Time Taken Comments Blood Pressure 172/76 05/07/2018 3:25 PM EST Pulse 68 05/07/2018 3:25 PM EST Temperature 36.2 C (97.1 F) 05/07/2018 2:55 PM EST Respiratory Rate 18 05/07/2018 3:25 PM EST Oxygen Saturation 99% 05/07/2018 3:25 PM EST Inhaled Oxygen Concentration - - Weight 130 kg (286 lb) 05/07/2018 9:09 AM EST Height 160 cm (5' 3 ) 05/07/2018 9:09 AM EST Body Mass Index 50.66 05/07/2018 9:09 AM EST Plan of Treatment Health Maintenance Due Date Last Done Comments Annual Gynecologic Pelvic and Breast Exam 1965 MAMMOGRAM 2004 COLOGUARD 01/01/2009 COLON CANCER SCREENING 5 YEA R SIGMOIDOSCOPY 01/01/2009 COLONOSCOPY 01/01/2009 COLORECTAL CANCER SCREENING 01/01/2009 CT COLONOGRAPHY 01/01/2009 FECAL OCCULT BLOOD TEST 01/01/2009 FIT Testing (1 year) 01/01/2009 Pneumococcal Vaccine 50+ (1 of 1 - PCV) 01/01/2014 ZOSTER VACCINE (1 of 2) 01/01/2014 ANNUAL PHYSICAL 04/30/2018 HEPATITIS C SCREENING 04/30/2018 COVID-19 Vaccine ( season) 2023, 06/10/2020 INFLUENZA VACCINE 12/17/2024 01/17/2023, 12/26/2021 TDAP/TD VACCINES (2 - Td or Tdap) 01/21/2029 019 [place] [id number] Care Teams Director Cardiac Relationship Specialty Start Date End Date Alan Ortiz MD [address] [place] [address] PCP - General Family Medicine 02/05/23
--- OUTSIDE RECORDS SUMMARY | 2024-10-22 08:49 | XMS_ITS | Clinical Summary ---
Author Organization Healthcare Address [address] [place] [address] Care Team Providers Care Tacker Off Name Role Phone Jose Ray MD Primary Care Provider [phone] Family History Medical History Relation Name Comments [...] of Treatment Not on file Care Teams Tacker Off Relationship Specialty Start Date End Date Jose Ray MD [address] [place] [address] PCP - General 07/30/20
--- OUTSIDE RECORDS SUMMARY | 2024-10-22 08:49 | XMS_ITS | Clinical Summary ---
Author Organization [facility] [place] [address] Care Team Providers Care [employer] Guid[employer] Counselor Name Role Phone Unavailable Primary Care Provider [...]
[2024-10-22 09:18] VITALS: BP 127/61; PULSE 60; RESP 14; O2SAT 96; BMI 42.7
--- NOTE | 2024-10-22 11:02 | A.OFFVIS_ITS ---
[facility] Disclaimer: The information contained in this section may have been updated after the patient was seen, as this information can be updated by other users. Medical History AMAURY (obstructive sleep apnea) Asymptomatic treated with an oral appliance Allergic rhinitis History of asthma Overactive bladder Sleep apnea History of COVID-19 Asthma Anxiety and depression History of gastroesophageal reflux (GERD) Diabetes Allergies Hyperlipidemia Hypertension Post-nasal drainage Rhinitis medicamentosa Atrophic vaginitis Pelvic pain Dysuria Right lower quadrant abdominal pain Right hip pain Edema of left lower extremity Otitis media Bronchitis Sinusitis Osteoporosis Dyspnea 12/26/2023: Additional workup requested, (overnight oximetry on CPAP, chest x- ray PA and lateral, PFTs with walking test, pulmonology referral) Abnormal EKG Chest pain Dizziness Right wrist sprain Shoulder pain, left B12 deficiency Iron deficiency anemia Abdominal pain Posterior pain of left hip Pain in left thigh Left knee pain Abrasion, left knee, initial encounter Left foot pain Fall Cough Surgical History History of cholecystectomy History of tonsillectomy History of X3 History of hysterectomy H/O gastric bypass H/O shoulder surgery Previous back surgery Family History Other Cancer Colon cancer Social History Smoking Status: Never smoker alcohol intake: never counseling provided: none substance use type: denies use current occupational status: other Travel in the last 8 weeks?: None household members: spouse housing: house caffeine: No fire extinguisher in home: Yes carbon monox detector in home: Yes firearms in home: No do you feel safe at home: Yes victim of physical abuse: No victim of emotional abuse: No victim of sexual abuse: No would you like helpful sources: No PM Subjective & Objective Subjective Subjective:: Patient is a pleasant 59-year-old female who presents today for medication refill and follow-up. Today she rates her pain a 7 out of 10. She denies any new trauma or injury. Patient is currently managed with Percocet 10 mg 3 times a day, methocarbamol 500 mg 4 times a day and compounded cream. She denies any side effects we did just recently change her muscle relaxer to baclofen.. She denies any side effects. Her Azar has been reviewed and is appropriate. Review of Systems: General: No recent weight changes, no fever, no sleep disturbances Respiratory: No cough, no shortness of air, no recurring pulmonary infections Cardiovascular/peripheral vascular: No chest pain, no palpitations, no edema, no shortness of breath Gastrointestinal: No new onset incontinence, normal bowel movements reported Genitourinary: No new onset incontinence Musculoskeletal: Low back pain Psychiatric: [Normal mood/affect] Neurological: [Denies weakness in extremities], [denies balance issues] Pain at rest (0-10 scale): 7 Objective Objective:: Physical Exam: General: Alert and oriented x3, no acute distress, pleasant and cooperative Lungs: Respirations even and unlabored, symmetrical chest expansion Eyes: PERRL Musculoskeletal: Flexion and extension of lumbar [spine] somewhat guarded secondary to pain, [antalgic gait noted] Neurological: Speech clear, no gross sensory deficit Has patient had previous pain injection?: No Conservative treatment options previously tried: Home exercise plan Length of treatment: Longer than 12 weeks Meds Home Medications and Allergies Home Medications ?Medication ?Instructions ?Recorded ?Confirmed ?Type blood sugar diagnostic (Blood #50 ea 05/10/22 10/22/24 Rx Glucose Test strips) blood-glucose meter (Blood Glucose #1 ea 05/10/2209/10 Rx Monitoring kit) lancets 33 gauge (OneTouch Delica #100 ea 05/30/2209/10 History Plus Lancet) levocetirizine 5 mg tablet 5 mg PO DAILY 07/25/2309/10 History omeprazole 40 mg capsule,delayed 40 mg PO .COMPLEX #90 caps 12/04/23 10/22/24 Rx release polyethylene glycol 3350 17 17 g PO DAILY constipation #238 12/04/23 10/22/24 Rx gram/dose oral powder grams carbamazepine 100 mg chewable 300 mg (3 x 100 mg) PO D AILY . 12/26/23 10/22/24 Rx tablet Trigeminal neuralgia 90 days #270 tabs montelukast 10 mg tablet See Rx Instructions .Route 1 04/06/23 10/22/24 Rx .COMPLEX #90 tabs ipratropium bromide 21 mcg (0.03 1 spray intranasal DIRECTED 03/04/24 10/22/24 History %) nasal spray Breathing Problems albuterol sulfate 90 mcg/actuation 2 puff inhalation Q 4-6H PRN 05/16/24 10/22/24 Rx aerosol inhaler (Ventolin HFA) shortness of breath or wheezing #8.5 grams amlodipine 10 mg tablet 10 mg PO DAILY High blood pr essure 05/16/24 10/22/24 Rx #90 tabs dicyclomine 10 mg capsule 10 mg PO BID BOWELS #180 cap s 06/11/24 10/22/24 Rx prucalopride 2 mg tablet 2 mg PO DAILY BOWELS 90 days #90 06/11/24 10/22/24 Rx (Motegrity) tabs buspirone 10 mg tablet 10 mg PO ONCE 06/17/2410/22 History semaglutide 2 mg/dose (8 mg/3 mL) 2 mg (0.75 mL) SQ WE EKLY 30 days 07/17/24 10/22/24 Rx subcutaneous pen injector #3.75 mL atorvastatin 20 mg tablet See Rx Instructions .Route 0 08/12/24 10/22/24 Rx .COMPLEX #90 tabs methocarbamol 500 mg tablet 500 mg PO QID PRN muscle s pasms 08/25/24 10/22/24 Rx #120 tabs azelastine 137 mcg-fluticasone 50 1 spray intranasal D AILY 09/04/24 10/22/24 History mcg/spray nasal spray loratadine 10 mg tablet See Rx Instructions .Route 0 09/09/24 10/22/24 Rx .COMPLEX #30 tabs losartan 100 1 tab PO DAILY #30 tabs /10/22/24 Rx mg-hydrochlorothiazide 25 mg tablet ondansetron 4 mg disintegrating 4 - 8 mg (1 - 2 x 4 mg ) PO BID PRN 09/16/24 10/22/24 Rx tablet nausea and vomiting #20 tabs baclofen 10 mg tablet 10 mg PO TID #42 tabs 10/22/24 Rx oxycodone-acetaminophen 10 mg-325 1 tab PO TID #90 tab s 09/24/24 10/22/24 Rx mg tablet (Percocet) estradiol 0.01% (0.1 mg/gram) See Rx Instructions vagi nal 09/29/24 10/22/24 Rx vaginal cream .COMPLEX #42.5 grams oxybutynin chloride 10 mg 10 mg PO DAILY 90 days #90 t abs 09/29/24 10/22/24 Rx tablet,extended release 24 hr bupropion HCl 150 mg tablet,12 hr See Rx Instructions .Route 10/07/24 10/22/24 Rx sustained-release .COMPLEX #60 tabs spironolactone 50 mg tablet See Rx Instructions .Route 10/15/24 10/22/24 Rx .COMPLEX #30 tabs lipase 60,000-protease 1 cap PO DIRECTED SUPPLIM ENT 10/17/24 10/22/24 Rx 189,600-amylase 252,600 unit #30 caps capsule, delay rel (Zenpep) New Prescriptions to Start Prescriptions: Allergies Allergy/AdvReac Type Severity Reaction Status Date / Time lisinopril (LISINOPRIL) Allergy Severe S-SWELLS-OR Verified 10/06/24 09:38 AL/THROAT sulfamethoxazole (From Allergy Mild Rash Verified 10/06/24 09:38 Bactrim) trimethoprim (From Bactrim) Allergy Mild Rash Verified 10/06/24 09:38 Assessment and Plan *Assessment and plan (1) Lumbar postlaminectomy syndrome: Problem Comment: Active follow-up with pain management on chronic narcotic therapy Status: Chronic Category: Medical Code(s): M96.1 - Postlaminectomy syndrome, not elsewhere classified Plan I will refill her Percocet and baclofen to provide a 1 month supply of this medication. Patient will return to clinic in 1 month for reevaluation of symptoms and plan of care. Risks and benefits of the medication have been explained in detail to the patient. The patient does understand the risk of dependence on the medication when given over a prolonged period. Patient has been advised of risks of oversedation with the prescribed medication. Narcan has been offered to the paitent in the event of oversedation. Patient has been advised that a family member should also be educated regarding administration of Narcan. The patient has been advised to consult with his/her primary care provider and pharmacist regarding drug-drug interaction of medications currently prescribed. Patient has been prescribed a controlled substance after being counseled on the medication, medication safety, and possible side effects. Opioid contract was reviewed and signed by the patient, and that they have agreed to all of the terms set forth by our compliance program. A UDS is needed to verify patient's compliance with our office pain contract. This is ordered based off specific treatments related to chronic pain with the potential to abuse certain medications. Patient has been instructed to contact the clinic with any concerns before the next appointment. Dr. Purdy has reviewed this note and agrees with this plan of care. This note was dictated using voice recognition software and make contain errors or omissions.
== END 2024-10-22 23:59 | disposition home or self-care (01) ==
PROVIDERS: PCP Family Medicine; Visit Provider Nurse Practitioner Family
DX: M46.1 Sacroiliitis, not elsewhere classified (principal); Z79.899 Other long term (current) drug therapy
CPT/HCPCS: 99212; G0463

== ENCOUNTER 2025-01-12 10:59 | Day surgery (SDC) | payer MEDICAID, MEDICARE, SELFPAY ==
[2025-01-08 13:02] VITALS: BMI 43.0
--- NOTE | 2025-01-08 15:03 | EXP.HP ---
History of Present Illness *Admission Date: 01/12/25 *History of present illness: Mrs. Agustin is a 60-year-old female who is here for diagnostic EGD. The patient does have a long history of dyspepsia and functional bowel disease. She also has a history of gastroparesis. The patient has been on a number of therapies over the years. She is presently on Motegrity, Zenpep, omeprazole, dicyclomine and Zofran. The patient has had some increased stress recently. She also has had more significant right upper quadrant abdominal pain that she rates at an 8 out of 9 on the pain scale. The patient is also on Ozempic. This has helped her with weight loss and her hemoglobin A1c has significantly improved. However, she does feel that this is causing some of her GI side effects. The patient does report significant belching, bloating and gas pains. She does report regular bowel function but does have some typical alternating symptoms. She has improved since Motegrity. The patient did have a colonoscopy with me at [facility] in 2023. Her last EGD was with me in June 2018. Her EGD showed Galindo-en-Y gastric bypass anatomy and some reactive gastropathy of the gastric pouch. Her colonoscopy in June 2018 showed a diminutive descending polyp (tubular adenoma) and some mild left-sided diverticulosis. I do not have pathology from her more recent colonoscopy just over a year ago. The patient did not understand Zenpep and is only taking this once daily and not at time of meals. She is on low-dose buspirone at bedtime. The examination is deemed medically necessary for diagnostic EGD. The patient has been seen, interviewed and examined prior to the procedure by both myself and the anesthesia provider. [facility] Disclaimer: The information contained in this section may have been updated after the patient was seen, as this information can be updated by other users. Medical History AMAURY (obstructive sleep apnea) Asymptomatic treated with an oral appliance Allergic rhinitis History of asthma Overactive bladder Sleep apnea History of COVID-19 Asthma Anxiety and depression History of gastroesophageal reflux (GERD) Diabetes Allergies Hyperlipidemia Hypertension Post-nasal drainage Rhinitis medicamentosa Atrophic vaginitis Pelvic pain Dysuria Right lower quadrant abdominal pain Right hip pain Edema of left lower extremity Otitis media Bronchitis Sinusitis Osteoporosis Dyspnea 12/26/2023: Additional workup requested, (overnight oximetry on CPAP, chest x-ray PA and lateral, PFTs with walking test, pulmonology referral) Abnormal EKG Chest pain Dizziness Right wrist sprain Shoulder pain, left B12 deficiency Iron deficiency anemia Abdominal pain Posterior pain of left hip Pain in left thigh Left knee pain Abrasion, left knee, initial encounter Left foot pain Fall Cough Surgical History History of cholecystectomy History of tonsillectomy History of X3 History of hysterectomy H/O gastric bypass H/O shoulder surgery Previous back surgery Family History Other Cancer Colon cancer Social History Smoking Status: Never smoker alcohol intake: never counseling provided: none substance use type: denies use current occupational status: other Travel in the last 8 weeks?: None household members: spouse housing: house caffeine: No fire extinguisher in home: Yes carbon monox detector in home: Yes firearms in home: No do you feel safe at home: Yes victim of physical abuse: No victim of emotional abuse: No victim of sexual abuse: No would you like helpful sources: No Have you lived/traveled outside [place] in past 30 days?: No Contact w/someone who lives/traveled outside US past 30 days?: No Exposure to someone with infectious disease in past 14 days?: No Do you have a fever (greater than 100.4 F or 38 C)?: No Have you tested positive for COVID-19?: No Exposed to someone with COVID-19 in past 14 days?: No Do you have a sore throat?: No Do you have a cough?: No Do you have any weakness?: No Do you have any diarrhea?: No Are you experiencing any unusual bleeding?: No Do you have any muscle aches/pain?: No Do you have any abdominal pain?: No Are you experiencing loss of taste or smell?: No Other Medical History Have you received the Flu Vaccine for this season: No Have you received the Pneumonia Vaccine: No Review of Systems Review of Systems Review of systems (narrative): Negative *Cardiovascular Comments: Negative *Gastrointestinal Comments: Negative *Genitourinary Comments: Negative *Musculoskeletal Comments: Negative *Neurologic Comments: Negative Meds Home Medications and Allergies Home Medications ?Medication ?Instructions ?Recorded ?Confirmed ?Type blood sugar diagnostic (Blood #50 ea 05/10/22 01/12/25 Rx Glucose Test strips) blood-glucose meter (Blood Glucose #1 ea 05/10/22 01/12/25 Rx Monitoring kit) lancets 33 gauge (OneTouch Delica #100 ea 05/30/22 01/12/25 History Plus Lancet) omeprazole 40 mg capsule,delayed 40 mg PO .COMPLEX #90 caps 12/04/23 01/12/25 Rx release polyethylene glycol 3350 17 17 g PO DAILY constipation #238 12/04/23 01/12/25 Rx gram/dose oral powder grams carbamazepine 100 mg chewable 300 mg (3 x 100 mg) PO DAILY . 12/26/23 01/12/25 Rx tablet Trigeminal neuralgia 90 days #270 tabs montelukast 10 mg tablet See Rx Instructions .Route 02/05/24 01/12/25 Rx .COMPLEX #90 tabs ipratropium bromide 21 mcg (0.03 1 spray intranasal DIRECTED 03/04/24 01/12/25 History %) nasal spray Breathing Problems albuterol sulfate 90 mcg/actuation 2 puff inhalation Q4-6H PRN 05/16/24 01/12/25 Rx aerosol inhaler (Ventolin HFA) shortness of breath or wheezing #8.5 grams prucalopride 2 mg tablet 2 mg PO DAILY BOWELS 90 days #90 06/11/24 01/12/25 Rx (Motegrity) tabs atorvastatin 20 mg tablet See Rx Instructions .Route 08/12/24 01/12/25 Rx .COMPLEX #90 tabs azelastine 137 mcg-fluticasone 50 1 spray intranasal DAILY 09/04/24 01/12/25 History mcg/spray nasal spray buspirone 10 mg tablet 15 mg (1.5 x 10 mg) PO BID #60 tabs 11/11/24 01/12/25 Rx slvbpt-ljtgsmrh-kectlkq(pork) 1 cap PO .With meals SUPPLIMENT 11/11/24 01/12/25 Rx 60k-189,600-252,600 unit #90 caps capsule,del rel (Zenpep) ondansetron 4 mg disintegrating 4 - 8 mg (1 - 2 x 4 mg) PO BID PRN 11/11/24 01/12/25 Rx tablet nausea and vomiting #60 tabs losartan 100 1 tab PO DAILY 90 days #90 tabs 11/12/24 01/12/25 Rx mg-hydrochlorothiazide 25 mg tablet spironolactone 50 mg tablet 50 mg PO DAILY #90 tabs 11/12/24 01/12/25 Rx methocarbamol 500 mg tablet 500 mg PO QID #120 tabs 11/21/24 01/12/25 Rx bupropion HCl 150 mg tablet,12 hr See Rx Instructions .Route 12/05/24 01/12/25 Rx sustained-release .COMPLEX #60 tabs loratadine 10 mg tablet See Rx Instructions .Route 12/09/24 01/12/25 Rx .COMPLEX #30 tabs estradiol 0.01% (0.1 mg/gram) See Rx Instructions vaginal 12/29/24 01/12/25 Rx vaginal cream .COMPLEX #42.5 grams oxybutynin chloride 10 mg 10 mg PO DAILY 90 days #90 tabs 12/29/24 01/12/25 Rx tablet,extended release 24 hr oxycodone-acetaminophen 10 mg-325 1 tab PO TID #90 tabs 12/31/24 01/12/25 Rx mg tablet (Percocet) tirzepatide (weight loss) 5 mg/0.5 5 mg (0.5 mL) SQ WEEKLY #2 mL 01/05/25 01/12/25 Rx mL subcutaneous pen injector (Zepbound) levocetirizine 5 mg tablet See Rx Instructions .Route 01/07/25 01/12/25 Rx .COMPLEX #30 tabs New Prescriptions to Start Prescriptions: Allergies Allergy/AdvReac Type Severity Reaction Status Date / Time lisinopril (LISINOPRIL) Allergy Severe S-SWELLS-OR Verified 01/12/25 11:32 AL/THROAT sulfamethoxazole (From Allergy Mild Rash Verified 01/12/25 11:32 Bactrim) trimethoprim (From Bactrim) Allergy Mild Rash Verified 01/12/25 11:32 Exam Data for Last 24 hours I & O for Last 24 hours: Intake & Output 01/05/25 01/06/25 01/07/25 01/08/25 23:59 23:59 23:59 23:59 Weight 243 lb *Routine HEENT Exam Head: Present normocephalic Eye: Present EOMI and PERRL ENT: Present mucous membranes moist *Routine Neck Exam Neck: Present supple *Routine Respiratory Exam Respiratory: Present CTA bilaterally *Routine Cardiovascular Exam Cardiovascular: Present RRR *Routine Abdominal Exam Abdominal: Present soft and normoactive bowel sounds; Absent tenderness *Routine Rectal Exam Rectal:: deferred *Routine Genitalia Exam Genitalia:: deferred *Routine Extremities Exam Extremities: Absent cyanosis, clubbing or edema *Routine Skin Exam Skin: Present warm; Absent rash *Routine Neurological Exam Neurological: Present alert and oriented X3 Assessment and Plan *Assessment and plan (1) Nausea and vomiting: Status: Acute Category: Medical Code(s): R11.2 - Nausea with vomiting, unspecified (2) Belching: Status: Acute Category: Medical Code(s): R14.2 - Eructation (3) Gassiness: Status: Acute Category: Medical Code(s): R14.0 - Abdominal distension (gaseous) (4) Bloating: Status: Acute Category: Medical Code(s): R14.0 - Abdominal distension (gaseous) (5) Functional abdominal pain syndrome: Status: Acute Category: Medical Code(s): R10.9 - Unspecified abdominal pain (6) Gastroparesis: Status: Acute Category: Medical Code(s): K31.84 - Gastroparesis Plan A/P: 1. Nausea and vomiting with history of gastroparesis is the preprocedural diagnosis. The patient does have persistent abdominal pain (functional abdominal pain and right upper quadrant), gassiness and bloating. The patient will be anesthetized/sedated using MAC sedation. The patient has been seen and examined. Cardiac and lung assessment prior to the examination is stable. Proceed with planned diagnostic EGD.
--- NOTE | 2025-01-12 07:13 | HMH.PROCNOTE ---
[facility] Procedure Note Date: 01/12/25 Time: 13:05 Procedure Note:: Upper Endoscopy Procedure Report: Esophagogastroduodenoscopy with cold biopsies Endoscopost: William Georges II, MD Referring Physician: Alan Ortiz MD Date of Procedure: January 12, 2025 Equipment: Olympus GIF-1100 standard upper endoscope Sedation: MAC sedation Indications: Mrs. Agustin is a 60-year-old female who is here for diagnostic EGD. The patient does have a long history of dyspepsia and functional bowel disease. She also has a history of gastroparesis. The patient has been on a number of therapies over the years. She is presently on Motegrity, Zenpep, omeprazole, dicyclomine and Zofran. The patient has had some increased stress recently. She also has had more significant right upper quadrant abdominal pain that she rates at an 8 out of 9 on the pain scale. The patient is also on Ozempic. This has helped her with weight loss and her hemoglobin A1c has significantly improved. However, she does feel that this is causing some of her GI side effects. The patient does report significant belching, bloating and gas pains. She does report regular bowel function but does have some typical alternating symptoms. She has improved since Motegrity. The patient did have a colonoscopy with me at [facility] in 2023. Her last EGD was with me in June 2018. Her EGD showed Galindo-en-Y gastric bypass anatomy and some reactive gastropathy of the gastric pouch. Her colonoscopy in June 2018 showed a diminutive descending polyp (tubular adenoma) and some mild left-sided diverticulosis. I do not have pathology from her more recent colonoscopy just over a year ago. The patient did not understand Zenpep and is only taking this once daily and not at time of meals. She is on low-dose buspirone at bedtime. The examination is deemed medically necessary for diagnostic EGD. Procedure: Prior to the procedure, a history and physical exam was performed, and patient's medications and allergies were reviewed. The risks, benefits and alternatives of the sedation and procedure were discussed with the patient. All questions were answered and informed consent was obtained. The patient was brought to the procedure room. Patient identification and proposed procedure were verified by the physician and the nurse. The patient was placed in a left lateral decubitus position and the scope was passed under direct vision. Throughout the procedure, the patient's blood pressure, pulse, and oxygen saturations were monitored continuously. The upper GI endoscopy was accomplished without difficulty. The patient tolerated the procedure well. Findings: The scope was passed directly into the upper esophagus and advanced to the afferent blind jejunal limb and efferent limb of jejunum of the Galindo-en-Y gastric bypass. 2 cold biopsies were taken from the jejunum for the disaccharidase assay. The scope was withdrawn to the stomal anastomosis and the stomal anastomosis was widely patent with no stomal ulceration or erosion. The gastric pouch was visualized and there was a 9 to 10 mm fistula (from gastric pouch to pamunkey stomach) identified. There was very mild reactive gastropathy of the pouch. The scope was then withdrawn into the esophagus. There was no evidence of reflux esophagitis and the remainder of the esophageal mucosa was normal. Impression: 1. 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 I would consider endoscopic repair with Ovesco clip and will discuss this with the patient. This can undermine the success of the bypass. I also feel that the patient has some functional abdominal pain related to her significant bloating, but belching and gas pain. We will discuss treatment options.
[2025-01-12 11:35] VITALS: BP 117/57; PULSE 64; RESP 18; TEMP 36.1; O2SAT 99
[2025-01-12] MEDS: LACTATED RINGERS 1000ML 1,000 ML 50 ML IV (11:40)
[2025-01-12 11:46] LABS: POC Glucose,Bedside 104 gm/dL (70-110)
--- NOTE | 2025-01-12 12:05 | P.PNANES_ITS ---
[facility] Disclaimer: The information contained in this section may have been updated after the patient was seen, as this information can be updated by other users. Medical History AMAURY (obstructive sleep apnea) Asymptomatic treated with an oral appliance Allergic rhinitis History of asthma Overactive bladder Sleep apnea History of COVID-19 Asthma Anxiety and depression History of gastroesophageal reflux (GERD) Diabetes Allergies Hyperlipidemia Hypertension Post-nasal drainage Rhinitis medicamentosa Atrophic vaginitis Pelvic pain Dysuria Right lower quadrant abdominal pain Right hip pain Edema of left lower extremity Otitis media Bronchitis Sinusitis Osteoporosis Dyspnea 12/26/2023: Additional workup requested, (overnight oximetry on CPAP, chest x- ray PA and lateral, PFTs with walking test, pulmonology referral) Abnormal EKG Chest pain Dizziness Right wrist sprain Shoulder pain, left B12 deficiency Iron deficiency anemia Abdominal pain Posterior pain of left hip Pain in left thigh Left knee pain Abrasion, left knee, initial encounter Left foot pain Fall Cough Surgical History History of cholecystectomy History of tonsillectomy History of X3 History of hysterectomy H/O gastric bypass H/O shoulder surgery Previous back surgery Family History Other Cancer Colon cancer Social History Smoking Status: Never smoker alcohol intake: never counseling provided: none substance use type: denies use current occupational status: other Travel in the last 8 weeks?: None household members: spouse housing: house caffeine: No fire extinguisher in home: Yes carbon monox detector in home: Yes firearms in home: No do you feel safe at home: Yes victim of physical abuse: No victim of emotional abuse: No victim of sexual abuse: No would you like helpful sources: No Have you lived/traveled outside [place] in past 30 days?: No Contact w/someone who lives/traveled outside US past 30 days?: No Exposure to someone with infectious disease in past 14 days?: No Do you have a fever (greater than 100.4 F or 38 C)?: No Have you tested positive for COVID-19?: No Exposed to someone with COVID-19 in past 14 days?: No Do you have a sore throat?: No Do you have a cough?: No Do you have any weakness?: No Do you have any diarrhea?: No Are you experiencing any unusual bleeding?: No Do you have any muscle aches/pain?: No Do you have any abdominal pain?: No Are you experiencing loss of taste or smell?: No [facility] Anesthesia Checklist Patient Identification Patient Identification: Arm Band and Verbal (Name & ) Structural Data Admitted From: Home Planned Operative Procedure/s: EGD Consent for Planned Operative Procedure(s) Verified: Yes Verified Documents: Surgical Consent NPO Status Verified Time NPO: 00:00 Additional verifications Anesthesia Reactions: No Hx Blood Transfusions: No Blood Transfusion Reaction: No Airway Assessment Mallampati Score:: Class II C-Spine Mobility Assessed: Yes TMJ Mobility Assessed: Yes Dentition: Good Dentition Neurological Assessment Level of Consciousness: Awake, Alert and Appropriate Hx Seizures: No Numbness or tingling in extremities: No Anesthesia Plan Anesthesia Risk discussed: Yes Anesthesia Plan: Verified ASA Class: II Anesthesia Type: MAC
[2025-01-12 13:00] VITALS: BP 124/64; PULSE 67; RESP 16; TEMP 36.2; O2SAT 98
[2025-01-12 13:10] VITALS: BP 136/60; PULSE 64; RESP 18; TEMP 36.2; O2SAT 98
[2025-01-12 13:20] VITALS: BP 125/72; PULSE 62; RESP 18; TEMP 36.2; O2SAT 97
[2025-01-12 13:30] VITALS: BP 130/63; PULSE 62; RESP 18; TEMP 36.2; O2SAT 98
[2025-01-16 12:12] LABS: Interpretation Notes (.); Lactase 36.39 (>/= 14.0); Maltase 420.43 (>/= 110.0); Palatinase 36.71 (>/= 8.5); Reference Notes (.); Sucrase 142.29 (>/= 25.0)
== END 2025-01-12 13:30 | disposition home or self-care (01) ==
PROVIDERS: PCP Family Medicine; Visit Provider Internal Medicine Gastroenterology
PROC: 0DJ08ZZ Inspection of Upper Intestinal Tract, Via Natural or Artificial Opening Endoscopic (ICD-10-PCS; CPT 43239; principal; 2025-01-12 13:00)
DX: K31.6 Fistula of stomach and duodenum (principal); K31.89 Other diseases of stomach and duodenum; K31.84 Gastroparesis; K21.9 Gastro-esophageal reflux disease without esophagitis; N32.81 Overactive bladder; F32.A Depression, unspecified; F41.9 Anxiety disorder, unspecified; I10 Essential (primary) hypertension; E78.5 Hyperlipidemia, unspecified; E66.9 Obesity, unspecified; J45.909 Unspecified asthma, uncomplicated; M81.0 Age-related osteoporosis without current pathological fracture; Z88.2 Allergy status to sulfonamides; Z88.1 Allergy status to other antibiotic agents; Z88.8 Allergy status to other drugs, medicaments and biological substances; Z98.84 Bariatric surgery status
CPT/HCPCS: 43239; 82657; 82962; J2003; J2704; J7120

== ENCOUNTER 2025-03-09 11:49 | Day surgery (SDC) | payer MEDICARE, MEDICAID, SELFPAY ==
[2025-03-06 11:37] VITALS: BMI 43.0
--- NOTE | 2025-03-08 12:38 | EXP.HP ---
History of Present Illness *Admission Date: 03/09/25 *History of present illness: Mrs. Agustin is a 60-year-old female who is here for diagnostic EGD. The patient has a history of dyspepsia and gastroparesis. 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 The patient is here for attempted closure of the gastric fistula with Ovesco clip. The examination is deemed medically necessary for diagnostic EGD. The patient has been seen, interviewed and examined prior to the procedure by both myself and the anesthesia provider. [facility] Disclaimer: The information contained in this section may have been updated after the patient was seen, as this information can be updated by other users. Medical History AMAURY (obstructive sleep apnea) On lifestyle modification only Allergic rhinitis History of asthma Overactive bladder Sleep apnea History of COVID-19 Asthma Anxiety and depression History of gastroesophageal reflux (GERD) Diabetes Allergies Hyperlipidemia Hypertension Post-nasal drainage Rhinitis medicamentosa Atrophic vaginitis Pelvic pain Dysuria Right lower quadrant abdominal pain Right hip pain Edema of left lower extremity Otitis media Bronchitis Sinusitis Osteoporosis Dyspnea 12/26/2023: Additional workup requested, (overnight oximetry on CPAP, chest x-ray PA and lateral, PFTs with walking test, pulmonology referral) Abnormal EKG Chest pain Dizziness Right wrist sprain Shoulder pain, left B12 deficiency Iron deficiency anemia Abdominal pain Posterior pain of left hip Pain in left thigh Left knee pain Abrasion, left knee, initial encounter Left foot pain Fall Cough Surgical History History of cholecystectomy History of tonsillectomy History of X3 History of hysterectomy H/O gastric bypass H/O shoulder surgery Previous back surgery Family History Other Cancer Colon cancer Social History Smoking Status: Never smoker alcohol intake: never counseling provided: none substance use type: denies use current occupational status: other Travel in the last 8 weeks?: None household members: spouse housing: house caffeine: No fire extinguisher in home: Yes carbon monox detector in home: Yes firearms in home: No do you feel safe at home: Yes victim of physical abuse: No victim of emotional abuse: No victim of sexual abuse: No would you like helpful sources: No Have you lived/traveled outside US in past 30 days?: No Contact w/someone who lives/traveled outside US past 30 days?: No Exposure to someone with infectious disease in past 14 days?: No Do you have a fever (greater than 100.4 F or 38 C)?: No Have you tested positive for COVID-19?: No Exposed to someone with COVID-19 in past 14 days?: No Do you have a sore throat?: No Do you have a cough?: No Do you have any weakness?: No Do you have any diarrhea?: No Are you experiencing any unusual bleeding?: No Do you have any muscle aches/pain?: No Do you have any abdominal pain?: No Are you experiencing loss of taste or smell?: No Other Medical History Have you received the Flu Vaccine for this season: No Have you received the Pneumonia Vaccine: No Review of Systems Review of Systems Review of systems (narrative): Negative *Cardiovascular Comments: Negative *Gastrointestinal Comments: Negative *Genitourinary Comments: Negative *Musculoskeletal Comments: Negative *Neurologic Comments: Negative Meds Home Medications and Allergies Home Medications ?Medication ?Instructions ?Recorded ?Confirmed ?Type blood sugar diagnostic (Blood #50 ea 05/10/22 03/06/25 Rx Glucose Test strips) blood-glucose meter (Blood Glucose #1 ea 05/10/22 03/06/25 Rx Monitoring kit) lancets 33 gauge (OneTouch Delica #100 ea 05/30/22 03/06/25 History Plus Lancet) polyethylene glycol 3350 17 17 g PO DAILY constipation #238 12/04/23 03/06/25 Rx gram/dose oral powder grams ipratropium bromide 21 mcg (0.03 1 spray intranasal DIRECTED 03/04/24 03/06/25 History %) nasal spray Breathing Problems albuterol sulfate 90 mcg/actuation 2 puff inhalation Q4-6H PRN 05/16/24 03/06/25 Rx aerosol inhaler (Ventolin HFA) shortness of breath or wheezing #8.5 grams prucalopride 2 mg tablet 2 mg PO DAILY BOWELS 90 days #90 06/11/24 03/06/25 Rx (Motegrity) tabs atorvastatin 20 mg tablet See Rx Instructions .Route 08/12/24 03/06/25 Rx .COMPLEX #90 tabs buspirone 10 mg tablet 15 mg (1.5 x 10 mg) PO BID #60 tabs 11/11/24 03/06/25 Rx myliev-xtyzdfzk-cbzbycb(pork) 1 cap PO .With meals SUPPLIMENT 11/11/24 03/06/25 Rx [id number],600 unit #90 caps capsule,del rel (Zenpep) ondansetron 4 mg disintegrating 4 - 8 mg (1 - 2 x 4 mg) PO BID PRN 11/11/24 03/06/25 Rx tablet nausea and vomiting #60 tabs losartan 100 1 tab PO DAILY 90 days #90 tabs 11/12/24 03/06/25 Rx mg-hydrochlorothiazide 25 mg tablet spironolactone 50 mg tablet 50 mg PO DAILY #90 tabs 11/12/24 03/06/25 Rx loratadine 10 mg tablet See Rx Instructions .Route 12/09/24 03/06/25 Rx .COMPLEX #30 tabs estradiol 0.01% (0.1 mg/gram) See Rx Instructions vaginal 12/29/24 03/06/25 Rx vaginal cream .COMPLEX #42.5 grams oxybutynin chloride 10 mg 10 mg PO DAILY 90 days #90 tabs 12/29/24 03/06/25 Rx tablet,extended release 24 hr levocetirizine 5 mg tablet See Rx Instructions .Route 01/07/25 03/06/25 Rx .COMPLEX #30 tabs carbamazepine 100 mg chewable 300 mg (3 x 100 mg) PO DAILY . 01/20/25 03/06/25 Rx tablet Trigeminal neuralgia 90 days #270 tabs azelastine 137 mcg-fluticasone 50 1 spray intranasal DAILY #23 grams 02/09/25 03/06/25 Rx mcg/spray nasal spray bupropion HCl 150 mg tablet,12 hr See Rx Instructions .Route 02/09/25 03/06/25 Rx sustained-release .COMPLEX #60 tabs montelukast 10 mg tablet See Rx Instructions .Route 02/09/25 03/06/25 Rx .COMPLEX #90 tabs omeprazole 40 mg capsule,delayed 40 mg PO .COMPLEX #90 caps 02/09/25 03/06/25 Rx release hpdzclco-wcoyirhvf-qlbduutz 3.5 1 drp ophthalmic (eye) Q4H 1 week 02/26/25 03/06/25 Rx mg/mL-10,000 unit/mL-0.1% eye #5 mL drops (Maxitrol) oxycodone-acetaminophen 10 mg-325 1 tab PO TID #90 tabs 02/27/25 03/06/25 Rx mg tablet (Percocet) tirzepatide (weight loss) 10 10 mg (0.5 mL) SQ WEEKLY #2 mL 03/05/25 03/06/25 Rx mg/0.5 mL subcutaneous pen injector (Zepbound) New Prescriptions to Start Prescriptions: Allergies Allergy/AdvReac Type Severity Reaction Status Date / Time lisinopril (LISINOPRIL) Allergy Severe S-SWELLS-OR Verified 03/06/25 11:34 AL/THROAT sulfamethoxazole (From Allergy Mild Rash Verified 03/06/25 11:34 Bactrim) trimethoprim (From Bactrim) Allergy Mild Rash Verified 03/06/25 11:34 Exam Data for Last 24 hours I & O for Last 24 hours: Intake & Output 03/05/25 03/06/25 03/07/25 03/08/25 23:59 23:59 23:59 23:59 Weight 243 lb *Routine HEENT Exam Head: Present normocephalic Eye: Present EOMI and PERRL ENT: Present mucous membranes moist *Routine Neck Exam Neck: Present supple *Routine Respiratory Exam Respiratory: Present CTA bilaterally *Routine Cardiovascular Exam Cardiovascular: Present RRR *Routine Abdominal Exam Abdominal: Present soft and normoactive bowel sounds; Absent tenderness *Routine Rectal Exam Rectal:: deferred *Routine Genitalia Exam Genitalia:: deferred *Routine Extremities Exam Extremities: Absent cyanosis, clubbing or edema *Routine Skin Exam Skin: Present warm; Absent rash *Routine Neurological Exam Neurological: Present alert and oriented X3 Assessment and Plan *Assessment and plan (1) Gastric fistula: Status: Acute Category: Medical Code(s): K31.6 - Fistula of stomach and duodenum (2) Belching: Status: Acute Category: Medical Code(s): R14.2 - Eructation (3) Nausea: Status: Acute Category: Medical Code(s): R11.0 - Nausea (4) Bloating: Status: Acute Category: Medical Code(s): R14.0 - Abdominal distension (gaseous) Plan A/P: 1. 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 The patient will be anesthetized/sedated using MAC sedation. The patient has been seen and examined. Cardiac and lung assessment prior to the examination is stable. Proceed with planned diagnostic EGD.
--- NOTE | 2025-03-09 07:22 | P.PCN_ITS ---
[facility] Procedure Note Date: 03/09/25 Time: 14:06 Procedure Note:: Upper Endoscopy Procedure Report: Esophagogastroduodenoscopy with over the scope (Ovesco) clip placement Endoscopost: William Georges II, MD Referring Physician: Alan Ortiz MD Date of Procedure: March 09, 2025 Equipment: Olympus GIF-1100 standard upper endoscope Sedation: MAC sedation Indications: Mrs. Agustin is a 60-year-old female who is here for diagnostic EGD. The patient has a history of dyspepsia and gastroparesis. The patient has had right upper quadrant abdominal pain. She has had bloating, gassiness and belching. Her disaccharidase assay was normal. She does have EPI/exocrine pancreatic insufficiency. 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 The patient is here for attempted closure of the gastric fistula with Ovesco clip. The examination is deemed medically necessary for diagnostic EGD. Procedure: Prior to the procedure, a history and physical exam was performed, and patient's medications and allergies were reviewed. The risks, benefits and alternatives of the sedation and procedure were discussed with the patient. All questions were answered and informed consent was obtained. The patient was brought to the procedure room. Patient identification and proposed procedure were verified by the physician and the nurse. The patient was placed in a left lateral decubitus position and the scope was passed under direct vision. Throughout the procedure, the patient's blood pressure, pulse, and oxygen saturations were monitored continuously. The upper GI endoscopy was accomplished without difficulty. The patient tolerated the procedure well. Findings: The scope was passed directly into the upper esophagus and advanced to the afferent blind jejunal limb and efferent limb of jejunum of the Aglindo-en-Y gastric bypass. The scope was withdrawn to the stomal anastomosis and the stomal anastomosis was widely patent with no stomal ulceration or erosion. The gastric pouch was visualized and there was a 9 to 10 mm fistula (from gastric pouch to poarch stomach) identified as identified previously. There was very mild reactive gastropathy of the pouch. The scope was then withdrawn into the esophagus. There was no evidence of reflux esophagitis and the remainder of the esophageal mucosa was normal. The scope was then withdrawn from the oropharynx. Next, the Ovesco (over the scope) clip was assembled to the endoscope. This is a super elastic nitinol clip applied via On the endoscope. The scope was then advanced to the gastric pouch and the fistula was identified. The fistula was suctioned into the cap device and then the Ovesco clip was deployed which completely closed the gastrogastric fistula from the excluded stomach. Impression: 1. 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 The fistula is can undermine the success of the GI Galindo-en-Y bypass.
[2025-03-09 12:28] VITALS: BP 109/54; PULSE 61; RESP 16; TEMP 36.6; O2SAT 99
[2025-03-09] MEDS: LACTATED RINGERS 1000ML 1,000 ML 50 ML IV (12:34)
[2025-03-09 12:53] LABS: POC Glucose,Bedside 94 gm/dL (70-110)
--- NOTE | 2025-03-09 13:05 | EXP.ANES.CKL ---
[facility] Disclaimer: The information contained in this section may have been updated after the patient was seen, as this information can be updated by other users. Medical History AMAURY (obstructive sleep apnea) On lifestyle modification only Allergic rhinitis History of asthma Overactive bladder Sleep apnea History of COVID-19 Asthma Anxiety and depression History of gastroesophageal reflux (GERD) Diabetes Allergies Hyperlipidemia Hypertension Post-nasal drainage Rhinitis medicamentosa Atrophic vaginitis Pelvic pain Dysuria Right lower quadrant abdominal pain Right hip pain Edema of left lower extremity Otitis media Bronchitis Sinusitis Osteoporosis Dyspnea 12/26/2023: Additional workup requested, (overnight oximetry on CPAP, chest x-ray PA and lateral, PFTs with walking test, pulmonology referral) Abnormal EKG Chest pain Dizziness Right wrist sprain Shoulder pain, left B12 deficiency Iron deficiency anemia Abdominal pain Posterior pain of left hip Pain in left thigh Left knee pain Abrasion, left knee, initial encounter Left foot pain Fall Cough Surgical History History of cholecystectomy History of tonsillectomy History of X3 History of hysterectomy H/O gastric bypass H/O shoulder surgery Previous back surgery Family History Other Cancer Colon cancer Social History Smoking Status: Never smoker alcohol intake: never counseling provided: none substance use type: denies use current occupational status: other Travel in the last 8 weeks?: None household members: spouse housing: house caffeine: No fire extinguisher in home: Yes carbon monox detector in home: Yes firearms in home: No do you feel safe at home: Yes victim of physical abuse: No victim of emotional abuse: No victim of sexual abuse: No would you like helpful sources: No Have you lived/traveled outside [place] in past 30 days?: No Contact w/someone who lives/traveled outside [place] past 30 days?: No Exposure to someone with infectious disease in past 14 days?: No Do you have a fever (greater than 100.4 F or 38 C)?: No Have you tested positive for COVID-19?: No Exposed to someone with COVID-19 in past 14 days?: No Do you have a sore throat?: No Do you have a cough?: No Do you have any weakness?: No Do you have any diarrhea?: No Are you experiencing any unusual bleeding?: No Do you have any muscle aches/pain?: No Do you have any abdominal pain?: No Are you experiencing loss of taste or smell?: No [facility] Anesthesia Checklist Patient Identification Patient Identification: Arm Band Structural Data Admitted From: Home Planned Operative Procedure/s: EGD Consent for Planned Operative Procedure(s) Verified: Yes Verified Documents: Surgical Consent and History and Physical NPO Status Verified Time NPO: 00:00 Additional verifications Anesthesia Reactions: No Hx Blood Transfusions: No Blood Transfusion Reaction: No Airway Assessment Mallampati Score:: Class II C-Spine Mobility Assessed: Yes TMJ Mobility Assessed: Yes Dentition: Good Dentition Neurological Assessment Level of Consciousness: Awake, Alert and Appropriate Anesthesia Plan Anesthesia Risk discussed: Yes Anesthesia Plan: Verified ASA Class: III Anesthesia Type: MAC
[2025-03-09 14:04] VITALS: BP 122/70; PULSE 67; RESP 20; TEMP 36.1; O2SAT 99
[2025-03-09 14:14] VITALS: BP 125/63; PULSE 64; O2SAT 100
[2025-03-09 14:24] VITALS: BP 133/72; PULSE 60; O2SAT 99
[2025-03-09 14:34] VITALS: BP 124/68; PULSE 59; O2SAT 100
[2025-03-09] MEDS: ONDANSETRON 4MG/2ML VIAL 4 MG (14:41)
== END 2025-03-09 14:34 | disposition home or self-care (01) ==
PROVIDERS: PCP Family Medicine; Visit Provider Internal Medicine Gastroenterology
PROC: 0DJ08ZZ Inspection of Upper Intestinal Tract, Via Natural or Artificial Opening Endoscopic (ICD-10-PCS; CPT 43999; principal; 2025-03-09 14:00)
DX: K31.6 Fistula of stomach and duodenum (principal); Z98.84 Bariatric surgery status; E11.9 Type 2 diabetes mellitus without complications; Z79.85 Long-term (current) use of injectable non-insulin antidiabetic drugs; K31.89 Other diseases of stomach and duodenum
CPT/HCPCS: 43999; 82962; J2003; J2405; J2704; J7120